=== PATIENT | female | born 1940 | race Caucasian/White ===

== ENCOUNTER 2017-09-28 08:21 | Outpatient (RCR) | payer MEDICARE, OTHER, SELFPAY ==
[2017-09-28 08:59] LABS: International Normalized Ratio 2.5
== END 2017-09-28 08:45 | disposition home or self-care (01) ==
LOC: LAB 08:21
PROVIDERS: Family Provider Family Medicine; PCP Family Medicine; Visit Provider Internal Medicine Cardiovascular Disease
DX: Z79.01 Long term (current) use of anticoagulants (principal)
CPT/HCPCS: 36415; 85610

== ENCOUNTER 2017-11-01 09:39 | Outpatient (RCR) | payer MEDICARE, OTHER, SELFPAY ==
[2017-11-01 11:07] LABS: International Normalized Ratio 2.2; Prothrombin Time (Protime)PT. 24.8 SECONDS (11.7-14.9)
[2017-11-01 11:29] LABS: Anion Gap 6 (5-15); BUN 15 mg/dL (7-18); BUN/Creat Ratio 18.3 RATIO (10-20); Calcium,Total 8.4 mg/dL (8.5-10.1); Chloride 96 mmol/L (98-107); Creatinine, Serum 0.82 mg/dL (0.55-1.02); EST Glomerular Filtration Rate 72 mL/min (>60); Est Glom Filt Rate - Afr Amer 87 mL/min (>60); Glucose 121 mg/dL (74-106); Potassium 4.4 mmol/L (3.5-5.1); Sodium Level 131 mmol/L (136-145)
== END 2017-11-01 10:00 | disposition home or self-care (01) ==
LOC: LAB 09:39
PROVIDERS: Physician Assistant Medical; Family Provider Family Medicine; PCP Family Medicine; Visit Provider Internal Medicine Cardiovascular Disease
DX: Z79.01 Long term (current) use of anticoagulants (principal)
CPT/HCPCS: 36415; 80048; 85610

== ENCOUNTER → 2017-11-09 08:12 | Outpatient (CLI) | payer MEDICARE, OTHER, SELFPAY ==
[2017-11-09 09:42] LABS: BUN 18 mg/dL (7-18); Creatinine, Serum 0.82 mg/dL (0.55-1.02); EST Glomerular Filtration Rate 72 mL/min (>60); Glucose 99 mg/dL (74-106)
[2017-11-09 09:43] LABS: Anion Gap 8 (5-15); BUN/Creat Ratio 22.1 RATIO (10-20); Calcium,Total 8.4 mg/dL (8.5-10.1); Chloride 93 mmol/L (98-107); Est Glom Filt Rate - Afr Amer 87 mL/min (>60); Potassium 4.4 mmol/L (3.5-5.1); Sodium Level 130 mmol/L (136-145)
== END ==
PROVIDERS: Family Provider Family Medicine; PCP Family Medicine; Visit Provider Physician Assistant Medical
DX: E87.1 Hypo-osmolality and hyponatremia (principal)
CPT/HCPCS: 36415; 80048

== ENCOUNTER 2017-12-19 10:47 | Outpatient (RCR) | payer MEDICARE, OTHER, SELFPAY ==
[2017-12-04 11:36] LABS: Prothrombin Time (Protime)PT. 31.3 SECONDS (11.7-14.9)
[2017-12-04 11:50] LABS: Anion Gap 8 (5-15); BUN 15 mg/dL (7-18); BUN/Creat Ratio 19.3 RATIO (10-20); Calcium,Total 8.4 mg/dL (8.5-10.1); Chloride 94 mmol/L (98-107); Creatinine, Serum 0.78 mg/dL (0.55-1.02); EST Glomerular Filtration Rate 76 mL/min (>60); Est Glom Filt Rate - Afr Amer 92 mL/min (>60); Glucose 100 mg/dL (74-106); Potassium 4.3 mmol/L (3.5-5.1); Sodium Level 130 mmol/L (136-145)
[2017-12-19 11:11] LABS: International Normalized Ratio 2.7; Prothrombin Time (Protime)PT. 29.2 SECONDS (11.7-14.9)
== END 2017-12-19 11:00 | disposition home or self-care (01) ==
LOC: LAB 10:47
PROVIDERS: Physician Assistant Medical; Family Provider Family Medicine; PCP Family Medicine; Visit Provider Internal Medicine Cardiovascular Disease
DX: Z79.01 Long term (current) use of anticoagulants (principal)
CPT/HCPCS: 36415; 80048; 85610

== ENCOUNTER → 2017-12-28 08:46 | Outpatient (CLI) | payer MEDICARE, OTHER, SELFPAY ==
[2017-12-28 09:53] LABS: Anion Gap 3 (5-15); BUN 14 mg/dL (7-18); BUN/Creat Ratio 15.4 RATIO (10-20); Calcium,Total 8.4 mg/dL (8.5-10.1); Chloride 102 mmol/L (98-107); Creatinine, Serum 0.91 mg/dL (0.55-1.02); EST Glomerular Filtration Rate 64 mL/min (>60); Est Glom Filt Rate - Afr Amer 77 mL/min (>60); Glucose 116 mg/dL (74-106); Potassium 4.1 mmol/L (3.5-5.1); Sodium Level 135 mmol/L (136-145)
[2017-12-28 10:03] LABS: Microalbumin,Random Urine 70.6 mg/L (NO RANGE EST.)
[2017-12-28 10:04] LABS: Microalbumin:Creatinine Ratio 213.3 mg/g CRE (<30 mg/g CRE)
== END ==
PROVIDERS: Family Provider Family Medicine; PCP Family Medicine; Visit Provider Internal Medicine Nephrology
DX: I10 Essential (primary) hypertension (principal)
CPT/HCPCS: 36415; 80048; 82043; 82570

== ENCOUNTER 2018-01-23 08:44 | Outpatient (RCR) | payer MEDICARE, OTHER, SELFPAY ==
[2018-01-23 09:53] LABS: International Normalized Ratio 2.5; Prothrombin Time (Protime)PT. 27.1 SECONDS (11.7-14.9)
== END 2018-01-23 09:00 | disposition home or self-care (01) ==
LOC: LAB 08:44
PROVIDERS: Family Provider Family Medicine; PCP Family Medicine; Visit Provider Internal Medicine Cardiovascular Disease
DX: Z79.01 Long term (current) use of anticoagulants (principal)
CPT/HCPCS: 36415; 85610

== ENCOUNTER 2018-02-16 23:51 | Emergency (ER) | payer MEDICARE, OTHER, SELFPAY ==
[2018-02-16 23:52] VITALS: BP 204/96; PULSE 79; RESP 15; TEMP 36.9; O2SAT 98; BMI 23.3
[2018-02-17 00:16] VITALS: BP 190/84; PULSE 74; RESP 14; O2SAT 96
--- NOTE | 2018-02-17 00:23 | CT_ITS ---
STUDY: CT BRAIN WITHOUT CONTRAST REASON FOR EXAM: Female, 77 years old. HTN WITH LOVE AND ON COUMADIN, DIZZINESS, NAUSEA, HX CVA, HYSTERECTOMY, ARRYTHMIA'S RADIATION DOSAGE (If Supplied By Facility): CTDIvol = ( 44.99 ) mGy, DLP = ( 762.36 ) mGycm TECHNIQUE: Transaxial CT imaging of the brain was performed without administration of intravenous contrast material. Individualized dose optimization techniques were used for this CT. COMPARISON: None. FINDINGS: Normal soft tissue structures. Normal calvarium. Normal size ventricles and extra-axial spaces for the patient's age. There are areas of decreased attenuation within the white matter tracts of the supratentorial brain, consistent with microvascular disease changes. Normal basal ganglia and thalami. Normal brainstem. Normal cerebellum. There is no intracranial hemorrhage. There are no findings of an acute ischemic infarction. Normal visualized paranasal sinuses. CT/Brain/Head without Contrast IMPRESSION: Chronic involutional changes of the brain. Electronically Signed: Dexter Enciso MD at 2:15 EDT Tel , Service support ,
--- NOTE | 2018-02-17 00:24 | ED.VISSUMM ---
- ER Visit Summary Date of Service: 02/17/18 Chief Complaint: Elevated blood pressure with headache History of Present Illness: The patient is a 77 F treated for chronic hypertension with also history of A. fib on Coumadin. Patient states her blood pressure is elevated at 190/90 at home she had a diffuse headache which was gradual in onset. She denies any neurological symptoms. She denies any fall or head trauma. She denies any chest pain or shortness of breath. Physical Examination: Well appearing elderly female. Vital signs are stable afebrile. Initial blood pressure 204/96. H EENT exam unremarkable. Pupils round reactive light. Extra motions are intact. Normal speech. No facial droop. No facial or head trauma. Neck nontender. Lungs clear to auscultation bilaterally. Heart regular rhythm no murmur currently. Abdomen soft nontender. Moving all 4 extremities. Neurologically she is awake alert with no focal motor deficits. Test Results: CBC normal. BMP shows sodium was low at 127. Otherwise normal BUN and creatinine and gap. INR was 2.7 secondary to her history of being on Coumadin. CAT scan of her brain is read by the radiologist reviewed by me showed chronic changes but no acute process. No acute bleed. Emergency Department Course and Treatment: Elderly female with acute on chronic hypertension with a headache. Due to her being on Coumadin plus her elevation of blood pressure she will undergo a CT of her brain for screening labs. Treatment Plan: Repeat exam patient is doing very well at 03 40 9 in the morning. Her current blood pressure is 139/68 and she was not given any treatment for her blood pressure that came down on its own. Her headache is nearly completely resolved. Her neurologic exam remains normal. I went over all test with both her and her . She does need to have her sodium level rechecked by her primary care physician this week. She will also log her blood pressures and follow-up to see if they may need to make any medication changes Disposition: Discharge Impression: Acute on chronic hypertension Anticoagulated on Coumadin Acute cephalgia Mild hyponatremia This note was generated with Hunger[employer] software. It may contain incorrect words, spelling, and punctuation that were not noted in review of the chart prior to signing ED Disposition - Plan for ED Patient: Chief Complaint: Hypertension Referrals: Dillon Brasher MD [Primary Care Provider] -
[2018-02-17 00:38] LABS: Hematocrit 39.1 % (37-47); Hemoglobin 13.6 g/dl (12.0-15.0); Mean Corp Hgb Conc 34.8 g/gl (32-36); Mean Corpuscular Hgb 31.3 pg (27.0-32.0); Mean Corpuscular Volume 89.9 fL (81-99); Mean Platelet Vol. 10.3 fl (6.2-12.0); Platelet Count 275 K/mm3 (150-450); RBC Distribution Width CV 14.4 % (11.6-14.6); RBC Distribution Width SD 47.1 fl (35.1-43.9); Red Blood Count 4.35 M/mm3 (4.2-5.4)
[2018-02-17 00:49] LABS: Scan Indicated on CBC? Y/N NO
[2018-02-17 01:00] LABS: International Normalized Ratio 2.7; Prothrombin Time (Protime)PT. 28.5 SECONDS (11.7-14.9)
[2018-02-17] MEDS: Acetaminophen 325 MG Tablet 650 MG PO (01:08)
[2018-02-17 02:00] VITALS: BP 150/71; PULSE 75; RESP 18; O2SAT 96
[2018-02-17 02:10] LABS: Anion Gap 6 (5-15); BUN 19 mg/dL (7-18); BUN/Creat Ratio 20.5 RATIO (10-20); Calcium,Total 8.4 mg/dL (8.5-10.1); Chloride 92 mmol/L (98-107); Creatinine, Serum 0.92 mg/dL (0.55-1.02); EST Glomerular Filtration Rate 62 mL/min (>60); Est Glom Filt Rate - Afr Amer 76 mL/min (>60); Glucose 140 mg/dL (74-106); Potassium 4.3 mmol/L (3.5-5.1); Sodium Level 127 mmol/L (136-145)
--- NOTE | 2018-02-17 03:52 | ED.DEP ---
ED Disposition - Plan for ED Patient: Disposition: Home or Assisted Living Chief Complaint: Hypertension Instructions: ED Hypertension Conf Out Of Control, ED Hyponatremia Referrals: Dillon Brasher MD [Primary Care Provider] - As soon as possible Additional Instructions: On follow-up with Dr. Dillon Brasher. You and he can discuss your blood pressure readings and if he may or may not need to change her blood pressure medications. Your sodium level was low today at 127. That needs to be rechecked this week through Dr. Brasher's office. You may add salt to your food this week.
[2018-02-17 03:59] VITALS: BP 136/68; PULSE 80; RESP 16; O2SAT 98
== END 2018-02-17 04:00 | disposition home or self-care (01) ==
PROVIDERS: Emergency Provider Emergency Medicine; Family Provider Family Medicine; PCP Family Medicine
DX: I10 Essential (primary) hypertension (principal); E87.1 Hypo-osmolality and hyponatremia; I48.91 Unspecified atrial fibrillation; Z79.01 Long term (current) use of anticoagulants; Z79.899 Other long term (current) drug therapy; Z86.73 Personal history of transient ischemic attack (TIA), and cerebral infarction without residual deficits; Z90.710 Acquired absence of both cervix and uterus
CPT/HCPCS: 70450; 80048; 85027; 85610; 99285; A4216

== ENCOUNTER 2018-02-19 10:58 | Outpatient (RCR) | payer MEDICARE, OTHER, SELFPAY ==
[2018-02-19 12:17] LABS: International Normalized Ratio 2.6; Prothrombin Time (Protime)PT. 28.3 SECONDS (11.7-14.9)
== END 2018-02-19 12:00 | disposition home or self-care (01) ==
LOC: LAB 10:58
PROVIDERS: Family Provider Family Medicine; PCP Family Medicine; Visit Provider Internal Medicine Cardiovascular Disease
DX: Z79.01 Long term (current) use of anticoagulants (principal)
CPT/HCPCS: 36415; 85610

== ENCOUNTER → 2018-03-04 09:52 | Outpatient (CLI) | payer MEDICARE, OTHER, SELFPAY ==
[2018-03-04 12:27] LABS: Anion Gap 9 (5-15); BUN 15 mg/dL (7-18); Calcium,Total 8.4 mg/dL (8.5-10.1); Chloride 93 mmol/L (98-107); Creatinine, Serum 0.88 mg/dL (0.55-1.02); EST Glomerular Filtration Rate 66 mL/min (>60); Est Glom Filt Rate - Afr Amer 80 mL/min (>60); Glucose 93 mg/dL (74-106); Potassium 4.2 mmol/L (3.5-5.1); Sodium Level 129 mmol/L (136-145)
== END ==
PROVIDERS: Visit Provider Family Medicine
DX: E87.1 Hypo-osmolality and hyponatremia (principal)
CPT/HCPCS: 36415; 80048

== ENCOUNTER → 2018-03-14 11:30 | Outpatient (CLI) | payer MEDICARE, OTHER, SELFPAY ==
[2018-03-14 12:45] LABS: Anion Gap 6 (5-15); BUN 18 mg/dL (7-18); BUN/Creat Ratio 20.3 RATIO (10-20); Calcium,Total 8.5 mg/dL (8.5-10.1); Chloride 96 mmol/L (98-107); Creatinine, Serum 0.89 mg/dL (0.55-1.02); EST Glomerular Filtration Rate 65 mL/min (>60); Est Glom Filt Rate - Afr Amer 79 mL/min (>60); Glucose 98 mg/dL (74-106); Potassium 4.3 mmol/L (3.5-5.1); Sodium Level 132 mmol/L (136-145)
== END ==
PROVIDERS: Family Provider Family Medicine; PCP Family Medicine; Visit Provider Family Medicine
DX: E87.1 Hypo-osmolality and hyponatremia (principal)
CPT/HCPCS: 36415; 80048

== ENCOUNTER → 2018-03-19 13:39 | Outpatient (CLI) | payer MEDICARE, OTHER, SELFPAY | PROVIDERS: Family Provider Family Medicine; PCP Family Medicine; Visit Provider Family Medicine | DX: R39.9 Unspecified symptoms and signs involving the genitourinary system (principal) | CPT/HCPCS: 87077; 87086; 87088; 87186 ==

== ENCOUNTER 2018-03-26 09:25 | Outpatient (RCR) | payer MEDICARE, OTHER, SELFPAY ==
[2018-03-26 10:53] LABS: International Normalized Ratio 2.7; Prothrombin Time (Protime)PT. 28.9 SECONDS (11.7-14.9)
[2018-03-26 11:00] LABS: Albumin, Serum 3.7 g/dL (3.2-5.0); BUN 13 mg/dL (7-18); BUN/Creat Ratio 14.9 RATIO (10-20); Calcium,Total 8.7 mg/dL (8.5-10.1); Chloride 94 mmol/L (98-107); Creatinine, Serum 0.87 mg/dL (0.55-1.02); EST Glomerular Filtration Rate 67 mL/min (>60); Est Glom Filt Rate - Afr Amer 81 mL/min (>60); Glucose 128 mg/dL (74-106); Phosphorus 3.5 mg/dL (2.5-4.9); Potassium 4.3 mmol/L (3.5-5.1); Sodium Level 131 mmol/L (136-145)
== END 2018-03-26 11:00 | disposition home or self-care (01) ==
LOC: LAB 09:25
PROVIDERS: Family Provider Family Medicine; PCP Family Medicine; Visit Provider Internal Medicine Cardiovascular Disease
DX: I10 Essential (primary) hypertension (principal); Z79.01 Long term (current) use of anticoagulants
CPT/HCPCS: 36415; 80069; 85610

== ENCOUNTER → 2018-04-02 09:11 | Outpatient (CLI) | payer MEDICARE, OTHER, SELFPAY ==
[2018-04-02 11:04] LABS: Anion Gap 5 (5-15); BUN 17 mg/dL (7-18); BUN/Creat Ratio 18.4 RATIO (10-20); Chloride 96 mmol/L (98-107); Cholesterol 134 mg/dL (200); Creatinine, Serum 0.92 mg/dL (0.55-1.02); EST Glomerular Filtration Rate 62 mL/min (>60); Est Glom Filt Rate - Afr Amer 76 mL/min (>60); Glucose 108 mg/dL (74-106); High Density Lipoprotein 45 mg/dL; Potassium 4.5 mmol/L (3.5-5.1); Sodium Level 131 mmol/L (136-145); Triglycerides 104 mg/dL; Very Low Density Lipoprotein 21 mg/dL (5-40)
== END ==
PROVIDERS: Family Provider Family Medicine; PCP Family Medicine; Visit Provider Family Medicine
DX: I10 Essential (primary) hypertension (principal)
CPT/HCPCS: 36415; 80048; 80061

== ENCOUNTER 2018-05-03 09:41 | Outpatient (RCR) | payer MEDICARE, OTHER, SELFPAY ==
[2018-04-25 15:29] LABS: International Normalized Ratio 2.4; Prothrombin Time (Protime)PT. 26.3 SECONDS (11.7-14.9)
[2018-05-03 11:02] LABS: International Normalized Ratio 2.6; Prothrombin Time (Protime)PT. 27.8 SECONDS (11.7-14.9)
== END 2018-05-03 11:00 | disposition home or self-care (01) ==
LOC: LAB 09:41
PROVIDERS: Family Provider Family Medicine; PCP Family Medicine; Visit Provider Internal Medicine Cardiovascular Disease
DX: Z79.01 Long term (current) use of anticoagulants (principal); I10 Essential (primary) hypertension
CPT/HCPCS: 36415; 85610

== ENCOUNTER 2018-05-21 07:21 | Outpatient (RCR) | payer MEDICARE, OTHER, SELFPAY ==
[2018-05-14 15:39] LABS: International Normalized Ratio 2.5; Prothrombin Time (Protime)PT. 27.4 SECONDS (11.7-14.9)
[2018-05-21 08:32] LABS: International Normalized Ratio 2.3; Prothrombin Time (Protime)PT. 25.6 SECONDS (11.7-14.9)
== END 2018-06-02 11:38 | disposition home or self-care (01) ==
LOC: LAB 07:21
PROVIDERS: Family Provider Family Medicine; PCP Family Medicine; Visit Provider Internal Medicine Cardiovascular Disease
DX: Z79.01 Long term (current) use of anticoagulants (principal); I10 Essential (primary) hypertension
CPT/HCPCS: 36415; 85610

== ENCOUNTER → 2018-05-24 09:49 | Outpatient (CLI) | payer MEDICARE, OTHER, SELFPAY | PROVIDERS: Family Provider Family Medicine; PCP Family Medicine; Visit Provider Family Medicine | DX: N39.0 Urinary tract infection, site not specified (principal) | CPT/HCPCS: 87086; 87088; 87186 ==

== ENCOUNTER → 2018-06-26 12:06 | Outpatient (CLI) | payer MEDICARE, OTHER, SELFPAY | PROVIDERS: Family Provider Family Medicine; PCP Family Medicine; Referring Provider Nurse Practitioner Family; Visit Provider Nurse Practitioner Family | DX: N39.0 Urinary tract infection, site not specified (principal) | CPT/HCPCS: 87086; 87088; 87186 ==

== ENCOUNTER 2018-07-01 09:53 | Outpatient (RCR) | payer MEDICARE, OTHER, SELFPAY ==
[2018-06-05 13:13] LABS: International Normalized Ratio 2.9; Prothrombin Time (Protime)PT. 30.1 SECONDS (11.7-14.9)
[2018-06-26 12:39] LABS: Prothrombin Time (Protime)PT. 35.2 SECONDS (11.7-14.9)
[2018-06-26 12:42] LABS: International Normalized Ratio 3.5
[2018-07-01 10:47] LABS: International Normalized Ratio 2.9; Prothrombin Time (Protime)PT. 30.7 SECONDS (11.7-14.9)
== END 2018-07-01 11:00 | disposition home or self-care (01) ==
LOC: LAB 09:53
PROVIDERS: Family Provider Family Medicine; PCP Family Medicine; Referring Provider Internal Medicine Cardiovascular Disease; Visit Provider Internal Medicine Cardiovascular Disease
DX: Z79.01 Long term (current) use of anticoagulants (principal); N39.0 Urinary tract infection, site not specified
CPT/HCPCS: 36415; 85610; 87086

== ENCOUNTER → 2018-07-02 07:09 | Outpatient (CLI) | payer MEDICARE, OTHER, SELFPAY ==
--- NOTE | 2018-07-02 07:14 | ECHOD_ITS ---
Reason For Study: DYSPNEA/SOB Procedure This was a 2D Doppler, Color Flow transthoracic echocardiogram. The exam was of adequate technical quality. Exam performed in department. Left Ventricle Normal LV size. Left ventricular systolic function is normal. The estimated ejection fraction is 55 %. Diastolic function is indeterminate. No regional wall motion abnormalities noted. Right Ventricle Normal RV size. Normal systolic function. Atria The left atrium is mildly enlarged. The right atrium is mildly enlarged. No doppler evidence for ASD. Mitral Valve There is no mitral annular calcification. Mild diffuse mitral valve thickening. The mitral papillary muscle appears thickened and/or calcified. Mild-Moderate (1-2+) mitral valve insufficiency. Tricuspid Valve Normal tricuspid valve. Mild tricuspid valve insufficiency. Right ventricular systolic pressure estimated to be 27 mmHg. Aortic Valve Trisinus/trileaflet aortic valve. Mild diffuse aortic valve thickening. Pulmonic Valve The pulmonic valve is not well visualized. Trivial pulmonic valve insufficiency. Great Vessels Normal sized aortic root. Pericardium/Pleural No pericardial effusion. MMode/2D Measurements & Calculations LVIDd: 4.6 cm IVSd: 1.1 cm Ao root diam: 3.1 cm LVIDs: 2.8 cm LVPWd: 1.0 cm RVDd: 2.5 cm FS: 38.5 % LAV(MOD-bp): 44.7 ml LA A4 area: 15.5 cm2 LA dimension(2D): 4.1 cm LAV(MOD-bp) Indexed: 25.4 ml/m2 LAV(MOD-sp2): 47.4 ml LAV(MOD-sp4): 42.1 ml RA A4 area: 15.0 cm2 Doppler Measurements & Calculations MV E max navarro: 87.7 cm/sec Lat Peak E' Navarro: 7.9 cm/sec Med Peak E' Navarro: 6.4 cm/sec E/E' lat: 11.1 E/E' med: 13.8 Ao V2 max: 92.6 cm/sec LV V1 max: 85.1 cm/sec PA V2 max: 72.3 cm/sec Ao max P.4 mmHg LV V1 max P.9 mmHg TR max navarro: 243.7 cm/sec TR max P.8 mmHg Interpretation Summary Left ventricular systolic function is normal. The estimated ejection fraction is 55 %. The left atrium is mildly enlarged. The right atrium is mildly enlarged. Mild diffuse mitral valve thickening. The mitral papillary muscle appears thickened and/or calcified. Mild-Moderate (1-2+) mitral valve insufficiency. Mild tricuspid valve insufficiency. Mild diffuse aortic valve thickening. Trivial pulmonic valve insufficiency. Right ventricular systolic pressure estimated to be 27 mmHg. Diastolic function is indeterminate. Ordering Physician: Dillon Sanchez Referring Physician: Dillon Brasher Performed By: Nancy Kirkland, CAREN, RVT
--- NOTE | 2018-07-02 11:01 | BI_ITS ---
MAMMOGRAPHY - BILATERAL SCREENING REASON FOR EXAM: Female, 78 years old. Routine annual screening examination. PERTINENT HISTORY: Non-contributory. Remote right excisional breast biopsy. TECHNIQUE: Digital bilateral breast cristina (3D mammographic acquisition) in the CC and MLO projections. 2-D mediolateral oblique (MLO) and craniocaudad (CC) views of both breasts were obtained. CAD: Full Field Digital Mammography with Computer Added Detection was performed. COMPARISON: Comparison is made with prior outside examination dated August 28, 2014. FINDINGS: Breast Composition: There are scattered areas of fibroglandular density. There are no dominant masses or suspicious calcifications. No other significant abnormalities are identified. There has been no significant change since the prior study. BI/SCREENING MAMM (CAD), BILAT IMPRESSION: Stable bilateral screening mammogram. Yearly follow-up mammogram recommended. (A) ASSESSMENT CATEGORY: BIRADS Category 1: Negative. A letter regarding these results will be sent to the patient by the facility within 30 days. Approximately 10% of breast cancers are not detected by mammography. A normal mammogram should not delay biopsy of a clinically suspicious abnormality. [id number] Electronically Signed: Eber Cruz MD at 13:17 EDT Tel [phone], Service support ,
--- NOTE | 2018-07-02 14:52 | STRESSREP ---
Stress Test Report Date: 07/02/2018 Procedure: Pharmacologic stress nuclear imaging study Indications: Shortness of breath/dyspnea on exertion; atrial fibrillation/flutter Consent: Per the patient Procedure: The patient underwent pharmacologic (Regadenoson) evaluation with a peak heart rate of 98 beats per minute (69 predicted maximal heart rate) and a peak blood pressure of 124/86 mmHg. The baseline ECG demonstrated atrial flutter with nonspecific ST and T wave abnormality. The peak pharmacologic ECG demonstrated continued nonspecific ST and T wave abnormality. There were no additional cardiac dysrhythmias. There was no complaint of chest discomfort during pharmacologic infusion or recovery. The examination was discontinued secondary to completion of protocol. Impression: 1. Pharmacologic (Regadenoson) evaluation 2. Peak pharmacologic ECG with continued atrial flutter with nonspecific ST and T wave abnormality. 3. There were no additional cardiac dysrhythmias. 4. Nuclear images pending Myocardial perfusion imaging study: Technique: The patient was injected with 11.4 millicuries of technetium 99m Cardiolite and subsequently rest SPECT Cardiolite nuclear imaging was obtained in the horizontal long, vertical long, and short axis views. The patient underwent pharmacologic (Regadenoson) evaluation with a peak heart rate of 98 beats per minute (69 % percent predicted maximal heart rate) and a peak blood pressure of 124/86 mmHg. The patient was injected with 33.7 millicuries of technetium 99m Cardiolite and subsequently stress SPECT Cardiolite nuclear imaging was obtained in the horizontal long, vertical long, and short axis views. A gated Cardiolite study at peak stress was obtained. Interpretation: Rest and stress SPECT Cardiolite nuclear imaging status post realignment, normalization, and attenuation correction demonstrate areas of extracardiac/gastrointestinal tracer uptake near the inferior segments and otherwise appear to demonstrate relative uniform tracer uptake and myocardial perfusion appearing within normal limits. There is end systolic thickening and brightening. The gated Cardiolite study demonstrates myocardial thickening and inward wall motion. The reported LVEF is 44 %. Impression: 1. Rest and stress SPECT Cardiolite nuclear imaging demonstrate relative uniform tracer uptake and myocardial perfusion appearing within normal limits. 2. The gated Cardiolite study reports an LVEF of 44 %. This note was generated with [employer] software. It may contain incorrect words, spelling, and punctuation that were not noted in checking the note before signing.
== END ==
PROVIDERS: Family Provider Family Medicine; PCP Family Medicine; Referring Provider Internal Medicine Cardiovascular Disease; Visit Provider Family Medicine
DX: Z12.31 Encounter for screening mammogram for malignant neoplasm of breast (principal); I48.91 Unspecified atrial fibrillation; I34.1 Nonrheumatic mitral (valve) prolapse; I10 Essential (primary) hypertension; E78.5 Hyperlipidemia, unspecified; R06.09 Other forms of dyspnea
CPT/HCPCS: 77063; 77067; 78452; 93017; 93306; A9500; A4216; J2785

== ENCOUNTER → 2018-07-04 13:49 | Outpatient (CLI) | payer MEDICARE, OTHER, SELFPAY | PROVIDERS: Family Provider Family Medicine; PCP Family Medicine; Referring Provider Internal Medicine Cardiovascular Disease; Visit Provider Internal Medicine Cardiovascular Disease | DX: I48.91 Unspecified atrial fibrillation (principal); I25.10 Atherosclerotic heart disease of native coronary artery without angina pectoris; I49.1 Atrial premature depolarization; I49.3 Ventricular premature depolarization | CPT/HCPCS: 93225; 93226 ==

== ENCOUNTER → 2018-07-19 15:06 | Outpatient (CLI) | payer MEDICARE, OTHER, SELFPAY ==
[2018-07-19 11:16] VITALS: BMI 22.7
== END ==
PROVIDERS: Visit Provider Obstetrics & Gynecology
DX: N39.0 Urinary tract infection, site not specified (principal)
CPT/HCPCS: 87086; 87088

== ENCOUNTER 2018-07-30 07:52 | Outpatient (RCR) | payer MEDICARE, OTHER, SELFPAY ==
[2018-07-16 10:52] LABS: International Normalized Ratio 2.8; Prothrombin Time (Protime)PT. 29.3 SECONDS (11.7-14.9)
[2018-07-23 09:30] LABS: International Normalized Ratio 3.1; Prothrombin Time (Protime)PT. 32.2 SECONDS (11.7-14.9)
[2018-07-23 09:43] LABS: Anion Gap 4 (5-15); BUN 12 mg/dL (7-18); BUN/Creat Ratio 13.9 RATIO (10-20); Calcium,Total 8.5 mg/dL (8.5-10.1); Chloride 101 mmol/L (98-107); Creatinine, Serum 0.86 mg/dL (0.55-1.02); EST Glomerular Filtration Rate 67 mL/min (>60); Est Glom Filt Rate - Afr Amer 82 mL/min (>60); Glucose 122 mg/dL (74-106); Sodium Level 136 mmol/L (136-145)
[2018-07-30 09:25] LABS: International Normalized Ratio 2.8
== END 2018-08-02 11:18 | disposition home or self-care (01) ==
LOC: LAB 07:52
PROVIDERS: Family Provider Family Medicine; PCP Family Medicine; Referring Provider Internal Medicine Cardiovascular Disease; Visit Provider Internal Medicine Cardiovascular Disease
DX: Z79.01 Long term (current) use of anticoagulants (principal); N39.0 Urinary tract infection, site not specified
CPT/HCPCS: 36415; 80048; 85610

== ENCOUNTER 2018-08-13 10:23 | Day surgery (SDC) | payer MEDICARE, OTHER, SELFPAY ==
[2018-07-19 11:16] VITALS: BMI 22.7
[2018-08-12 10:03] VITALS: BMI 22.7
[2018-08-13 10:36] LABS: Prothrombin Time Fingerstick 26.7 SEC (11.9-14.4)
--- NOTE | 2018-08-13 14:14 | PCM.OP.BLANK ---
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 Qualifiers: Comment: not angiographically significant on a cath in 2007 (7) DM type 2 (diabetes mellitus, type 2) Status: Chronic Comment: diet controlled (8) HLD (hyperlipidemia) Status: Chronic Qualifiers: (9) HTN (hypertension) Status: Chronic Qualifiers: (10) Mitral valve prolapse Status: Chronic Operative Report Date of Procedure: 08/13/18 - Conscious sedation CONSCIOUS SEDATION REPORT BRIEF HISTORY OF PRESENT ILLNESS: The patient is a 78-year-old female who presented to [facility] for an elective outpatient cardioversion due to underlying atrial fibrillation. The patient reports no PO intake since midnight. The patient does not have a history of obstructive sleep apnea. The patient reports no history of smoking and COPD. The patient denies any recent constitutional symptoms such as fevers, chills, nausea or vomiting. The patient denies previous anesthetic complications. Last known ejection fraction of 55% PHYSICAL EXAMINATION: VITAL SIGNS: Reviewed and were acceptable. GENERAL: The patient is a female, in no apparent distress, speaking in full sentences. HEENT: Normocephalic, atraumatic. Mucous membranes are moist and pink. Good mouth opening noted. Trachea is midline. Good neck mobility. MP II CHEST: S1, S2 irregularly irregular. No murmurs, rubs or gallops were noted. LUNGS: Clear to auscultation bilaterally without appreciable wheezes, rales or rhonchi. ABDOMEN: Soft, nontender, nondistended. Positive bowel sounds. EXTREMITIES: There is no clubbing, cyanosis or edema. ASA Class: II DESCRIPTION OF PROCEDURE: After confirmation of informed consent, the patient's anesthesia plan was reviewed in detail. Propofol was chosen. Risks and benefits were reviewed and the patient agreed to proceed. At 11:29 AM, the patient was given 40 mg of propofol. The patient required a total of 50 mg of propofol throughout the procedure to achieve appropriate sedation. The patient achieved an appropriate level of sedation and received 1 attempt s synchronized cardioversion, at [address] Sanchez at the bedside. This was successful in achieving normal sinus rhythm. The patient was monitored until 11:38 AM, at which time the patient reached their baseline mental status and function. The patient tolerated the procedure well. COMPLICATIONS: None ESTIMATED BLOOD LOSS: None RECOMMENDATIONS: Okay to recover in usual fashion. Code Visit 9xxxx: Other Procedure See Report - 55036 -9 minutes of conscious sedation
--- NOTE | 2018-08-13 14:17 | OP.PCM_ITS ---
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 The patient reports no PO intake since midnight. The patient does not have a history of obstructive sleep apnea. The patient reports no history of smoking and COPD. The patient denies any recent constitutional symptoms such as fevers, chills, nausea or vomiting. The patient denies previous anesthetic complications. Last known ejection fraction of 55% PHYSICAL EXAMINATION: VITAL SIGNS: Reviewed and were acceptable. GENERAL: The patient is a female, in no apparent distress, speaking in full sentences. HEENT: Normocephalic, atraumatic. Mucous membranes are moist and pink. Good mouth opening noted. Trachea is midline. Good neck mobility. MP II CHEST: S1, S2 irregularly irregular. No murmurs, rubs or gallops were noted. LUNGS: Clear to auscultation bilaterally without appreciable wheezes, rales or rhonchi. ABDOMEN: Soft, nontender, nondistended. Positive bowel sounds. EXTREMITIES: There is no clubbing, cyanosis or edema. ASA Class: II DESCRIPTION OF PROCEDURE: After confirmation of informed consent, the patient's anesthesia plan was reviewed in detail. Propofol was chosen. Risks and benefits were reviewed and the patient agreed to proceed. At 11:29 AM, the patient was given 40 mg of propofol. The patient required a total of 50 mg of propofol throughout the procedure to achieve appropriate sedation. The patient achieved an appropriate level of sedation and received 1 attempt s synchronized cardioversion, at [address] Sanchez at the bedside. This was successful in achieving normal sinus rhythm. The patient was monitored until 11:38 AM, at which time the patient reached their baseline mental status and function. The patient tolerated the procedure well. COMPLICATIONS: None ESTIMATED BLOOD LOSS: None RECOMMENDATIONS: Okay to recover in usual fashion. Code Visit 9xxxx: Other Procedure See Report - 46662 -9 minutes of conscious sedation
--- NOTE | 2018-08-13 16:19 | OP.PCM_ITS ---
Problem List (1) Atrial fibrillation Status: Acute Qualifiers: Atrial fibrillation type: chronic Qualified Code(s): I48.2 - Chronic atrial fibrillation Operative Report Date of Procedure: 08/13/18 Procedure: Synchronized Biphasic DC Cardioversion Indications: Atrial fibrillation/flutter Consent: Per the Patient Anesthesia: per Dr. Fritz of pulmonology and critical care medicine with propofol 50 mg IV push total Procedure: Synchronized Biphasic DC Cardioversion: 200 J x1: Result: Sinus rhythm; PACs Complications: no apparent complications This note was generated with [employer] Command dictation software. It may contain incorrect words, spelling, and punctuation that were not noted in checking the note before signing.
--- OUTSIDE RECORDS SUMMARY | 2018-09-29 10:48 | XMS RPT_ITS ---
:1940 Author Organization OHIP Support Name Relationship Address Phone IVY CHAPPELL Unavailable [address] + [place] [address] R Unavailable Unavailable Unavailable CHAPPELL, IVY Unavailable [address] + [place] [address] R Unavailable Unavailable Unavailable CHAPPELL, IVY Unavailable [address] + [place] [address] R Unavailable Unavailable Unavailable CHAPPELL, IVY Unavailable [address] + [place] [address] R Unavailable Unavailable Unavailable CHAPPELL, IVY Unavailable [address] + [place] [address] R Unavailable Unavailable Unavailable CHAPPELL, IVY Unavailable [address] + [place] [address] R Unavailable Unavailable Unavailable CHAPPELL, IVY Unavailable [address] + [place] [address] R Unavailable Unavailable Unavailable CHAPPELL, IVY Unavailable [address] + [place] [address] R Unavailable Unavailable Unavailable CHAPPELL, IVY Unavailable [address] + [place] [address] R Unavailable Unavailable Unavailable CHAPPELL, IVY Unavailable [address] + [place] [address] R Unavailable Unavailable Unavailable CHAPPELL, IVY Unavailable [address] + [place] [address] R Unavailable Unavailable Unavailable CHAPPELL, IVY Unavailable [address] + [place] [address] R Unavailable Unavailable Unavailable CHAPPELL, IVY Unavailable [address] + [place] [address] R Unavailable Unavailable Unavailable CHAPPELL, IVY Unavailable [address] + [place] [address] R Unavailable Unavailable Unavailable CHAPPELL, IVY Unavailable [address] + [place] [address] R Unavailable Unavailable Unavailable CHAPPELL, IVY Unavailable [address] + [place] [address] R Unavailable Unavailable Unavailable CHAPPELL, IVY Unavailable [address] + [place] [address] R Unavailable Unavailable Unavailable CHAPPELL, IVY Unavailable [address] + [place] [address] R Unavailable Unavailable Unavailable CHAPPELL, IVY Unavailable [address] + [place] [address] R Unavailable Unavailable Unavailable CHAPPELL, IVY Unavailable [address] + [place] [address] R Unavailable Unavailable Unavailable CHAPPELL, IVY Unavailable [address] + [place] [address] R Unavailable Unavailable Unavailable CHAPPELL, IVY Unavailable [address] + [place] [address] R Unavailable Unavailable Unavailable CHAPPELL, IVY Unavailable [address] + [place] [address] R Unavailable Unavailable Unavailable CHAPPELL, IVY Unavailable [address] + [place] [address] R Unavailable Unavailable Unavailable CHAPPELL, IVY Unavailable [address] + [place] [address] R Unavailable Unavailable Unavailable CHAPPELL, IVY Unavailable [address] + [place] [address] R Unavailable Unavailable Unavailable CHAPPELL, IVY Unavailable [address] + [place] [address] R Unavailable Unavailable Unavailable CHAPPELL, IVY Unavailable [address] + [place] [address] R Unavailable Unavailable Unavailable CHAPPELL, IVY Unavailable [address] + [place] [address] R Unavailable Unavailable Unavailable CHAPPELL, IVY Unavailable [address] + [place] [address] R Unavailable Unavailable Unavailable CHAPPELL, IVY Unavailable [address] + [place] [address] R Unavailable Unavailable Unavailable CHAPPELL, IVY Unavailable [address] + [place] [address] R Unavailable Unavailable Unavailable CHAPPELL, IVY Unavailable [address] + [place] [address] R Unavailable Unavailable Unavailable CHAPPELL, IVY Unavailable [address] + [place] [address] R Unavailable Unavailable Unavailable CHAPPELL, IVY Unavailable [address] + [place] [address] R Unavailable Unavailable Unavailable CHAPPELL, IVY Unavailable [address] + [place] [address] R Unavailable Unavailable Unavailable CHAPPELL, IVY Unavailable [address] + [place] [address] R Unavailable Unavailable Unavailable CHAPPELL, IVY Unavailable [address] + [place] [address] R Unavailable Unavailable Unavailable CHAPPELL, IVY Unavailable [address] + [place] [address] R Unavailable Unavailable Unavailable Care Team Providers Name Role Phone Dillon Doherty Attending Unavailable Dillon Doherty Referring Unavailable Dillon Brasher Primary Care Unavailable Dillon Doherty Consulting Unavailable Leno Fritz Attending Unavailable Dillon Doherty Referring Unavailable Dillon Brasher Primary Care Unavailable Dillon Doherty Consulting Unavailable Dillon Doherty Attending Unavailable Dillon Brasher Referring Unavailable Dillon Doherty Attending Unavailable Dillon Doherty Referring Unavailable Dillon Brasher Primary Care Unavailable Dillon Doherty Attending Unavailable Dillon Brasher Referring Unavailable Libra Beckwith Attending Unavailable Libra Beckwith Referring Unavailable Dillon Brasher Primary Care Unavailable Dillon Doherty Attending Unavailable Dillon Doherty Referring Unavailable Dillon Brasher Primary Care Unavailable Olivia Bowen Consulting Unavailable Tanphaichitr, Natthavat Consulting Unavailable Dillon Doherty Attending Unavailable Dillon Doherty Referring Unavailable Dillon Brasher Primary Care Unavailable Olivia Bowen Consulting Unavailable Jacquelyn, Jayaprakash Consulting Unavailable Mark, Olivia Attending Unavailable Olivia Bowen Attending Unavailable Olivia Bowen Referring Unavailable Dillon Brasher Primary Care Unavailable Moodisnelson, Dillon Attending Unavailable MoodisDillon damon Referring Unavailable Brasher, Dillon Primary Care Unavailable Olivia Bowen Consulting Unavailable Jacquelyn, Jayaprakash Consulting Unavailable Kieran Stratton Attending Unavailable Sameera, Dillon Referring Unavailable Moodispavalerio, Dillon Attending Unavailable Moodisnelson, Dillon Referring Unavailable Brasher, Dillon Primary Care Unavailable Libra Beckwith Consulting Unavailable Laura, Dillon Attending Unavailable Moodisnelson, Dillon Referring Unavailable Jacquelyn, Simi Attending Unavailable Jacquelyn, Simi Referring Unavailable Sameera, Dillon Primary Care Unavailable Laura, Dillon Attending Unavailable Moodelza, Dillon Referring Unavailable Sameera, Dillon Primary Care Unavailable Olivia Bowen Consulting Unavailable Jacquelyn, Jayaprayolandash Consulting Unavailable Laura, Dillon Attending Unavailable MoodDillon bertrand Referring Unavailable Sameera, Dillon Primary Care Unavailable Olivia Bowen Consulting Unavailable Jacquelyn, Jayaprakash Consulting Unavailable Sameera, Dillon Primary Care Unavailable Cain Hernandez Attending Unavailable Laura, Dillon Attending Unavailable Dillon Doherty Referring Unavailable Sameera, Dillon Primary Care Unavailable Olivia Bowen Consulting Unavailable Jacquelyn, Jayaprakash Consulting Unavailable Sameera, Dillon Attending Unavailable Brasher, Dillon Attending Unavailable Dillon Brasher Primary Care Unavailable Pennie Kelley Attending Unavailable Dillon Brasher Primary Care Unavailable Sameera, Dillon Attending Unavailable Sameera, Dillon Primary Care Unavailable Moodisnelson, Dillon Attending Unavailable MoodisDillon damon Referring Unavailable Brasher, Dillon Primary Care Unavailable Olivia Bowen Consulting Unavailable Jacquelyn, Jayaprakash Consulting Unavailable Olivia Mark Attending Unavailable MoodisDillon damon Attending Unavailable Dillon Brasher Referring Unavailable Brasher, Dillon Primary Care Unavailable Dillon Doherty Attending Unavailable MoodisDillon damon Referring Unavailable Sameera, Dillon Primary Care Unavailable Olivia Bowen Consulting Unavailable Jacquelyn, Jayaprakash Consulting Unavailable Dillon Brasher Attending Unavailable Dillon Brasher Primary Care Unavailable Laura, Dillon Attending Unavailable MoodisDillon damon Referring Unavailable Sameera, Dillon Primary Care Unavailable Olivia Bowen Consulting Unavailable Jacquelyn, Jayaprakash Consulting Unavailable Yanes, Hank Attending Unavailable Hank Yanes Referring Unavailable Sameera, Dillon Primary Care Unavailable Moodispaw, Dillon Referring Unavailable Brasher, Dillon Primary Care Unavailable Brasher, Dillon Attending Unavailable Moodispaw, Dillon Attending Unavailable Moodispaw, Dillon Referring Unavailable Brasher, Dillon Primary Care Unavailable Brasher, Dillon Consulting Unavailable Moodispaw, Dillon Attending Unavailable Moodispaw, Dillon Referring Unavailable Brasher, Dillon Primary Care Unavailable Moodispaw, Dillon Attending Unavailable Moodispaw, Dillon Referring Unavailable Brasher, Dillon Primary Care Unavailable Olivia Bowen Consulting Unavailable Jacquelyn, Jayachelysh Consulting Unavailable Moodispaw, Dillon Attending Unavailable Brasher, Dillon Referring Unavailable Seals, Mitchell Attending Unavailable Moodispaw, Dillon Attending Unavailable Moodispaw, Dillon Referring Unavailable Moodispaw, Dillon Attending Unavailable Moodispaw, Dillon Referring Unavailable Brasher, Dillon Primary Care Unavailable Libra Beckwith Consulting Unavailable Moodispaw, Dillon Attending Unavailable Moodispaw, Dillon Referring Unavailable Brasher, Dillon Primary Care Unavailable PROBLEMS PROBLEMS DATE TYPE CONDITION / CODE ATTENDING STATUS SOURCE 09/02/2018 Unknown Z79.01 - [facility] MoodisDillon damon Active [facility] (current) use of Community anticoagulants / Hospital Z79.01(ICD-10) Repository 08/26/2018 Unknown I48.91 - Unspecified Moodisnelson, Dillon Active [facility] atrial fibrillation / Community I48.91(ICD-10) Hospital Repository 08/26/2018 Unknown I25.10 - MoodisDillon damon Active [facility] Atherosclerotic heart Community disease of [facility] coronary artery Repository without angina pectoris / I25.10(ICD-10) 08/26/2018 Unknown I48.92 - Unspecified Moodispavalerio, Dillon Active [facility] atrial flutter / Community I48.92(ICD-10) Hospital Repository 08/15/2018 Unknown I49.1 - Atrial Moodispavalerio, Dillon Active [facility] premature Community depolarization / Hospital I49.1(ICD-10) Repository 08/15/2018 Unknown R00.1 - Bradycardia, MoodispaDillon luo Active [facility] unspecified / Community R00.1(ICD-10) Hospital Repository 08/15/2018 Unknown I38 - Endocarditis, Moodispavalerio, Dillon Active [facility] valve unspecified / Community I38(ICD-10) Hospital Repository 07/19/2018 Unknown N39.0 - Urinary tract Seals, Mitchell Active [facility] infection, site not Community specified / Hospital N39.0(ICD-10) Repository 07/02/2018 Unknown I34.1 - Nonrheumatic MoodisDillon damon Active [facility] mitral (valve) Community prolapse / Hospital I34.1(ICD-10) Repository 07/02/2018 Unknown I10 - Essential MoodispaDillon luo Active [facility] (primary) Community hypertension / Hospital I10(ICD-10) Repository 07/02/2018 Unknown E78.5 - MoodispaDillon luo Active [facility] Hyperlipidemia, Community unspecified / Hospital E78.5(ICD-10) Repository 07/02/2018 Unknown R06.09 - Other forms DarrinisDillon damon Active [facility] of dyspnea / Community R06.09(ICD-10) Hospital Repository 07/02/2018 Unknown Z12.31 - Encounter Dillon Doherty Active [facility] for screening Community mammogram for Hospital malignant neoplasm of Repository breast / Z12.31(ICD-10) 04/10/2018 Unknown I49.3 - Ventricular MoodispaDillon luo Active [facility] premature Community depolarization / Hospital I49.3(ICD-10) Repository 03/19/2018 Unknown R39.9 - Unspecified Pennie Kelley Active [facility] symptoms and signs Community involving the Hospital genitourinary system Repository / R39.9(ICD-10) 03/04/2018 Unknown E87.1 - BrasherDillon etienne Active [facility] Hypo-osmolality and Community hyponatremia / Hospital E87.1(ICD-10) Repository 10/04/2017 Unknown I48.0 - Paroxysmal MoodispaDillon luo Active [facility] atrial fibrillation / Community I48.0(ICD-10) Hospital Repository 10/04/2017 Unknown I63.9 - Cerebral MoodispaDillon luo Active [facility] infarction, Community unspecified / Hospital I63.9(ICD-10) Repository PROCEDURES PROCEDURES No Procedure Records FoundRESULTS RESULTS PROTHROMBIN TIME W/INR Collected: 09/13/2018 Status: F Source: [place] 10:22 AM [facility] HOSPITAL REPOSITORY Order Comment: Comments: STANDING ORDER Comments: STANDING ORDER TYPE CODE TESTS RESULT OUT OF RANGE REFERENCE UNITS LAB L300.4150 11.7-14.9 SECONDS High PROTIME 27.8 LAB L300.4200 Normal INR 2.6 Performed By: #### L300.3900 #### [facility] [address] [place], [address] ABDOMEN/PELVIS WITH Observed: 09/04/2018 Status: F Source: [place] CONTRAST 7:23 AM [facility] Imaging Services [address] [place] [address] Abdomen/Pelvis WITH Contrast MR#: [id number] Acct: [id number] Name: KENDRA CHAPPELL V Rep #: [id number] : 1940 F 78 From: Demond Weaver MD PCP: Dillon Brasher MD Status: REG CLI Study: Abdomen/Pelvis WITH Contrast Date of Exam: 09/04/18 Exam# [id number] Ordering Dr: Libra Beckwith MD STUDY: CT ABDOMEN AND PELVIS WITH CONTRAST REASON FOR EXAM: Female, 78 years old. Gross hematuria RADIATION DOSAGE (If Supplied By Facility): CTDIvol = ( 21.65 ) mGy, DLP = ( 2406.75 ) mGycm TECHNIQUE: Transaxial images were obtained from the dome of the diaphragm to the symphysis pubis without oral contrast. 100 ml of Isovue 300 contrast was administered. Sagittal and coronal images were reconstructed. Individualized dose optimization techniques were used for this CT. COMPARISON: None. FINDINGS: The visualized lung bases are unremarkable. The visualized portions of the heart are within normal limits. Normal liver. There are surgical clips in the gallbladder fossa consistent with a prior cholecystectomy. Normal spleen. Normal pancreas. Normal bilateral adrenal glands. Normal right kidney. Normal left kidney. Normal visualized stomach. Normal small intestine. Retained stool noted throughout the colon. There is non-visualization of the appendix. There is diffuse atherosclerotic calcification of the abdominal aorta, without a demonstrated aneurysm. Normal inferior vena cava. Normal retroperitoneum. There is diffuse irregular thickening of the bladder wall, there is also air in the nondependent portion of the bladder which may be from recent catheterization. Recommend further evaluation of the bladder with cystoscopy. There is absence of the uterus consistent with a prior hysterectomy. Normal abdominal wall. There are diffuse degenerative changes of the visualized lumbar spine, and pelvis. CT/Abdomen/Pelvis WITH Contrast IMPRESSION: Irregular asymmetric thickening of the bladder wall. Recommend cystoscopy for further evaluation. There is air within the nondependent bladder likely from recent catheterization. No suspicious solid organ abnormality, previous cholecystectomy Retained stool in the colon Degenerative bony changes Electronically Signed: Jermaine Weaver MD at 12:44 EST , Service support , CC: Libra Beckwith MD; Dillon Brasher MD County Auditor: Signed PROTHROMBIN TIME W/INR Collected: 08/30/2018 Status: F Source: [place] 10:12 AM [facility] TYPE CODE TESTS RESULT OUT OF RANGE REFERENCE UNITS LAB L300.4150 11.7-14.9 SECONDS High PROTIME 32.2 LAB L300.4200 Normal INR 3.1 Performed By: #### L300.3900 #### [facility] [address] [place], [address] BUN Collected: 08/30/2018 Status: F Source: [place] 10:12 AM [facility] TYPE CODE TESTS RESULT OUT OF RANGE REFERENCE UNITS LAB L501.1000 7-18 mg/dL Normal BUN 14 Performed By: #### L501.1000, L501.1105 #### [facility] [address] [place], [address] SERUM CREATININE AND Collected: 08/30/2018 Status: F Source: [place] GFR 10:12 AM [facility] TYPE CODE TESTS RESULT OUT OF RANGE REFERENCE UNITS LAB L501.1100 0.55-1.02 mg/dL Normal 0.92 CREAT,SERUM Result Comment: The validity of the calculated GFR AND GFRAA in patients over 70 years has not been determined. Clinical correlation is essential. LAB L501.1110 >60 mL/min Normal EST GFR 62 Result Comment: Non- GFR Calc LAB L501.1115 >60 mL/min Normal EST GFR - AA 75 Result Comment: GFR Calc Performed By: #### L501.1000, L501.1105 #### [facility] [address] [place], [address] CARDIOLOGY VISIT Observed: 08/26/2018 Status: F Source: [place] REPORT 12:17 PM [facility] [address] [place] [address] OFFICE VISIT Date of Service: 08/26/18 MR#: [id number] Acct: [id number] Name: KENDRA CHAPPELL V Rep #: [id number] : 1940 Provider: Dillon Doherty MD Age/Sex: 78/F Location: [facility] Status: Signed HPI HPI Details: KENDRA CHAPPELL, is a 78 F who presents to the office today for outpatient cardiovascular follow-up. As you know she has been undergoing evaluation care for concerns of atrial fibrillation/flutter. She has had rate control and anticoagulant therapy. She underwent a synchronized biphasic DC cardioversion to regain sinus rhythm. She has been followed with a ECG and Holter monitor. Unfortunately she has reverted back to what appears to be an underlying atrial flutter type rhythm. Upon her ECG today she has what appears to be in atrial flutter with a controlled ventricular response with no acute ECG changes. She states she can sense at times when her heart rate and/or rhythm may change. She has not been having any near syncope or syncope. She has had no other symptoms of acute coronary syndrome or acute CHF/pulmonary edema. Intake Vital Signs08/26/18 Body Mass Index (BMI) 22.7 08/26/18 Height 5 ft 7 in 08/26/18 Weight: 144 lb 08/26/18 Body Mass Index (BMI) 22.5 08/26/18 Blood Pressure 120/70 Intake Visit Reasons: f/up per MMM Allergies aspirin Allergy (Verified 08/26/18 10:04) Anaphylaxis ibuprofen Allergy (Verified 08/26/18 10:04) Anaphylaxis Penicillins [PCN] Allergy (Verified 08/26/18 10:04) Anaphylaxis Sulfa (Sulfonamide Antibiotics) Allergy (Verified 08/26/18 10:04) Anaphylaxis amlodipine [From Norvas] Adverse Reaction (Severe, Verified 08/26/18 10:04) Cough hydralazine Adverse Reaction (Severe, Verified 08/26/18 10:04) stopped when she had CVA spironolactone Adverse Reaction (Severe, Verified 08/26/18 10:04) Hyponaturemia FLU SHOT Allergy (Uncoded 08/26/18 10:04) Anaphylaxis Medications Clonazepam [Klonopin] 0.5 mg PO BID #90 tab 05/11/16 [Rx Confirmed 08/26/18] labetalol 100 mg tablet 50 mg PO BID #90 tab 09/18/17 [Rx Confirmed 08/26/18] divalproex ER 250 mg tablet,extended release 24 hr 250 mg PO QHS tab 12/16/17 [History Confirmed 08/26/18] warfarin 3 mg tablet 3 mg PO .COMPLEX #90 tab 02/25/18 [Rx Confirmed 08/26/18] esomeprazole magnesium 40 mg capsule,delayed release 40 mg PO QDAY 04/10/18 [History Confirmed 08/26/18] spironolactone 25 mg tablet 25 mg PO QDAY 04/10/18 [History Confirmed 08/26/18] clonidine 0.1 mg/24 hr weekly transdermal patch 1 patch TRANSDERMAL QWEEK #12 ea 04/15/18 [Rx Confirmed 08/26/18] pravastatin 10 mg tablet 10 mg PO DAILY #90 tab 04/15/18 [Rx Confirmed 08/26/18] lisinopril 20 mg tablet 20 mg PO BID #180 tab 08/15/18 [Rx Confirmed 08/26/18] isosorbide mononitrate ER 60 mg tablet,extended release 24 hr 120 mg PO QDAY tab 08/26/18 [History Confirmed 08/26/18] minoxidil 2.5 mg tablet 1.25 mg PO BID PRN tab 08/26/18 [History Confirmed 08/26/18] nitrofurantoin macrocrystal 100 mg capsule 100 mg PO BID cap 08/26/18 [History Confirmed 08/26/18] [facility] Premature atrial contractions (Acute) Premature ventricular contraction (Acute) Nonrheumatic mitral (valve) prolapse (Acute) Atherosclerotic heart disease of [place] coronary artery without angina pectoris (Chronic) Sinus bradycardia (Acute) Pulmonary hypertension, secondary (Acute) 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 (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) DM type 2 (diabetes mellitus, type 2) (Chronic) HTN (hypertension) (Chronic) Mitral valve prolapse (Chronic) HLD (hyperlipidemia) (Chronic) Anxiety (Chronic) History of CVA (cerebrovascular accident) (Acute) Incontinence (Acute) Migraine (Acute) Paroxysmal atrial fibrillation (Acute) Celiac disease (Chronic) HTN (hypertension) (Chronic) History of hysterectomy (Resolved) Acute CVA (cerebrovascular accident) (Inactive) Hay fever (Inactive) Hypokalemia (Inactive) Hyponatremia (Inactive) Migraine (Inactive) Subtherapeutic international normalized ratio (INR) (Inactive) Urinary tract infection (Inactive) Surgical History History of back surgery (Resolved) History of hip replacement (Resolved) Family History Father CVA (cerebral vascular accident) Brother Hypertension Brother Hypertension Sister Abdominal aortic aneurysm (AAA) Sister CVA (cerebral vascular accident) Hypertension Diabetes Other Cancer Social History Smoking Status: Never smoker alcohol intake: never substance use type: does not use ROS Const Const: Positive for fatigue (increased); negative for weakness, weight gain, weight loss, frequent falls or excessive sweating Eyes Eyes: Negative for change in vision, blurry vision or transient loss of vision ENT ENT: Negative for dizziness or balance problems Cardio Chest Pain: Yes Character: other (heaviness) Location: mid sternal Duration: continuous, hours Relieving: rest Palpitations: Yes feels like its: skipping, irregular Edema: None Muscle aches with walking: None Resp Respiratory: Positive for SOB with activity (increased); negative for SOB at rest GI GI: Negative vomiting or vomiting blood/hematemesis : Negative for hematuria Musc Musc: Negative for balance problems, muscle aches/ myalgia, muscle weakness or joint pain Skin Skin: Negative non-healing lesions or rash Neuro Neuro: Positive for near syncope (I dont get enought air while singing); negative for weakness, blurry vision, dizziness, lightheadedness, frequent falls or orthostatic symptoms Malik Hematologic/Lymphatic: Negative for easy bleeding Endo Endo: Positive for fatigue (increased); negative for excessive sweating Psych Psych: Negative for anxiety or depression Allergy Allergy/Immunology: Negative for hives, Negative for rash Cardiology Exam Const Appearance: cooperative, healthy appearing, comfortable, no acute distress, well developed and well groomed Nutritional Appearance: thin Orientation: alert, awake and oriented x3 Head Head: normal to inspection, normocephalic and atraumatic Ears: hearing grossly normal bilaterally Nose: external nose normal Face and Sinus: face symmetric Mouth: oral mucosae normal Teeth and gingiva: fair dentition Eyes Eyelids: eyelids normal Conjunctivae: conjunctivae normal Pupils: PERRL EOM: EOM intact bilaterally Neck Neck: normal visual inspection and full ROM Carotids: normal carotid upstroke Chest Chest inspection: normal inspection of the chest, symmetric chest movement and normal respiratory effort Auscultation: Bilateral: Clear to Auscultation Cardio Palpation: normal PMI Rate: regular rate Rhythm: irregular rhythm Heart sounds: S1 normal and S2 normal Murmur: Grade 2/6, mid systolic and LLSB GI GI: normal to inspection, soft and bowel sounds present Neuro General: alert, awake, oriented x3, gait normal, moves all extremities, no focal sensory deficit and no focal motor deficits Skin Skin: no rashes or lesions noted Extremities Pulses: Normal: Right Radial Pulse, Left Radial Pulse Lower Extremity Edema: None: Bilateral Psych Psychological: normal affect Assessment AND Plan 1. Atrial fibrillation and flutter I48.91; I48.92 Plan At the present time she does appear to have returned to an underlying atrial flutter. Her rate is controlled. She will continue rate limiting therapy and anticoagulant therapy. A lengthy discussion was held with the patient and her regarding further evaluation with consideration to an attempt at antiarrhythmic therapy and a subsequent repeat DC cardioversion to regain sinus rhythm versus an EP consult for possible EPS/RFA. At the present time the patient would like to pursue an EP consult. Thus she will be referred to [facility] electrophysiology for further consideration Orders Orders: Referrals: 2. Premature atrial beat I49.1 Plan She does have a history of underlying ectopy with both PACs and PVCs. She appears to be without acute symptoms at this time. She will continue her current medical management. 3. Premature ventricular beat I49.3 Plan As described above she does have underlying PACs and PVCs. Again she will continue medical therapy and follow-up 4. Nonrheumatic mitral (valve) prolapse I34.1 Plan She does have a history of mitral valve prolapse. She appears to be without any acute change on examination at this time. Her most recent echocardiogram is as noted above. She will continue to be followed 5. Atherosclerosis of [place] coronary artery of [place] heart without angina pectoris I25.10 not angiographically significant on a cath in 2007 Plan She does have an element of CAD. She has been evaluated for this recently with her exercise tolerance test/imaging study. She had no ischemia. She did not need repeat diagnostic cardiac catheterization. Thus she will consider continue risk factor evaluation and care. Orders Orders: 6. 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 I38 Plan She does have an element of underlying valvular heart disease as previously noted. At the present time she is being followed. 7. Essential hypertension I10 Plan She brings with her her blood pressure recordings. She has blood pressures that are normal as today and blood pressures that are elevated. Her track record has been fluctuating blood pressures. Overall her trends appear to be somewhat improved on her current medical regimen 8. Hyperlipidemia, unspecified hyperlipidemia type E78.5 9. MCC current use of anticoagulant Z79.01 Plan She continues on her anticoagulant therapy Plan Detail Additional Comments Thus, at the present time, she will continue her current medications. She will be referred to [facility] electrophysiology for further comment on options with respect to additional attempts at antiarrhythmic therapy and repeat DC cardioversion versus the possibility of being a candidate for an EPS/RFA of her underlying atrial dysrhythmias. Thank you for allowing me to participate in the care of your patient. Please don't hesitate to call if any issues arise. This note was generated using a voice recognition system and there may be incorrect words, spelling or punctuation that were not noted when reviewing the office note prior to saving. Follow Up 3 Months (PFM) Coding Level of Care Code Off vis,est,level 4 Diagnoses Atrial fibrillation and flutter I48.91; I48.92 Premature atrial beat I49.1 Premature ventricular beat I49.3 Nonrheumatic mitral (valve) prolapse I34.1 Atherosclerosis of [place] coronary artery of [place] heart without angina pectoris I25.10 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 I38 Essential hypertension I10 Hyperlipidemia, unspecified hyperlipidemia type E78.5 MCC current use of anticoagulant Z79.01 Coding Level of Care Code Off vis,est,level 4 Diagnoses Atrial fibrillation and flutter I48.91; I48.92 Premature atrial beat I49.1 Premature ventricular beat I49.3 Nonrheumatic mitral (valve) prolapse I34.1 Atherosclerosis of [place] coronary artery of [place] heart without angina pectoris I25.10 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 I38 Essential hypertension I10 Hyperlipidemia, unspecified hyperlipidemia type E78.5 MCC current use of anticoagulant Z79.01 08/26/18 1217 <Electronically signed by Dillon Doherty MD> Date Dillon Doherty MD Cosigner Signature: Date (if applicable) CC: Dillon Brasher MD 12 LEAD EKG PERFORMED Observed: 08/26/2018 Status: F Source: [place] BY [facility] 10:13 AM [facility] [address] [place] [address] 12 Lead EKG performed by [facility] 08/26/18 1013 MR#: [id number] Acct: [id number] Name: KENDRA CHAPPELL V Rep #: [id number] : 1940 78 From: Dillon Doherty MD Attending Dr: Dillon Doherty MD Status: DEP AMB Ordering Dr: Dillon Doherty MD Date: 08/26/18 Location: [facility] Sex: F C Admitted: [facility]/12 Lead EKG performed by [facility] ECG Report Interpretation Atrial flutterNonspecific ST segment abormalityAbnormalElectronically signed on 08/26/2018 at 14:52 by Dillon Doherty Software Version [id number] 08/26/18 1454 Date Dillon Doherty MD CC: Dillon Brasher MD Date Dictated: 08/26/181012 Date Transcribed: 08/26/181012 County Auditor: PM Signed 12 LEAD EKG PERFORMED Observed: 08/15/2018 Status: F Source: [facility] BY [facility] 8:46 AM [facility] [address] [place] [address] 12 Lead EKG performed by [facility] 08/15/1845 MR#: [id number] Acct: [id number] Name: KENDRA CHAPPELL V Rep #: [id number] : 1940 78 From: Dillon Doherty MD Attending Dr: Dillon Doherty MD Status: DEP [facility] Ordering Dr: Dillon Doherty MD Date: 08/15/18 Location: [facility] Sex: F C Admitted: [facility]/12 Lead EKG performed by [facility] ECG Report Interpretation Sinus Rhythm - frequent PAC s Nonspecific ST depression ABNORMAL Electronically signed on 08/15/2018 at 13:23 by Dillon Doherty Swiss Software Version [id number] 08/15/18 1325 Date Dillon Doherty MD CC: Dillon Brasher MD Date Dictated: 08/15/1845 Date Transcribed: 08/15/18844 County Auditor: PM Signed OPERATIVE REPORT Observed: 08/14/2018 Status: F Source: [place] 5:52 AM [facility] Medical Records Department [address] [place] [address] Operative Report 08/13/18 1414 MR#: [id number] Acct: [id number] Name: KENDRA CHAPPELL V Rep #: [id number] : 1940 78 From: Leno Fritz MD PCP: Dillon Brasher MD Status: DEP [facility] [place] Location: [facility] Problem List (1) Atrial fibrillation Status: Acute Qualifiers: Atrial fibrillation type: chronic Qualified Code(s): I48.2 - Chronic atrial fibrillation (2) MCC current use of anticoagulant therapy Status: Acute (3) Pulmonary hypertension, secondary Status: Acute (4) 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 Status: Acute (5) Anxiety Status: Chronic (6) Atherosclerotic heart disease of [place] coronary artery without angina pectoris Status: Chronic Qualifiers: Comment: not angiographically significant on a cath in 2007 (7) DM type 2 (diabetes mellitus, type 2) Status: Chronic Comment: diet controlled (8) HLD (hyperlipidemia) Status: Chronic Qualifiers: (9) HTN (hypertension) Status: Chronic Qualifiers: (10) Mitral valve prolapse Status: Chronic Operative Report Date of Procedure: 08/13/18 - Conscious sedation CONSCIOUS SEDATION REPORT BRIEF HISTORY OF PRESENT ILLNESS: The patient is a 78-year-old female who presented to [facility] for an elective outpatient cardioversion due to underlying atrial fibrillation. The patient reports no PO intake since midnight. The patient does not have a history of obstructive sleep apnea. The patient reports no history of smoking and COPD. The patient denies any recent constitutional symptoms such as fevers, chills, nausea or vomiting. The patient denies previous anesthetic complications. Last known ejection fraction of 55% PHYSICAL EXAMINATION: VITAL SIGNS: Reviewed and were acceptable. GENERAL: The patient is a female, in no apparent distress, speaking in full sentences. HEENT: Normocephalic, atraumatic. Mucous membranes are moist and pink. Good mouth opening noted. Trachea is midline. Good neck mobility. MP II CHEST: S1, S2 irregularly irregular. No murmurs, rubs or gallops were noted. LUNGS: Clear to auscultation bilaterally without appreciable wheezes, rales or rhonchi. ABDOMEN: Soft, nontender, nondistended. Positive bowel sounds. EXTREMITIES: There is no clubbing, cyanosis or edema. ASA Class: II DESCRIPTION OF PROCEDURE: After confirmation of informed consent, the patient's anesthesia plan was reviewed in detail. Propofol was chosen. Risks and benefits were reviewed and the patient agreed to proceed. At 11:29 AM, the patient was given 40 mg of propofol. The patient required a total of 50 mg of propofol throughout the procedure to achieve appropriate sedation. The patient achieved an appropriate level of sedation and received 1 attempt s synchronized cardioversion, at [address] Doherty at the bedside. This was successful in achieving normal sinus rhythm. The patient was monitored until 11:38 AM, at which time the patient reached their baseline mental status and function. The patient tolerated the procedure well. COMPLICATIONS: None ESTIMATED BLOOD LOSS: None RECOMMENDATIONS: Okay to recover in usual fashion. Code Visit 9xxxx: Other Procedure See Report - 43491 -9 minutes of conscious sedation 08/14/18 0552 <Electronically signed by Leno Fritz MD> Date Leno Fritz MD CC: Leno Fritz MD; Dillon Doherty MD; Dillon Brasher MD Signed OPERATIVE REPORT Observed: 08/13/2018 Status: F Source: [place] 4:19 PM [facility] Medical Records Department [address] [place] [address] Operative Report 08/13/18 1617 MR#: [id number] Acct: [id number] Name: KENDRA CHAPPELL V Rep #: [id number] : 1940 78 From: Dillon Doherty MD PCP: Dillon Brasher MD Status: [facility] Y Location: [facility] Problem List (1) Atrial fibrillation Status: Acute Qualifiers: Atrial fibrillation type: chronic Qualified Code(s): I48.2 - Chronic atrial fibrillation Operative Report Date of Procedure: 08/13/18 Procedure: Synchronized Biphasic DC Cardioversion Indications: Atrial fibrillation/flutter Consent: Per the Patient Anesthesia: per Dr. Fritz of pulmonology and critical care medicine with propofol 50 mg IV push total Procedure: Synchronized Biphasic DC Cardioversion: 200 J x1: Result: Sinus rhythm; PACs Complications: no apparent complications This note was generated with Helpmycashation software. It may contain incorrect words, spelling, and punctuation that were not noted in checking the note before signing. 08/13/18 1619 <Electronically signed by Dillon Doherty MD> Date Dillon Doherty MD CC: Dillon Doherty MD; Dillon Brasher MD Signed PROTIME W/INR Collected: 08/13/2018 Status: F Source: [place] 10:29 AM [facility] TYPE CODE TESTS RESULT OUT OF REFERENCE UNITS RANGE LAB L9200.1001 11.9-14.4 SEC High PROTIME ISTAT 26.7 Result Comment: Reference Range 11.9 - 14.4 LAB L9200.2000 Normal INR ISTAT 2.30 Result Comment: Critical Value > 3.5 Performed By: #### L9200.0000 #### [facility] Laboratory Point of Care [address] [place], [place] [id number] PROTHROMBIN TIME W/INR Collected: 08/12/2018 Status: F Source: [place] 8:38 AM [facility] TYPE CODE TESTS RESULT OUT OF RANGE REFERENCE UNITS LAB L300.4150 11.7-14.9 SECONDS High PROTIME 28.1 LAB L300.4200 Normal INR 2.6 Performed By: #### L300.3900 #### [facility] Laboratory [facility] [place], [place], [address] PROTHROMBIN TIME W/INR Collected: 08/06/2018 Status: F Source: [place] 10:22 AM [facility] TYPE CODE TESTS RESULT OUT OF RANGE REFERENCE UNITS LAB L300.4150 11.7-14.9 SECONDS High PROTIME 33.6 LAB L300.4200 Normal INR 3.3 Performed By: #### L300.3900 #### [facility] Laboratory [address] [place], [address] PROTHROMBIN TIME W/INR Collected: 07/30/2018 Status: F Source: [place] 7:54 AM [facility] TYPE CODE TESTS RESULT OUT OF RANGE REFERENCE UNITS LAB L300.4150 11.7-14.9 SECONDS High PROTIME 30.0 LAB L300.4200 Normal INR 2.8 Performed By: #### L300.3900 #### [facility] Laboratory [address] [place], [place], [address] PROTHROMBIN TIME W/INR Collected: 07/23/2018 Status: F Source: [place] 9:02 AM [facility] TYPE CODE TESTS RESULT OUT OF RANGE REFERENCE UNITS LAB L300.4150 11.7-14.9 SECONDS High PROTIME 32.2 LAB L300.4200 Normal INR 3.1 Performed By: #### L300.3900 #### [facility] [address] [place], [address] BASIC METABOLIC Collected: 07/23/2018 Status: F Source: [place] PROFILE (BMP) 9:02 AM [facility] TYPE CODE TESTS RESULT OUT OF RANGE REFERENCE UNITS LAB L501.0100 74-106 mg/dL High GLU 122 Result Comment: Fasting Glucose result from 100 to 125 mg/dL suggests IMPAIRED HOMEOSTASIS per A.D.A. criteria. Please note revised GLUCOSE reference range effective 2017. LAB L501.1000 7-18 mg/dL Normal BUN 12 LAB L501.1100 0.55-1.02 mg/dL Normal CREAT,SERUM 0.86 Result Comment: The validity of the calculated GFR AND GFRAA in patients over 70 years has not been determined. Clinical correlation is essential. LAB L501.1110 >60 mL/min Normal EST GFR 67 Result Comment: Non- GFR Calc LAB L501.1115 >60 mL/min Normal EST GFR - AA 82 Result Comment: GFR Calc LAB L501.1300 10-20 RATIO Normal BUN/CRE 13.9 LAB L501.2200 8.5-10.1 mg/dL CA Normal 8.5 LAB L501.5300 136-145 mmol/L NA Normal 136 LAB L501.5600 3.5-5.1 mmol/L K Normal 4.0 LAB L501.5900 98-107 mmol/L CL Normal 101 LAB L501.6100 21.0-32.0 mmol/L Normal CO2 31.0 LAB L501.6200 5-15 Low GAP 4 Performed By: #### L500.2500 #### [facility] [address] [place], [address] CARDIOLOGY VISIT Observed: 07/19/2018 Status: F Source: [place] REPORT 12:48 PM [facility] [address] [place] [address] OFFICE VISIT Date of Service: 07/19/18 MR#: [id number] Acct: [id number] Name: KENDRA CHAPPELL V Rep #: [id number] : 1940 Provider: Dillon Doherty MD Age/Sex: 78/F Location: [facility] Status: Signed HPI HPI Details: KENDRA CHAPPELL is a 78 F who presents to the office today for outpatient cardiovascular follow-up in preparation for upcoming synchronized biphasic DC cardioversion. She states overall her main concern is she does not feel that she has the energy that she once did. She has no new complaints of chest discomfort or difficulty breathing. There has been no episodes of near syncope or syncope. She has been monitoring her heart rate and blood pressure as she does. She notes her heart rate varies up and down. Her blood pressures overall have been somewhat improved and today actually appear within normal ranges. She had an ECG today. 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 Required: No Accompanied by: none Is patient in pain?: No Allergies aspirin Allergy (Verified 07/19/18 11:17) Anaphylaxis ibuprofen Allergy (Verified 07/19/18 11:17) Anaphylaxis Penicillins [PCN] Allergy (Verified 07/19/18 11:17) Anaphylaxis Sulfa (Sulfonamide Antibiotics) Allergy (Verified 07/19/18 11:17) Anaphylaxis amlodipine [From Norvasc] Adverse Reaction (Severe, Verified 07/19/18 11:17) Cough hydralazine Adverse Reaction (Severe, Verified 07/19/18 11:17) stopped when she had CVA spironolactone Adverse Reaction (Severe, Verified 07/19/18 11:17) Hyponaturemia FLU SHOT Allergy (Uncoded 04/10/18 14:48) Anaphylaxis Medications Clonazepam [Klonopin] 0.5 mg PO BID #90 tab 05/11/16 [Rx Confirmed 07/19/18] labetalol 100 mg tablet 50 mg PO BID #90 tab 09/18/17 [Rx Confirmed 07/19/18] divalproex ER 250 mg tablet,extended release 24 hr 250 mg PO QHS tab 12/16/17 [History Confirmed 07/19/18] warfarin 3 mg tablet 3 mg PO .COMPLEX #90 tab 02/25/18 [Rx Confirmed 07/19/18] esomeprazole magnesium 40 mg capsule,delayed release 40 mg PO QDAY 04/10/18 [History Confirmed 07/19/18] isosorbide mononitrate ER 60 mg tablet,extended release 24 hr 90 mg PO QDAY tab 04/10/18 [History Confirmed 07/19/18] minoxidil 2.5 mg tablet 1.25 mg PO QDAY PRN tab 04/10/18 [History Confirmed 07/19/18] spironolactone 25 mg tablet 25 mg PO QDAY 04/10/18 [History Confirmed 07/19/18] clonidine 0.1 mg/24 hr weekly transdermal patch 1 patch TRANSDERMAL QWEEK #12 ea 04/15/18 [Rx Confirmed 07/19/18] lisinopril 10 mg tablet 10 mg PO BID #180 tab 04/15/18 [Rx Confirmed 07/19/18] pravastatin 10 mg tablet 10 mg PO DAILY #90 tab 04/15/18 [Rx Confirmed 07/19/18] PFSH Medical History Premature atrial contractions (Acute) Premature ventricular contraction (Acute) Nonrheumatic mitral (valve) prolapse (Acute) Atherosclerotic heart disease of [place] coronary artery without angina pectoris (Chronic) Sinus bradycardia (Acute) Pulmonary hypertension, secondary (Acute) 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 (Acute) MCC current use of anticoagulant therapy (Acute) DM type 2 (diabetes mellitus, type 2) (Chronic) HTN (hypertension) (Chronic) Mitral valve prolapse (Chronic) HLD (hyperlipidemia) (Chronic) Anxiety (Chronic) History of CVA (cerebrovascular accident) (Acute) Incontinence (Acute) Migraine (Acute) Paroxysmal atrial fibrillation (Acute) Celiac disease (Chronic) HTN (hypertension) (Chronic) History of hysterectomy (Resolved) Acute CVA (cerebrovascular accident) (Inactive) Hay fever (Inactive) Hypokalemia (Inactive) Hyponatremia (Inactive) Migraine (Inactive) Subtherapeutic international normalized ratio (INR) (Inactive) Urinary tract infection (Inactive) Surgical History History of back surgery (Resolved) History of hip replacement (Resolved) Family History Father CVA (cerebral vascular accident) Brother Hypertension Brother Hypertension Sister Abdominal aortic aneurysm (AAA) Sister CVA (cerebral vascular accident) Hypertension Diabetes Other Cancer Social History Smoking Status: Never smoker alcohol intake: never substance use type: does not use ROS Const Const: Negative for fatigue, weakness, night sweats, excessive sweating, frequent falls, headache(s) or daytime sleepiness Eyes Eyes: Negative for loss of peripheral vision, transient loss of vision, blind spots, double vision or blurry vision ENT ENT: Negative for headache(s), dizziness, balance problems, Nosebleed/epistaxis, tongue swelling or lip swelling Cardio Chest Pain: No Palpitations: No Edema: None Muscle aches with walking: None Resp Respiratory: Negative for SOB at rest, SOB orthopnea\SOB lying down, Cough, paroxysmal nocturnal dyspnea or SOB with activity GI GI: Negative nausea, vomiting, heartburn, black,tarry stools or bright, red blood in stools : Negative for hematuria Musc Musc: Negative for balance problems, muscle aches/ myalgia, muscle weakness or joint pain Skin Skin: Negative non-healing lesions, unusual bruising or rash Neuro Neuro: Negative for weakness, frequent falls, headache(s), double vision, dizziness, lightheadedness, orthostatic symptoms, blurry vision or lack of coordination Malik Hematologic/Lymphatic: Negative for easy bruising or easy bleeding Endo Endo: Negative for fatigue, excessive sweating, cold intolerance, heat intolerance, increased thirst/drinking or hair loss Psych Psych: Negative for anxiety or depression Allergy Allergy/Immunology: Negative for throat swelling, Negative for tongue swelling, Negative for hives, Negative for rash, Negative for lip swelling Cardiology Exam Const Appearance: cooperative, healthy appearing, comfortable, no acute distress, well developed and well groomed Nutritional Appearance: thin Orientation: alert, awake and oriented x3 Head Head: normal to inspection, normocephalic and atraumatic Ears: hearing grossly normal bilaterally Nose: external nose normal Face and Sinus: face symmetric Mouth: oral mucosae normal Teeth and gingiva: fair dentition Eyes Eyelids: eyelids normal Conjunctivae: conjunctivae normal Pupils: PERRL EOM: EOM intact bilaterally Neck Neck: normal visual inspection and full ROM Carotids: normal carotid upstroke Chest Chest inspection: normal inspection of the chest, symmetric chest movement and normal respiratory effort Auscultation: Bilateral: Clear to Auscultation Cardio Palpation: normal PMI Rate: regular rate Rhythm: regular rhythm Heart sounds: S1 normal and S2 normal Murmur: Grade 2/6, mid systolic and LLSB GI GI: normal to inspection, soft and bowel sounds present Neuro General: alert, awake, oriented x3, gait normal, moves all extremities, no focal sensory deficit and no focal motor deficits Skin Skin: no rashes or lesions noted Extremities Pulses: Normal: Right Radial Pulse, Left Radial Pulse Lower Extremity Edema: None: Bilateral Psych Psychological: normal affect Supplemental Info Her last transthoracic echocardiogram was performed on 05/08/2016. Left ventricular systolic function is normal The estimated LVEF is 65% The left atrium is mildly enlarged Mild diffuse mitral valve thickening. The mitral papillary muscle appears thickened. and/or calcified. Mild-Moderate (1-2+) mitral valve insufficiency. Mild to moderate (1-2+) tricuspid valve insufficiency. Aortic sclerosis, no stenosis. Right ventricular systolic pressure estimated to be 34 mmHg. Transmitral diastolic flow velocities suggest diastolic dysfunction (pseudonormal pattern). Bubble contrast study negative for right to left interatrial shunt. No obvious intracardiac mass lesion / thrombus identified. Consider further evaluation for cardiac source of embol.us with YAS if clinically indicated. Transthoracic echocardiogram: 07/02/2018 Interpretation Summary Left ventricular systolic function is normal. The estimated ejection fraction is 55 %. The left atrium is mildly enlarged. The right atrium is mildly enlarged. Mild diffuse mitral valve thickening. The mitral papillary muscle appears thickened and/or calcified. Mild-Moderate (1-2+) mitral valve insufficiency. Mild tricuspid valve insufficiency. Mild diffuse aortic valve thickening. Trivial pulmonic valve insufficiency. Right ventricular systolic pressure estimated to be 27 mmHg. Diastolic function is indeterminate. A stress test was performed at [facility] on 05/02/2016: EXERCISE TOLERANCE TEST: The patient underwent pharmacologic (regadenoson) evaluation with a peak heart rate of 83 beats per minute (57% predicted maximum heart rate) and a peak blood pressure of 142/72 mmHg. The baseline ECG demonstrated normal sinus rhythm with nonspecific ST and T-wave abnormality. The peak pharmacologic ECG demonstrated continued nonspecific ST and T-wave abnormality. There were no cardiac dysrhythmias pretest, during pharmacologic infusion or recovery. The patient noted left arm discomfort during pharmacologic infusion with spontaneous resolution recovery. The examination was discontinued secondary to completion of protocol. IMPRESSION: 1. Pharmacologic (regadenoson) evaluation. 2. Peak pharmacologic ECG with continued nonspecific ST and T-wave changes. 3. Nuclear images pending. MYOCARDIAL PERFUSION IMAGING STUDY: TECHNIQUE: The patient was injected with 10.0 mCi of Tc99m Cardiolite and subsequently rest SPECT Cardiolite nuclear imaging was obtained in the horizontal long, vertical long and short axes views. The patient underwent pharmacologic (regadenoson) evaluation with a peak heart rate of 83 beats per minute (57% predicted maximum heart rate) and a peak blood pressure of 142/72 mmHg. The patient was injected with 34.0 mCi of Tc99m Cardiolite and subsequently stress SPECT Cardiolite nuclear imaging was obtained in the horizontal long, vertical long and short axes views. A gated Cardiolite study at peak stress was obtained. INTERPRETATION: Rest and stress SPECT Cardiolite nuclear imaging status post realignment, normalization, and attenuation correction, appears to demonstrate at rest, subtle diminished tracer uptake in portions of the distal anterior/anteroseptal/anteroapical/septal apical segments, which status post stress appear to normalize. There appears to be end systolic thickening and brightening. The gated Cardiolite study demonstrates myocardial thickening and inward wall motion. The reported LVEF is 61%. The aforementioned changes appear compatible with the effects of shifting soft tissue attenuation/artifact being prominent at rest as opposed to stress with no post-stress myocardial perfusion changes considered diagnostic for associated stress-induced myocardial ischemia or previous myocardial injury/infarction. IMPRESSION: 1. Rest and stress SPECT Cardiolite nuclear imaging demonstrate myocardial perfusion changes appearing compatible with shifting soft tissue attenuation/artifact based upon prominence at rest and normalization status post stress with no post-stress myocardial perfusion changes considered diagnostic for associated stress- induced myocardial ischemia or previous myocardial injury/infarction. 2. The gated Cardiolite study reports an LVEF of 61%. Stress test: 07/02/2018 The patient underwent pharmacologic (Regadenoson) evaluation with a peak heart rate of 98 beats per minute (69 predicted maximal heart rate) and a peak blood pressure of 124/86 mmHg. The baseline ECG demonstrated atrial flutter with nonspecific ST and T wave abnormality. The peak pharmacologic ECG demonstrated continued nonspecific ST and T wave abnormality. There were no additional cardiac dysrhythmias. There was no complaint of chest discomfort during pharmacologic infusion or recovery. The examination was discontinued secondary to completion of protocol. Impression: 1. Pharmacologic (Regadenoson) evaluation 2. Peak pharmacologic ECG with continued atrial flutter with nonspecific ST and T wave abnormality. 3. There were no additional cardiac dysrhythmias. 4. Nuclear images pending Myocardial perfusion imaging study: Technique: The patient was injected with 11.4 millicuries of technetium 99m Cardiolite and subsequently rest SPECT Cardiolite nuclear imaging was obtained in the horizontal long, vertical long, and short axis views. The patient underwent pharmacologic (Regadenoson) evaluation with a peak heart rate of 98 beats per minute (69 % percent predicted maximal heart rate) and a peak blood pressure of 124/86 mmHg. The patient was injected with 33.7 millicuries of technetium 99m Cardiolite and subsequently stress SPECT Cardiolite nuclear imaging was obtained in the horizontal long, vertical long, and short axis views. A gated Cardiolite study at peak stress was obtained. Interpretation: Rest and stress SPECT Cardiolite nuclear imaging status post realignment, normalization, and attenuation correction demonstrate areas of extracardiac/gastrointestinal tracer uptake near the inferior segments and otherwise appear to demonstrate relative uniform tracer uptake and myocardial perfusion appearing within normal limits. There is end systolic thickening and brightening. The gated Cardiolite study demonstrates myocardial thickening and inward wall motion. The reported LVEF is 44 %. Impression: 1. Rest and stress SPECT Cardiolite nuclear imaging demonstrate relative uniform tracer uptake and myocardial perfusion appearing within normal limits. 2. The gated Cardiolite study reports an LVEF of 44 %. A diagnostic cardiac catheterization was performed on 05/01/2016 at [facility] Final impression: 1. Elevated left ventricular end diastolic pressure compatible decreased diastolic compliance. 2. Left ventricle: A. Normal left ventricle size, wall motion, and systolic function B. Estimated LVEF is 65% 3. Left main coronary artery: A. Distal minimal luminal irregularities 4. Left anterior descending coronary artery: A. Diffuse minimal luminal irregularities B. Apical 25% discrete hazy appearing stenosis 5. Left circumflex coronary artery: A. Proximal diffuse minimal luminal irregularities B. OM1: Proximal 50% somewhat hazy eccentric appearing stenosis 6. Intermediate ramus coronary artery: A. Proximal 75% somewhat diffuse irregular appearing stenosis 7. Right coronary artery: A. Large dominant vessel B. Diffuse minimal luminal irregularities C. Mid: 25-50% somewhat hazy eccentric appearing stenosis 8. Mitral valve: A. Moderate mitral valve regurgitation 9. Abdominal aorta: A. Distal minimal luminal irregularities B. Bilateral renal arteries: Patent: No angiographically significant appearing renal artery stenosis A Holter monitor was performed at [facility] on 04/08/2013. The results are as noted below. CONCLUSION: 1. A 24 hour Holter monitor demonstrating sinus rhythm. 2. Frequent premature atrial complexes. 3. No episodes of atrial fibrillation noted. Symptoms appear to correlate somewhat with premature atrial complexes. Assessment AND Plan 1. Atrial fibrillation and flutter I48.91; I48.92 Plan She remains in atrial flutter at this time. She appears to be rate controlled. She will continue medical therapy which has included anticoagulant therapy. The tentative plan is for an upcoming synchronized biphasic DC cardioversion in an attempt to regain sinus rhythm Orders Orders: 2. Premature atrial beat I49.1 Plan She has a history of underlying cardiac ectopy with PACs and PVCs. She will continue medical management and follow-up Orders Orders: 3. Premature ventricular beat I49.3 Plan She will continue evaluation care as noted above. 4. Sinus bradycardia R00.1 Plan She appears to be stable with her underlying rate and rhythm at the moment. This will be followed as she goes through medication adjustment and her upcoming synchronized biphasic DC cardioversion 5. Atherosclerosis of [place] coronary artery of [place] heart without angina pectoris I25.10 not angiographically significant on a cath in 2007 Plan She has a history of CAD. She is without acute symptoms. She has undergone noninvasive evaluation recently as noted above. She will continue risk factor evaluation and medical management read Orders Orders: 6. 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 I38 Plan She does have an element of underlying valvular heart disease. Again she appears to be stable at this time. She will continue her current medical therapy and follow-up. 7. Hyperlipidemia, unspecified hyperlipidemia type E78.5 Plan She will continue risk factor evaluation and care as deemed appropriate. 8. Essential hypertension I10 Plan Her blood pressure appears to be within normal range today. 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 Plan Detail Additional Comments Thank you for allowing me to participate in the care of your patient. Please don't hesitate to call if any issues arise. This note was generated using a voice recognition system and there may be incorrect words, spelling or punctuation that were not noted when reviewing the office note prior to saving. Follow Up 3 Months (PFM) Coding Level of Care Code Off vis,est,level 4 Diagnoses Atrial fibrillation and flutter I48.91; I48.92 Premature atrial beat I49.1 Premature ventricular beat I49.3 Sinus bradycardia R00.1 Atherosclerosis of [place] coronary artery of [place] heart without angina pectoris I25.10 [place] vs. transplanted heart: [place] heart 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 I38 Hyperlipidemia, unspecified hyperlipidemia type E78.5 Hyperlipidemia type: unspecified Essential hypertension I10 Hypertension type: essential hypertension [facility] current use of anticoagulant Z79.01 Coding Level of Care Code Off vis,est,level 4 Diagnoses Atrial fibrillation and flutter I48.91; I48.92 Premature atrial beat I49.1 Premature ventricular beat I49.3 Sinus bradycardia R00.1 Atherosclerosis of [place] coronary artery of [place] heart without angina pectoris I25.10 [place] vs. transplanted heart: [place] heart 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 I38 Hyperlipidemia, unspecified hyperlipidemia type E78.5 Hyperlipidemia type: unspecified Essential hypertension I10 Hypertension type: essential hypertension MCC current use of anticoagulant Z79.01 07/19/18 1248 <Electronically signed by Dillon Doherty MD> Date Dillon Doherty MD Cosigner Signature: Date (if applicable) CC: Dillon Brasher MD Observed: 07/19/2018 Status: F Source: [place] CULTURE, URINE 9:30 AM [facility] Urine Culture Below infection level. ORGANISM 1: Mixed Gram Positive Organisms F[place] Count 1000-10,000 Performed By: #### M100.0650 #### [facility] [address] [place], [address] PROTHROMBIN TIME W/INR Collected: 07/16/2018 Status: F Source: [place] 9:51 AM [facility] TYPE CODE TESTS RESULT OUT OF RANGE REFERENCE UNITS LAB L300.4150 11.7-14.9 SECONDS High PROTIME 29.3 LAB L300.4200 Normal INR 2.8 Performed By: #### L300.3900 #### [facility] [address] [place], [address] ECHOCARDIOGRAM COMPLETE Observed: 07/02/2018 Status: F Source: [place] 5:07 PM [facility] Cardiovascular Services [address] [place] [address] Echo Complete 07/02/18 0950 MR#: [id number] Acct: [id number] Name: KENDRA CHAPPELL V Rep #: [id number] : 1940 78 From: Dillon Doherty MD Attending Dr: Dillon Brasher MD Status: REG CLI Ordering Dr: Dillon Doherty MD Date: 07/02/18 Location: [facility] Sex: F C Admitted: Reason For Study: DYSPNEA/SOB Procedure This was a 2D Doppler, Color Flow transthoracic echocardiogram. The exam was of adequate technical quality. Exam performed in department. Left Ventricle Normal LV size. Left ventricular systolic function is normal. The estimated ejection fraction is 55 %. Diastolic function is indeterminate. No regional wall motion abnormalities noted. Right Ventricle Normal RV size. Normal systolic function. Atria The left atrium is mildly enlarged. The right atrium is mildly enlarged. No doppler evidence for ASD. Mitral Valve There is no mitral annular calcification. Mild diffuse mitral valve thickening. The mitral papillary muscle appears thickened and/or calcified. Mild-Moderate (1- 2+) mitral valve insufficiency. Tricuspid Valve Normal tricuspid valve. Mild tricuspid valve insufficiency. Right ventricular systolic pressure estimated to be 27 mmHg. Aortic Valve Trisinus/trileaflet aortic valve. Mild diffuse aortic valve thickening. Pulmonic Valve The pulmonic valve is not well visualized. Trivial pulmonic valve insufficiency. Great Vessels Normal sized aortic root. Pericardium/Pleural No pericardial effusion. MMode/2D Measurements AND Calculations LVIDd: 4.6 cm IVSd: 1.1 cm Ao root diam: 3.1 cm LVIDs: 2.8 cm LVPWd: 1.0 cm RVDd: 2.5 cm FS: 38.5 % LAV(MOD-bp): 44.7 ml LA A4 area: 15.5 cm2 LA dimension(2D): 4.1 cm LAV(MOD-bp) Indexed: 25.4 ml/m2 LAV(MOD-sp2): 47.4 ml LAV(MOD-sp4): 42.1 ml RA A4 area: 15.0 cm2 Doppler Measurements AND Calculations MV E max navarro: 87.7 cm/sec Lat Peak E' Navarro: 7.9 cm/sec Med Peak E' Navarro: 6.4 cm/sec E/E' lat: 11.1 E/E' med: 13.8 Ao V2 max: 92.6 cm/sec LV V1 max: 85.1 cm/sec PA V2 max: 72.3 cm/sec Ao max P.4 mmHg LV V1 max P.9 mmHg TR max navarro: 243.7 cm/sec TR max P.8 mmHg Interpretation Summary Left ventricular systolic function is normal. The estimated ejection fraction is 55 %. The left atrium is mildly enlarged. The right atrium is mildly enlarged. Mild diffuse mitral valve thickening. The mitral papillary muscle appears thickened and/or calcified. Mild-Moderate (1-2+) mitral valve insufficiency. Mild tricuspid valve insufficiency. Mild diffuse aortic valve thickening. Trivial pulmonic valve insufficiency. Right ventricular systolic pressure estimated to be 27 mmHg. Diastolic function is indeterminate. Ordering Physician: Dillon Doherty Referring Physician: Dillon Brasher Performed By: Nancy Kirkland, CAREN, RVT 07/02/181705 Date Dillon Doherty MD CC: Dillon Doherty MD; Dillon Brasher MD Date Dictated: 07/02/18 0950 Date Transcribed: 07/02/181705 County Auditor: Signed STRESS REPORT Observed: 07/02/2018 Status: F Source: [place] 2:57 PM [facility] [place] [address] MR#: [id number] Acct: [id number] Name: KENDRA CHAPPELL V Rep #: [id number] : 1940 78 From: Dillon Doherty MD Primary Care: Dillon Brasher MD Status: REG CLI Ordering Dr: Sex: F C Stress Test Report Date: 07/02/2018 Procedure: Pharmacologic stress nuclear imaging study Indications: Shortness of breath/dyspnea on exertion; atrial fibrillation/flutter Consent: Per the patient Procedure: The patient underwent pharmacologic (Regadenoson) evaluation with a peak heart rate of 98 beats per minute (69 predicted maximal heart rate) and a peak blood pressure of 124/86 mmHg. The baseline ECG demonstrated atrial flutter with nonspecific ST and T wave abnormality. The peak pharmacologic ECG demonstrated continued nonspecific ST and T wave abnormality. There were no additional cardiac dysrhythmias. There was no complaint of chest discomfort during pharmacologic infusion or recovery. The examination was discontinued secondary to completion of protocol. Impression: 1. Pharmacologic (Regadenoson) evaluation 2. Peak pharmacologic ECG with continued atrial flutter with nonspecific ST and T wave abnormality. 3. There were no additional cardiac dysrhythmias. 4. Nuclear images pending Myocardial perfusion imaging study: Technique: The patient was injected with 11.4 millicuries of technetium 99m Cardiolite and subsequently rest SPECT Cardiolite nuclear imaging was obtained in the horizontal long, vertical long, and short axis views. The patient underwent pharmacologic (Regadenoson) evaluation with a peak heart rate of 98 beats per minute (69 % percent predicted maximal heart rate) and a peak blood pressure of 124/86 mmHg. The patient was injected with 33.7 millicuries of technetium 99m Cardiolite and subsequently stress SPECT Cardiolite nuclear imaging was obtained in the horizontal long, vertical long, and short axis views. A gated Cardiolite study at peak stress was obtained. Interpretation: Rest and stress SPECT Cardiolite nuclear imaging status post realignment, normalization, and attenuation correction demonstrate areas of extracardiac/gastrointestinal tracer uptake near the inferior segments and otherwise appear to demonstrate relative uniform tracer uptake and myocardial perfusion appearing within normal limits. There is end systolic thickening and brightening. The gated Cardiolite study demonstrates myocardial thickening and inward wall motion. The reported LVEF is 44 %. Impression: 1. Rest and stress SPECT Cardiolite nuclear imaging demonstrate relative uniform tracer uptake and myocardial perfusion appearing within normal limits. 2. The gated Cardiolite study reports an LVEF of 44 %. This note was generated with [employer] software. It may contain incorrect words, spelling, and punctuation that were not noted in checking the note before signing. 07/02/181456 <Electronically signed by Dillon Doherty MD> Date Dillon Doherty MD CC: Dillon Doherty MD; Dillon Brasher MD Date Dictated: 07/02/181451 Date Transcribed: 07/02/181451 County Auditor: PM Signed SCREENING MAMM (CAD), Observed: 07/02/2018 Status: F Source: [place] BILAT 11:01 AM [facility] Imaging Services [address] [place], [place] [address] [address] SCREENING MAMM (CAD), BILAT MR#: [id number] Acct: [id number] Name: KENDRA CHAPPELL V Rep #: [id number] : 1940 F 78 From: Eber Cruz MD PCP: Dillon Brasher MD Status: REG CLI Study: SCREENING MAMM (CAD), BILAT Date of Exam: 07/02/18 Exam# [id number] Ordering Dr: Dillon Brasher MD MAMMOGRAPHY - BILATERAL SCREENING REASON FOR EXAM: Female, 78 years old. Routine annual screening examination. PERTINENT HISTORY: Non-contributory. Remote right excisional breast biopsy. TECHNIQUE: Digital bilateral breast cristina (3D mammographic acquisition) in the CC and MLO projections. 2-D mediolateral oblique (MLO) and craniocaudad (CC) views of both breasts were obtained. CAD: Full Field Digital Mammography with Computer Added Detection was performed. COMPARISON: Comparison is made with prior outside examination dated August 28, 2014. FINDINGS: Breast Composition: There are scattered areas of fibroglandular density. There are no dominant masses or suspicious calcifications. No other significant abnormalities are identified. There has been no significant change since the prior study. BI/SCREENING MAMM (CAD), BILAT IMPRESSION: Stable bilateral screening mammogram. Yearly follow-up mammogram recommended. (A) ASSESSMENT CATEGORY: BIRADS Category 1: Negative. A letter regarding these results will be sent to the patient by the facility within 30 days. Approximately 10% of breast cancers are not detected by mammography. A normal mammogram should not delay biopsy of a clinically suspicious abnormality. [id number] Electronically Signed: Eber Cruz MD at 13:17 EDT Tel [phone], Service support , CC: Dillon Brasher MD County Auditor: Signed PROTHROMBIN TIME W/INR Collected: 07/01/2018 Status: F Source: [place] 9:57 AM [facility] TYPE CODE TESTS RESULT OUT OF RANGE REFERENCE UNITS LAB L300.4150 11.7-14.9 SECONDS High PROTIME 30.7 LAB L300.4200 Normal INR 2.9 Performed By: #### L300.3900 #### [facility] [address] [place], [place], [address] PROTHROMBIN TIME W/INR Collected: 06/26/2018 Status: F Source: [place] 11:45 AM [facility] TYPE CODE TESTS RESULT OUT OF REFERENCE UNITS RANGE LAB L300.4150 11.7-14.9 SECONDS High PROTIME 35.2 LAB L300.4200 High alert INR 3.5 Result Comment: CRITICAL VALUE VERIFIED. CALLED TO CLEMENTE AT 'S OFFICE. 06/26/18 1241 José Sigala. RESULTS READ BACK BY SAME. Performed By: #### L300.3900 #### [facility] [address] [place], [address] Observed: 06/26/2018 Status: F Source: [place] CULTURE, URINE 12:00 AM [facility] Urine Culture ORGANISM 1: Presumptive E. coli Farnham Count >100,000 Presumptive E. coli: REACTION Amoxacillin/Clavulanic Acid $ <=2 S Ampicillin $ <=2 S Ampicillin/Sulbactam $ <=2 S Cefazolin $ <=4 S Cefepime $ <=1 S Ceftriaxone $ <=1 S Ciprofloxacin $ <=0.25 S ESBL - Ertapenim $$$ <=0.5 S Gentamicin $ <=1 S Imipenem *NF <=0.25 S Levofloxacin $ <=0.12 S Nitrofurantoin $ <=16 S Piperacillin/Tazobactam $$ <=4 S Tobramycin $ <=1 S Trimethoprim/Sulfametho $ <=20 S (NF) indicates non-formulary drug at [facility]. Approval by Infectious Disease Specialist required before non-formulary drugs may be ordered and/or dispensed. Performed By: #### M100.0650 #### [facility] [address] [place], [address] PROTHROMBIN TIME W/INR Collected: 06/05/2018 Status: F Source: [place] 11:41 AM [facility] TYPE CODE TESTS RESULT OUT OF RANGE REFERENCE UNITS LAB L300.4150 11.7-14.9 SECONDS High PROTIME 30.1 LAB L300.4200 Normal INR 2.9 Performed By: #### L300.3900 #### [facility] [address] [place], [address] Observed: 05/24/2018 Status: F Source: [place] CULTURE, URINE 12:00 AM [facility] Urine Culture ORGANISM 1: Presumptive E. coli [place]ham Count >100,000 Presumptive E. coli: REACTION Amoxacillin/Clavulanic Acid $ <=2 S Ampicillin $ <=2 S Ampicillin/Sulbactam $ <=2 S Cefazolin $ <=4 S Cefepime $ <=1 S Ceftriaxone $ <=1 S Ciprofloxacin $ <=0.25 S ESBL - Ertapenim $$$ <=0.5 S Gentamicin $ <=1 S Imipenem *NF <=0.25 S Levofloxacin $ <=0.12 S Nitrofurantoin $ <=16 S Piperacillin/Tazobactam $$ <=4 S Tobramycin $ <=1 S Trimethoprim/Sulfametho $ <=20 S (NF) indicates non-formulary drug at [facility]. Approval by Infectious Disease Specialist required before non-formulary drugs may be ordered and/or dispensed. Performed By: #### M100.0650 #### [facility] [address] [place], [place], [address] PROTHROMBIN TIME W/INR Collected: 05/21/2018 Status: F Source: [place] 7:26 AM [facility] TYPE CODE TESTS RESULT OUT OF RANGE REFERENCE UNITS LAB L300.4150 11.7-14.9 SECONDS High PROTIME 25.6 LAB L300.4200 Normal INR 2.3 Performed By: #### L300.3900 #### [facility] [place], [address] PROTHROMBIN TIME W/INR Collected: 05/14/2018 Status: F Source: [place] 1:49 PM [facility] Order Comment: Comments: STANDING ORDER SEND RESULTS TO DR.NIELSEN BLACKWELL. Comments: STANDING ORDER TYPE CODE TESTS RESULT OUT OF RANGE REFERENCE UNITS LAB L300.4150 11.7-14.9 SECONDS High PROTIME 27.4 LAB L300.4200 Normal INR 2.5 Performed By: #### L300.3900 #### [facility] [address] [place], [place], [address] [phone] PROTHROMBIN TIME W/INR Collected: 05/03/2018 Status: F Source: [place] 9:51 AM [facility] TYPE CODE TESTS RESULT OUT OF RANGE REFERENCE UNITS LAB L300.4150 11.7-14.9 SECONDS High PROTIME 27.8 LAB L300.4200 Normal INR 2.6 Performed By: #### L300.3900 #### [facility] [address] [place], [address] PROTHROMBIN TIME W/INR Collected: 04/25/2018 Status: F Source: [place] 1:52 PM [facility] TYPE CODE TESTS RESULT OUT OF RANGE REFERENCE UNITS LAB L300.4150 11.7-14.9 SECONDS High PROTIME 26.3 LAB L300.4200 Normal INR 2.4 Performed By: #### L300.3900 #### [facility] [address] [place], [address] CARDIOLOGY VISIT Observed: 04/10/2018 Status: F Source: [place] REPORT 5:21 PM [facility] [address] [place] [address] OFFICE VISIT Date of Service: 04/10/18 MR#: [id number] Acct: [id number] Name: KENDRA CHAPPELL V Rep #: [id number] : 1940 Provider: Dillon Doherty MD Age/Sex: 77/F Location: [facility] Status: Signed HPI HPI Details: KENDRA CHAPPELL, is a 77 F who presents to the office today for for outpatient cardiovascular follow-up with respect to her history of underlying paroxysmal atrial dysrhythmias/fibrillation superimposed upon concerns of hyperlipidemia and hypertension. She notes overall she has been doing reasonably well other than noting her blood pressure fluctuations which have been chronic. She continues to monitor them at home. They do go up and down. She has periods of time where they are under good control and then at other times where they are either somewhat low or very high. She does use the minoxidil on a as needed basis. She notes that her lisinopril dose was decreased from 20 mg twice daily to 10 mg a day. However she feels in doing so her blood pressures have now started to increase again. She notes twinges of discomfort radiating across her chest/abdomen. As you know in the past she has been found on multiple cardiac catheterizations not to have angiographically significant CAD. She did have an ECG today in which she was noted to be in sinus rhythm/sinus bradycardia with no acute ECG changes. She has had no history of orthopnea or PND or peripheral pitting edema. There has been no near syncope or syncope. She recently had lipid labs performed. Her cholesterol was 134 with an LDL of 68 and an HDL of 45. Her triglycerides were 104. Intake Vital Signs04/10/18 Blood Pressure 180/82 04/10/18 Blood Pressure Location Lt brachial 04/10/18 Blood Pressure Position Standing Intake Visit Reasons: 6 M FU Allergies aspirin Allergy (Verified 04/10/18 14:48) Anaphylaxis ibuprofen Allergy (Verified 04/10/18 14:48) Anaphylaxis Penicillins [PCN] Allergy (Verified 04/10/18 14:48) Anaphylaxis Sulfa (Sulfonamide Antibiotics) Allergy (Verified 04/10/18 14:48) Anaphylaxis amlodipine [From [facility]] Adverse Reaction (Severe, Verified 04/10/18 14:48) Cough hydralazine Adverse Reaction (Severe, Verified 04/10/18 14:48) stopped when she had CVA spironolactone Adverse Reaction (Severe, Verified 04/10/18 14:48) Hyponaturemia FLU SHOT Allergy (Uncoded 04/10/18 14:48) Anaphylaxis Medications Pravastatin Sodium [Pravachol] 10 mg PO DAILY 05/06/16 [History Confirmed 04/10/18] Clonazepam [Klonopin] 0.5 mg PO BID #90 tab 05/11/16 [Rx Confirmed 04/10/18] labetalol 100 mg tablet 50 mg PO BID #90 tab 09/18/17 [Rx Confirmed 04/10/18] divalproex ER 250 mg tablet,extended release 24 hr 250 mg PO QHS tab 12/16/17 [History Confirmed 04/10/18] warfarin 3 mg tablet 3 mg PO .COMPLEX #90 tab 02/25/18 [Rx Confirmed 04/10/18] clonidine 0.1 mg/24 hr weekly transdermal patch 1 patch TRANSDERMAL QWEEK 04/10/18 [History Confirmed 04/10/18] esomeprazole magnesium 40 mg capsule,delayed release 40 mg PO QDAY 04/10/18 [History Confirmed 04/10/18] isosorbide mononitrate ER 60 mg tablet,extended release 24 hr 90 mg PO QDAY tab 04/10/18 [History Confirmed 04/10/18] lisinopril 10 mg tablet 10 mg PO BID #60 tab 04/10/18 [Rx Confirmed 04/10/18] minoxidil 2.5 mg tablet 1.25 mg PO QDAY PRN tab 04/10/18 [History Confirmed 04/10/18] spironolactone 25 mg tablet 25 mg PO QDAY 04/10/18 [History Confirmed 04/10/18] [facility] Medical History Premature atrial contractions (Acute) Premature ventricular contraction (Acute) Nonrheumatic mitral (valve) prolapse (Acute) Atherosclerotic heart disease of [place] coronary artery without angina pectoris (Chronic) Sinus bradycardia (Acute) Pulmonary hypertension, secondary (Acute) 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 (Acute) DM type 2 (diabetes mellitus, type 2) (Chronic) HTN (hypertension) (Chronic) Mitral valve prolapse (Chronic) HLD (hyperlipidemia) (Chronic) Anxiety (Chronic) History of CVA (cerebrovascular accident) (Acute) Incontinence (Acute) Migraine (Acute) Paroxysmal atrial fibrillation (Acute) Celiac disease (Chronic) HTN (hypertension) (Chronic) Acute CVA (cerebrovascular accident) (Inactive) Hay fever (Inactive) Hypokalemia (Inactive) Hyponatremia (Inactive) Migraine (Inactive) Subtherapeutic international normalized ratio (INR) (Inactive) Urinary tract infection (Inactive) Surgical History History of back surgery (Resolved) History of hip replacement (Resolved) History of hysterectomy (Resolved) Family History Father CVA (cerebral vascular accident) Brother Hypertension Brother Hypertension Sister Abdominal aortic aneurysm (AAA) Sister CVA (cerebral vascular accident) Hypertension Diabetes Other Cancer Social History Smoking Status: Never smoker alcohol intake: never substance use type: does not use ROS Const Const: Negative for fatigue, weakness, weight gain, weight loss, frequent falls or excessive sweating Eyes Eyes: Negative for change in vision, blurry vision or transient loss of vision ENT ENT: Positive for dizziness (sitting to standing ); negative for balance problems Cardio Chest Pain: Yes Character: other (twinge) Location: left chest (under left breast) Duration: brief Palpitations: Yes (occasional) feels like its: irregular Edema: None Muscle aches with walking: None Resp Respiratory: Positive for SOB with activity (going upstairs); negative for SOB at rest GI GI: Negative vomiting or vomiting blood/hematemesis : Negative for hematuria Musc Musc: Negative for balance problems, muscle aches/ myalgia, muscle weakness or joint pain Skin Skin: Negative non-healing lesions or rash Neuro Neuro: Positive for dizziness (sitting to standing ); negative for weakness, blurry vision, lightheadedness, frequent falls or orthostatic symptoms Malik Hematologic/Lymphatic: Negative for easy bleeding Endo Endo: Negative for fatigue or excessive sweating Psych Psych: Negative for anxiety or depression Allergy Allergy/Immunology: Negative for hives, Negative for rash Cardiology Exam Const Appearance: cooperative, healthy appearing, comfortable, no acute distress, well developed and well groomed Nutritional Appearance: thin Orientation: alert, awake and oriented x3 Head Head: normal to inspection, normocephalic and atraumatic Ears: hearing grossly normal bilaterally Nose: external nose normal Face and Sinus: face symmetric Mouth: oral mucosae normal Teeth and gingiva: fair dentition Eyes Eyelids: eyelids normal Conjunctivae: conjunctivae normal Pupils: PERRL EOM: EOM intact bilaterally Neck Neck: normal visual inspection and full ROM Carotids: normal carotid upstroke Chest Chest inspection: normal inspection of the chest and symmetric chest movement Auscultation: Bilateral: Clear to Auscultation Cardio Palpation: normal PMI Rate: regular rate Rhythm: regular rhythm Heart sounds: S1 normal and S2 normal Murmur: Grade 2/6, mid systolic and LLSB GI GI: normal to inspection, soft and no hepatosplenomegaly Neuro General: alert, awake, oriented x3, gait normal, moves all extremities, no focal sensory deficit and no focal motor deficits Skin Skin: no rashes or lesions noted Extremities Pulses: Normal: Right Radial Pulse, Left Radial Pulse Lower Extremity Edema: None: Bilateral Psych Psychological: normal affect Supplemental Info Her last transthoracic echocardiogram was performed on 05/08/2016. Left ventricular systolic function is normal The estimated LVEF is 65% The left atrium is mildly enlarged Mild diffuse mitral valve thickening. The mitral papillary muscle appears thickened. and/or calcified. Mild-Moderate (1-2+) mitral valve insufficiency. Mild to moderate (1-2+) tricuspid valve insufficiency. Aortic sclerosis, no stenosis. Right ventricular systolic pressure estimated to be 34 mmHg. Transmitral diastolic flow velocities suggest diastolic dysfunction (pseudonormal pattern). Bubble contrast study negative for right to left interatrial shunt. No obvious intracardiac mass lesion / thrombus identified. Consider further evaluation for cardiac source of embol.us with YAS if clinically indicated. A stress test was performed at [facility] on 05/02/2016: EXERCISE TOLERANCE TEST: The patient underwent pharmacologic (regadenoson) evaluation with a peak heart rate of 83 beats per minute (57% predicted maximum heart rate) and a peak blood pressure of 142/72 mmHg. The baseline ECG demonstrated normal sinus rhythm with nonspecific ST and T-wave abnormality. The peak pharmacologic ECG demonstrated continued nonspecific ST and T-wave abnormality. There were no cardiac dysrhythmias pretest, during pharmacologic infusion or recovery. The patient noted left arm discomfort during pharmacologic infusion with spontaneous resolution recovery. The examination was discontinued secondary to completion of protocol. IMPRESSION: 1. Pharmacologic (regadenoson) evaluation. 2. Peak pharmacologic ECG with continued nonspecific ST and T-wave changes. 3. Nuclear images pending. MYOCARDIAL PERFUSION IMAGING STUDY: TECHNIQUE: The patient was injected with 10.0 mCi of Tc99m Cardiolite and subsequently rest SPECT Cardiolite nuclear imaging was obtained in the horizontal long, vertical long and short axes views. The patient underwent pharmacologic (regadenoson) evaluation with a peak heart rate of 83 beats per minute (57% predicted maximum heart rate) and a peak blood pressure of 142/72 mmHg. The patient was injected with 34.0 mCi of Tc99m Cardiolite and subsequently stress SPECT Cardiolite nuclear imaging was obtained in the horizontal long, vertical long and short axes views. A gated Cardiolite study at peak stress was obtained. INTERPRETATION: Rest and stress SPECT Cardiolite nuclear imaging status post realignment, normalization, and attenuation correction, appears to demonstrate at rest, subtle diminished tracer uptake in portions of the distal anterior/anteroseptal/anteroapical/septal apical segments, which status post stress appear to normalize. There appears to be end systolic thickening and brightening. The gated Cardiolite study demonstrates myocardial thickening and inward wall motion. The reported LVEF is 61%. The aforementioned changes appear compatible with the effects of shifting soft tissue attenuation/artifact being prominent at rest as opposed to stress with no post-stress myocardial perfusion changes considered diagnostic for associated stress-induced myocardial ischemia or previous myocardial injury/infarction. IMPRESSION: 1. Rest and stress SPECT Cardiolite nuclear imaging demonstrate myocardial perfusion changes appearing compatible with shifting soft tissue attenuation/artifact based upon prominence at rest and normalization status post stress with no post-stress myocardial perfusion changes considered diagnostic for associated stress- induced myocardial ischemia or previous myocardial injury/infarction. 2. The gated Cardiolite study reports an LVEF of 61%. A diagnostic cardiac catheterization was performed on 05/01/2016 at [facility] Final impression: 1. Elevated left ventricular end diastolic pressure compatible decreased diastolic compliance. 2. Left ventricle: A. Normal left ventricle size, wall motion, and systolic function B. Estimated LVEF is 65% 3. Left main coronary artery: A. Distal minimal luminal irregularities 4. Left anterior descending coronary artery: A. Diffuse minimal luminal irregularities B. Apical 25% discrete hazy appearing stenosis 5. Left circumflex coronary artery: A. Proximal diffuse minimal luminal irregularities B. OM1: Proximal 50% somewhat hazy eccentric appearing stenosis 6. Intermediate ramus coronary artery: A. Proximal 75% somewhat diffuse irregular appearing stenosis 7. Right coronary artery: A. Large dominant vessel B. Diffuse minimal luminal irregularities C. Mid: 25-50% somewhat hazy eccentric appearing stenosis 8. Mitral valve: A. Moderate mitral valve regurgitation 9. Abdominal aorta: A. Distal minimal luminal irregularities B. Bilateral renal arteries: Patent: No angiographically significant appearing renal artery stenosis A Holter monitor was performed at [facility] on 04/08/2013. The results are as noted below. CONCLUSION: 1. A 24 hour Holter monitor demonstrating sinus rhythm. 2. Frequent premature atrial complexes. 3. No episodes of atrial fibrillation noted. Symptoms appear to correlate somewhat with premature atrial complexes. Assessment AND Plan 1. Atherosclerosis of [place] coronary artery of [place] heart without angina pectoris I25.10 not angiographically significant on a cath in 2007 Plan At the present time she appears to be doing well with respect and no ongoing symptoms of classic angina pectoris or CHF/pulmonary edema. She will continue risk factor modification and medical management. Orders Orders: 2. Mitral valve prolapse I34.1 Plan She does have a history of underlying mitral valve disorder. She appears to be doing well at the moment with no acute change. She will continue to be followed with echocardiograms as deemed appropriate. 3. Hyperlipidemia, unspecified hyperlipidemia type E78.5 Plan Her lipid labs have been reviewed. They appear to be under good control. 4. Essential hypertension I10 Plan Her blood pressures do fluctuate. She will increase her lisinopril to 10 mg twice daily. Hopefully this will help with her blood pressure control. Orders Orders: 5. PAF (paroxysmal atrial fibrillation) I48.0 Plan She does have a history of paroxysmal atrial dysrhythmia/fibrillation. She appears to be remaining in sinus rhythm. She will continue her rate limiting therapy and her anticoagulant therapy Plan Detail Other Orders Orders: Other Medications New: Discontinued: Additional Comments Thank you for allowing me to participate in the care of your patient. Please don't hesitate to call if any issues arise. This note was generated using a voice recognition system and there may be incorrect words, spelling or punctuation that were not noted when reviewing the office note prior to saving. Follow Up 9 Months (PFM) Coding Level of Care Code Off vis,est,level 4 Diagnoses Atherosclerosis of [place] coronary artery of [place] heart without angina pectoris I25.10 [place] vs. transplanted heart: [place] heart Mitral valve prolapse I34.1 Hyperlipidemia, unspecified hyperlipidemia type E78.5 Hyperlipidemia type: unspecified Essential hypertension I10 Hypertension type: essential hypertension PAF (paroxysmal atrial fibrillation) I48.0 Coding Level of Care Code Off vis,est,level 4 Diagnoses Atherosclerosis of [place] coronary artery of [place] heart without angina pectoris I25.10 [place] vs. transplanted heart: [place] heart Mitral valve prolapse I34.1 Hyperlipidemia, unspecified hyperlipidemia type E78.5 Hyperlipidemia type: unspecified Essential hypertension I10 Hypertension type: essential hypertension PAF (paroxysmal atrial fibrillation) I48.0 04/10/18 1721 <Electronically signed by Dillon Doherty MD> Date Dillon Doherty MD Cosigner Signature: Date (if applicable) CC: Dillon Brasher MD 12 LEAD EKG PERFORMED Observed: 04/10/2018 Status: F Source: [facility] BY [facility] 3:03 PM [facility] [address] [place] [address] 12 Lead EKG performed by [facility] 04/10/18 1502 MR#: [id number] Acct: [id number] Name: KENDRA CHAPPELL V Rep #: [id number] : 1940 77 From: Dillon Doherty MD Attending Dr: Dillon Doherty MD Status: DEP AMB Ordering Dr: Dillon Doherty MD Date: 04/10/18 Location: [facility] Sex: F C Admitted: BMS/12 Lead EKG performed by [facility] ECG Report Interpretation Sinus Bradycardia Electronically signed on 04/10/2018 at 18:16 by Dillon Doherty Software Version [id number] 04/10/18 1819 Date Dillon Doherty MD CC: Dillon Brasher MD Date Dictated: 04/10/181501 Date Transcribed: 04/10/181501 County Auditor: PM Signed BASIC METABOLIC Collected: 04/02/2018 Status: F Source: E[place]KIEL PROFILE (BMP) 9:12 AM [facility] TYPE CODE TESTS RESULT OUT OF RANGE REFERENCE UNITS LAB L501.0100 74-106 mg/dL High GLU 108 Result Comment: Fasting Glucose result from 100 to 125 mg/dL suggests IMPAIRED HOMEOSTASIS per A.D.A. criteria. Please note revised GLUCOSE reference range effective 2017. LAB L501.1000 7-18 mg/dL Normal BUN 17 LAB L501.1100 0.55-1.02 mg/dL Normal CREAT,SERUM 0.92 Result Comment: The validity of the calculated GFR AND GFRAA in patients over 70 years has not been determined. Clinical correlation is essential. LAB L501.1110 >60 mL/min Normal EST GFR 62 Result Comment: Non- GFR Calc LAB L501.1115 >60 mL/min Normal EST GFR - AA 76 Result Comment: GFR Calc LAB L501.1300 10-20 RATIO Normal BUN/CRE 18.4 LAB L501.2200 8.5-10.1 mg/dL CA Normal 9.0 LAB L501.5300 136-145 mmol/L Low NA 131 LAB L501.5600 3.5-5.1 mmol/L K Normal 4.5 LAB L501.5900 98-107 mmol/L Low CL 96 LAB L501.6100 21.0-32.0 mmol/L Normal CO2 30.0 LAB L501.6200 5-15 Normal GAP 5 Performed By: #### L500.2500, L500.4100 #### [facility] [address] [place], [place], [address] LIPID PROFILE Collected: 04/02/2018 Status: F Source: [place] 9:12 AM [facility] TYPE CODE TESTS RESULT OUT OF RANGE REFERENCE UNITS LAB L501.4900 200 mg/dL Normal CHOL 134 Result Comment: <200 mg/dL Desirable 200-240 mg/dL Borderline >240 mg/dL High Risk LAB L501.5000 mg/dL Normal TRIG 104 Result Comment: The drugs N-Acetylcysteine and Metamizole may falsely depress this assay. Serum Triglycerides Reference Interval Normal <150 mg/dL Borderline high 150 - 199 mg/dL High 200 - 499 mg/dL Very High > or = 500 mg/dL LAB L501.6400 mg/dL Normal HDL 45 Result Comment: The drugs N-Acetylcysteine and Metamizole may falsely depress this assay. Reference Range HDL <40 mg/dL Low HDL Cholesterol HDL >or= 60 mg/dL High HDL Cholesterol LAB L501.6500 0-130 mg/dL Normal LDL 68 LAB L501.6600 5-40 mg/dL Normal VLDL 21 Performed By: #### L500.2500, L500.4100 #### [facility] [address] [place], [place], [address] PROTHROMBIN TIME W/INR Collected: 03/26/2018 Status: F Source: [place] 9:29 AM [facility] Order Comment: RENAL FOR DR KIM PT FOR DR DOHERTY TYPE CODE TESTS RESULT OUT OF RANGE REFERENCE UNITS LAB L300.4150 11.7-14.9 SECONDS High PROTIME 28.9 LAB L300.4200 Normal INR 2.7 Performed By: #### L300.3900 #### [facility] [address] [place], [place], [address] RENAL PROFILE Collected: 03/26/2018 Status: F Source: [place] 9:29 AM [facility] Order Comment: RENAL FOR DR KIM PT FOR DR DOHERTY TYPE CODE TESTS RESULT OUT OF RANGE REFERENCE UNITS LAB L501.0100 74-106 mg/dL High GLU 128 Result Comment: Fasting Glucose result greater than or equal to 126 mg/dL suggests DIABETES MELLITUS per A.D.A. criteria. Please note revised GLUCOSE reference range effective 2017. LAB L501.1000 7-18 mg/dL Normal BUN 13 LAB L501.1100 0.55-1.02 mg/dL Normal CREAT,SERUM 0.87 Result Comment: The validity of the calculated GFR AND GFRAA in patients over 70 years has not been determined. Clinical correlation is essential. LAB L501.1110 >60 mL/min Normal EST GFR 67 Result Comment: Non- GFR Calc LAB L501.1115 >60 mL/min Normal EST GFR - AA 81 Result Comment: GFR Calc LAB L501.1300 10-20 RATIO Normal BUN/CRE 14.9 LAB L501.1800 3.2-5.0 g/dL Normal ALB 3.7 LAB L501.2200 8.5-10.1 mg/dL CA Normal 8.7 LAB L501.2300 2.5-4.9 mg/dL Normal PHOS 3.5 LAB L501.5300 136-145 mmol/L Low NA 131 LAB L501.5600 3.5-5.1 mmol/L K Normal 4.3 LAB L501.5900 98-107 mmol/L Low CL 94 LAB L501.6100 21.0-32.0 mmol/L Normal CO2 29.0 Performed By: #### L500.3600 #### [facility] [address] [place], [address] Observed: 03/19/2018 Status: F Source: EZEKIELGUILLERMO MONTALVO, URINE 12:00 AM [facility] Urine Culture ORGANISM 1: Escherichia coli [place] Count >100,000 Escherichia coli: REACTION Amoxacillin/Clavulanic Acid $ <=2 S Ampicillin $ <=2 S Ampicillin/Sulbactam $ <=2 S Cefazolin $ <=4 S Cefepime $ <=1 S Ceftriaxone $ <=1 S Ciprofloxacin $ <=0.25 S ESBL - Ertapenim $$$ <=0.5 S Gentamicin $ <=1 S Imipenem *NF <=0.25 S Levofloxacin $ <=0.12 S Nitrofurantoin $ <=16 S Piperacillin/Tazobactam $$ <=4 S Tobramycin $ <=1 S Trimethoprim/Sulfametho $ <=20 S (NF) indicates non-formulary drug at [facility]. Approval by Infectious Disease Specialist required before non-formulary drugs may be ordered and/or dispensed. Performed By: #### M100.0650 #### [facility] [address] [place], [place], [address] BASIC METABOLIC Collected: 03/14/2018 Status: F Source: EZEKIEL PROFILE ([facility]) 11:31 AM [facility] Order Comment: Order Date: 03/08/18 Order Info: [id number] - [facility] TYPE CODE TESTS RESULT OUT OF RANGE REFERENCE UNITS LAB L501.0100 74-106 mg/dL Normal GLU 98 Result Comment: Please note revised GLUCOSE reference range effective 2017. LAB L501.1000 7-18 mg/dL Normal BUN 18 LAB L501.1100 0.55-1.02 mg/dL Normal CREAT,SERUM 0.89 Result Comment: The validity of the calculated GFR AND GFRAA in patients over 70 years has not been determined. Clinical correlation is essential. LAB L501.1110 >60 mL/min Normal EST GFR 65 Result Comment: Non- GFR Calc LAB L501.1115 >60 mL/min Normal EST GFR - AA 79 Result Comment: GFR Calc LAB L501.1300 10-20 RATIO High BUN/CRE 20.3 LAB L501.2200 8.5-10.1 mg/dL CA Normal 8.5 LAB L501.5300 136-145 mmol/L Low NA 132 LAB L501.5600 3.5-5.1 mmol/L K Normal 4.3 LAB L501.5900 98-107 mmol/L Low CL 96 LAB L501.6100 21.0-32.0 mmol/L Normal CO2 30.0 LAB L501.6200 5-15 Normal GAP 6 Performed By: #### L500.2500 #### [facility] [address] [place], [address] BASIC METABOLIC Collected: 03/04/2018 Status: F Source: EZEKIEL PROFILE (BMP) 9:53 AM [facility] TYPE CODE TESTS RESULT OUT OF RANGE REFERENCE UNITS LAB L501.0100 74-106 mg/dL Normal GLU 93 Result Comment: Please note revised GLUCOSE reference range effective 2017. LAB L501.1000 7-18 mg/dL Normal BUN 15 LAB L501.1100 0.55-1.02 mg/dL Normal CREAT,SERUM 0.88 Result Comment: The validity of the calculated GFR AND GFRAA in patients over 70 years has not been determined. Clinical correlation is essential. LAB L501.1110 >60 mL/min Normal EST GFR 66 Result Comment: Non- GFR Calc LAB L501.1115 >60 mL/min Normal EST GFR - AA 80 Result Comment: GFR Calc LAB L501.1300 10-20 RATIO Normal BUN/CRE 17.0 LAB L501.2200 8.5-10.1 mg/dL Low CA 8.4 LAB L501.5300 136-145 mmol/L Low NA 129 LAB L501.5600 3.5-5.1 mmol/L K Normal 4.2 LAB L501.5900 98-107 mmol/L Low CL 93 LAB L501.6100 21.0-32.0 mmol/L Normal CO2 27.0 LAB L501.6200 5-15 Normal GAP 9 Performed By: #### L500.2500 #### [facility] [address] [place], [address] PROTHROMBIN TIME W/INR Collected: 02/19/2018 Status: F Source: [place] 11:10 AM [facility] TYPE CODE TESTS RESULT OUT OF RANGE REFERENCE UNITS LAB L300.4150 11.7-14.9 SECONDS High PROTIME 28.3 LAB L300.4200 Normal INR 2.6 Performed By: #### L300.3900 #### [facility] [address] [place], [address] EMERGENCY DEPARTMENT Observed: 02/17/2018 Status: F Source: [place] SUMMARY 7:45 AM [facility] Medical Records Department [address] [place] [address] Emergency Department Summary 02/17/18 0024 MR#: [id number] Acct: [id number] Name: KENDRA CHAPPELL V Rep #: [id number] : 1940 77 From: Cain Hernandez MD PCP: Dillon Brasher MD Status: DEP ER - ER Visit Summary Date of Service: 02/17/18 Chief Complaint: Elevated blood pressure with headache History of Present Illness: The patient is a 77 F treated for chronic hypertension with also history of A. fib on Coumadin. Patient states her blood pressure is elevated at 190/90 at home she had a diffuse headache which was gradual in onset. She denies any neurological symptoms. She denies any fall or head trauma. She denies any chest pain or shortness of breath. Physical Examination: Well appearing elderly female. Vital signs are stable afebrile. Initial blood pressure 204/96. H EENT exam unremarkable. Pupils round reactive light. Extra motions are intact. Normal speech. No facial droop. No facial or head trauma. Neck nontender. Lungs clear to auscultation bilaterally. Heart regular rhythm no murmur currently. Abdomen soft nontender. Moving all 4 extremities. Neurologically she is awake alert with no focal motor deficits. Test Results: CBC normal. BMP shows sodium was low at 127. Otherwise normal BUN and creatinine and gap. INR was 2.7 secondary to her history of being on Coumadin. CAT scan of her brain is read by the radiologist reviewed by me showed chronic changes but no acute process. No acute bleed. Emergency Department Course and Treatment: Elderly female with acute on chronic hypertension with a headache. Due to her being on Coumadin plus her elevation of blood pressure she will undergo a CT of her brain for screening labs. Treatment Plan: Repeat exam patient is doing very well at 03 40 9 in the morning. Her current blood pressure is 139/68 and she was not given any treatment for her blood pressure that came down on its own. Her headache is nearly completely resolved. Her neurologic exam remains normal. I went over all test with both her and her . She does need to have her sodium level rechecked by her primary care physician this week. She will also log her blood pressures and follow-up to see if they may need to make any medication changes Disposition: Discharge Impression: Acute on chronic hypertension Anticoagulated on Coumadin Acute cephalgia Mild hyponatremia This note was generated with Helpmycashation software. It may contain incorrect words, spelling, and punctuation that were not noted in review of the chart prior to signing ED Disposition - Plan for ED Patient: Chief Complaint: Hypertension Referrals: Dillon Brasher MD [Primary Care Provider] - What to do if you have Problems For any increased pain, shortness of breath, bleeding, nausea or vomiting, chest pain, or any unexpected problems, contact your Primary Care Provider. Call [facility] ([phone]) or report to the closest Emergency Room. Call 911 if necessary. 02/17/18 0745 <Electronically signed by Cain Hernandez MD> Date Cain Hernandez MD Cosigner Signature (If Indicated): Date CC: Dillon Brasher MD DISCHARGE INSTRUCTION Observed: 02/17/2018 Status: F Source: [place] 7:45 AM [facility] Medical Records Department [address] [place] [address] Discharge Instruction 02/17/18 0352 MR#: [id number] Acct: [id number] Name: KENDRA CHAPPELL V Rep #: [id number] : 1940 77 From: Cain Hernandez MD PCP: Dillon Brasher MD Status: [facility] ER ED Disposition - Plan for ED Patient: Disposition: Home or Assisted Living Chief Complaint: Hypertension Instructions: ED Hypertension Conf Out Of Control, ED Hyponatremia Referrals: Dillon Brasher MD [Primary Care Provider] - As soon as possible Additional Instructions: On follow-up with Dr. Dillon Brasher. You and he can discuss your blood pressure readings and if he may or may not need to change her blood pressure medications. Your sodium level was low today at 127. That needs to be rechecked this week through Dr. Brasher's office. You may add salt to your food this week. What to do if you have Problems For any increased pain, shortness of breath, bleeding, nausea or vomiting, chest pain, or any unexpected problems, contact your Primary Care Provider. Call [facility] ([phone]) or report to the closest Emergency Room. Call 911 if necessary. 02/17/18 0745 <Electronically signed by Cain Hernandez MD> Date Cain Hernandez MD Cosigner Signature (If Indicated): Date CC: Dillon Brasher MD BRAIN/HEAD WITHOUT Observed: 02/17/2018 Status: F Source: [place] CONTRAST 12:24 AM [facility] Imaging Services [address] [place] [address] Brain/Head without Contrast MR#: [id number] Acct: [id number] Name: KENDRA CHAPPELL V Rep #: [id number] : 1940 F 77 From: Dexter Enciso MD PCP: Dillon Brasher MD Status: REG ER Study: Brain/Head without Contrast Date of Exam: 02/17/18 Exam# [id number] Ordering Dr: Cain Hernandez MD STUDY: CT BRAIN WITHOUT CONTRAST REASON FOR EXAM: Female, 77 years old. HTN WITH LOVE AND ON COUMADIN, DIZZINESS, NAUSEA, HX CVA, HYSTERECTOMY, ARRYTHMIA'S RADIATION DOSAGE (If Supplied By Facility): CTDIvol = ( 44.99 ) mGy, DLP = ( 762.36 ) mGycm TECHNIQUE: Transaxial CT imaging of the brain was performed without administration of intravenous contrast material. Individualized dose optimization techniques were used for this CT. COMPARISON: None. FINDINGS: Normal soft tissue structures. Normal calvarium. Normal size ventricles and extra-axial spaces for the patient's age. There are areas of decreased attenuation within the white matter tracts of the supratentorial brain, consistent with microvascular disease changes. Normal basal ganglia and thalami. Normal brainstem. Normal cerebellum. There is no intracranial hemorrhage. There are no findings of an acute ischemic infarction. Normal visualized paranasal sinuses. CT/Brain/Head without Contrast IMPRESSION: Chronic involutional changes of the brain. Electronically Signed: Dexter Enciso MD at 2:15 EDT Tel , Service support , CC: Cain Hernandez MD; Dillon Brasher MD County Auditor: Signed CBC-COMPLETE BLOOD CNT Collected: 02/17/2018 Status: F Source: [place] NO DIFF 12:02 AM [facility] TYPE CODE TESTS RESULT OUT OF RANGE REFERENCE UNITS LAB L100.1000 4.4-11.0 K/mm3 Normal WBC 10.0 LAB L100.1200 4.2-5.4 M/mm3 Normal RBC 4.35 LAB L100.1300 12.0-15.0 g/dl Normal HGB 13.6 LAB L100.1400 37-47 % Normal HCT 39.1 LAB L100.1500 81-99 fL Normal MCV 89.9 LAB L100.1600 27.0-32.0 pg Normal MCH 31.3 LAB L100.1700 32-36 g/gl Normal MCHC 34.8 LAB L100.1810 11.6-14.6 % Normal RDW CV 14.4 LAB L100.1820 35.1-43.9 fl High RDW SD 47.1 LAB L100.1900 150-450 K/mm3 Normal PLT 275 LAB L100.2000 6.2-12.0 fl Normal MPV 10.3 Performed By: #### L100.0500 #### [facility] Laboratory [address] [place], [address] PROTHROMBIN TIME W/INR Collected: 02/17/2018 Status: F Source: [place] 12:02 AM [facility] TYPE CODE TESTS RESULT OUT OF RANGE REFERENCE UNITS LAB L300.4150 11.7-14.9 SECONDS High PROTIME 28.5 LAB L300.4200 Normal INR 2.7 Performed By: #### L300.3900 #### [facility] [address] [place], [address] BASIC METABOLIC Collected: 02/17/2018 Status: F Source: [place] PROFILE (BMP) 12:02 AM [facility] TYPE CODE TESTS RESULT OUT OF RANGE REFERENCE UNITS LAB L501.0100 74-106 mg/dL High GLU 140 Result Comment: Fasting Glucose result greater than or equal to 126 mg/dL suggests DIABETES MELLITUS per A.D.A. criteria. Please note revised GLUCOSE reference range effective 2017. LAB L501.1000 7-18 mg/dL High BUN 19 LAB L501.1100 0.55-1.02 mg/dL Normal CREAT,SERUM 0.92 Result Comment: The validity of the calculated GFR AND GFRAA in patients over 70 years has not been determined. Clinical correlation is essential. LAB L501.1110 >60 mL/min Normal EST GFR 62 Result Comment: Non- GFR Calc LAB L501.1115 >60 mL/min Normal EST GFR - AA 76 Result Comment: GFR Calc LAB L501.1255 ml/min Normal Estimated CRCL 49.80 LAB L501.1300 10-20 RATIO High BUN/CRE 20.5 LAB L501.2200 8.5-10 mg/dL Low .1 CA 8.4 LAB L501.5300 136-14 mmol/L Low 5 NA 127 LAB L501.5600 3.5-5. mmol/L Normal 1 K 4.3 LAB L501.5900 98-107 mmol/L Low CL 92 LAB L501.6100 21.0-3 mmol/L Normal 2.0 CO2 29.0 LAB L501.6200 5-15 Normal GAP 6 Performed By: #### L500.2500 #### [facility] [address] [place], [address] PROTHROMBIN TIME W/INR Collected: 01/23/2018 Status: F Source: [place] 8:49 AM [facility] TYPE CODE TESTS RESULT OUT OF RANGE REFERENCE UNITS LAB L300.4150 11.7-14.9 SECONDS High PROTIME 27.1 LAB L300.4200 Normal INR 2.5 Performed By: #### L300.3900 #### [facility] [address] [place], [place], [address] BASIC METABOLIC Collected: 12/28/2017 Status: F Source: [place] PROFILE (BMP) 9:03 AM [facility] TYPE CODE TESTS RESULT OUT OF RANGE REFERENCE UNITS LAB L501.0100 74-106 mg/dL High GLU 116 Result Comment: Fasting Glucose result from 100 to 125 mg/dL suggests IMPAIRED HOMEOSTASIS per A.D.A. criteria. Please note revised GLUCOSE reference range effective 2017. LAB L501.1000 7-18 mg/dL Normal BUN 14 LAB L501.1100 0.55-1.02 mg/dL Normal CREAT,SERUM 0.91 Result Comment: The validity of the calculated GFR AND GFRAA in patients over 70 years has not been determined. Clinical correlation is essential. LAB L501.1110 >60 mL/min Normal EST GFR 64 Result Comment: Non- GFR Calc LAB L501.1115 >60 mL/min Normal EST GFR - AA 77 Result Comment: GFR Calc LAB L501.1300 10-20 RATIO Normal BUN/CRE 15.4 LAB L501.2200 8.5-10.1 mg/dL Low CA 8.4 LAB L501.5300 136-145 mmol/L Low NA 135 LAB L501.5600 3.5-5.1 mmol/L K Normal 4.1 LAB L501.5900 98-107 mmol/L CL Normal 102 LAB L501.6100 21.0-32.0 mmol/L Normal CO2 30.0 LAB L501.6200 5-15 Low GAP 3 Performed By: #### L500.2500 #### [facility] [address] [place], [address] MICROALB:CREAT Collected: 12/28/2017 Status: F Source: [place] RATIO,RANDOM UR 9:03 AM [facility] TYPE CODE TESTS RESULT OUT OF RANGE REFERENCE UNITS LAB L501.1200 NO RANGE EST. mg/dL Normal UR CREAT 33.10 LAB L502.0500 NO RANGE EST. mg/L Normal 70.6 MICROALBUMIN ,UR LAB L502.0600 <30 mg/g CRE mg/g CRE High 213.3 MALB:CREAT Performed By: #### L502.0250 #### [facility] [address] [place], [address] PROTHROMBIN TIME W/INR Collected: 12/19/2017 Status: F Source: [place] 10:49 AM [facility] TYPE CODE TESTS RESULT OUT OF RANGE REFERENCE UNITS LAB L300.4150 11.7-14.9 SECONDS High PROTIME 29.2 LAB L300.4200 Normal INR 2.7 Performed By: #### L300.3900 #### [facility] [address] [place], [address] URGENT CARE VISIT Observed: 12/16/2017 Status: F Source: [place] REPORT 10:26 AM [facility] [address] [place] [address] [address] [place] [address] OFFICE VISIT Date of Service: 12/16/17 MR#: [id number] Acct: [id number] Name: KENDRA CHAPPELL V Rep #: [id number] : 1940 Provider: LILY Stratton Age/Sex: 77/F Location: [facility] Status: Signed Intake Vital Signs12/16/17 Height 5 ft 7 in Intake Visit Reasons: CUT ON LEFT ARM Chief Complaint: Left forearm laceration Is patient in pain?: No Allergies aspirin Allergy (Verified 12/16/17 09:47) Anaphylaxis ibuprofen Allergy (Verified 12/16/17 09:47) Anaphylaxis Penicillins [PCN] Allergy (Verified 12/16/17 09:47) Anaphylaxis Sulfa (Sulfonamide Antibiotics) Allergy (Verified 12/16/17 09:47) Anaphylaxis FLU SHOT Allergy (Uncoded 12/16/17 09:47) Anaphylaxis Medications Esomeprazole Mag Trihydrate [Nexium] 40 mg PO DAILY 04/28/16 [History Confirmed 12/16/17] Warfarin [Coumadin] 3 mg PO DAILY 04/28/16 [History Confirmed 12/16/17] Pravastatin Sodium [Pravachol] 10 mg PO DAILY 05/06/16 [History Confirmed 12/16/17] Clonazepam [Klonopin] 0.5 mg PO BID #90 tab 05/11/16 [Rx Confirmed 12/16/17] minoxidil 2.5 mg tablet 2.5 mg PO .COMPLEX #90 tab 12/12/17 [Rx Confirmed 12/16/17] labetalol 100 mg tablet 50 mg PO BID #90 tab 09/18/17 [Rx Confirmed 12/16/17] isosorbide mononitrate ER 60 mg tablet,extended release 24 hr 60 mg PO BID tab 10/23/17 [History Confirmed 12/16/17] lisinopril 20 mg tablet 20 mg PO BID #180 tab 10/25/17 [Rx Confirmed 12/16/17] divalproex ER 250 mg tablet,extended release 24 hr 250 mg PO QHS tab 12/16/17 [History] PFSH Medical History A-fib (Acute) Celiac disease (Acute) Hay fever (Acute) Incontinence (Acute) Stroke (Acute) HTN (hypertension) (Chronic) Surgical History History of back surgery (Acute) History of hip replacement (Acute) History of hysterectomy (Acute) Family History Other CVA (cerebral vascular accident) Cancer Hypertension Social History Smoking Status: Never smoker alcohol intake: never HPI HPI Chief Complaint: Left forearm laceration Details: * KENDRA CHAPPELL, is a 77 F who presents to the office today for a left forearm laceration that occurred while opening a drawer at home. The corner of the drawer struck her forearm causing the laceration. She states she washed and cleansed the laceration as best she could. She now presents for evaluation and treatment. She is unsure of her last tetanus immunization. ROS Const Constitutional: No chills or fever(s) Eyes Eyes: No change in vision ENT ENT: No ear pain, sore throat, nasal congestion or nasal discharge Resp Respiratory: No cough, chest congestion, shortness of breath or wheezing Cardio Cardiology: No chest pain at rest or chest pain with exertion Gastro GI: No abdominal pain, diarrhea, vomiting or nausea/dyspepsia Musc Musculoskeletal: No back pain or abnormal walking Skin Skin: No rash or change in skin color Neuro Neurology: No confusion, abnormal walking or abnormal speech Psych Psychiatric: No confusion Aller/Imm Allergy/Immunologic: No wheezing Exam Skin Wounds: wounds noted (2.5 cm partial-thickness laceration of the forearm. No bleeding or signs o) Office Procedures Laceration Repair Procedure performed by: Kieran Stratton Explained risks and benefits to parent: Yes Informed consent given: No Consent signed: No Location: Left forearm Sedation: No Wound exploration: none Deep closure: No Skin closure: glue Topical treatment: dry Tetanus toxoid ordered: Yes Patient tolerated procedure: well Complications: No Immunizations Adacel (Tdap Adolesn/Adult)(PF)2Lf-(2.5-5-3-5mcg)-5 Lf/0.5 mL IM susp Performing Provider: LILY Barajas Administered by: Dee Alvarado on 12/16/17 10:14 Dose Route Admin Location Lot Number Expiration Date NDC Feather Trimmer 0.5 mL IM Left Deltoid [id number] 03/28/19 42620-928-67 [employer] VIS Given Date VIS Publication Date 12/16/17 12/16/17 Eligibility Eligibility Date Assessment AND Plan Problems 1. Open wound of left forearm, initial encounter S51.349O Plan The open wound was cleansed with normal saline. No foreign bodies were identified. Dermabond was applied to the open wound. The patient tolerated the procedure well. The patient received a Tdap. She tolerated the immunization well. No adverse effects occurred. A dry dressing was applied to the laceration site. She was instructed to watch for signs of infection. Return to the clinic if needed. Orders Orders: Medications Discontinued: Adacel (Tdap Adolesn/Adult)(PF)2Lf-(2.5-5-3-5mcg)-50.5 mL IM ONCE NS Z23 Dee Alvarado Lf/0.5 mL IM susp (diph,pertuss(acel),tet vac(PF)) Discontinued Reason: Office Medication has bee n Documented as given Coding Level of Care Code Off vis,est,level 3 Diagnoses Open wound of left forearm, initial encounter S51.533H Encounter type: initial encounter Laterality: left 12/16/17 1026 <Electronically signed by Kieran BAUTISTA> Date Kieran BAUTISTA Cosigner Signature: Date (if applicable) CC: BASIC METABOLIC Collected: 12/04/2017 Status: F Source: [place] PROFILE (BMP) 11:01 AM [facility] TYPE CODE TESTS RESULT OUT OF RANGE REFERENCE UNITS LAB L501.0100 74-106 mg/dL Normal GLU 100 Result Comment: Fasting Glucose result from 100 to 125 mg/dL suggests IMPAIRED HOMEOSTASIS per A.D.A. criteria. Please note revised GLUCOSE reference range effective 2017. LAB L501.1000 7-18 mg/dL Normal BUN 15 LAB L501.1100 0.55-1.02 mg/dL Normal CREAT,SERUM 0.78 Result Comment: The validity of the calculated GFR AND GFRAA in patients over 70 years has not been determined. Clinical correlation is essential. LAB L501.1110 >60 mL/min Normal EST GFR 76 Result Comment: Non- GFR Calc LAB L501.1115 >60 mL/min Normal EST GFR - AA 92 Result Comment: GFR Calc LAB L501.1300 10-20 RATIO Normal BUN/CRE 19.3 LAB L501.2200 8.5-10.1 mg/dL Low CA 8.4 LAB L501.5300 136-145 mmol/L Low NA 130 LAB L501.5600 3.5-5.1 mmol/L K Normal 4.3 LAB L501.5900 98-107 mmol/L Low CL 94 LAB L501.6100 21.0-32.0 mmol/L Normal CO2 28.0 LAB L501.6200 5-15 Normal GAP 8 Performed By: #### L500.2500 #### [facility] [address] [place], [place], [address] PROTHROMBIN TIME W/INR Collected: 12/04/2017 Status: F Source: [place] 11:00 AM [facility] Order Comment: Comments: Standing Order Comments: Standing Order TYPE CODE TESTS RESULT OUT OF RANGE REFERENCE UNITS LAB L300.4150 11.7-14.9 SECONDS High PROTIME 31.3 LAB L300.4200 Normal INR 3.0 Performed By: #### L300.3900 #### [facility] [address] [place], [address] BASIC METABOLIC Collected: 11/09/2017 Status: F Source: [place] PROFILE (BMP) 8:15 AM [facility] TYPE CODE TESTS RESULT OUT OF RANGE REFERENCE UNITS LAB L501.0100 74-106 mg/dL Normal GLU 99 Result Comment: Please note revised GLUCOSE reference range effective 2017. LAB L501.1000 7-18 mg/dL Normal BUN 18 LAB L501.1100 0.55-1.02 mg/dL Normal CREAT,SERUM 0.82 Result Comment: The validity of the calculated GFR AND GFRAA in patients over 70 years has not been determined. Clinical correlation is essential. LAB L501.1110 >60 mL/min Normal EST GFR 72 Result Comment: Non- GFR Calc LAB L501.1115 >60 mL/min Normal EST GFR - AA 87 Result Comment: GFR Calc LAB L501.1300 10-20 RATIO High BUN/CRE 22.1 LAB L501.2200 8.5-10.1 mg/dL Low CA 8.4 LAB L501.5300 136-145 mmol/L Low NA 130 LAB L501.5600 3.5-5.1 mmol/L K Normal 4.4 LAB L501.5900 98-107 mmol/L Low CL 93 LAB L501.6100 21.0-32.0 mmol/L Normal CO2 29.0 LAB L501.6200 5-15 Normal GAP 8 Performed By: #### L500.2500 #### [facility] [address] [place], [place], [address] PROTHROMBIN TIME W/INR Collected: 11/01/2017 Status: F Source: [place] 9:50 AM [facility] TYPE CODE TESTS RESULT OUT OF RANGE REFERENCE UNITS LAB L300.4150 11.7-14.9 SECONDS High PROTIME 24.8 LAB L300.4200 Normal INR 2.2 Performed By: #### L300.3900 #### [facility] [address] [place], [address] BASIC METABOLIC Collected: 11/01/2017 Status: F Source: [place] PROFILE (BMP) 9:50 AM [facility] TYPE CODE TESTS RESULT OUT OF RANGE REFERENCE UNITS LAB L501.0100 74-106 mg/dL High GLU 121 Result Comment: Fasting Glucose result from 100 to 125 mg/dL suggests IMPAIRED HOMEOSTASIS per A.D.A. criteria. Please note revised GLUCOSE reference range effective 2017. LAB L501.1000 7-18 mg/dL Normal BUN 15 LAB L501.1100 0.55-1.02 mg/dL Normal CREAT,SERUM 0.82 Result Comment: The validity of the calculated GFR AND GFRAA in patients over 70 years has not been determined. Clinical correlation is essential. LAB L501.1110 >60 mL/min Normal EST GFR 72 Result Comment: Non- GFR Calc LAB L501.1115 >60 mL/min Normal EST GFR - AA 87 Result Comment: GFR Calc LAB L501.1300 10-20 RATIO Normal BUN/CRE 18.3 LAB L501.2200 8.5-10.1 mg/dL Low CA 8.4 LAB L501.5300 136-145 mmol/L Low NA 131 LAB L501.5600 3.5-5.1 mmol/L K Normal 4.4 LAB L501.5900 98-107 mmol/L Low CL 96 LAB L501.6100 21.0-32.0 mmol/L Normal CO2 29.0 LAB L501.6200 5-15 Normal GAP 6 Performed By: #### L500.2500 #### [facility] [address] [place], [place], [address] PROTHROMBIN TIME W/INR Collected: 09/28/2017 Status: F Source: [place] 8:28 AM [facility] Order Comment: Comments: STANDING ORDER Comments: STANDING ORDER TYPE CODE TESTS RESULT OUT OF RANGE REFERENCE UNITS LAB L300.4150 11.7-14.9 SECONDS High PROTIME 26.0 LAB L300.4200 Normal INR 2.5 Performed By: #### L300.3900 #### [facility] [address] [place], [address] ALLERGIES ALLERGIES DATE TYPE / CODE NAME / REACTION SEVERITY SOURCE CODE 08/26/2018 Drug Penicillin Anaphylaxis Unknown [place] Allergy/[id number]([id number] [place] 08/26/2018 Drug Sulfa Anaphylaxis Unknown [place] Allergy/150108455(S ([facility] [place] Antibiotic Repository s)/[id number] 491(RXNORM ) 08/26/2018 Drug aspirin/F0 Anaphylaxis Unknown [place] Allergy/893652736(S 42854359(R [facility]) XNORM) Hospital Repository 08/26/2018 Drug spironolac Hyponaturemia SV [place] Allergy/466470337(S tone/F0060 [facility]) [address](RXNO Hospital RM) Repository 08/26/2018 Drug ibuprofen/ Anaphylaxis Unknown [place] Allergy/493762060(S [id number] [facility]) (RXNORM) Hospital Repository 08/26/2018 Drug amlodipine cough [place] Allergy/673836477(S /[id number] [facility]) 2(RXNORM) Hospital Repository 08/26/2018 Drug hydralazin stopped when she [place] Allergy/983360362(S e/[id number] had CVA [facility]) 89(RXNORM) Hospital Repository 08/26/2018 Miscellaneous FLU SHOT Anaphylaxis Unknown [place] Allergy/745578039(S [facility]) Hospital Repository ENCOUNTERS ENCOUNTERS ADMIT/DISCHARGE ACCOUNT ADMITTING ENCOUNTER LOCATION SOURCE NUMBER CLASS 09/13/2018 [id number] Ambulatory [place] 5 [facility] ing:LAB Repository 09/04/2018 [id number] [place] 5 [facility] ing:CT Repository 08/30/2018/ [id number] Ambulatory [place] 8 9 [facility] ing:LAB Repository 08/26/2018/ [id number] Ambulatory B[facility]:B [place] 8 8 [facility] Repository 08/15/2018 [id number] Ambulatory [place] 7 [facility] ing:PSN Repository 08/15/2018 [id number] Ambulatory BMSBuilding:W [place] 7 [facility] Repository 08/15/2018/ [id number] Ambulatory BMSBuilding:B [place] 8 2 [facility] Repository 08/13/2018 [id number] Ambulatory BMSBuilding:B [place] 3 [facility] Repository 08/13/2018 [id number] Ambulatory BMSBuilding:B [place] 5 [facility] Repository 08/13/2018/12/11 [id number] Ambulatory [place] 8 5 [facility] Repository 07/30/2018/ [id number] Ambulatory [place] 8 9 [facility] ing:LAB Repository 07/19/2018 [id number] Amb[place] 6 [facility] ing:LABSPEC Repository 07/19/2018/ [id number] Ambulatory BMSBuilding:B [place] 8 8 [facility] Repository 07/04/2018 [id number] Ambulatory [place] 4 [facility] Hospital ing:PSN Repository 07/04/2018 [id number] Ambulatory BMSBuilding:W [place] 4 [facility] Repository 07/02/2018 [id number] Ambulatory BMSBuilding:B [place] 4 [facility] Repository 07/02/2018 [id number] Ambulatory [place] 2 [facility] ing:CVS Repository 07/01/2018/ [id number] Ambulatory [place] [facility] 8 [facility] ing:LAB Repository 06/26/2018 [id number] Ambulatory [place] 6 [facility] ing:LABSPEC Repository 05/24/2018 [id number] Ambulatory [place] 2 [facility] ing:MFPLAB Repository 05/21/2018/ [id number] Ambulatory [place] 8 7 [facility] ing:LAB Repository 05/03/2018/ [id number] Ambulatory [place] 8 2 [facility] ing:LAB Repository 04/10/2018/ [id number] Ambulatory BMSBuilding:B [place] 8 6 [facility] Repository 04/08/2018 [id number] Ambulatory BMSBuilding:B [place] 0 [facility] Repository 04/02/2018 [id number] Ambulatory [place] 0 [facility] ing:MFPLAB Repository 03/26/2018/ [id number] Ambulatory [place] 8 4 [facility] ing:LAB Repository 03/19/2018 [id number] Ambulatory [place] [place] 7 [facility] ing:LABSPEC Repository 03/14/2018 [id number] Ambulatory Ezekiel [place] [facility] ing:MFPLAB Repository 03/04/2018 [id number] Ambulatory [place] 6 [facility] ing:MFPLAB Repository 02/19/2018/ [id number] Ambulatory Ezekiel [place] 8 9 [facility] ing:LAB Repository 02/16/2018/ [id number] Emergency [place] [facility] 6 [facility] ing:ED Repository 01/23/2018/ [id number] Ambulatory Ezekiel [place] 8 7 [facility] ing:LAB Repository 12/28/2017 [id number] Ambulatory [place] [facility] ing:LAB Repository 12/19/2017/ [id number] Ambulatory [place]iel [place] 8 7 [facility] ing:LAB Repository 12/16/2017/ [id number] Ambulatory BMS[facility] [place] [facility] 11/09/2017 [id number] Ambulatory [place] 6 [facility] ing:LAB Repository 11/01/2017/ [id number] Ambulatory Ezekiel [place] 8 4 [facility] ing:LAB Repository 10/23/2017 [id number] Ambulatory BMSBuilding:B [place] 0 [facility] Repository 09/28/2017/ [id number] Ambulatory [place] 8 4 [facility] ing:LAB Repository PAYERS PAYERS ENCOUNTER GUARANTOR PAYER SUBSCRIBER SOURCE 09/13/2018 KENDRA V Primary KENDRA Alex SIDDIQUI Insurance:MEDICARE ANKENYDOB: [facility] PART A [facility] [id number] [place] Number: Repository [address]Any: ([phone]) [id number] [phone] (HP) Date:2017-10-09 09/13/2018 Secondary KENDRA V [place] Insurance:CIGNAPolicy PHILLIPSDOB: Community Number: [id number] Hospital [id number] Repository Date:9130-31-69AE [address]VICDVDCEXXM, [place] [address]SJ: 09/13/2018 Tertiary NOT GIVENUNK [place] Insurance:SELF PAY [facility] Number: Effective Repository Date:2018-09-02 09/04/2018 KENDRA V Primary KENDRA V [place] [id number] Insurance:MEDICARE PHILLIPSDOB: Community [place] PART A [facility] [id number] [place] Number: Repository [address]Qbc: 330 [id number] [phone] () Date:2018-08-29 09/04/2018 Secondary KENDRA V [place] Insurance:CIGNAPolicy PHILLIPSDOB: Community Number: [id number] Hospital [id number] Repository Date:5448-88-26GN [address]IXNJZGEYJVS, [place] [address]AX: 09/04/2018 Tertiary NOT GIVENUNK [place] Insurance:SELF PAY [facility] Number: Effective Repository Date:2018-08-29 08/30/2018 KENDRA V Primary KENDRA V [place] [id number] Insurance:MEDICARE PHILLIPSDOB: Community [place] PART A [facility] [id number] [place] Number: Repository [address]Mdy: 330 [id number] [phone] () Date:2017-10-09 08/30/2018 Secondary KENDRA V [place] Insurance:CIGNAPolicy PHILLIPSDOB: Community Number: [id number] Hospital [id number] Repository Date:9801-35-87VX [address]MPKWAROZJSK, [place] [address]DH: 08/30/2018 Tertiary NOT GIVENUNK [place] Insurance:SELF PAY [facility] Number: Effective Repository Date:2018-08-05 08/26/2018 KENDRA V Primary KENDRA V [place] [id number] Insurance:MEDICARE PHILLIPSDOB: Community [place] PART A [facility] [id number] [place] Number: Repository [address]Zgc: 330 [id number] [phone] () Date:2018-04-10 08/26/2018 Secondary KENDRA V [place] Insurance:CIGNAPolicy PHILLIPSDOB: Community Number: [id number] Hospital [id number] Repository Date:3245-88-30KF [address]RDSYVFJUQKX, [place] [address]SK: 08/26/2018 Tertiary NOT GIVENUNK [place] Insurance:SELF PAY [facility] Number: Effective Repository Date:2018-08-15 08/15/2018 KENDRA V Primary KENDRA V [place] [id number] Insurance:MEDICARE PHILLIPSDOB: Community [place] PART A [facility] [id number] [place] Number: Repository [address]Dcj: 330 [id number] [phone] () Date:2018-08-15 08/15/2018 Secondary KENDRA V [place] Insurance:CIGNAPolicy PHILLIPSDOB: Community Number: [id number] Hospital [id number] Repository Date:9419-35-56VA [address]TUPBBGYKJPS, [place] [address]MN: 08/15/2018 Tertiary NOT GIVENUNK [place] Insurance:SELF PAY [facility] Number: Effective Repository Date:2018-08-15 08/15/2018 KENDRA V Primary KENDRA V [place] [id number] Insurance:MEDICARE PHILLIPSDOB: Community [place] PART A [facility] [id number] [place] Number: Repository [address]Tmc: 330 [id number] [phone] () Date:2018-08-15 08/15/2018 Secondary KENDRA V [place] Insurance:CIGNAPolicy PHILLIPSDOB: Community Number: [id number] Hospital [id number] Repository Date:1007-74-00SO [address]DRTEHHQZQVH, [place] [address]UP: 08/15/2018 Tertiary NOT GIVENUNK [place] Insurance:SELF PAY [facility] Number: Effective Repository Date:2018-08-15 08/15/2018 KENDRA V Primary KENDRA V [place] [id number] Insurance:MEDICARE PHILLIPSDOB: Community [place] PART A [facility] [id number] [place] Number: Repository [address]Ehe: 330 [id number] [phone] () Date:2018-08-14 08/15/2018 Secondary KENDRA V [place] Insurance:CIGNAPolicy PHILLIPSDOB: Community Number: [id number] Hospital [id number] Repository Date:6314-37-54RD [address]ANKRCYNFRKI, [place] [address]KU: 08/15/2018 Tertiary NOT GIVENUNK [place] Insurance:SELF PAY [facility] Number: Effective Repository Date:2018-08-15 08/13/2018 KENDRA V Primary KENDRA V [place] [id number] Insurance:MEDICARE PHILLIPSDOB: Community [place] PART A [facility] [id number] [place] Number: Repository [address]Hhj: 330 [id number] [phone] () Date:2018-07-19 08/13/2018 Secondary KENDRA V [place] Insurance:CIGNAPolicy PHILLIPSDOB: Community Number: [id number] [facility] [id number] Repository Date:4629-08-05QC [address]IABAYDVWANS, [place] [address]EM: 08/13/2018 Tertiary NOT GIVENUNK [place] Insurance:SELF PAY [facility] Number: Effective Repository Date:2018-08-13 08/13/2018 KENDRA V Primary KENDRA V [place] [id number] Insurance:MEDICARE PHILLIPSDOB: Community [place] PART A [facility] [id number] [place] Number: Repository [address]Zag: 330 [id number] [phone] () Date:2018-07-19 08/13/2018 Secondary KENDRA V [place] Insurance:CIGNAPolicy PHILLIPSDOB: Community Number: [id number] Hospital [id number] Repository Date:1015-62-91PT [address]UUXGBXZFXFJ, [place] [address]WK: 08/13/2018 Tertiary NOT GIVENUNK [place] Insurance:SELF PAY [facility] Number: Effective Repository Date:2018-08-13 08/13/2018 KENDRA V Primary KENDRA V [place] [id number] Insurance:MEDICARE PHILLIPSDOB: Community [place] PART A [id number] [place] Number: Repository [address]Twx: 330 [id number] [phone] () Date:2018-07-19 08/13/2018 Secondary KENDRA V [place] Insurance:CIGNAPolicy PHILLIPSDOB: Community Number: [id number] Hospital [id number] Repository Date:4521-82-86AA [address]JNHMXESYBQJ, [place] [address]JS: 08/13/2018 Tertiary NOT GIVENUNK [place] Insurance:SELF PAY [facility] Number: Effective Repository Date:2018-07-19 07/30/2018 KENDRA V Primary KENDRA V [place] [id number] Insurance:MEDICARE PHILLIPSDOB: Community [place] PART A [facility] [id number] [facility] [place] Number: Repository [address]Wkh: 330 [id number] [phone] () Date:2017-10-09 07/30/2018 Secondary KENDRA V [place] Insurance:CIGNAPolicy PHILLIPSDOB: Community Number: [id number] Hospital [id number] Repository Date:6573-99-77BU [facility] 729117VMNNKNJPXSG, [place] [address]AW: 07/30/2018 Tertiary NOT GIVENUNK [place] Insurance:SELF PAY [facility] Number: Effective Repository Date:2018-07-04 07/19/2018 KENDRA V Primary KENDRA V [place] [id number] Insurance:MEDICARE PHILLIPSDOB: Community [place] PART A [facility] [id number] [place] Number: Repository [address]Std: 330 [id number] [phone] () Date:2018-07-19 07/19/2018 Secondary KENDRA V [place] Insurance:CIGNAPolicy PHILLIPSDOB: Community Number: [id number] Hospital [id number] Repository Date:6838-36-88MQ [address]NYWUKZWVXYE, [place] [address]GM: 07/19/2018 Tertiary NOT GIVENUNK [place] Insurance:SELF PAY [facility] Number: Effective Repository Date:2018-07-19 07/19/2018 KENDRA V Primary KENDRA V [place] [id number] Insurance:MEDICARE PHILLIPSDOB: Community [place] PART A [facility] [id number] [place] Number: Repository [address]Gwe: (203) [id number] [phone] () Date:2018-07-09 07/19/2018 Secondary KENDRA V [place] Insurance:CIGNAPolicy PHILLIPSDOB: Community Number: [id number] Hospital [id number] Repository Date:8769-59-51HB [address]HJJKXAFSTDP, [place] [address]DH: 07/19/2018 Tertiary NOT GIVENUNK [place] Insurance:SELF PAY [facility] Number: Effective Repository Date:2018-07-09 07/04/2018 KENDRA V Primary KENDRA V [place] [id number] Insurance:MEDICARE PHILLIPSDOB: Community [place] PART A [facility] [id number] Number: Repository [address]Nxx: ([phone]) [id number] [phone] () Date:2018-07-03 07/04/2018 Secondary KENDRA V [place] Insurance:CIGNAPolicy PHILLIPSDOB: Community Number: [id number] Hospital [id number] Repository Date:7589-67-93NB [facility] 072787IPBEPFFBKXO, [place] [address]YG: 07/04/2018 Tertiary NOT GIVENUNK [place] Insurance:SELF PAY [facility] Number: Effective Repository Date:2018-07-03 07/04/2018 KENDRA V Primary KENDRA V [place] [id number] Insurance:MEDICARE PHILLIPSDOB: Community [place] PART A [facility] [id number] Hospital [place] Number: Repository [address]Pqe: 330 [id number] [phone] () Date:2018-07-03 07/04/2018 Secondary KENDRA V [place] Insurance:CIGNAPolicy PHILLIPSDOB: Community Number: [id number] Hospital [id number] Repository Date:7662-16-98KC [address]YYOAJKNTCZD, [place] [address]NA: 07/04/2018 Tertiary NOT GIVENUNK [place] Insurance:SELF PAY [facility] Number: Effective Repository Date:2018-07-04 07/02/2018 KENDRA V Primary KENDRA V [place] [id number] Insurance:MEDICARE PHILLIPSDOB: Community [place] PART A [facility] [id number] [place] Number: Repository [address]Vhp: 330 [id number] [phone] () Date:2018-06-03 07/02/2018 Secondary KENDRA V [place] Insurance:CIGNAPolicy PHILLIPSDOB: Community Number: [id number] Hospital [id number] Repository Date:1804-04-38JS [address]KATJBEKOKJS, [place] [address]GM: 07/02/2018 Tertiary NOT GIVENUNK [place] Insurance:SELF PAY [facility] Number: Effective Repository Date:2018-07-02 07/02/2018 KENDRA V Primary KENDRA V [place] [id number] Insurance:MEDICARE PHILLIPSDOB: Community [place] PART A [facility] [id number] [facility] Number: Repository [address]Rps: 330 [id number] [phone] () Date:2018-06-03 07/02/2018 Secondary KENDRA V [place] Insurance:CIGNAPolicy PHILLIPSDOB: Community Number: [id number] Hospital [id number] Repository Date:4104-06-56FM [address]STQADDCIYFF, [place] [address]LM: 07/02/2018 Tertiary NOT GIVENUNK [place] Insurance:SELF PAY [facility] Number: Effective Repository Date:2018-06-03 07/01/2018 KENDRA V Primary KENDRA V [place] [id number] Insurance:MEDICARE PHILLIPSDOB: Community [place] PART A [facility] [id number] Number: Repository [address]Hjy: 330 [id number] [phone] () Date:2017-10-09 07/01/2018 Secondary KENDRA V [place] Insurance:CIGNAPolicy PHILLIPSDOB: Community Number: [id number] Hospital [id number] Repository Date:2755-25-21AE [address]HDEEPWEONTO, [place] [address]DV: 07/01/2018 Tertiary NOT GIVENUNK [place] Insurance:SELF PAY [facility] Number: Effective Repository Date:2018-06-05 06/26/2018 KENDRA V Primary KENDRA V [place] [id number] Insurance:MEDICARE PHILLIPSDOB: Community [place] PART A [facility] [id number] Number: Repository [address]Ugn: 330 [id number] [phone] () Date:2018-06-26 06/26/2018 Secondary KENDRA V [place] Insurance:CIGNAPolicy PHILLIPSDOB: Community Number: [id number] Hospital [id number] Repository Date:0201-07-03CH [address]QBXOLHJWJFE, [place] [address]HD: 06/26/2018 Tertiary NOT GIVENUNK [place] Insurance:SELF PAY [facility] Number: Effective Repository Date:2018-06-26 05/24/2018 Kendra V Primary KENDRA V [place] [id number] Insurance:MEDICARE PHILLIPSDOB: Community [place] PART A [facility] [id number] Number: Repository [address]Lsm: 330 [id number] [phone] () Date:2018-05-24 05/24/2018 Secondary KENDRA V [place] Insurance:CIGNAPolicy PHILLIPSDOB: Community Number: [id number] Hospital [id number] Repository Date:3704-01-17SN [address]QONCNRKUGED, [place] [address]GA: 05/24/2018 Tertiary NOT GIVENUNK [place] Insurance:SELF PAY [facility] Number: Effective Repository Date:2018-05-24 05/21/2018 Kendra V Primary KENDRA V [place] [id number] Insurance:MEDICARE PHILLIPSDOB: Community [place] PART A [facility] [id number] [facility] [place] Number: Repository [address]Noi: 330 [id number] [phone] () Date:2017-10-09 05/21/2018 Secondary KENDRA V [place] Insurance:CIGNAPolicy PHILLIPSDOB: Community Number: [id number] Hospital [id number] Repository Date:1916-94-88TT [address]YCFUYJEXMTB, [place] [address]NI: 05/21/2018 Tertiary NOT GIVENUNK [place] Insurance:SELF PAY [facility] Number: Effective Repository Date:2018-05-07 05/03/2018 Kendra V Primary KENDRA V [place] [id number] Insurance:MEDICARE PHILLIPSDOB: Community [place] PART A [facility] [id number] Memorial [facility] Number: Repository [address]Rmt: 330 [id number] [phone] () Date:2017-10-09 05/03/2018 Secondary KENDRA V [place] Insurance:CIGNAPolicy PHILLIPSDOB: Community Number: [id number] Hospital [id number] Repository Date:3722-49-39RL [address]XALSEYQJMSH, [place] [address]AI: 05/03/2018 Tertiary NOT GIVENUNK [place] Insurance:SELF PAY [facility] Number: Effective Repository Date:2018-04-04 04/10/2018 Kendra V Primary KENDRA V [place] [id number] Insurance:MEDICARE PHILLIPSDOB: Community [place] PART A [facility] [id number] Memorial [facility] Number: Repository [address]Iti: 330 [id number] [phone] (HP) Date:2017-08-21 04/10/2018 Secondary KENDRA V [place] Insurance:CIGNAPolicy PHILLIPSDOB: Community Number: [id number] Hospital [id number] Repository Date:4079-28-97WD [facility] 948412CCWCTUMSDUD, [place] [address]QM: 04/10/2018 Tertiary NOT GIVENUNK [place] Insurance:SELF PAY [facility] Number: Effective Repository Date:2018-04-10 04/08/2018 Kendra V Primary KENDRA V [place] [id number] Insurance:MEDICARE PHILLIPSDOB: Community [place] PART A [facility] [id number], [place] Number: Repository [address]Lyx: 330 [id number] [phone] (HP) Date:2018-04-08 04/08/2018 Secondary KENDRA V [place] Insurance:CIGNAPolicy PHILLIPSDOB: Community Number: [id number] Hospital [id number] Repository Date:9236-55-46GR [address]BMBRKIODUSU, [place] [address]KE: 04/08/2018 Tertiary NOT GIVENUNK [place] Insurance:SELF PAY [facility] Number: Effective Repository Date:2018-04-08 04/02/2018 Kendra V Primary KENDRA V [place] [id number] Insurance:MEDICARE PHILLIPSDOB: Community [place] PART A [facility] [id number] Number: Repository [address]Opv: 330 [id number] [phone] (HP) Date:2018-04-02 04/02/2018 Secondary KENDRA V [place] Insurance:CIGNAPolicy PHILLIPSDOB: Community Number: [id number] Hospital [id number] Repository Date:1023-08-25JA [facility] 331884IXNELCNYVUV, [place] [address]SN: 04/02/2018 Tertiary NOT GIVENUNK [place] Insurance:SELF PAY [facility] Number: Effective Repository Date:2018-04-02 03/26/2018 Kendra V Primary KENDRA V [place] [id number] Insurance:MEDICARE PHILLIPSDOB: Community [place] PART A [facility] [id number], [place] Number: Repository [address]Hbe: 330 [id number] [phone] (HP) Date:2017-10-09 03/26/2018 Secondary KENDRA V [place] Insurance:CIGNAPolicy PHILLIPSDOB: Community Number: [id number] Hospital [id number] Repository Date:6104-67-44MK [facility] 370420TXJDSGWRBGI, [place] [address]JM: 03/26/2018 Tertiary NOT GIVENUNK [place] Insurance:SELF PAY [facility] Number: Effective Repository Date:2018-03-01 03/19/2018 Kendra V Primary KENDRA V [place] [id number] Insurance:MEDICARE PHILLIPSDOB: Community [place] PART A [facility] [id number], [place] Number: Repository [address]Phv: 330 [id number] [phone] () Date:2018-03-19 03/19/2018 Secondary KENDRA V [place] Insurance:CIGNAPolicy PHILLIPSDOB: Community Number: [id number] Hospital [id number] Repository Date:0127-25-48WE [address]PGFEYQDXGYV, [place] [address]FI: 03/19/2018 Tertiary NOT GIVENUNK [place] Insurance:SELF PAY [facility] Number: Effective Repository Date:2018-03-19 03/14/2018 Kendra V Primary KENDRA V [place] [id number] Insurance:MEDICARE PHILLIPSDOB: Community [place] PART A [facility] [id number], [place] Number: Repository [address]Epv: 330 [id number] [phone] () Date:2018-03-14 03/14/2018 Secondary KENDRA V [place] Insurance:CIGNAPolicy PHILLIPSDOB: Community Number: [id number] Hospital [id number] Repository Date:8164-28-52OE [facility] 323547RHAMCAWWCVS, [place] [address]EH: 03/14/2018 Tertiary NOT GIVENUNK [place] Insurance:SELF PAY [facility] Number: Effective Repository Date:2018-03-14 03/04/2018 Kendra V Primary KENDRA V [place] [id number] Insurance:MEDICARE PHILLIPSDOB: Community [place] PART A [facility] [id number] [facility] Number: Repository [address]Yrs: 330 [id number] [phone] () Date:2018-03-04 03/04/2018 Secondary KENDRA V [place] Insurance:CIGNAPolicy PHILLIPSDOB: Community Number: [id number] Hospital [id number] Repository Date:9462-27-97JT [address]CDAOAREJOGE, [place] [address]EV: 03/04/2018 Tertiary NOT GIVENUNK [place] Insurance:SELF PAY [facility] Number: Effective Repository Date:2018-03-04 02/19/2018 Kendra V Primary KENDRA V [place] [id number] Insurance:MEDICARE PHILLIPSDOB: Community [place] PART A [facility] [id number] Memorial [facility] Number: Repository [address]Sdt: 330 [id number] [phone] () Date:2017-10-09 02/19/2018 Secondary KENDRA V [place] Insurance:CIGNAPolicy PHILLIPSDOB: Community Number: [id number] Hospital [id number] Repository Date:8240-86-02RT [address]SORRAEHTVYH, [place] [address]IQ: 02/19/2018 Tertiary NOT GIVENUNK [place] Insurance:SELF PAY [facility] Number: Effective Repository Date:2018-01-31 02/16/2018 Kendra V Primary KENDRA V [place] [id number] Insurance:MEDICARE PHILLIPSDOB: Community [place] PART A [facility] [id number] Memorial [facility] Number: Repository [address]Oox: 330 [id number] [phone] () Date:2018-02-16 02/16/2018 Secondary KENDRA V [place] Insurance:CIGNAPolicy PHILLIPSDOB: Community Number: [id number] Hospital [id number] Repository Date:4411-72-41HT [address]PQRQRKABBTP, [place] [address]EU: 02/16/2018 Tertiary NOT GIVENUNK [place] Insurance:SELF PAY [facility] Number: Effective Repository Date:2018-02-16 01/23/2018 Kendra V Primary KENDRA V [place] [id number] Insurance:MEDICARE PHILLIPSDOB: Community [place] PART A [facility] [id number], [place] Number: Repository [address]Vvc: 330 [id number] [phone] (HP) Date:2017-10-09 01/23/2018 Secondary KENDRA V [place] Insurance:CIGNAPolicy PHILLIPSDOB: Community Number: [id number] Hospital [id number] Repository Date:4694-19-96AM [address]XYTQQCMBRGS, [place] [address]IR: 01/23/2018 Tertiary NOT GIVENUNK [place] Insurance:SELF PAY [facility] Number: Effective Repository Date:2018-01-01 12/28/2017 Kendra V Primary KENDRA V [place] [id number] Insurance:MEDICARE PHILLIPSDOB: Community [place] PART A [facility] [id number], [place] Number: Repository [address]Hpx: 330 [id number] [phone] () Date:2017-12-28 12/28/2017 Secondary KENDRA V [place] Insurance:CIGNAPolicy PHILLIPSDOB: Community Number: [id number] Hospital [id number] Repository Date:0395-25-44QK [address]DKVYXARWRKO, [place] [address]HT: 12/28/2017 Tertiary NOT GIVENUNK [place] Insurance:SELF PAY [facility] Number: Effective Repository Date:2017-12-28 12/19/2017 Kendra V Primary KENDRA V [place] [id number] Insurance:MEDICARE PHILLIPSDOB: Community [place] PART A [facility] [id number], [place] Number: Repository [address]Bck: 330 [id number] [phone] () Date:2017-10-09 12/19/2017 Secondary [place]DRA V [place] Insurance:CIGNAPolicy PHILLIPSDOB: Community Number: [id number] [id number] Repository Date:[id number], [place] [address]XF: 12/19/2017 Tertiary NOT GIVENUNK [place] Insurance:SELF PAY Community [facility] Number: Effective Repository Date:2017-12-03 12/16/2017 Kendra V Primary KENDRA V [place] [id number] Insurance:MEDICARE PHILLIPSDOB: Community [address] PART A [id number] [place] Number: Repository [id number]: [phone] [id number] [phone] (HP) Date:2017-12-16 12/16/2017 Secondary [place]ENDRA V [place] Insurance:CIGNAPolicy PHILLIPSDOB: Community Number: [id number] [facility] [id number] Repository Date:[id number] [facility] [id number], [place] [address]QE: 12/16/2017 Tertiary NOT [place]IV[place]UNK [place] Insurance:SELF PAY [facility] Number: Effective Repository Date:2017-12-16 11/09/2017 Kendra V Primary KENDRA V [place] [id number] Insurance:MEDICARE PHILLIPSDOB: Community [place] [employer] PART A [id number] [place] [facility] Rep[facility] [address]Vcl: 330 [id number] [phone] () Date:2017-11-09 11/09/2017 Secondary KENDRA V [place] Insurance:CIGNAPolicy PHILLIPSDOB: Community Number: [id number] [id number] Repository Date:1779-56-55[address], [place] [address]TN: 11/09/2017 Tertiary NOT GIVENUNK [place] Insurance:SELF PAY [facility] Number: Effective Repository Date:2017-11-09 11/01/2017 Kendra V Primary KENDRA V [place] [id number] Insurance:MEDICARE PHILLIPSDOB: Community [place] [employer] PART A [id number] [place] Number[facility] Repository [id number]: [phone] [id number] [phone] (HP) Date:2017-10-09 11/01/2017 Secondary KENDRA V [place] Insurance:CIGNAPolicy PHILLIPSDOB: Community Number: [id number] [facility] [id number] Repository Date:0580-14-90KD [facility] [place], [place] [address]RR: 11/01/2017 Tertiary NOT GIVENUNK [place] Insurance:SELF PAY [facility] Effective Repository Date:2017-10-09 10/23/2017 Kendra V Primary KENDRA V [place] [id number] Insurance:MEDICARE PHILLIPSDOB: Community [place] PART A [facility] [id number] [id number]: 330 [id number] [phone] () Date:2017-10-23 10/23/2017 Secondary KENDRA V [place] Insurance:CIGNAPolicy PHILLIPSDOB: Community Number: [id number] Hospital [id number] Repository Date:1839-90-54ZB [facility] [address]AR[place]SFQ, [place] [address]FM: 10/23/2017 Tertiary NOT GIVENUNK [place] Insurance:SELF PAY [facility] [place] [facility] Number: Effective Repository Date:2017-10-23 09/28/2017 Kendra V Primary KENDRA V [place] [id number] Insurance:MEDICARE PHILLIPSDOB: Community [place] PART A [facility] [id number] Number[place] Repository [id number]: 330 [id number] [phone] () Date:1995-12-03 09/28/2017 Secondary KENDRA V [place] Insurance:CIGNAPolicy PHILLIPSDOB: Community Number: [id number] Hospital [id number] Repository Date:0641-26-38AL [address]FTKWQ[address], [place] [address]LL: 09/28/2017 Tertiary NOT GIVENUNK [place] Insurance:SELF PAY [facility] Number: Effective Repository Date:2017-09-03
== END 2018-08-13 13:10 | disposition home or self-care (01) ==
PROVIDERS: Family Provider Family Medicine; PCP Family Medicine; Referring Provider Internal Medicine Cardiovascular Disease; Visit Provider Internal Medicine Cardiovascular Disease
DX: I48.2 Chronic atrial fibrillation (principal); I48.92 Unspecified atrial flutter; I27.21 Secondary pulmonary arterial hypertension; I49.3 Ventricular premature depolarization; I49.1 Atrial premature depolarization; I25.10 Atherosclerotic heart disease of native coronary artery without angina pectoris; E11.9 Type 2 diabetes mellitus without complications; I10 Essential (primary) hypertension; E78.5 Hyperlipidemia, unspecified; F41.9 Anxiety disorder, unspecified; Z79.01 Long term (current) use of anticoagulants; Z79.899 Other long term (current) drug therapy; Z86.73 Personal history of transient ischemic attack (TIA), and cerebral infarction without residual deficits
CPT/HCPCS: 36416; 85610; 92960; 93005; J7040

== ENCOUNTER → 2018-08-15 09:31 | Outpatient (CLI) | payer MEDICARE, OTHER, SELFPAY ==
[2018-08-12 10:03] VITALS: BMI 22.7
== END ==
PROVIDERS: Family Provider Family Medicine; PCP Family Medicine; Referring Provider Internal Medicine Cardiovascular Disease; Visit Provider Internal Medicine Cardiovascular Disease
DX: I48.91 Unspecified atrial fibrillation (principal); I49.1 Atrial premature depolarization; I38 Endocarditis, valve unspecified
CPT/HCPCS: 93225; 93226

== ENCOUNTER 2018-08-30 10:01 | Outpatient (RCR) | payer MEDICARE, OTHER, SELFPAY ==
[2018-07-19 11:16] VITALS: BMI 22.7
[2018-08-06 11:44] LABS: International Normalized Ratio 3.3; Prothrombin Time (Protime)PT. 33.6 SECONDS (11.7-14.9)
[2018-08-12 09:07] LABS: International Normalized Ratio 2.6; Prothrombin Time (Protime)PT. 28.1 SECONDS (11.7-14.9)
[2018-08-30 11:28] LABS: International Normalized Ratio 3.1; Prothrombin Time (Protime)PT. 32.2 SECONDS (11.7-14.9)
[2018-08-30 11:35] LABS: BUN 14 mg/dL (7-18); Creatinine, Serum 0.92 mg/dL (0.55-1.02); EST Glomerular Filtration Rate 62 mL/min (>60); Est Glom Filt Rate - Afr Amer 75 mL/min (>60)
== END 2018-08-30 11:01 | disposition home or self-care (01) ==
LOC: LAB 10:01
PROVIDERS: Family Provider Family Medicine; PCP Family Medicine; Referring Provider Internal Medicine Cardiovascular Disease; Visit Provider Internal Medicine Cardiovascular Disease
DX: Z79.01 Long term (current) use of anticoagulants (principal)
CPT/HCPCS: 36415; 82565; 84520; 85610

== ENCOUNTER → 2018-09-04 07:13 | Outpatient (CLI) | payer MEDICARE, OTHER, SELFPAY ==
[2018-08-26 10:10] VITALS: BMI 22.7
--- NOTE | 2018-09-04 07:23 | CT_ITS ---
STUDY: CT ABDOMEN AND PELVIS WITH CONTRAST REASON FOR EXAM: Female, 78 years old. Gross hematuria RADIATION DOSAGE (If Supplied By Facility): CTDIvol = ( 21.65 ) mGy, DLP = ( 2406.75 ) mGycm TECHNIQUE: Transaxial images were obtained from the dome of the diaphragm to the symphysis pubis without oral contrast. 100 ml of Isovue 300 contrast was administered. Sagittal and coronal images were reconstructed. Individualized dose optimization techniques were used for this CT. COMPARISON: None. FINDINGS: The visualized lung bases are unremarkable. The visualized portions of the heart are within normal limits. Normal liver. There are surgical clips in the gallbladder fossa consistent with a prior cholecystectomy. Normal spleen. Normal pancreas. Normal bilateral adrenal glands. Normal right kidney. Normal left kidney. Normal visualized stomach. Normal small intestine. Retained stool noted throughout the colon. There is non-visualization of the appendix. There is diffuse atherosclerotic calcification of the abdominal aorta, without a demonstrated aneurysm. Normal inferior vena cava. Normal retroperitoneum. There is diffuse irregular thickening of the bladder wall, there is also air in the nondependent portion of the bladder which may be from recent catheterization. Recommend further evaluation of the bladder with cystoscopy. There is absence of the uterus consistent with a prior hysterectomy. Normal abdominal wall. There are diffuse degenerative changes of the visualized lumbar spine, and pelvis. CT/Abdomen/Pelvis WITH Contrast IMPRESSION: Irregular asymmetric thickening of the bladder wall. Recommend cystoscopy for further evaluation. There is air within the nondependent bladder likely from recent catheterization. No suspicious solid organ abnormality, previous cholecystectomy Retained stool in the colon Degenerative bony changes Electronically Signed: Jermaine Weaver MD at 12:44 EST , Service support ,
== END ==
PROVIDERS: Family Provider Family Medicine; PCP Family Medicine; Referring Provider Urology; Visit Provider Urology
DX: R31.0 Gross hematuria (principal)
CPT/HCPCS: 74177; Q9967

== ENCOUNTER 2018-10-03 08:33 | Outpatient (RCR) | payer MEDICARE, OTHER, SELFPAY ==
[2018-08-26 10:10] VITALS: BMI 22.7
[2018-09-13 11:50] LABS: International Normalized Ratio 2.6; Prothrombin Time (Protime)PT. 27.8 SECONDS (11.7-14.9)
[2018-10-03 10:22] LABS: Prothrombin Time (Protime)PT. 38.9 SECONDS (11.7-14.9)
[2018-10-03 10:49] LABS: Anion Gap 9 (5-15); BUN 14 mg/dL (7-18); BUN/Creat Ratio 16.3 RATIO (10-20); Calcium,Total 8.8 mg/dL (8.5-10.1); Chloride 99 mmol/L (98-107); Cholesterol 135 mg/dL (200); Creatinine, Serum 0.86 mg/dL (0.55-1.02); EST Glomerular Filtration Rate 68 mL/min (>60); Est Glom Filt Rate - Afr Amer 82 mL/min (>60); Glucose 103 mg/dL (74-106); High Density Lipoprotein 43 mg/dL; Potassium 4.1 mmol/L (3.5-5.1); Sodium Level 138 mmol/L (136-145); Triglycerides 109 mg/dL; Very Low Density Lipoprotein 22 mg/dL (5-40)
== END 2018-10-03 09:33 | disposition home or self-care (01) ==
LOC: LAB 08:33
PROVIDERS: Nurse Practitioner Family; Family Provider Family Medicine; PCP Family Medicine; Referring Provider Internal Medicine Cardiovascular Disease; Visit Provider Internal Medicine Cardiovascular Disease
DX: I48.91 Unspecified atrial fibrillation (principal); Z79.01 Long term (current) use of anticoagulants; I10 Essential (primary) hypertension
CPT/HCPCS: 36415; 80048; 80061; 85610

== ENCOUNTER 2018-10-14 09:34 | Outpatient (RCR) | payer MEDICARE, OTHER, SELFPAY ==
[2018-08-26 10:10] VITALS: BMI 22.7
[2018-10-07 10:30] LABS: International Normalized Ratio 2.3; Prothrombin Time (Protime)PT. 25.8 SECONDS (11.7-14.9)
[2018-10-14 10:35] LABS: International Normalized Ratio 1.9; Prothrombin Time (Protime)PT. 21.8 SECONDS (11.7-14.9)
== END 2018-10-31 09:33 | disposition home or self-care (01) ==
LOC: LAB 09:34
PROVIDERS: Family Provider Family Medicine; PCP Family Medicine; Referring Provider Internal Medicine Cardiovascular Disease; Visit Provider Internal Medicine Cardiovascular Disease
DX: I48.91 Unspecified atrial fibrillation (principal); Z79.01 Long term (current) use of anticoagulants
CPT/HCPCS: 36415; 85610

== ENCOUNTER 2018-11-01 09:34 | Outpatient (RCR) | payer MEDICARE, OTHER, SELFPAY ==
[2018-08-26 10:10] VITALS: BMI 22.7
[2018-11-01 10:34] LABS: International Normalized Ratio 2.4; Prothrombin Time (Protime)PT. 26.3 SECONDS (11.7-14.9)
== END 2018-11-01 10:34 | disposition home or self-care (01) ==
LOC: LAB 09:34
PROVIDERS: Family Provider Family Medicine; PCP Family Medicine; Referring Provider Internal Medicine Cardiovascular Disease; Visit Provider Internal Medicine Cardiovascular Disease
DX: I48.91 Unspecified atrial fibrillation (principal); Z79.01 Long term (current) use of anticoagulants
CPT/HCPCS: 36415; 85610

== ENCOUNTER 2018-11-12 09:37 | Observation (INO) | payer MEDICARE, OTHER, SELFPAY ==
[2018-08-26 10:10] VITALS: BMI 22.7
[2018-11-11 09:54] LABS: Hematocrit 40.2 % (37-47); Hemoglobin 13.2 g/dl (12.0-15.0); Mean Corp Hgb Conc 32.8 g/gl (32-36); Mean Corpuscular Hgb 31.3 pg (27.0-32.0); Mean Corpuscular Volume 95.3 fL (81-99); Mean Platelet Vol. 11.3 fl (6.2-12.0); Platelet Count 269 K/mm3 (150-450); RBC Distribution Width CV 14.9 % (11.6-14.6); RBC Distribution Width SD 50.1 fl (35.1-43.9); Red Blood Count 4.22 M/mm3 (4.2-5.4); White Blood Count 7.1 K/mm3 (4.4-11.0)
[2018-11-11 09:58] LABS: Scan Indicated on CBC? Y/N NO
[2018-11-11 10:09] LABS: Anion Gap 11 (5-15); BUN 17 mg/dL (7-18); BUN/Creat Ratio 18.4 RATIO (10-20); Calcium,Total 8.5 mg/dL (8.5-10.1); Chloride 100 mmol/L (98-107); Creatinine, Serum 0.92 mg/dL (0.55-1.02); EST Glomerular Filtration Rate 62 mL/min (>60); Est Glom Filt Rate - Afr Amer 75 mL/min (>60); Glucose 110 mg/dL (74-106); Potassium 3.9 mmol/L (3.5-5.1); Sodium Level 138 mmol/L (136-145)
[2018-11-12] VITALS (9 sets, daily range): BP systolic 127–172; BP diastolic 62–103; PULSE 52–90; RESP 14–18; TEMP 36.3–36.8; O2SAT 96–100; BMI 22.6; BMI 22.5
--- NOTE | 2018-11-12 | IMM_PTH ---
PATIENT: VERO CHAPPELL V LOC: MS2 U#:[id number] AGE/SX: 78/F ROOM: [facility] RE11/12/[address]: Dr. Libra Beckwith MD : 1940 BED: 1 DIS: 11/13/2018 SPEC #: [id number] RECD: 11/13/18 13:29 STATUS: GISELLE REQ #: [id number] SANJAY: 11/12/18 00:[address]: Libra Beckwith DEPT: IMMUNOHISTOCHEMISTRY RECD BY: Rut Hall ENTERED: 11/13/18 13:32 SP TYPE: IMMUNO OTHR DR: MD Dr. Dillon Caicedo MD Tissues: Urinary bladder, NOS Procedures: BCL-2 (add) CD138 (add) CD20 (add) CD3 (add) CD43 (add) CD45 (add) CD5 (add) CD79A (add) CK20 (add) CK7 (add) KI-67 (add) Pankeratin (initial) PHYSICIAN & [address] [address] SPECIMEN INFORMATION: Tissue Source: Bladder biopsy Clinical Info: Bladder neoplasm Specimen Number: [id number] CPT code: 32511, 69653 x11 METHODOLOGY: Deparaffinized sections of prefer/formalin-fixed tissue or PAP/DQ stained slides are incubated with monoclonal/polyclonal antibodies/oligonucleotide probes. Localization is made via biotin free immunoperoxidase method. Appropriate controls are performed and reacted as expected. Results on target cell population are indicated in the following table: RESULTS: ANTIBODY / CLONE RESULT AE1-3 (AE1/AE3/PCK26) negative CK7 (OV-TL12/30) negative CK20 (KS20.8) negative CD3 (PS1) positive CD5 (SP10) positive CD20 (L26) positive CD43 (L60) positive CD45 (RP2/18) positive CD79a (11E3) positive CD138 (B-A38) negative BCL-2 (bcl-2/100/D5) positive, zonal Ki-67 (30-9) positive, low These tests were developed and their performance characteristics determined by [facility]. They may not have been cleared or approved by the U.S. Food and Drug Administration. The FDA has determined that such clearance or approval is not necessary. INTERPRETATION: Urinary bladder, biopsy: No evidence of lymphoproliferative disorder. AM:larissa 11/14/18 Comment: A polytypic (benign) staining pattern of lymphoid tissue is present.
--- NOTE | 2018-11-12 | BLA_PTH ---
PATIENT: VERO CHAPPELL V LOC: MS2 U#:[id number] AGE/SX: 78/F ROOM: [facility] [place] RE11/12/[address]: Dr. Libra Beckwith MD : 1940 BED: 1 DIS: 11/13/2018 SPEC #: [id number] RECD: 11/12/18 14:32 STATUS: GISELLE REVasquez #: [id number] SANJAY: 11/12/18 00:[address]: Libra Beckwith DEPT: SURGICAL PATHOLOGY RECD BY: Denzel Villa ENTERED: 11/12/18 14:32 SP TYPE: BLADDER BX OTHR DR: MD Dr. Dillon Gurrola MD Tissues: Urinary bladder, NOS Procedures: Surgery Specimen Level IV HEADER OPERATION: Cysto, bladder biopsy, fulguration PRE-OP DIAGNOSIS: Bladder neoplasm uncertain malignant potential TISSUE SUBMITTED: Bladder biopsy MICROSCOPIC DIAGNOSIS Urinary bladder, biopsy: Focal attenuated benign urothelium. Chronic follicular cystitis. No evidence of malignancy. See comment. AM:larissa 11/13/18 COMMENT Detrusor muscle fragments are present in the biopsy. Immunohistochemistry ([id number]) supports the above diagnosis. Case has been reviewed in consultation with Dr. Burk who concurs with the above diagnosis. IDC:JOHN MICROSCOPIC DESCRIPTION Slides are reviewed. GROSS DESCRIPTION Received is one container labeled with the patient's name and not further designated. The specimen consists of two irregular fragments of light galeana soft tissue that in aggregate measure 0.5 x 0.2 x 0.1 cm. The specimen is totally submitted in one cassette. / JOHN:larissa 11/12/18 TC:3 CPT: 65261
[2018-11-12 08:25] LABS: Prothrombin Time Fingerstick 13.5 SEC (11.9-14.4)
[2018-11-12] MEDS: Ciprofloxacin 400 MG/200 ML BAG 200 MG IV (08:47)
--- NOTE | 2018-11-12 09:34 | PCM.OPRPT ---
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 Status: Acute (8) DM type 2 (diabetes mellitus, type 2) Status: Chronic Comment: diet controlled (9) HTN (hypertension) Status: Chronic Qualifiers: (10) HLD (hyperlipidemia) Status: Chronic Qualifiers: (11) Anxiety Status: Chronic Report of Operation Date of Procedure: 11/12/18 Pre-Operative Diagnosis: bladder neoplasm of uncertain malignant potential Post-Operative Diagnosis: same Surgery/Procedure Performed:: cystoscopy, bladder biopsy with fulguration Description of Surgical Findings:: area of erythema and oozing biopsied with 2 biopsies and fulgurated for hemostatic control and tissue treatment. No complications. Type of Anesthesia:: MAC Special Medications: Cipro Specimen's removed: bladder biopsy Estimated Blood Loss (mL): 3cc Description of Procedure: The patient is a 78-year-old female with multiple medical problems who presented to the office for evaluation of recurrent urinary tract infections, incontinence and on evaluation was found to have a bleeding area in the bladder dome. The cystoscopy was repeated a few weeks later and continued to have the same appearance. After discussing the risks benefits and alternatives, she agreed to proceed with biopsy under anesthesia and the clinique counter manager recommended bridging anticoagulation. Informed consent was obtained. Patient was taken to the operating room and placed on the operating room table. Anesthesia monitored the head, neck, airway, IV access and vital signs throughout the case. Once anesthesia was appropriately administered, the patient was placed into dorsal lithotomy position and was prepped and draped in usual sterile fashion. A cystourethroscopy revealed some debris within the urinary bladder which was irrigated. At this time the lesion in question was seen. Biopsies were taken but the bladder was then. The area was fulgurated for hemostatic control and tissue treatment. The patient's bladder was emptied and the case was terminated. She was taken to the recovery room in good condition. Grafts/Implants Used: none - Complications none - Admit VTE Documentation VTE Present on Admission: Yes VTE Mechan Device Prophylaxis: SCD's VTE Pharm Prophylaxis ordered?: Yes
[2018-11-12 10:56] LABS: Bedside Glucose 122 mg/dL (70-110)
[2018-11-12] MEDS: Dextrose 5%-Lactated Ringers 1,000 ML 75 ML IV (13:55)
[2018-11-12] MEDS: Acetaminophen 325 MG Tablet PO ×2 (14:30→23:27)
[2018-11-12] MEDS: Minoxidil 2.5 MG Tablet 1.25 MG PO (16:31)
--- NOTE | 2018-11-12 18:10 | PCM.CONS.B ---
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 (3) Atrial fibrillation Status: Chronic Qualifiers: (4) Premature atrial contractions Status: Chronic (5) Premature ventricular contraction Status: Chronic (6) Nonrheumatic mitral (valve) prolapse Status: Chronic (7) Atherosclerotic heart disease of [place] coronary artery without angina pectoris Status: Chronic Qualifiers: Comment: not angiographically significant on a cath in 2007 (8) Sinus bradycardia Status: Chronic (9) Pulmonary hypertension, secondary Status: Chronic (10) 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 Status: Chronic (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 Beckwith The patient is a 78-year-old female with a past medical history of paroxysmal atrial fibrillation, hypertension, coronary artery disease, history of CVA, hyperlipidemia, celiac disease, migraine cephalgia, nonrheumatic mitral valve prolapse, anxiety, chronic benzodiazepine use, diabetes mellitus type 2 and chronic anticoagulation with warfarin who was taken to the OR on 11/12/[address] Beckwith to biopsy a bladder mass. She had been taken off her Coumadin for the procedure and will need bridging until the INR is greater than 2. She follows with Dr. Sanchez as an outpatient. Current vital signs are temperature 98.2, pulse rate 74, blood pressure 169/103, respiratory rate 18 and she is 98% saturated on room air. CBC on 11/11/2018 showed a normal white blood cell count, hemoglobin and platelet count. BMP was unremarkable. Hemoglobin A1c is 6.0. INR on a CT scan of the abdomen and pelvis done in September 2018 showed an irregular asymmetric thickening of the bladder wall. There was also retained stool in the colon. There were no other significant abnormalities. Orders were reviewed. 40 mg of Lovenox has been ordered subcu twice daily. A therapeutic dose for this patient would be 65 mg twice daily of Lovenox however she just had fulguration of the bladder tumor and will likely have some hematuria. She is currently on ciprofloxacin which will potentiate Coumadin when it is restarted. PHYSICAL EXAM: GENERAL: alert, oriented X 3, Cooperative, NAD, no triana in place ORAL: moist mucosa, no mucosal lesions NECK: No JVD, supple, trachea midline LUNGS: CTA, symmetric chest expansion with excellent air exchange HEART: RRR, Normal S1 and S2, no rub, no gallop ABDOMEN: soft, NT, ND, BS present, no guarding with palpation EXTREMITIES: no edema, no cyanosis, no calf tenderness SKIN: No rashes, no breakdown NEUROLOGIC: no focal neurologic deficits PSYCH: appropriate, normal affect, pleasant Impressions 1. Bladder mass-status post excision and fulguration by Dr. Beckwith 2. Accessible atrial fibrillation 3. Chronic anticoagulation with Coumadin 4. Hypertension 5. CAD 6. History of CVA 7. Hyperlipidemia 8. Celiac disease per old chart review 9. Migraine cephalgia 10. Nonrheumatic mitral valve prolapse 11. Anxiety with chronic benzodiazepine use 12. Diabetes mellitus type 2 If no bleeding in the AM and the HGB is stable will start Coumadin and bridge with Lovenox Code Visit Inpatient E&M: 99025 [facility] Hosp L3
--- NOTE | 2018-11-12 18:14 | CON.PCM_ITS ---
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 (3) Atrial fibrillation Status: Chronic Qualifiers: (4) Premature atrial contractions Status: Chronic (5) Premature ventricular contraction Status: Chronic (6) Nonrheumatic mitral (valve) prolapse Status: Chronic (7) Atherosclerotic heart disease of [place] coronary artery without angina pectoris Status: Chronic Qualifiers: Comment: not angiographically significant on a cath in 2007 (8) Sinus bradycardia Status: Chronic (9) Pulmonary hypertension, secondary Status: Chronic (10) 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 Status: Chronic (11) [facility] current use of anticoagulant therapy Status: Chronic (12) DM type 2 (diabetes mellitus, type 2) Status: Chronic Comment: diet controlled (13) HTN (hypertension) Status: Chronic Qualifiers: (14) HLD (hyperlipidemia) Status: Chronic Qualifiers: (15) Anxiety Status: Chronic - Consult Date of Consult: 11/12/18 - Reason for Consult Medical management postoperatively: Requested by Dr. Beckwith The patient is a 78-year-old female with a past medical history of paroxysmal atrial fibrillation, hypertension, coronary artery disease, history of CVA, hyperlipidemia, celiac disease, migraine cephalgia, nonrheumatic mitral valve prolapse, anxiety, chronic benzodiazepine use, diabetes mellitus type 2 and chronic anticoagulation with warfarin who was taken to the OR on 11/12/[address] Beckwith to biopsy a bladder mass. She had been taken off her Coumadin for the procedure and will need bridging until the INR is greater than 2. She follows with Dr. Sanchez as an outpatient. Current vital signs are temperature 98.2, pulse rate 74, blood pressure 169/103, respiratory rate 18 and she is 98% saturated on room air. CBC on 11/11/2018 showed a normal white blood cell count, hemoglobin and platelet count. BMP was unremarkable. Hemoglobin A1c is 6.0. INR on a CT scan of the abdomen and pelvis done in September 2018 showed an irregular asymmetric thickening of the bladder wall. There was also retained stool in the colon. There were no other significant abnormalities. Orders were reviewed. 40 mg of Lovenox has been ordered subcu twice daily. A therapeutic dose for this patient would be 65 mg twice daily of Lovenox however she just had fulguration of the bladder tumor and will likely have some h ematuria. She is currently on ciprofloxacin which will potentiate Coumadin when it is restarted. PHYSICAL EXAM: GENERAL: alert, oriented X 3, Cooperative, NAD, no triana in place ORAL: moist mucosa, no mucosal lesions NECK: No JVD, supple, trachea midline LUNGS: CTA, symmetric chest expansion with excellent air exchange HEART: RRR, Normal S1 and S2, no rub, no gallop ABDOMEN: soft, NT, ND, BS present, no guarding with palpation EXTREMITIES: no edema, no cyanosis, no calf tenderness SKIN: No rashes, no breakdown NEUROLOGIC: no focal neurologic deficits PSYCH: appropriate, normal affect, pleasant Impressions 1. Bladder mass-status post excision and fulguration by Dr. Beckwith 2. Accessible atrial fibrillation 3. Chronic anticoagulation with Coumadin 4. Hypertension 5. CAD 6. History of CVA 7. Hyperlipidemia 8. Celiac disease per old chart review 9. Migraine cephalgia 10. Nonrheumatic mitral valve prolapse 11. Anxiety with chronic benzodiazepine use 12. Diabetes mellitus type 2 If no bleeding in the AM and the HGB is stable will start Coumadin and bridge with Lovenox Code Visit Inpatient E&M: 21345 Subs Hosp L3
[2018-11-12] MEDS: clonazePAM 0.5 MG Tablet PO (22:44)
[2018-11-12] MEDS: Pravastatin 20 MG Tablet 10 MG PO (22:46)
[2018-11-12] MEDS: Divalproex (ER) 250 MG Tablet PO (22:46)
[2018-11-12] MEDS: Lisinopril 20 MG Tablet PO (22:47)
[2018-11-12] MEDS: Labetalol 100 MG Tablet 50 MG PO (22:47)
[2018-11-12] MEDS: Isosorbide Mononitrate 60 MG Tablet PO (22:47)
[2018-11-12 23:26] LABS: Bedside Glucose 125 mg/dL (70-110)
[2018-11-13] MEDS: Dextrose 5%-Lactated Ringers 1,000 ML 75 ML IV (02:29)
[2018-11-13 04:00] VITALS: BP 158/64; PULSE 68; RESP 16; TEMP 36.7; O2SAT 98
[2018-11-13 06:40] VITALS: O2SAT 96
[2018-11-13 06:55] LABS: Bedside Glucose 111 mg/dL (70-110)
[2018-11-13 09:29] LABS: International Normalized Ratio 1.2; Prothrombin Time (Protime)PT. 14.9 SECONDS (11.7-14.9)
[2018-11-13] MEDS: Pantoprazole Sodium 40 MG Tablet PO (09:33)
[2018-11-13] MEDS: Lisinopril 20 MG Tablet PO (09:33)
[2018-11-13] MEDS: clonazePAM 0.5 MG Tablet PO (09:33)
[2018-11-13] MEDS: Isosorbide Mononitrate 60 MG Tablet PO (09:34)
[2018-11-13] MEDS: Labetalol 100 MG Tablet 50 MG PO (09:34)
[2018-11-13] MEDS: Spironolactone 25 MG Tablet PO (09:34)
[2018-11-13 09:40] VITALS: PULSE 96
[2018-11-13] MEDS: Enoxaparin 40 MG/0.4 ML Syringe SC (09:47)
[2018-11-13] MEDS: Ciprofloxacin 500 MG Tablet PO (09:47)
--- NOTE | 2018-11-13 10:44 | PCM.PN.BLA ---
Progress Note Been well today. She is afebrile and vital signs are stable. Systolic blood pressure is mildly increased but she seems somewhat anxious today. She is 96-100% saturated on room air. She denies any hematuria. She also denies any nausea, vomiting, lightheadedness, abdominal pain, chest pain, shortness of breath. INR today is 1.2 She has never given herself Lovenox injections in the past. 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 The combined use of Cipro and Warfarin can lead to high INR's due to the drug interaction so will need to monitor the INR closely. GENERAL: alert, oriented X 3, Cooperative, NAD, no triana in place ORAL: moist mucosa, no mucosal lesions NECK: No JVD, supple, trachea midline LUNGS: CTA, symmetric chest expansion with excellent air exchange HEART: RRR, Normal S1 and S2, no rub, no gallop ABDOMEN: soft, NT, ND, BS present, no guarding with palpation EXTREMITIES: no edema, no cyanosis, no calf tenderness SKIN: No rashes, no breakdown NEUROLOGIC: no focal neurologic deficits PSYCH: appropriate, normal affect, pleasant Impressions 1. Bladder mass-status post excision and fulguration by Dr. Beckwith 2. Paroxysmal atrial fibrillation 3. Chronic anticoagulation with Coumadin 4. Hypertension 5. CAD 6. History of CVA 7. Hyperlipidemia 8. Celiac disease per old chart review 9. Migraine cephalgia 10. Nonrheumatic mitral valve prolapse 11. Anxiety with chronic benzodiazepine use 12. Diabetes mellitus type 2 Lovenox 60 mg q 12H - continue until the INR is 2 or greater Coumadin 3 mg daily and 1 mg .......this week only she will take 3 mg on as well. check the INR Sunday - she follows with Dr. Sanchez Code Visit Inpatient E&M: 59075 Subs Hosp L2
--- NOTE | 2018-11-13 10:53 | PN_ITS ---
Progress Note Been well today. She is afebrile and vital signs are stable. Systolic blood pressure is mildly increased but she seems somewhat anxious today. She is 96- 100% saturated on room air. She denies any hematuria. She also denies any nausea, vomiting, lightheadedness, abdominal pain, chest pain, shortness of breath. INR today is 1.2 She has never given herself Lovenox injections in the past. 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 The combined use of Cipro and Warfarin can lead to high INR's due to the drug interaction so will need to monitor the INR closely. GENERAL: alert, oriented X 3, Cooperative, NAD, no triana in place ORAL: moist mucosa, no mucosal lesions NECK: No JVD, supple, trachea midline LUNGS: CTA, symmetric chest expansion with excellent air exchange HEART: RRR, Normal S1 and S2, no rub, no gallop ABDOMEN: soft, NT, ND, BS present, no guarding with palpation EXTREMITIES: no edema, no cyanosis, no calf tenderness SKIN: No rashes, no breakdown NEUROLOGIC: no focal neurologic deficits PSYCH: appropriate, normal affect, pleasant Impressions 1. Bladder mass-status post excision and fulguration by Dr. Beckwith 2. Paroxysmal atrial fibrillation 3. Chronic anticoagulation with Coumadin 4. Hypertension 5. CAD 6. History of CVA 7. Hyperlipidemia 8. Celiac disease per old chart review 9. Migraine cephalgia 10. Nonrheumatic mitral valve prolapse 11. Anxiety with chronic benzodiazepine use 12. Diabetes mellitus type 2 Lovenox 60 mg q 12H - continue until the INR is 2 or greater Coumadin 3 mg daily and 1 mg .......this week only she will take 3 mg on as well. check the INR Sunday - she follows with Dr. Sanchez Code Visit Inpatient E&M: 90744 Subs Hosp L2
--- NOTE | 2018-11-13 10:57 | DCINST_ITS ---
- Discharge Diagnoses Current Active Problems: Current Active and Chronic Problems (Last Reviewed 08/26/18 @ 10:10 by Olivia Mark) Bladder neoplasm of uncertain malignant potential (Acute) Celiac disease (Chronic) You will use the following diet at home:: Calorie/Carbohydrate Controlled (specify 1200, 1400, etc), Cardiac Your food should be the consistency of: Regular Your liquids should be the consistency of: Regular/Thin Additional Instructions: You will take the Lovenox shots every 12 hours until the INR is therapeutic at 2 or greater. You will also be taking Coumadin. This week only you will take 3 mg of Coumadin on Sunday. You should have an INR checked on Sunday. Allergies/Adverse Reactions: Allergies aspirin Allergy (Verified 11/12/18 08:26) Anaphylaxis ibuprofen Allergy (Verified 11/12/18 08:26) Anaphylaxis Penicillins [PCN] Allergy (Verified 11/12/18 08:26) Anaphylaxis Sulfa (Sulfonamide Antibiotics) Allergy (Verified 11/12/18 08:26) Anaphylaxis amlodipine [From [facility]] Adverse Reaction (Severe, Verified 11/12/18 08:26) Cough hydralazine Adverse Reaction (Severe, Verified 11/12/18 08:26) stopped when she had CVA spironolactone Adverse Reaction (Severe, Verified 11/12/18 08:26) Hyponaturemia FLU SHOT Allergy (Uncoded 11/12/18 08:26) Anaphylaxis Medications to take at Discharge Clonazepam [Klonopin] 0.5 mg PO BID #90 tab 05/11/16 labetalol 100 mg tablet 50 mg PO BID #90 tab 09/18/17 divalproex ER 250 mg tablet,extended release 24 hr 250 mg PO QHS tab 12/16/17 esomeprazole magnesium 40 mg capsule,delayed release 40 mg PO QDAY 04/10/18 spironolactone 25 mg tablet 25 mg PO QDAY 04/10/18 clonidine 0.1 mg/24 hr weekly transdermal patch 1 patch TRANSDERMAL QWEEK #12 ea 04/15/18 pravastatin 10 mg tablet 10 mg PO DAILY #90 tab 04/15/18 lisinopril 20 mg tablet 20 mg PO BID #180 tab 08/15/18 isosorbide mononitrate ER 60 mg tablet,extended release 24 hr 60 mg PO BID tab 12/24/18 Minoxidil [Loniten] 1.25 mg PO BID PRN 11/05/18 Warfarin Sodium 1 mg PO TH 11/05/18 Warfarin [Coumadin] 3 mg PO [id number] 11/05/18 Enoxaparin [Lovenox] 60 mg SC Q12@0600,1800 #10 syringe 11/13/18 The following prescriptions were given: Enoxaparin [Lovenox] 60 mg SC Q12@0600,1800 #10 syringe Orders to be completed after discharge: Hemoglobin A1c Time Frame: 11/07/18, Location: Laboratory CBC-Complete Blood Cnt No Diff Time Frame: 11/07/18, Location: Laboratory Primary Care Physician: Dillon Brasher MD [Primary Care Provider] - Test Results: Test results from this visit will be discussed in further detail at your follow- up appointment, if applicable.
[2018-11-13 11:15] VITALS: BP 158/78; PULSE 69; RESP 16; TEMP 37; O2SAT 98
--- NOTE | 2018-11-13 11:16 | CASEMGMT ---
JIM CM NOTE: Pt will need lovenox bridge therapy on dc. E-scripted to [facility]. Called for copay amount: $10.00 and medication is available. Pt was notified. Viraj FERNANDEZ CM ACM
[2018-11-13 11:41] LABS: Bedside Glucose 102 mg/dL (70-110)
[2018-11-13] MEDS: Acetaminophen 325 MG Tablet PO (14:24)
--- NOTE | 2018-11-13 16:12 | PCM.PN.GU ---
Physical Exam Subjective: Feeling well today, tolerating PO intake, appetite ok, pain minimal. Urine is pink tinged to occasionally bright red in it. Ok with giving herself shots. Aware she needs to follow up with coumadin clinic for INR. - Physical Exam Vital Signs Temp 98.6 F 11/13/18 11:15 Pulse 69 11/13/18 11:15 Resp 16 11/13/18 11:15 BP 158/78 H 11/13/18 11:15 Pulse Ox 98 11/13/18 11:15 Intake & Output 11/11/18 11/12/18 11/13/18 23:59 23:59 23:59 Intake Total 1752 / 1752 2188 / 2188 Output Total 750 / 750 1725 / 1725 Balance 1002 / 1002 463 / 463 Weight: 65.317 kg Intake: Oral 850 / 850 850 / 850 IV fluid/meds 902 / 902 1338 / 1338 IV #1 500 / 500 Output: Urine 750 / 750 1725 / 1725 Other: Number of Voids 1 General: Alert, Oriented x3, Cooperative, No apparent distress HEENT: Atraumatic Oral: Moist Mucosa Neck: Supple, Trachea Midline Lungs: Normal air movement Cardiovascular: Regular rate Abdomen: Soft, Non Tender Rectal: Exam deferred Skin: No rashes Musculoskeletal: No Tenderness to Palpation of Joints or Extremities Neurological: Cranial nerves II-XII grossly intact, Neuro grossly intact Psych/Mental Status: Normal Affect Laboratory Tests Past 24 Hrs 11/13/18 09:10 PT 14.9 INR 1.2 Medical Necessity - Tobacco Use Smoking Status: Never smoker Tobacco Use: Non-smoker Assessment/Plan All Active Problems (Last Reviewed 08/26/18 @ 10:10 by Olivia Mark) Bladder neoplasm of uncertain malignant potential (Acute) POD#1 bladder biopsy home today on lovenox and coumadin follow up in coumadin clinic follow up with me next week. call with issues.
[2018-11-13] MEDS: Enoxaparin 80 MG/0.8 ML Syringe 65 MG SC (16:42)
[2018-11-13 16:44] VITALS: BP 161/88; PULSE 79; RESP 18; TEMP 37; O2SAT 97
== END 2018-11-13 17:10 | disposition home or self-care (01) ==
LOC: MS2 11:31
PROVIDERS: Admitting Provider Urology; Family Provider Family Medicine; PCP Family Medicine; Referring Provider Urology; Visit Provider Urology
PROC: 0TBB8ZX Excision of Bladder, Via Natural or Artificial Opening Endoscopic, Diagnostic (ICD-10-PCS; CPT 52204; principal; 2018-11-12 09:10)
DX: D30.3 Benign neoplasm of bladder (principal); I25.10 Atherosclerotic heart disease of native coronary artery without angina pectoris; E11.9 Type 2 diabetes mellitus without complications; Z79.01 Long term (current) use of anticoagulants; E78.5 Hyperlipidemia, unspecified; F41.9 Anxiety disorder, unspecified; Z79.899 Other long term (current) drug therapy; R32 Unspecified urinary incontinence; Z87.440 Personal history of urinary (tract) infections; I48.0 Paroxysmal atrial fibrillation; Z86.73 Personal history of transient ischemic attack (TIA), and cerebral infarction without residual deficits; G43.909 Migraine, unspecified, not intractable, without status migrainosus; K90.0 Celiac disease
CPT/HCPCS: 00910; 52204; 36415; 36416; 80048; 82962; 83036; 85027; 85610; 88305; 88341; 88342; 96360; 96361; 96372; 99218; J7120; G0378; G0379; J0744; J2405

== ENCOUNTER 2018-11-29 09:23 | Outpatient (RCR) | payer MEDICARE, OTHER, SELFPAY ==
[2018-08-26 10:10] VITALS: BMI 22.7
[2018-11-11 09:57] LABS: International Normalized Ratio 1.2; Prothrombin Time (Protime)PT. 15.1 SECONDS (11.7-14.9)
[2018-11-15 09:02] LABS: Absolute Neutrophil Count 1.9 X10^3/uL (2.0-7.7); Basophil# 0.03 X10^3/uL; Basophil% 0.6 % (0-1); Eosinophil# 0.31 X10^3/uL; Eosinophils% 5.8 % (0-5); Hematocrit 35.4 % (37-47); Hemoglobin 11.7 g/dl (12.0-15.0); Mean Corp Hgb Conc 33.1 g/gl (32-36); Mean Corpuscular Hgb 31.1 pg (27.0-32.0); Mean Corpuscular Volume 94.1 fL (81-99); Mean Platelet Vol. 10.2 fl (6.2-12.0); Monocyte# 0.45 X10^3/uL; Monocyte% 8.5 % (0-10); Neutrophil # 1.91 X10^3/uL (2.7-7.7); Neutrophil % 35.9 % (47-70); Platelet Count 250 K/mm3 (150-450); RBC Distribution Width CV 14.7 % (11.6-14.6); RBC Distribution Width SD 50.2 fl (35.1-43.9); Red Blood Count 3.76 M/mm3 (4.2-5.4); White Blood Count 5.3 K/mm3 (4.4-11.0)
[2018-11-15 09:07] LABS: POSITIVE COUNT NO; POSITIVE DIFFERENTIAL NO; POSITIVE MORPHOLOGY NO
[2018-11-15 09:12] LABS: International Normalized Ratio 1.3; Prothrombin Time (Protime)PT. 15.5 SECONDS (11.7-14.9)
[2018-11-18 11:17] LABS: International Normalized Ratio 1.7; Prothrombin Time (Protime)PT. 19.5 SECONDS (11.7-14.9)
[2018-11-20 09:52] LABS: International Normalized Ratio 1.9; Prothrombin Time (Protime)PT. 21.8 SECONDS (11.7-14.9)
[2018-11-22 10:31] LABS: International Normalized Ratio 2.2; Prothrombin Time (Protime)PT. 24.5 SECONDS (11.7-14.9)
[2018-11-29 10:09] LABS: International Normalized Ratio 2.4
== END 2018-11-29 10:23 | disposition home or self-care (01) ==
LOC: LAB 09:23
PROVIDERS: Family Provider Family Medicine; PCP Family Medicine; Referring Provider Internal Medicine Cardiovascular Disease; Visit Provider Internal Medicine Cardiovascular Disease
DX: I48.91 Unspecified atrial fibrillation (principal); R31.0 Gross hematuria; Z79.01 Long term (current) use of anticoagulants
CPT/HCPCS: 36415; 85025; 85610

== ENCOUNTER → 2018-12-11 16:11 | Outpatient (CLI) | payer MEDICARE, OTHER, SELFPAY ==
[2018-12-09 14:21] VITALS: BMI 22.4
--- NOTE | 2018-12-11 16:17 | RAD_ITS ---
STUDY: X-RAY - RIGHT ANKLE REASON FOR EXAM: Female, 78 years old. Posterior right ankle pain for one week TECHNIQUE: 3 view(s) of the ankle. COMPARISON: None. FINDINGS: Normal visualized distal tibia and fibula. Normal medial and lateral malleoli. Normal tibiotalar articulation and ankle mortise. Normal visualized talus and calcaneus. The visualized subtalar, talonavicular, calcaneocuboid and tarsal articulations are normal. There are atherosclerotic calcifications. RAD/Ankle min 3 Views IMPRESSION: No osseous abnormality is evident. Electronically Signed: Jt Jones MD at 10:18 EDT Tel , Service support ,
== END ==
PROVIDERS: Family Provider Family Medicine; PCP Family Medicine; Referring Provider Family Medicine; Visit Provider Family Medicine
DX: M25.571 Pain in right ankle and joints of right foot (principal)
CPT/HCPCS: 73610

== ENCOUNTER 2018-12-27 07:53 | Outpatient (RCR) | payer MEDICARE, OTHER, SELFPAY ==
[2018-11-29 13:51] VITALS: BMI 22.7
[2018-12-06 11:14] LABS: International Normalized Ratio 2.3; Prothrombin Time (Protime)PT. 24.9 SECONDS (11.7-14.9)
[2018-12-27 09:33] LABS: International Normalized Ratio 3.3; Prothrombin Time (Protime)PT. 33.5 SECONDS (11.7-14.9)
[2018-12-27 10:08] LABS: Uric Acid 4.8 mg/dL (2.6-6.0)
== END 2018-12-31 16:00 | disposition home or self-care (01) ==
LOC: LAB 07:53
PROVIDERS: Family Provider Family Medicine; PCP Family Medicine; Referring Provider Internal Medicine Cardiovascular Disease; Visit Provider Internal Medicine Cardiovascular Disease
DX: I48.91 Unspecified atrial fibrillation (principal); Z79.01 Long term (current) use of anticoagulants
CPT/HCPCS: 36415; 84550; 85610

== ENCOUNTER → 2018-12-30 13:02 | Outpatient (CLI) | payer MEDICARE, OTHER, SELFPAY ==
[2018-12-16 15:04] VITALS: BMI 22.4
--- NOTE | 2018-12-30 13:04 | ART_ITS ---
Reason For Study: LEG PAIN Procedure A bilateral lower extremity continuous wave Doppler with analog waveform analysis,segmental pressures,and ankle brachial indexes without exercise. Left Segmental Pressures Left brachial= 144mmHg. Left posterior tibial artery = 172mmHg. Left dorsalis pedis artery = 171mmHg. The left posterior tibial artery waveforms are triphasic. The left dorsalis pedis waveforms are biphasic. Right Segmental Pressures Right brachial= 147mmHg. Right posterior tibial artery = 184mmHg. Right dorsalis pedis artery = 174mmHg. The right dorsalis pedis waveforms are biphasic. The right posterior tibial artery waveforms are triphasic. Indices The right ankle brachial index by the dorsalis pedis is 1.1. The right ankle brachial index by the posterior tibial artery is 1.2. The left ankle brachial index by the dorsalis pedis is 1.1. The left ankle brachial index by the posterior tibial artery is 1.1. Interpretation Summary Triphasic and biphasic waveforms are noted at ankle level bilaterally. Pulse-volume recording waveforms are satisfactory at all levels bilaterally, including low-thigh, calf, ankle, and digital levels. Resting ankle-brachial indices are normal bilaterally. There is no evidence of significant arterial occlusive disease in the lower extremities bilaterally. Ordering Physician: Sushma Bhardwaj Referring Physician: Sushma Bhardwaj Performed By: Josseline Mann [facility]
--- NOTE | 2018-12-30 13:04 | VDLE_ITS ---
Reason For Study: LEG PAIN RIGHT LEFT CFV is compressible, spontaneous, phasic, CFV is compressible, spontaneous, phasic, competent and demonstrates normal competent, and demonstrates normal augmentation. augmentation. FV is compressible, spontaneous, phasic, FV is compressible, spontaneous, phasic, competent and demonstrates normal competent and demonstrates normal augmentation. augmentation. POP V is compressible, spontaneous, phasic, POP V is compressible, spontaneous, phasic, competent and demonstrates normal competent and demonstrates normal augmentation. augmentation. T/P Trunk is compressible. T/P Trunk is compressible. PTV is compressible. PTV is compressible. RT PerV is compressible. LT PerV is compressible. SFJ is competent SFJ is competent GSV is competent GSV is competent above knee SSV too small to assess. GSV is INCOMPETENT below knee with reflux Procedure greater than .5 sec and diameter of .32 x .42 Exam performed in department. cm SSV is competent. Interpretation Summary Deep veins of the lower extremities are bilaterally patent and compressible segmentally. There is no evidence of deep vein thrombosis on either side. Valvular competence appears intact within the proximal deep venous systems bilaterally. The greater saphenous veins appear bilaterally patent and compressible segmentally. Sapheno-femoral junctions are bilaterally competent . The right greater saphenous vein appears segmentally competent. The left greater saphenous vein appears competent above the knee. The left greater saphenous vein appears incompetent below the knee. The right small saphenous vein is too small to assess. The left small saphenous vein is patent and competent. Ordering Physician: Sushma Bhardwaj Referring Physician: Sushma Bhardwaj Performed By: Josseline Mann RVT
== END ==
PROVIDERS: Family Provider Family Medicine; PCP Family Medicine; Referring Provider Podiatrist; Visit Provider Podiatrist
DX: I73.9 Peripheral vascular disease, unspecified (principal); I87.2 Venous insufficiency (chronic) (peripheral); M79.604 Pain in right leg
CPT/HCPCS: 93923; 93970

== ENCOUNTER → 2019-01-20 12:29 | Outpatient (CLI) | payer MEDICARE, OTHER, SELFPAY ==
[2019-01-09 10:24] VITALS: BMI 22.4
[2019-01-20 14:20] LABS: Absolute Lymphocyte Count 1.76 X10^3/ul (0.83-4.51); Absolute Neutrophil Count 4.8 X10^3/uL (2.0-7.7); Basophil# 0.02 X10^3/uL; Basophil% 0.3 % (0-1); Eosinophil# 0.02 X10^3/uL; Eosinophils% 0.3 % (0-5); Hematocrit 35.9 % (37-47); Hemoglobin 11.6 g/dl (12.0-15.0); Lymphocyte # 1.76 X10^3/ul (4.0); Lymphocyte % 23.7 % (19-41); Mean Corp Hgb Conc 32.3 g/gl (32-36); Mean Corpuscular Hgb 30.2 pg (27.0-32.0); Mean Corpuscular Volume 93.5 fL (81-99); Monocyte# 0.86 X10^3/uL; Monocyte% 11.6 % (0-10); Neutrophil # 4.77 X10^3/uL (2.7-7.7); Platelet Count 348 K/mm3 (150-450); RBC Distribution Width CV 13.7 % (11.6-14.6); RBC Distribution Width SD 45.7 fl (35.1-43.9); Red Blood Count 3.84 M/mm3 (4.2-5.4); White Blood Count 7.4 K/mm3 (4.4-11.0)
[2019-01-20 14:28] LABS: POSITIVE COUNT NO; POSITIVE DIFFERENTIAL NO; POSITIVE MORPHOLOGY NO
[2019-01-20 14:34] LABS: Anion Gap 8 (5-15); BUN 24 mg/dL (7-18); BUN/Creat Ratio 21.4 RATIO (10-20); Calcium,Total 8.7 mg/dL (8.5-10.1); Chloride 100 mmol/L (98-107); Creatinine, Serum 1.12 mg/dL (0.55-1.02); EST Glomerular Filtration Rate 50 mL/min (>60); Est Glom Filt Rate - Afr Amer 60 mL/min (>60); Glucose 113 mg/dL (74-106); Potassium 4.5 mmol/L (3.5-5.1); Sodium Level 135 mmol/L (136-145); Thyroid Stim Hormone (TSH) 0.59 uIU/mL (0.358-3.74)
== END ==
PROVIDERS: Family Provider Family Medicine; PCP Family Medicine; Visit Provider Family Medicine
DX: R53.83 Other fatigue (principal)
CPT/HCPCS: 36415; 80048; 84443; 85025

== ENCOUNTER 2019-01-24 10:31 | Outpatient (RCR) | payer MEDICARE, OTHER, SELFPAY ==
[2018-12-16 15:04] VITALS: BMI 22.4
[2019-01-03 09:24] LABS: International Normalized Ratio 2.6; Prothrombin Time (Protime)PT. 27.6 SECONDS (11.7-14.9)
[2019-01-24 11:00] LABS: International Normalized Ratio 2.1; Prothrombin Time (Protime)PT. 23.2 SECONDS (11.7-14.9)
== END 2019-01-24 11:31 | disposition home or self-care (01) ==
LOC: LAB 10:31
PROVIDERS: Family Provider Family Medicine; PCP Family Medicine; Referring Provider Internal Medicine Cardiovascular Disease; Visit Provider Internal Medicine Cardiovascular Disease
DX: I48.91 Unspecified atrial fibrillation (principal); Z79.01 Long term (current) use of anticoagulants
CPT/HCPCS: 36415; 85610

== ENCOUNTER → 2019-02-14 12:43 | Outpatient (CLI) | payer MEDICARE, OTHER, SELFPAY ==
[2019-01-09 10:24] VITALS: BMI 22.4
== END ==
PROVIDERS: Family Provider Family Medicine; PCP Family Medicine; Referring Provider Family Medicine; Visit Provider Family Medicine
DX: R30.0 Dysuria (principal)
CPT/HCPCS: 87086; 87088

== ENCOUNTER 2019-02-20 11:20 | Outpatient (RCR) | payer MEDICARE, OTHER, SELFPAY ==
[2019-01-09 10:24] VITALS: BMI 22.4
[2019-02-20 12:03] LABS: International Normalized Ratio 2.7; Prothrombin Time (Protime)PT. 28.4 SECONDS (11.7-14.9)
== END 2019-03-02 12:00 | disposition home or self-care (01) ==
LOC: LAB 11:20
PROVIDERS: Family Provider Family Medicine; PCP Family Medicine; Referring Provider Internal Medicine Cardiovascular Disease; Visit Provider Internal Medicine Cardiovascular Disease
DX: I48.91 Unspecified atrial fibrillation (principal); Z79.01 Long term (current) use of anticoagulants
CPT/HCPCS: 36415; 85610

== ENCOUNTER 2019-03-21 09:06 | Outpatient (RCR) | payer MEDICARE, OTHER, SELFPAY ==
[2019-01-09 10:24] VITALS: BMI 22.4
[2019-03-21 10:18] LABS: International Normalized Ratio 2.3; Prothrombin Time (Protime)PT. 25.1 SECONDS (11.7-14.9)
== END 2019-04-02 16:00 | disposition home or self-care (01) ==
LOC: LAB 09:06
PROVIDERS: Family Provider Family Medicine; PCP Family Medicine; Referring Provider Internal Medicine Cardiovascular Disease; Visit Provider Internal Medicine Cardiovascular Disease
DX: I48.91 Unspecified atrial fibrillation (principal); Z79.01 Long term (current) use of anticoagulants
CPT/HCPCS: 36415; 85610

== ENCOUNTER → 2019-03-21 09:29 | Outpatient (CLI) | payer MEDICARE, OTHER, SELFPAY ==
[2019-01-09 10:24] VITALS: BMI 22.4
== END ==
PROVIDERS: Family Provider Family Medicine; PCP Family Medicine; Referring Provider Internal Medicine Cardiovascular Disease; Visit Provider Internal Medicine Cardiovascular Disease
DX: I49.9 Cardiac arrhythmia, unspecified (principal); I48.91 Unspecified atrial fibrillation; I25.10 Atherosclerotic heart disease of native coronary artery without angina pectoris

== ENCOUNTER 2019-03-31 14:50 | Observation (INO) | payer MEDICARE, OTHER, SELFPAY ==
[2019-01-09 10:24] VITALS: BMI 22.4
[2019-03-24 14:39] VITALS: BMI 21.4
--- NOTE | 2019-03-24 15:50 | RAD_ITS ---
STUDY: X-RAY CHEST REASON FOR EXAM: Female, 78 years old. Preoperative exam TECHNIQUE: Frontal and lateral views of the chest COMPARISON: 05/06/2016 FINDINGS: The lungs are clear. There are no pleural effusions. There is no pneumothorax. The heart is normal in size. There is a cardiac monitoring device in place. The visualized osseous structures are within normal limits. RAD/Chest PA and Lateral IMPRESSION: No acute thoracic pathology. Electronically Signed: Mino Guillermo, at 19:22 EDT Tel , Service support ,
[2019-03-25 09:04] LABS: Anion Gap 9 (5-15); BUN 16 mg/dL (7-18); BUN/Creat Ratio 17.6 RATIO (10-20); Calcium,Total 8.6 mg/dL (8.5-10.1); Chloride 97 mmol/L (98-107); Creatinine, Serum 0.91 mg/dL (0.55-1.02); EST Glomerular Filtration Rate 64 mL/min (>60); Est Glom Filt Rate - Afr Amer 78 mL/min (>60); Glucose 87 mg/dL (74-106); Mucous, Urine 0 SEEN /hpf (<or=2+); Red Blood Cells-Urine 0 SEEN /hpf (0-5); Sodium Level 135 mmol/L (136-145)
[2019-03-25 09:05] LABS: Hemoglobin 12.6 g/dL (12.0-15.0); International Normalized Ratio 2.2; Prothrombin Time (Protime)PT. 24.7 SECONDS (11.7-14.9); Red Blood Count 4.19 M/mm3 (4.2-5.4)
[2019-03-25 09:06] LABS: Hematocrit 38.4 % (37-47); Hemoglobin A1c 6.3 % (4.2-6.3); Mean Corp Hgb Conc 32.8 g/dL (32-36); Mean Corpuscular Hgb 30.1 pg (27.0-32.0); Mean Corpuscular Volume 91.6 fL (81-99); Mean Platelet Vol. 10.8 fl (6.2-12.0); Platelet Count 249 K/mm3 (150-450); RBC Distribution Width CV 14.6 % (11.6-14.6); RBC Distribution Width SD 49.3 fl (35.1-43.9)
[2019-03-25 09:07] LABS: Color, Urine Yellow (Yellow); Glucose, Dipstick NEGATIVE (Normal); Urine Clarity Sl Cloudy (Clear)
[2019-03-25 09:08] LABS: Ketone-Dipstick Negative (Negative); Leukocyte Esterase-Dipstick 500 /ul (Negative); Nitrite-Dipstick Positive (Negative); Occult Blood-Urine 25 /ul (Negative); Protein-Dipstick 15 mg/dl (Negative); Urine Bilirubin Dipstick Negative (Negative); Urine Urobilinogen Normal (Normal); White Blood Cells 25-50 SEEN /hpf (0-5)
[2019-03-25 09:09] LABS: Bacteria 1+ /hpf (None Seen); Squamous Epithelial Cells - UA 0-5 SEEN /hpf (5-10)
[2019-03-27 10:59] VITALS: BMI 21.4
[2019-03-31] VITALS (13 sets, daily range): BP systolic 127–162; BP diastolic 63–78; PULSE 59–66; RESP 9–18; TEMP 36.2–36.6; O2SAT 94–99
--- NOTE | 2019-03-31 08:45 | HP.PCM_ITS ---
Problem List (1) Sinus pause Status: Chronic (2) Essential hypertension Status: Chronic (3) Atrial fibrillation Status: Chronic Qualifiers: History and Physical Date of Admission: 03/31/19 [facility] History of Present Illness Details: VERO CHAPPELL, is a 78 F who presents to the office today for a pacemaker placement. She has a history of atrial fibrillation/flutter. She underwent a synchronized biphasic DC cardioversion to regain sinus rhythm, but unfortunately reverted back to atrial flutter. She was referred to EP/Dr. Greenwood at [facility] for further evaluation. She underwent ablation procedure and loop recorder placement at [facility] in December 2018. She also has a history of ectopic beats, mitral valve prolapse, minimal coronary artery disease, hypertension, and hyperlipidemia. She does feel lightheaded on a daily basis. She feels that this has gotten worse over the last 2 weeks. She has not had any syncope although she does feel like she can at times. She sts that this has been occurring several times a day. She does feel that her heart is skipping at times. She does occasionally have chest pain, this does not occur often. She does feel that she has more SOB. She does not have any edema. She feels worse since restarting her labetolol. She does not always take her morning medications because her BP is too low. Intake Vital Signs See chart Allergies aspirin Allergy (Verified 03/24/19 14:40) Anaphylaxis ibuprofen Allergy (Verified 03/24/19 14:40) Anaphylaxis Penicillins [PCN] Allergy (Verified 03/24/19 14:40) Anaphylaxis Sulfa (Sulfonamide Antibiotics) Allergy (Verified 03/24/19 14:40) Anaphylaxis amlodipine [From Norvasc] Adverse Reaction (Severe, Verified 03/24/19 14:40) Cough hydralazine Adverse Reaction (Severe, Verified 03/24/19 14:40) stopped when she had CVA spironolactone Adverse Reaction (Severe, Verified 03/24/19 14:40) Hyponaturemia FLU SHOT Allergy (Uncoded 01/09/19 10:06) Anaphylaxis Medications Clonazepam [Klonopin] 0.5 mg PO BID #90 tab 05/11/16 [Rx Confirmed 03/24/19] divalproex ER 250 mg tablet,extended release 24 hr 250 mg PO QHS tab 12/16/17 [History Confirmed 03/24/19] esomeprazole magnesium 40 mg capsule,delayed release 40 mg PO QDAY 04/10/18 [History Confirmed 03/24/19] pravastatin 10 mg tablet 10 mg PO DAILY #90 tab 04/15/18 [Rx Confirmed 03/24/19] lisinopril 20 mg tablet 20 mg PO BID #180 tab 08/15/18 [Rx Confirmed 03/24/19] Warfarin Sodium 1 mg PO TH 11/05/18 [History Confirmed 03/25/19] Warfarin [Coumadin] 3 mg PO DAILY@1700 tab 11/13/18 [Rx Confirmed 03/25/19] minoxidil 2.5 mg tablet 1.25 mg PO BID PRN #90 tab 12/16/18 [Rx Confirmed 03/24/19] spironolactone 25 mg tablet 25 mg PO QDAY #90 tab 12/16/18 [Rx Confirmed 03/24/19] warfarin 3 mg tablet 3 mg PO .COMPLEX #90 tab 12/20/18 [Rx Confirmed 03/25/19] isosorbide mononitrate ER 60 mg tablet,extended release 24 hr 60 mg PO BID tab 02/18/19 [History Confirmed 03/24/19] doxazosin 2 mg tablet 2 mg PO DAILY 03/24/19 [History Confirmed 03/24/19] labetalol 100 mg tablet 50 mg PO DAILY tab 03/24/19 [History Confirmed 03/24/19] [facility] Medical History Sinus pause (Chronic) Sick sinus syndrome (Chronic) Essential hypertension (Chronic) Status post placement of implantable loop recorder (Chronic) Premature atrial contractions (Chronic) Premature ventricular contraction (Chronic) Nonrheumatic mitral (valve) prolapse (Chronic) Atherosclerotic heart disease of [place] coronary artery without angina pectoris (Chronic) Sinus bradycardia (Chronic) Pulmonary hypertension, secondary (Chronic) 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 (Chronic) 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 (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) DM type 2 (diabetes mellitus, type 2) (Chronic) HLD (hyperlipidemia) (Chronic) Anxiety (Chronic) History of CVA (cerebrovascular accident) (Acute) Incontinence (Acute) Migraine (Acute) Paroxysmal atrial fibrillation (Acute) Celiac disease (Chronic) HTN (hypertension) (Chronic) Acute CVA (cerebrovascular accident) (Inactive) HTN (hypertension) (Inactive) Hay fever (Inactive) Hypokalemia (Inactive) Hyponatremia (Inactive) Migraine (Inactive) Subtherapeutic international normalized ratio (INR) (Inactive) Urinary tract infection (Inactive) Surgical History History of cardiac radiofrequency ablation (RFA) (Chronic) Status post placement of implantable loop recorder (Chronic) History of back surgery (Resolved) History of hip replacement (Resolved) History of hysterectomy (Resolved) Family History Father CVA (cerebral vascular accident) Brother Hypertension Brother Hypertension Sister Abdominal aortic aneurysm (AAA) Sister CVA (cerebral vascular accident) Hypertension Diabetes Other Cancer Social History (Updated 03/25/19 @ 09:09 by LILY Scott) Smoking Status: Never smoker alcohol intake: never substance use type: does not use caffeine: Yes Type: coffee Number of servings: 1 ROS Const Const: Positive for fatigue ENT ENT: Positive for dizziness Cardio Chest Pain: No Palpitations: Yes Edema: None Muscle aches with walking: None Resp Respiratory: Positive for SOB with activity; negative for SOB at rest or SOB orthopnea\SOB lying down GI GI: Negative nausea, vomiting, heartburn or black,tarry stools : Negative for hematuria Musc Musc: Positive for muscle aches/ myalgia, muscle weakness and joint pain Neuro Neuro: Positive for dizziness, lightheadedness and near syncope; negative for syncope Endo Endo: Positive for fatigue Cardiology Exam Const Appearance: cooperative, healthy appearing, comfortable, no acute distress, well developed and well groomed Nutritional Appearance: thin Orientation: alert, awake and oriented x3 Head Head: normal to inspection, normocephalic and atraumatic Ears: hearing grossly normal bilaterally Nose: external nose normal Face and Sinus: face symmetric Mouth: oral mucosae normal Teeth and gingiva: fair dentition Eyes Eyelids: eyelids normal Conjunctivae: conjunctivae normal Pupils: PERRL EOM: EOM intact bilaterally Neck Neck: normal visual inspection and full ROM Carotids: normal carotid upstroke Chest Chest inspection: normal inspection of the chest, symmetric chest movement and normal respiratory effort Auscultation: Bilateral: Clear to Auscultation Cardio Palpation: normal PMI Rate: regular rate Rhythm: irregular rhythm Heart sounds: S1 normal and S2 normal Murmur: Grade 2/6, mid systolic and LLSB GI GI: normal to inspection, soft and bowel sounds present Neuro General: alert, awake, oriented x3, gait normal, moves all extremities, no focal sensory deficit and no focal motor deficits Skin Skin: no rashes or lesions noted Extremities Pulses: Normal: Right Radial Pulse, Left Radial Pulse Lower Extremity Edema: None: Bilateral Psych Psychological: normal affect Assessment & Plan 1. Sick sinus syndrome I49.5 Plan Patient had several pauses noted on her loop recorder. Despite being off a rate limiting medication. Patient is agreeable to proceed with a pacemaker placement. 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 Her pacemaker is scheduled to be placed today 2. Essential hypertension I10 Plan Patient is concerned about low blood pressure readings since resuming her labetalol. Will decrease this to 50 mg daily. She was advised that if she does have low blood pressure readings that she can hold 1 of her medications in the morning. She should keep track of how she is doing this so we can reevaluate her medications at her next office visit. 3. Atherosclerosis of [place] coronary artery of [place] heart without angina pectoris I25.10 not angiographically significant on a cath in April 2016 Plan Stable, from a cardiac standpoint patient does not have any symptoms of angina. We recommend that they continue with current aggressive medical management and risk factor modification. 4. Hyperlipidemia, unspecified hyperlipidemia type E78.5 Plan Patient will continue with current low-dose statin. These are managed by her primary care doctor. 5. Paroxysmal atrial fibrillation I48.0 Plan Patient is anticoagulated with a therapeutic INR goal of 2-3. This will need to be held prior to her pacemaker placement. We will be able to adjust her medications after she has her pacemaker and hopefully resume her rate limiting medications per
[2019-03-31 11:01] LABS: Prothrombin Time Fingerstick 13.2 SEC (11.9-14.4)
--- NOTE | 2019-03-31 14:48 | CL.IE_ITS ---
Patient: VERO CHAPPELL V Study Date: 03/31/2019 Performing: Joey Maloney MD : 1940 Age: 78 Gender: female PROCEDURES PERFORMED [id number] PACER INSERT+DUAL LEADS INDICATIONS Sinoatrial node dysfunction/Sick sinus syndrome PROCEDURE DETAILS The patient was brought to the Catheterization Lab in the postabsorptive nonsedated state. Infor med consent was obtained prior to the procedure. Local anesthetic was given subcutaneously to the le ft upper chest area with Lidocaine 2%. Incision was made to the left upper chest. Access was achieved and a guidewire was advanced into the left subclavian vein. PPM ventricular lead was inserted / posi tioned to right ventricular septal wall. PPM ventricular lead testing performed. PPM ventricular lead testing performed. PPM atrial lead was inserted / positioned to the right atrial appendage. PPM atri al lead testing performed. The Atrial lead sutured in place with 2-0 Silk. The Ventricular PM lead jones tured in place with 2-0 Silk. Device pocket was irrigated with antibiotic. PPM generator was attached to the lead(s) and inserted into the pocket. PPM generator was then interrogated by the programmer or analyst. Subcutaneous closure was completed with 3-0 Vicryl. Skin closure was completed with 4-0 Vicryl. Steri-strips applied to Lt chest area. The patient tolerated the procedure well. 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: [employer], Model # Essentio MRI DR L111 , Serial # [id number] DEVICE PARAMETERS ATRIAL LEAD PARAMETERS: P wave- 1.8 (mV) Current- 2.2 (mA) threshold- 1.4 (V) impedence- 663 (OHMS) VENTRICULAR LEAD PARAMETERS: R wave- 25.0 (mV) Current- 0.6 (mA) threshold- 0.5 (V) impedence- 949 (OHMS) DEVICE PARAMETERS: Mode- DDD Lower rate- 60 Upper rate- 130 CONCLUSIONS / RECOMMENDATIONS Device Conclusions: Successful implantation of a dual chamber pacemaker Device Recommendations: Follow up with Primary Care Physician PROCEDURE MEDICATIONS Versed 1 mg IV Versed 1 mg IV Fentanyl 25 mcg IV Fentanyl 25 mcg IV Oxygen: 2 L/min via nasal cannula Antibiotic given in appropriate timeframe. Signed By Joey Maloney MD On 03/31/2019 14:47:17 Joey Maloney MD
[2019-03-31] MEDS: Acetaminophen 325 MG Tablet PO ×2 (15:56→23:15)
[2019-03-31] MEDS: Divalproex (ER) 250 MG Tablet PO (21:58)
[2019-03-31] MEDS: Isosorbide Mononitrate 60 MG Tablet PO (21:58)
[2019-03-31] MEDS: clonazePAM 0.5 MG Tablet PO (21:59)
[2019-03-31] MEDS: Pravastatin 20 MG Tablet 10 MG PO (21:59)
[2019-03-31] MEDS: Lisinopril 20 MG Tablet PO (22:00)
[2019-04-01 03:03] VITALS: PULSE 81
[2019-04-01 03:07] VITALS: PULSE 80
[2019-04-01 04:13] VITALS: BP 146/77; PULSE 81; RESP 12; TEMP 36.7; O2SAT 97
--- NOTE | 2019-04-01 05:55 | RAD_ITS ---
STUDY: X-RAY CHEST REASON FOR EXAM: Female, 78 years old. Pacemaker placement TECHNIQUE: Single AP portable view of the chest. COMPARISON: 03/24/2019 FINDINGS: Interval placement of left subclavian dual-lead pacemaker. No pneumothorax. 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 The lungs are clear and expanded. There is no demonstrated pleural abnormality. Normal size heart. Normal mediastinum and roberta. Normal visualized pulmonary arteries. Normal visualized aortic arch and descending thoracic aorta. Normal visualized thoracic spine. Normal visualized ribs, clavicles, and shoulders. There is no demonstrated abnormality of the visualized soft tissue structures of the upper abdomen. RAD/Chest 1 View IMPRESSION: 1. Interval placement of left subclavian dual-lead pacemaker with no pneumothorax. 2. 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 3. No active disease. Electronically Signed: Mike Mack MD at 8:31 EDT Tel , Service support ,
--- NOTE | 2019-04-01 05:55 | RAD_ITS ---
STUDY: X-RAY CHEST REASON FOR EXAM: Female, 78 years old. Pacemaker placement TECHNIQUE: PA and lateral views of the chest. COMPARISON: 03/24/2019 FINDINGS: Interval placement of left subclavian dual-lead pacemaker with no pneumothorax. 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 The lungs are clear and expanded. There is no demonstrated pleural abnormality. Normal size heart. Normal mediastinum and roberta. Normal visualized pulmonary arteries. Normal visualized aortic arch and descending thoracic aorta. Normal visualized thoracic spine. Normal visualized ribs, clavicles, and shoulders. There is no demonstrated abnormality of the visualized soft tissue structures of the upper abdomen. RAD/Chest PA and Lateral IMPRESSION: 1. Interval placement of left subclavian dual-lead pacemaker with no pneumothorax. 2. 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 3. No active disease. Electronically Signed: Mike Mack MD at 8:31 EDT Tel , Service support ,
[2019-04-01 07:06] VITALS: PULSE 82
--- NOTE | 2019-04-01 08:13 | EKG12_ITS ---
Test Reason : AFIB Blood Pressure : / mmHG Vent. Rate : 083 BPM Atrial Rate : 083 BPM P-R Int : 118 ms QRS Dur : 090 ms QT Int : 400 ms P-R-T Axes : 045 028 029 degrees QTc Int : 470 ms Normal sinus rhythm Normal ECG When compared with ECG of 13-AUG-2018 11:34, Premature supraventricular complexes are no longer Present Nonspecific T wave abnormality no longer evident in Inferior leads Confirmed by MARK MCKENZIE ([id number]), social media editor SALINAS APPIAH ([id number]) on 04/04/2019 9:05:33 AM Referred By: Joey Maloney Confirmed By:MARK MCKENZIE
[2019-04-01] MEDS: Acetaminophen 325 MG Tablet PO (08:18)
--- NOTE | 2019-04-01 08:57 | PCM.DC ---
- Discharge Diagnoses Current Active Problems: PPM Placement You will use the following diet at home:: Cardiac Your food should be the consistency of: Regular Discharge Activity: - - Follow instructions for post permanent pacemaker given by device nurse Weight Bearing Status: - - Follow post permanent pacemaker instructions given by device nurs Call your doctor if your incision/area has: Continuous Slow Oozing, Sudden Increased Bleeding, Increased Pain/ Swelling, Increased Redness, Foul Smelling Discharge, Swelling at the incision site Call your doctor if you observe: Fever of 101 or Higher Additional Dressing/Incision Instructions:: Wound care instructions: follow post permanent pacemaker instructions given by device nurse Additional Instructions: DO NOT restart warfarin / coumadin. The decision to restart warfarin / coumadin will be made at the permanent pacemaker office visit. Allergies/Adverse Reactions: Allergies aspirin Allergy (Verified 03/27/19 11:00) Anaphylaxis ibuprofen Allergy (Verified 03/27/19 11:00) Anaphylaxis Penicillins [PCN] Allergy (Verified 03/27/19 11:00) Anaphylaxis Sulfa (Sulfonamide Antibiotics) Allergy (Verified 03/27/19 11:00) Anaphylaxis amlodipine [From Norvasc] Adverse Reaction (Severe, Verified 03/27/19 11:00) Cough hydralazine Adverse Reaction (Severe, Verified 03/27/19 11:00) stopped when she had CVA spironolactone Adverse Reaction (Severe, Verified 03/27/19 11:00) Hyponaturemia FLU SHOT Allergy (Uncoded 03/27/19 11:00) Anaphylaxis Medications to take at Discharge Clonazepam [Klonopin] 0.5 mg PO BID #90 tab 05/11/16 divalproex ER 250 mg tablet,extended release 24 hr 250 mg PO QHS tab 12/16/17 esomeprazole magnesium 40 mg capsule,delayed release 40 mg PO QDAY 04/10/18 pravastatin 10 mg tablet 10 mg PO DAILY #90 tab 04/15/18 lisinopril 20 mg tablet 20 mg PO BID #180 tab 08/15/18 Warfarin Sodium 1 mg PO TH 11/05/18 minoxidil 2.5 mg tablet 1.25 mg PO BID PRN #90 tab 12/16/18 spironolactone 25 mg tablet 25 mg PO QDAY #90 tab 12/16/18 warfarin 3 mg tablet 3 mg PO .COMPLEX #90 tab 12/20/18 isosorbide mononitrate ER 60 mg tablet,extended release 24 hr 60 mg PO BID tab 02/18/19 doxazosin 2 mg tablet 2 mg PO DAILY 03/24/19 labetalol 100 mg tablet 50 mg PO DAILY tab 03/24/19 ciprofloxacin 500 mg tablet 500 mg PO BID #10 tab 03/25/19 The following prescriptions were given: ciprofloxacin 500 mg tablet 500 mg PO BID #10 tab Transmission Status: Received by [facility]30 Primary Care Physician: Dillon Brasher MD [Primary Care Provider] - Test Results: Test results from this visit will be discussed in further detail at your follow-up appointment, if applicable. Please Follow Up With: Dillon Sanchez MD When: Per post permanent pacemaker instructions given by device nurse Proposed Discharge Date: 04/01/19
--- NOTE | 2019-04-01 09:00 | PCM.PN.CARD ---
Subjectve: Patient seen and evaluated. Appears to be stable. Objective: Vital Signs Temp Pulse Resp BP Pulse Ox 98.0 F 82 12 146/77 H 97 04/01/19 04:13 04/01/19 07:06 04/01/19 04:13 04/01/19 04:13 04/01/19 04:13 Oxygen Delivery Method Room Air Weight: 137 lb Body Mass Index (BMI) 21.4 Finger Stick Blood Glucose 135 Intake and Output for Last 24 Hours 03/30/19 03/31/19 04/01/19 23:59 23:59 23:59 Intake Total 700 / 700 0 / 0 Balance 700 / 700 0 / 0 General: Awake, Alert, Oriented x 3 HEENT: PERRL, EOMI, Sclera Non Icteric Neck: Supple, Good ROM, No Lymph Node Enlargement Lungs: Clear to auscultation Cardiovascular: Regular Rhythm, Normal S1, Normal S2, No Murmurs, No Rubs, No Gallops 03/31/19 10:55: INR 1.10 Rhythm: EKG: ECHO: Stress Test: Cardiac Cath: PCI: CT Surgery: Holter monitor: EPS: PPM: CXR: Chest CT Scan: Medical Necessity - Tobacco Use Smoking Status: Never smoker Assessment/Plan 1. Status post permanent pacemaker implantation. Patient appears to be functioning well. Chest x-ray demonstrates no evidence of pneumothorax. Intermittent atrial flutter. The patient will be discharged for outpatient follow-up.
--- NOTE | 2019-04-01 09:01 | PCM.DC.PACE ---
Discharge Diet: No Restrictions, Low fat/ Low Cholesterol Discharge Activity: May Not Drive Call your doctor if your incision/area has: Continuous Slow Oozing, Sudden Increased Bleeding, Increased Pain/ Swelling, Increased Redness, Foul Smelling Discharge, Swelling at the incision site Call your doctor if you observe: Fever of 101 or Higher, Shortness of breath, Dizziness, Fainting spells, Swelling in the ankles, Chest pain, Prolonged hiccoughing, Increased palpitations (irregular heartbeat) Suture Line Care: Avoid Pulling/Pushing, Avoid Pinching/Bending Cleanse incision/area with: Keep Dressing Clean & Dry Additional Dressing/Incision Instructions:: When dressing is removed, wash and dry incision. Keep covered with a light bandage if it is rubbing against your clothing. Do not cover the incision with an airtight bandage. Change the bandage daily. Do not remove steri strips. The strips will fall off on their own. Additional Instructions: Signs and Symptoms to Report to Your Doctor at Once - call your doctor's office or [facility] Registry ([phone]) Call 911 or go to the nearest Emergency Department if you feel you need urgent care. *Infection (fever, increased redness or swelling at the incision site, drainage from the incision increased pain at the pacemaker site) *Shortness of breath *Dizziness *Fainting spells *Swelling in the ankles *Chest pain *Prolonged hiccoughing *Increased palpitaitons (irregular heartbeat) Medications: Take your pain medication as directed. Refer to your discharge instruction sheet for a list of medications you are to take. Allergies/Adverse Reactions: Allergies aspirin Allergy (Verified 03/27/19 11:00) Anaphylaxis ibuprofen Allergy (Verified 03/27/19 11:00) Anaphylaxis Penicillins [PCN] Allergy (Verified 03/27/19 11:00) Anaphylaxis Sulfa (Sulfonamide Antibiotics) Allergy (Verified 03/27/19 11:00) Anaphylaxis amlodipine [From Norvasc] Adverse Reaction (Severe, Verified 03/27/19 11:00) Cough hydralazine Adverse Reaction (Severe, Verified 03/27/19 11:00) stopped when she had CVA spironolactone Adverse Reaction (Severe, Verified 03/27/19 11:00) Hyponaturemia FLU SHOT Allergy (Uncoded 03/27/19 11:00) Anaphylaxis Medications to take at Discharge Clonazepam [Klonopin] 0.5 mg PO BID #90 tab 05/11/16 divalproex ER 250 mg tablet,extended release 24 hr 250 mg PO QHS tab 12/16/17 esomeprazole magnesium 40 mg capsule,delayed release 40 mg PO QDAY 04/10/18 pravastatin 10 mg tablet 10 mg PO DAILY #90 tab 04/15/18 lisinopril 20 mg tablet 20 mg PO BID #180 tab 08/15/18 Warfarin Sodium 1 mg PO TH 11/05/18 minoxidil 2.5 mg tablet 1.25 mg PO BID PRN #90 tab 12/16/18 spironolactone 25 mg tablet 25 mg PO QDAY #90 tab 12/16/18 warfarin 3 mg tablet 3 mg PO .COMPLEX #90 tab 12/20/18 isosorbide mononitrate ER 60 mg tablet,extended release 24 hr 60 mg PO BID tab 02/18/19 doxazosin 2 mg tablet 2 mg PO DAILY 03/24/19 labetalol 100 mg tablet 50 mg PO DAILY tab 03/24/19 ciprofloxacin 500 mg tablet 500 mg PO BID #10 tab 03/25/19 The following prescriptions were given: ciprofloxacin 500 mg tablet 500 mg PO BID #10 tab Transmission Status: Received by [facility] [employer] [id number] Primary Care Physician: Dillon Brasher MD [Primary Care Provider] - Test Results: Test results from this visit will be discussed in further detail at your follow-up appointment, if applicable. Please Follow Up With: [facility] at 1:30 pm Proposed Discharge Date: 04/01/19
[2019-04-01 10:06] VITALS: BP 132/75; PULSE 86; RESP 14; TEMP 36.6; O2SAT 98
== END 2019-04-01 09:03 | disposition home or self-care (01) ==
LOC: PCU 04-01 10:16
PROVIDERS: Admitting Provider Internal Medicine Cardiovascular Disease; Family Provider Family Medicine; PCP Family Medicine; Referring Provider Internal Medicine Cardiovascular Disease; Visit Provider Internal Medicine Cardiovascular Disease
DX: Z45.018 Encounter for adjustment and management of other part of cardiac pacemaker (principal); I49.5 Sick sinus syndrome; I10 Essential (primary) hypertension; I48.2 Chronic atrial fibrillation; I49.3 Ventricular premature depolarization; I49.1 Atrial premature depolarization; E78.5 Hyperlipidemia, unspecified; I25.10 Atherosclerotic heart disease of native coronary artery without angina pectoris; R06.02 Shortness of breath; E11.9 Type 2 diabetes mellitus without complications; I27.20 Pulmonary hypertension, unspecified; I48.0 Paroxysmal atrial fibrillation; K90.0 Celiac disease; F41.9 Anxiety disorder, unspecified; Z79.899 Other long term (current) drug therapy; Z79.01 Long term (current) use of anticoagulants; Z86.73 Personal history of transient ischemic attack (TIA), and cerebral infarction without residual deficits
CPT/HCPCS: 33208; 36415; 36416; 71045; 71046; 80048; 81001; 83036; 85027; 85610; 93005; 99152; 99153; 99218; J7040; J7050; C1894; G0378; G0379

== ENCOUNTER → 2019-04-03 09:30 | Outpatient (CLI) | payer MEDICARE, OTHER, SELFPAY ==
[2019-03-27 10:59] VITALS: BMI 21.4
[2019-04-03 09:50] LABS: Absolute Lymphocyte Count 2.27 X10^3/uL (0.83-4.51); Absolute Neutrophil Count 3.4 X10^3/uL (2.0-7.7); Basophil# 0.03 X10^3/uL; Basophil% 0.4 % (0-1); Eosinophil# 0.23 X10^3/uL; Eosinophils% 3.4 % (0-5); Hematocrit 37.3 % (37-47); Hemoglobin 12.2 g/dL (12.0-15.0); Lymphocyte # 2.27 X10^3/ul (4.0); Mean Corp Hgb Conc 32.7 g/dL (32-36); Mean Corpuscular Volume 91.6 fL (81-99); Mean Platelet Vol. 10.1 fl (6.2-12.0); Monocyte# 0.73 X10^3/uL; Monocyte% 10.9 % (0-10); NRBC Flagged by Analyzer 0 % (0-5); Neutrophil # 3.38 X10^3/uL (2.7-7.7); Neutrophil % 50.9 % (47-70); Platelet Count 211 K/mm3 (150-450); RBC Distribution Width CV 14.8 % (11.6-14.6); Red Blood Count 4.07 M/mm3 (4.2-5.4); White Blood Count 6.7 K/mm3 (4.4-11.0)
--- NOTE | 2019-04-03 09:50 | RAD_ITS ---
STUDY: X-RAY CHEST REASON FOR EXAM: Female, 78 years old. Shortness of breath. Recent pacemaker placement. TECHNIQUE: Frontal and lateral views of the chest COMPARISON: 04/01/2019 FINDINGS: The lungs are clear. There are no pleural effusions. There is no pneumothorax. The heart is normal in size. Again noted is a dual-lead pacemaker. There is a cardiac monitoring device in place. The visualized osseous structures are within normal limits. RAD/Chest PA and Lateral IMPRESSION: No acute thoracic pathology. Electronically Signed: Mino Guillermo, at 16:49 EDT Tel , Service support ,
[2019-04-03 10:22] LABS: Anion Gap 5 (5-15); BUN 18 mg/dL (7-18); BUN/Creat Ratio 19.5 RATIO (10-20); Calcium,Total 8.4 mg/dL (8.5-10.1); Chloride 97 mmol/L (98-107); Creatinine, Serum 0.92 mg/dL (0.55-1.02); EST Glomerular Filtration Rate 63 mL/min (>60); Est Glom Filt Rate - Afr Amer 76 mL/min (>60); Glucose 97 mg/dL (74-106); Potassium 4.2 mmol/L (3.5-5.1); Sodium Level 129 mmol/L (136-145)
== END ==
PROVIDERS: Family Provider Family Medicine; PCP Family Medicine; Referring Provider Nurse Practitioner Family; Visit Provider Nurse Practitioner Family
DX: I48.91 Unspecified atrial fibrillation (principal); Z95.0 Presence of cardiac pacemaker
CPT/HCPCS: 36415; 71046; 80048; 85025

== ENCOUNTER 2019-04-18 07:30 | Outpatient (RCR) | payer MEDICARE, OTHER, SELFPAY ==
[2019-03-27 10:59] VITALS: BMI 21.4
[2019-04-18 08:50] LABS: International Normalized Ratio 1.7; Prothrombin Time (Protime)PT. 19.5 SECONDS (11.7-14.9)
[2019-04-18 09:17] LABS: AST(SGOT) 17 U/L (15-37); Alanine Aminotransfer ALT/SGPT 23 U/L (13-56); Albumin, Serum 3.6 g/dL (3.2-5.0); Alkaline Phosphatase 65 U/L (45-117); Bilirubin, Direct 0.12 mg/dL (0.00-0.30); Cholesterol 111 mg/dL (200); Globulin 3.5 g/dL (2.2-4.2); High Density Lipoprotein 44 mg/dL; Protein, Total 7.1 g/dL (6.4-8.2); Triglycerides 69 mg/dL; Very Low Density Lipoprotein 14 mg/dL (5-40)
== END 2019-04-18 09:00 | disposition home or self-care (01) ==
LOC: LAB 07:30
PROVIDERS: Nurse Practitioner Family; Family Provider Family Medicine; PCP Family Medicine; Referring Provider Internal Medicine Cardiovascular Disease; Visit Provider Internal Medicine Cardiovascular Disease
DX: I48.91 Unspecified atrial fibrillation (principal); Z79.01 Long term (current) use of anticoagulants; E78.5 Hyperlipidemia, unspecified
CPT/HCPCS: 36415; 80061; 80076; 85610

== ENCOUNTER → 2019-05-16 10:56 | Outpatient (CLI) | payer MEDICARE, OTHER, SELFPAY ==
[2019-04-24 13:18] VITALS: BMI 21.7
[2019-05-16 11:52] LABS: Hematocrit 38.9 % (37-47); Mean Corp Hgb Conc 30.8 g/dL (32-36); Mean Corpuscular Hgb 29.1 pg (27.0-32.0); Mean Corpuscular Volume 94.4 fL (81-99); Mean Platelet Vol. 10.9 fl (6.2-12.0); Platelet Count 248 K/mm3 (150-450); RBC Distribution Width CV 15.5 % (11.6-14.6); RBC Distribution Width SD 53.6 fl (35.1-43.9); Red Blood Count 4.12 M/mm3 (4.2-5.4); White Blood Count 7.5 K/mm3 (4.4-11.0)
[2019-05-16 12:01] LABS: International Normalized Ratio 2.4; Prothrombin Time (Protime)PT. 26.3 SECONDS (11.7-14.9)
[2019-05-16 12:27] LABS: Anion Gap 3 (5-15); BUN 20 mg/dL (7-18); BUN/Creat Ratio 20.7 RATIO (10-20); Calcium,Total 8.6 mg/dL (8.5-10.1); Chloride 106 mmol/L (98-107); Creatinine, Serum 0.97 mg/dL (0.55-1.02); EST Glomerular Filtration Rate 59 mL/min (>60); Est Glom Filt Rate - Afr Amer 72 mL/min (>60); Glucose 95 mg/dL (74-106); Potassium 3.8 mmol/L (3.5-5.1); Sodium Level 139 mmol/L (136-145)
== END ==
PROVIDERS: Family Provider Family Medicine; PCP Family Medicine; Referring Provider Internal Medicine Cardiovascular Disease; Visit Provider Internal Medicine Cardiovascular Disease
DX: I49.5 Sick sinus syndrome (principal); I45.5 Other specified heart block; Z95.0 Presence of cardiac pacemaker; Z95.818 Presence of other cardiac implants and grafts
CPT/HCPCS: 36415; 80048; 85027; 85610

== ENCOUNTER 2019-05-23 07:03 | Day surgery (SDC) | payer MEDICARE, OTHER, SELFPAY ==
[2019-04-24 13:18] VITALS: BMI 21.7
[2019-05-22 08:01] VITALS: BMI 21.7
[2019-05-23 09:21] LABS: Prothrombin Time Fingerstick 12.9 SEC (11.9-14.4)
--- NOTE | 2019-05-29 09:59 | CL.IE_ITS ---
Patient: VERO CHAPPELL V Study Date: 05/23/2019 Performing: Joey Maloney MD : 1940 Age: 78 Gender: female PROCEDURES PERFORMED EP40-LICLYIK OF LOOP RECORDER INDICATIONS Sinoatrial node dysfunction/Sick sinus syndrome PROCEDURE DETAILS The patient was brought to the Catheterization Lab in the postabsorptive nonsedated state. [facility] consent was obtained prior to the procedure. Local anesthetic was given subcutaneously to the le ft subclavian region with Lidocaine 2%. Incision was made to the left subclavicular area. ICM Reveal LINQ was removed. The patient tolerated the procedure well. Estimated Blood Loss: < 10 mls IMPLANTED / EX-PLANTED DEVICES DEVICE PARAMETERS CONCLUSIONS / RECOMMENDATIONS Device Conclusions: Successful removal of a patient activated loop recorder. Device Recommendations: Follow up with Primary Care Physician PROCEDURE MEDICATIONS Versed 1 mg IV Oxygen: 2 L/min via nasal cannula Signed By Joey Maloney MD On 05/23/2019 09:24:02 Joey Maloney MD
== END 2019-05-23 10:45 | disposition home or self-care (01) ==
LOC: CLSP 07:04
PROVIDERS: Family Provider Family Medicine; PCP Family Medicine; Visit Provider Internal Medicine Cardiovascular Disease
DX: I25.10 Atherosclerotic heart disease of native coronary artery without angina pectoris (principal); I48.0 Paroxysmal atrial fibrillation; I48.92 Unspecified atrial flutter; I10 Essential (primary) hypertension; E78.5 Hyperlipidemia, unspecified; I49.5 Sick sinus syndrome; I49.1 Atrial premature depolarization; I49.3 Ventricular premature depolarization; I34.1 Nonrheumatic mitral (valve) prolapse; I27.20 Pulmonary hypertension, unspecified; K90.0 Celiac disease; E11.9 Type 2 diabetes mellitus without complications; G43.909 Migraine, unspecified, not intractable, without status migrainosus; F41.9 Anxiety disorder, unspecified; Z79.01 Long term (current) use of anticoagulants; Z79.899 Other long term (current) drug therapy; Z86.73 Personal history of transient ischemic attack (TIA), and cerebral infarction without residual deficits; Z95.0 Presence of cardiac pacemaker
CPT/HCPCS: 33286; 36416; 85610; 99152; J7040

== ENCOUNTER 2019-05-30 09:33 | Outpatient (RCR) | payer MEDICARE, OTHER, SELFPAY ==
[2019-04-24 13:18] VITALS: BMI 21.7
[2019-05-08 16:21] LABS: International Normalized Ratio 3.4; Prothrombin Time (Protime)PT. 34.9 SECONDS (11.7-14.9)
[2019-05-30 11:13] LABS: International Normalized Ratio 1.9; Prothrombin Time (Protime)PT. 21.3 SECONDS (11.7-14.9)
== END 2019-05-30 11:00 | disposition home or self-care (01) ==
LOC: LAB 09:33
PROVIDERS: Physician Assistant Medical; Family Provider Family Medicine; PCP Family Medicine; Referring Provider Internal Medicine Cardiovascular Disease; Visit Provider Internal Medicine Cardiovascular Disease
DX: I48.91 Unspecified atrial fibrillation (principal); Z79.01 Long term (current) use of anticoagulants
CPT/HCPCS: 36415; 85610

== ENCOUNTER 2019-06-06 11:53 | Outpatient (RCR) | payer MEDICARE, OTHER, SELFPAY ==
[2019-05-22 08:01] VITALS: BMI 21.7
[2019-06-06 13:02] LABS: International Normalized Ratio 2.6; Prothrombin Time (Protime)PT. 27.8 SECONDS (11.7-14.9)
== END 2019-06-06 18:00 | disposition home or self-care (01) ==
LOC: LAB 11:53
PROVIDERS: Family Provider Family Medicine; PCP Family Medicine; Referring Provider Internal Medicine Cardiovascular Disease; Visit Provider Internal Medicine Cardiovascular Disease
DX: I48.91 Unspecified atrial fibrillation (principal); Z79.01 Long term (current) use of anticoagulants
CPT/HCPCS: 36415; 85610

== ENCOUNTER → 2019-07-30 12:20 | Outpatient (CLI) | payer MEDICARE, OTHER, SELFPAY ==
[2019-05-22 08:01] VITALS: BMI 21.7
--- NOTE | 2019-07-30 12:22 | BI_ITS ---
MAMMOGRAPHY - BILATERAL SCREENING 3-D TOMOSYNTHESIS REASON FOR EXAM: Female, 79 years old. PERTINENT HISTORY: No significant family history. TECHNIQUE: 2-D mammograms and 3-D Tomosynthesis of the breast (s) were performed. CAD was performed. COMPARISON: July 02, 2018. FINDINGS: The breast composition is of scattered fibroglandular tissue. Scattered benign and arterial calcifications are seen. No dense spiculated masses or suspicious microcalcifications are identified. No architectural distortion is identified. There is no skin thickening or retraction. There has been no significant change since the prior study of June. BI/SCREEN MAMM (CAD) W/KALIN BILAT IMPRESSION: No mammographic signs of malignancy. Routine yearly mammograms recommended. ASSESSMENT CATEGORY: BIRADS Category 1: Negative. A letter regarding these results will be sent to the patient by the facility within 30 days. FOLLOW UP RECOMMENDATION: Yearly follow up mammogram recommended. (A) Approximately 10% of breast cancers are not detected by mammography. A normal mammogram should not delay biopsy of a clinically suspicious abnormality. Electronically Signed: Michael Perry, at 13:14 EST Tel , Service support ,
== END ==
PROVIDERS: Family Provider Family Medicine; PCP Family Medicine; Referring Provider Family Medicine; Visit Provider Family Medicine
DX: Z12.31 Encounter for screening mammogram for malignant neoplasm of breast (principal)
CPT/HCPCS: 77063; 77067

== ENCOUNTER 2019-08-01 08:49 | Outpatient (RCR) | payer MEDICARE, OTHER, SELFPAY ==
[2019-05-22 08:01] VITALS: BMI 21.7
[2019-07-04 11:06] LABS: Prothrombin Time (Protime)PT. 31.3 SECONDS (11.7-14.9)
[2019-08-01 10:45] LABS: International Normalized Ratio 2.3; Prothrombin Time (Protime)PT. 25.1 SECONDS (11.7-14.9)
== END 2019-08-01 18:00 | disposition home or self-care (01) ==
LOC: LAB 08:49
PROVIDERS: Family Provider Family Medicine; PCP Family Medicine; Referring Provider Internal Medicine Cardiovascular Disease; Visit Provider Internal Medicine Cardiovascular Disease
DX: I48.91 Unspecified atrial fibrillation (principal); Z79.01 Long term (current) use of anticoagulants
CPT/HCPCS: 36415; 85610

== ENCOUNTER 2019-08-29 10:32 | Outpatient (RCR) | payer MEDICARE, OTHER, SELFPAY ==
[2019-05-22 08:01] VITALS: BMI 21.7
[2019-08-29 11:58] LABS: International Normalized Ratio 2.7; Prothrombin Time (Protime)PT. 28.7 SECONDS (11.7-14.9)
== END 2019-08-29 18:00 | disposition home or self-care (01) ==
LOC: LAB 10:32
PROVIDERS: Family Provider Family Medicine; PCP Family Medicine; Referring Provider Internal Medicine Cardiovascular Disease; Visit Provider Internal Medicine Cardiovascular Disease
DX: I48.91 Unspecified atrial fibrillation (principal); Z79.01 Long term (current) use of anticoagulants
CPT/HCPCS: 36415; 85610

== ENCOUNTER 2019-09-25 09:27 | Outpatient (RCR) | payer MEDICARE, OTHER, SELFPAY ==
[2019-05-22 08:01] VITALS: BMI 21.7
[2019-09-25 10:08] LABS: International Normalized Ratio 2.1; Prothrombin Time (Protime)PT. 23.6 SECONDS (11.7-14.9)
== END 2019-09-25 18:00 | disposition home or self-care (01) ==
LOC: LAB 09:27
PROVIDERS: Family Provider Family Medicine; PCP Family Medicine; Referring Provider Internal Medicine Cardiovascular Disease; Visit Provider Internal Medicine Cardiovascular Disease
DX: I48.91 Unspecified atrial fibrillation (principal); Z79.01 Long term (current) use of anticoagulants
CPT/HCPCS: 36415; 85610

== ENCOUNTER 2019-10-14 18:03 | Inpatient (IN) | payer MEDICARE, OTHER, SELFPAY ==
[2019-05-22 08:01] VITALS: BMI 21.7
[2019-10-14] VITALS (10 sets, daily range): BP systolic 158–201; BP diastolic 67–98; PULSE 63–87; RESP 14–20; TEMP 36.1–36.5; O2SAT 96–99; BMI 21.7; BMI 21.4
--- NOTE | 2019-10-14 18:22 | CT_ITS ---
STUDY: CT BRAIN WITHOUT CONTRAST REASON FOR EXAM: Female, 79 years old. SLURRED SPEECH, EXPRESSIVE APHASIA, HX STROKE RADIATION DOSAGE (If Supplied By Facility): CTDIvol = ( 44.99 ) mGy, DLP = ( 779.24 ) mGycm TECHNIQUE: Transaxial CT imaging of the brain was performed without administration of intravenous contrast material. Individualized dose optimization techniques were used for this CT. COMPARISON: 02/17/2018 FINDINGS: Normal soft tissue structures. Normal calvarium. There is mild cerebral atrophy with widening of the extra-axial spaces and ventricular dilatation. There are areas of decreased attenuation within the white matter tracts of the supratentorial brain, consistent with microvascular disease changes. Normal basal ganglia and thalami. Normal brainstem. There is mild cerebellar atrophy. There is no intracranial hemorrhage. In the region of the right basal ganglia, there is an area of parenchymal hypodensity measuring 1.9 x 0.9 cm. This is new as compared to the exam from 2018. This may represent an area of recent subacute ischemia. No mass effect or midline shift. Normal visualized paranasal sinuses. CT/Brain/Head without Contrast IMPRESSION: In the region of the right basal ganglia. There is an area of parenchymal hypodensity which is new as compared to the exam from 2018. This may represent an area of recent subacute ischemia. Correlation with MRI is needed to further evaluate Electronically Signed: Nasir Neville DO at 19:31 EST Tel , Service support ,
--- NOTE | 2019-10-14 18:22 | EKG12_ITS ---
Test Reason : DYSRHYTHMIA Blood Pressure : / mmHG Vent. Rate : 064 BPM Atrial Rate : 064 BPM P-R Int : 152 ms QRS Dur : 094 ms QT Int : 442 ms P-R-T Axes : 081 039 041 degrees QTc Int : 455 ms Suspect unspecified pacemaker failure Normal sinus rhythm Minimal voltage criteria for LVH, may be normal variant Borderline ECG Confirmed by MARK MCKENZIE ([id number]), electronic news gathering editor NEHA PATEL ([id number]) on 10/16/2019 3:05:35 PM Referred By: MR Confirmed By:MARK MCKENZIE
--- NOTE | 2019-10-14 18:28 | RAD_ITS ---
STUDY: X-RAY CHEST REASON FOR EXAM: Female, 79 years old. CONFUSION TECHNIQUE: Single AP portable view of the chest. COMPARISON: 04/03/2019 FINDINGS: There is hyperinflation of the lungs consistent with chronic obstructive lung disease (COPD). Lungs are clear. There is no demonstrated pleural abnormality. There is borderline cardiomegaly. Left chest wall pacing device is noted. Normal mediastinum and roberta. Normal visualized pulmonary arteries. Normal visualized aortic arch and descending thoracic aorta. Normal visualized thoracic spine. Normal visualized ribs, clavicles, and shoulders. There is no demonstrated abnormality of the visualized soft tissue structures of the upper abdomen. RAD/Chest 1 View IMPRESSION: COPD without acute findings Electronically Signed: Nasir Neville DO at 19:08 EST Tel , Service support ,
[2019-10-14 18:36] LABS: Absolute Lymphocyte Count 2.98 X10^3/uL (0.83-4.51); Absolute Neutrophil Count 3.3 X10^3/uL (2.0-7.7); Basophil# 0.05 X10^3/uL; Basophil% 0.7 % (0-1); Eosinophil# 0.21 X10^3/uL; Eosinophils% 2.8 % (0-5); Hematocrit 39.4 % (37-47); Hemoglobin 12.6 g/dL (12.0-15.0); Lymphocyte # 2.98 X10^3/ul (4.0); Lymphocyte % 40.1 % (19-41); Mean Corpuscular Hgb 29.1 pg (27.0-32.0); Mean Platelet Vol. 10.6 fl (6.2-12.0); Monocyte# 0.85 X10^3/uL; Monocyte% 11.4 % (0-10); NRBC Flagged by Analyzer 0 % (0-5); Neutrophil # 3.32 X10^3/uL (2.7-7.7); Neutrophil % 44.7 % (47-70); Platelet Count 241 K/mm3 (150-450); RBC Distribution Width CV 15.2 % (11.6-14.6); RBC Distribution Width SD 50.6 fl (35.1-43.9); Red Blood Count 4.33 M/mm3 (4.2-5.4); White Blood Count 7.4 K/mm3 (4.4-11.0)
[2019-10-14 18:41] LABS: Bedside Glucose 101 mg/dL (70-110)
[2019-10-14 18:55] LABS: International Normalized Ratio 2.6; Partial Thromboplast Time 42.2 Seconds (24.1-36.2); Prothrombin Time (Protime)PT. 27.6 SECONDS (11.7-14.9)
[2019-10-14 18:58] LABS: Anion Gap 5 (5-15); BUN 27 mg/dL (7-18); Calcium,Total 8.7 mg/dL (8.5-10.1); Chloride 101 mmol/L (98-107); Creatinine, Serum 1.04 mg/dL (0.55-1.02); EST Glomerular Filtration Rate 54 mL/min (>60); Est Glom Filt Rate - Afr Amer 66 mL/min (>60); Estimated Creatinine Clearance 42.65 ml/min; Glucose 108 mg/dL (74-106); Potassium 3.8 mmol/L (3.5-5.1); Sodium Level 137 mmol/L (136-145)
[2019-10-14 19:14] LABS: Mucous, Urine 0 SEEN /hpf (<or=2+)
[2019-10-14 19:16] LABS: Color, Urine Straw (Yellow); Glucose, Dipstick Normal (Normal); Ketone-Dipstick Negative (Negative); Leukocyte Esterase-Dipstick 500 /ul (Negative); Nitrite-Dipstick Positive (Negative); Occult Blood-Urine 250 /ul (Negative); Protein-Dipstick 30 mg/dl (Negative); Specific Gravity, Urine 1.015 (1.002-1.030); Urine Bilirubin Dipstick Negative (Negative); Urine Clarity Cloudy (Clear); Urine Urobilinogen Normal (Normal); Urine pH 6.5 (5.0 - 8.0)
[2019-10-14 19:37] LABS: Red Blood Cells-Urine 25-50 SEEN /hpf (0-5); Squamous Epithelial Cells - UA 0-5 SEEN /hpf (5-10)
[2019-10-14 19:38] LABS: Bacteria 1+ /hpf (None Seen); White Blood Cells >100 SEEN /hpf (0-5)
--- NOTE | 2019-10-14 20:10 | ED.DCSUM_ITS ---
History of Present Illness Chief Complaint: Confusion Narrative: Patient presenting secondary to confusion and difficulty speaking. Patient reports that on of last week she started to develop some confusion and difficulty speaking. She described this as a inability to form words that she already felt that she knew what they were. Patient denies that she had any sort of visual changes numbness or weakness. Patient has a past history of A. fib and a TIA in the past, no underlying neurological deficits. She denies any fever cough nausea vomiting diarrhea dysuria hematuria or any other infectious signs or symptoms. She denies any headaches associated with this. Review of systems otherwise negative. Past Medical History - Allergies and Home Meds Allergies/Adverse Reactions: Allergies aspirin Allergy (Verified 10/14/19 18:06) Anaphylaxis ibuprofen Allergy (Verified 10/14/19 18:06) Anaphylaxis Penicillins [PCN] Allergy (Verified 10/14/19 18:06) Anaphylaxis Sulfa (Sulfonamide Antibiotics) Allergy (Verified 10/14/19 18:06) Anaphylaxis amlodipine [From Norvasc] Adverse Reaction (Severe, Verified 10/14/19 18:06) Cough hydralazine Adverse Reaction (Severe, Verified 10/14/19 18:06) stopped when she had CVA spironolactone Adverse Reaction (Severe, Verified 10/14/19 18:06) Hyponaturemia FLU SHOT Allergy (Uncoded 10/14/19 18:06) Anaphylaxis Primary Care Physician: Dillon Brasher MD [Primary Care Provider] - Past Medical History: - - Hypertension, A. fib, TIA Surgical History: appendectomy, cataract, cholecystectomy, hysterectomy - she still has ovaries....done for DUB, total hip arthroplasty - right hip, - - Lumbar surgery secondary to degenerative disc disease lumbar Smoking Status: Never smoker - Family History Maternal Family History: Family History (Last Reviewed 04/24/19 @ 13:50 by LILY Scott) Father CVA (cerebral vascular accident) Brother Hypertension Brother Hypertension Sister Abdominal aortic aneurysm (AAA) Sister CVA (cerebral vascular accident) Hypertension Diabetes Other Cancer Family History: Reports: Diabetes Paternal Family History: Family History (Last Reviewed 04/24/19 @ 13:50 by LILY Scott) Father CVA (cerebral vascular accident) Brother Hypertension Brother Hypertension Sister Abdominal aortic aneurysm (AAA) Sister CVA (cerebral vascular accident) Hypertension Diabetes Other Cancer Family History: Reports: Stroke Sibling Family History: Family History (Last Reviewed 04/24/19 @ 13:50 by LILY Scott) Father CVA (cerebral vascular accident) Brother Hypertension Brother Hypertension Sister Abdominal aortic aneurysm (AAA) Sister CVA (cerebral vascular accident) Hypertension Diabetes Other Cancer Family History: Reports: - - Hypertension, diabetes mellitus, CVA, aortic aneurysm Review of Systems All systems negative except as indicated General: Denies: Chills, Fever, Sweats Eyes: Denies: Visual changes - bilaterally, Diplopia ENT: Denies: Rhinorrhea, Sore throat Cardiovascular: Denies: Chest pain, Palpitations Respiratory: Denies: Dyspnea, Cough, Dyspnea on exertion Gastrointestinal: Denies: Abdominal pain, Nausea, Vomiting, Diarrhea, Melena, Hematochezia Genitourinary: Denies: Dysuria, Hematuria, Frequency Musculoskeletal: Denies: Back pain, Extremity Pain Skin: Denies: Rash, Wounds Neurological: Reports: - - Speech difficulty Physical Exam Vital Signs/Narrative: Vital Signs Temp Pulse Resp BP Pulse Ox 10/14/19 19:40 67 16 197/98 H 97 10/14/19 19:11 87 16 194/94 H 97 10/14/19 18:52 70 14 191/94 H 98 10/14/19 18:28 63 20 H 197/90 H 99 10/14/19 18:04 97 F L 67 16 158/79 H 96 Inital Vital Signs reviewed: Yes General: Well nourished, Well developed, No Acute Distress Head: Normocephalic, Atraumatic Eyes: Perrl, EOMI ENT: Moist mucous membranes, No rhinorrhea Neck: Supple, Nontender Cardiovascular: Murmur - 2 out of 6 systolic Respiratory: No distress, CTA bilaterally, Chest nontender Abdomen: Soft, Nontender, Nondistended, Normal bowel sounds Back: Nontender, Normal Inspection Extremities: Nontender, No edema Skin: Normal color, No rash Neurological: Alert, Oriented x3, Cranial nerves II-XII grossly intact, Normal Strength, Normal Sensation, - - NIH stroke scale is maybe 1 with the patient having very disjointed speech and some word finding difficulties but not extreme expressive aphasia. Psychological: Normal affect, Normal Mood Diagnostic/Tx/Re-eval - EKG Initial EKG Interpretation: - - Sinus rhythm at [address] segments normal T waves, LVH, no evidence of acute ischemia or arrhythmia. - Medical Decision Making Patient presented for evaluation secondary to speech difficulty. Physical exam showed very mild expressive aphasia was concern for the possibility of a subacute stroke. Patient was outside of the TPA window or window for large vessel occlusion, stroke team was not activated. CT imaging of the brain shows potentially subacute ischemic changes. CBC chemistry troponin unremarkable. EKG unremarkable. Urinalysis shows evidence of infection. Patient will be given a dose of Rocephin for treatment of her UTI. I believe she requires admission. She was somewhat hypertensive in the emergency department she was given a dose of labetalol. Patient will be admitted under the hospitalist. ED Disposition - Plan for ED Patient: Disposition: Acute Care Hospital [facility] Diagnosis: Ischemic stroke, Urinary tract infection
--- NOTE | 2019-10-14 20:28 | HP.PCM_ITS ---
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 transplanted heart: douglas heart Qualified Code(s): I25.10 - Atherosclerotic heart disease of douglas coronary artery without angina pectoris Comment: not angiographically significant on a cath in April 2016 (8) DM type 2 (diabetes mellitus, type 2) Status: Chronic Qualifiers: Diabetes mellitus intermediate frame tender insulin use: without alf use Diabetes mellitus complication status: with other specified complication Qualified Code(s): E11.69 - Type 2 diabetes mellitus with other specified complication Comment: diet controlled (9) HLD (hyperlipidemia) Status: Chronic Qualifiers: Hyperlipidemia type: unspecified Qualified Code(s): E78.5 - Hyperlipidemia, unspecified (10) Anxiety Status: Chronic History of Present Illness Date of Admission: 10/14/19 Chief Complaint: Confusion, slurred speech The patient is a 79 y/o F w/ PMHx: PAF s/p RFA, HTN, HLD, Hx Migraines, Diabetes mellitus type II, CAD non-obstructive, Hx sick sinus syndrome s/p pacemaker, Anxiety who presents to the [facility] ED on 10/14/19 with history of onset mild confusion, aphasia with word finding difficulty with no other additional neurological symptoms with noted halting speech upon ED presentation, noted to be more broken with evidence expressive aphasia with history of increased urinary frequency above prior baseline with no specific dysuria or urinary retention concurrently. Patient denies any recent throbbing headaches nor any light or sound sensitivities as does have a history of migraine. Work-up in the ED included T 97, heart rate 67, BP 158/79 initially but increased to 194/94, respiratory rate 16, 96% on room air, CBC with WC 7.4, hemoglobin 12.6, platelet 241 with no evidence of left shift, coags with INR 2.6 on Coumadin therapy, BMP with BUN/creatinine 27/1.04 baseline creatinine 0.9, glucose 108, troponin less than 0.015, urinalysis significant was positive gravity 1.015, protein 30, 250 occult blood, positive nitrite, leukocyte esterase 500, RBC 25-50, WBC greater than 100, urine bacteria 1+, urine culture pending per ED, chest x-ray with chronic COPD changes no acute cardiopulmonary findings otherwise, CT brain with areas of decreased attenuation with region of the right basal ganglia with an area of parenchymal hypodensity measuring 1.9 x 0.9 cm new compared to 2018 possibly a recent subacute ischemic event with no mass-effect or midline shift, no evidence of intracranial bleeding. Past Medical History Past Medical History (Chronic Problems): Chronic Problems (Last Updated 04/24/19 @ 13:50 by LILY Scott) Presence of permanent cardiac pacemaker (Chronic) Sinus pause (Chronic) Sick sinus syndrome (Chronic) Essential hypertension (Chronic) Status post placement of implantable loop recorder (Chronic) Celiac disease (Chronic) Atrial fibrillation (Chronic) Premature atrial contractions (Chronic) Premature ventricular contraction (Chronic) Nonrheumatic mitral (valve) prolapse (Chronic) Atherosclerotic heart disease of douglas coronary artery without angina pectoris (Chronic) not angiographically significant on a cath in April 2016 Sinus bradycardia (Chronic) Pulmonary hypertension, secondary (Chronic) 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 (Chronic) 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) DM type 2 (diabetes mellitus, type 2) (Chronic) diet controlled HLD (hyperlipidemia) (Chronic) Anxiety (Chronic) Medical History: Medical History (Last Updated 04/24/19 @ 13:50 by LILY Scott) Presence of permanent cardiac pacemaker (Chronic) Z95.0 Sinus pause (Chronic) I45.5 Sick sinus syndrome (Chronic) I49.5 Essential hypertension (Chronic) I10 Status post placement of implantable loop recorder (Chronic) Z95.818 Premature atrial contractions (Chronic) I49.1 Premature ventricular contraction (Chronic) I49.3 Nonrheumatic mitral (valve) prolapse (Chronic) I34.1 Atherosclerotic heart disease of douglas coronary artery without angina pectoris (Chronic) I25.10 not angiographically significant on a cath in April 2016 Sinus bradycardia (Chronic) R00.1 Pulmonary hypertension, secondary (Chronic) 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 (Chronic) 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 current use of anticoagulant therapy (Chronic) Z79.01 DM type 2 (diabetes mellitus, type 2) (Chronic) E11.9 diet controlled HLD (hyperlipidemia) (Chronic) E78.5 Anxiety (Chronic) F41.9 Migraine G43.909 Celiac disease K90.0 HTN (hypertension) I10 Incontinence R32 Paroxysmal atrial fibrillation I48.0 History of CVA (cerebrovascular accident) Z86.73 Acute CVA (cerebrovascular accident) (Inactive) I63.9 HTN (hypertension) (Inactive) I10 Hay fever J30.1 Hypokalemia (Inactive) E87.6 Hyponatremia (Inactive) E87.1 Migraine (Inactive) G43.909 on Depakote Subtherapeutic international normalized ratio (INR) (Inactive) R79.1 Urinary tract infection (Inactive) N39.0 Allergies aspirin Allergy (Verified 10/14/19 18:06) Anaphylaxis ibuprofen Allergy (Verified 10/14/19 18:06) Anaphylaxis Penicillins [PCN] Allergy (Verified 10/14/19 18:06) Anaphylaxis Sulfa (Sulfonamide Antibiotics) Allergy (Verified 10/14/19 18:06) Anaphylaxis [facility] Adverse Reaction (Severe, Verified 10/14/19 18:06) Cough hydralazine Adverse Reaction (Severe, Verified 10/14/19 18:06) stopped when she had CVA spironolactone Adverse Reaction (Severe, Verified 10/14/19 18:06) Hyponaturemia FLU SHOT Allergy (Uncoded 10/14/19 18:06) Anaphylaxis Home Medications: Ambulatory Orders Medication Instructions Recorded divalproex 250 mg tablet,extended 250 mg PO QHS tab 12/16/17 release 24 hr esomeprazole magnesium 40 mg 40 mg PO DAILY 04/10/18 capsule,delayed release isosorbide mononitrate 60 mg 30 mg PO BID tab 04/24/19 tablet,extended release 24 hr labetalol 100 mg tablet 50 mg PO DAILY tab 04/24/19 Clonazepam [Klonopin] 0.5 mg PO BID 10/14/19 Doxazosin Mesylate [Cardura] 1 mg PO BID 10/14/19 Lisinopril 10 mg PO BID 10/14/19 Mirabegron [Myrbetriq] 50 mg PO DAILY 10/14/19 Pravastatin Sodium 10 mg PO QHS 10/14/19 Warfarin Sodium [Coumadin] 1 mg PO TH 10/14/19 Warfarin [Coumadin] 3 mg PO SUMOTUWEFRSA 10/14/19 Surgical History: Surgical History (Last Reviewed 04/24/19 @ 13:50 by LILY Scott) History of cardiac radiofrequency ablation (RFA) Z98.890 Status post placement of implantable loop recorder Z95.818 History of back surgery Z98.890 X 3 History of hip replacement Z96.649 History of hysterectomy Z90.710 Surgical History: appendectomy, cataract, cholecystectomy, hysterectomy - she still has ovaries....done for DUB, total hip arthroplasty - right hip, - - Lumbar back surgery x3, pacemaker, tonsillectomy, cholecystectomy, appendectomy, hysterectomy, right total hip replacement bilateral cataract surgery. 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 MANAGER history Lives: Spouse/ Significant Other Smoking Status: Never smoker Tobacco Use: Non-smoker Alcohol: None Drugs: None - *Family History Maternal Family History: Family History (Last Reviewed 04/24/19 @ 13:50 by LILY Scott) Father CVA (cerebral vascular accident) Brother Hypertension Brother Hypertension Sister Abdominal aortic aneurysm (AAA) Sister CVA (cerebral vascular accident) Hypertension Diabetes Other Cancer History Items: Diabetes Paternal Family History: Family History (Last Reviewed 04/24/19 @ 13:50 by LILY Scott) Father CVA (cerebral vascular accident) Brother Hypertension Brother Hypertension Sister Abdominal aortic aneurysm (AAA) Sister CVA (cerebral vascular accident) Hypertension Diabetes Other Cancer History Items: Stroke Sibling Family History: Family History (Last Reviewed 04/24/19 @ 13:50 by LILY Scott) Father CVA (cerebral vascular accident) Brother Hypertension Brother Hypertension Sister Abdominal aortic aneurysm (AAA) Sister CVA (cerebral vascular accident) Hypertension Diabetes Other Cancer History Items: - - Hypertension, diabetes mellitus, CVA, aortic aneurysm Review of Systems Constitutional: Reports: Malaise, Weakness, Fatigue. Denies: Chills, Fever, Weight Change HEENT: Reports: Difficulty Swallowing. Denies: Head Aches, Sinus Congestion, Sinus Drainage Cardiovascular: Denies: Chest Pain, Chest Pressure, Chest Tightness, Light Headedness, Orthopnea, Palpitations Respiratory: Denies: Cough, Shortness of Breath, Shortness of breath at rest, Shortness of breath upon exertion, Sputum production Gastrointestinal: Denies: Abdominal Pain, Nausea, Vomiting Genitourinary: Reports: Frequency. Denies: Dysuria Musculoskeletal: Reports: Back Pain, Joint Pain. Denies: Joint Tenderness Skin: Denies: Rash, Wounds Neurological: Reports: Change in Speech, Confusion, Difficulty swallowing. Denies: Focal weakness, Numbness, Tingling Psychiatric: Reports: Anxiety. Denies: Depression, Homicidal Ideations, Suicidal Ideations Hematologic/ Lymphatic: Reports: Easy Bruising, Easy Bleeding VTE Information - Inpt Only VTE Present on Admission: No VTE Mechan Device Prophylaxis: SCD's VTE Pharm Prophylaxis ordered?: No Reason prophylaxis not ordered:: Treatment Not Indicated - Continued on coumadin w/ INR trending. Patient Problems: Active and Suspected Problems (Last Updated 04/24/19 @ 13:50 by LILY Scott) Ischemic stroke (Acute) Urinary tract infection (Acute) Subjective: Seated upright in the bed, fatigued appearance, ongoing mild expressive aphasia present. Objective: Physical Examination: General: awake, alert, oriented including to self, place, recent events, year, president, remains cooperative, seated upright in the ED bed in no apparent distress. Skin: normal color, turgor, no icterus, cyanosis. HEENT: AT/NC, EOMI, PERRLA, mildly dry MM, no carotid bruits or JVD noted. Lungs: CTA bilaterally, moderate effort, moderate decrease BL bases, no rales, ronchi or wheezing. Heart: Regular rate and rhythm; no gallop, rub audible. Abdomen: soft, NTTP, ND, normal BS, no HSM. Extremities: no cyanosis, clubbing, or edema. Neurological: patient awake, alert, oriented as noted; cognitive function suspect mildly decreased from baseline intact; pupils equally reactive to light and accomodation; cranial nerves II-XII grossly normal, moving all 4 extremities, no focal deficits, strength preserved, sensation intact, equivocal Babinski but very ticklish therefore difficult exam, [id number] and wdxl-mm-[id number] left-sided rushed but intact, [id number] and unes-lz-gptt right-sided appropriate, ongoing mild expressive aphasia but able to carry on conversation and give responses but halted. Psychiatric: affect appears fatigued, no acute evidence of depressive or anxiety feelings. - Physical Exam Vitals/I&O's: Vital Signs Temp Pulse Resp BP Pulse Ox 97 F L 67 16 197/98 H 97 10/14/19 18:04 10/14/19 19:40 10/14/19 19:40 10/14/19 19:40 10/14/19 19:40 Oxygen Delivery Method Room Air Weight: 139 lb Body Mass Index (BMI) 21.7 Finger Stick Blood Glucose 101 Laboratory Results 10/14/19 18:21: WBC 7.4, RBC 4.33, Hgb 12.6, Hct 39.4, MCV 91.0, MCH 29.1, MCHC 32.0, RDW Std Deviation 50.6 H, RDW Coeff of Zhanna 15.2 H, Plt Count 241, MPV 10.6, Immature Gran % (Auto) 0.300, Neut % (Auto) 44.7 L, Lymph % (Auto) 40.1, [place] % (Auto) 11.4 H, Eos % (Auto) 2.8, Baso % (Auto) 0.7, Absolute Neuts (auto) 3.3, Absolute Lymphs (auto) 2.98, Nucleated RBC % 0 10/14/19 18:21: PT 27.6 H, INR 2.6, APTT 42.2 H 10/14/19 18:21: Sodium 137, Potassium 3.8, Chloride 101, Carbon Dioxide 31.0, Anion Gap 5, BUN 27 H, Creatinine 1.04 H, Estim Creat Clear Calc 42.65, Est GFR (MDRD) Af Amer 66, Est GFR (MDRD) Non-Af 54 L, BUN/Creatinine Ratio 26.0 H, Glucose 108 H, Calcium 8.7, Troponin I < 0.015 10/14/19 18:34: POC Glucose 101 10/14/19 19:10: Urine Color Straw, Urine Clarity Cloudy, Urine pH 6.5, Ur Specific [place] 1.015, Urine Protein 30 H, Urine Glucose (UA) Normal, Urine Ketones Negative, Urine Occult Blood 250 H, Urine Nitrite Positive H, Urine Bilirubin Negative, Urine Urobilinogen Normal, Ur Leukocyte Esterase 500 H, Urine RBC 25-50 SEEN, Urine WBC >100 SEEN, Ur Squamous Epith Cells 0-5 SEEN, Urine Bacteria 1+, Urine Mucus 0 SEEN Current Medications Ceftriaxone Sodium (Rocephin) 1 gm in 50 mls @ 100 mls/hr IV X1 ONE Stop: 10/14/19 20:43 Assessment/Plan All Active Problems (Last Updated 04/24/19 @ 13:50 by LILY Scott) Ischemic stroke (Acute) Urinary tract infection (Acute) History of radiofrequency ablation procedure for cardiac arrhythmia (Resolved ~12/09/18) 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 1. Encephalopathy, altered speech, aphasia secondary to subacute stroke right basal ganglia: CT brain with areas of decreased attenuation with region of the right basal ganglia with an area of parenchymal hypodensity measuring 1.9 x 0.9 cm new compared to 2018 possibly a recent subacute ischemic event with no mass- effect or midline shift, no evidence of intracranial bleeding. He also secondary to #2. Will admit to PCU, will request carotid US, consider CTA head, obtain ECHO, PT/OT/Speech/Nutrition evaluation per protocol. Given timeline continue HTN regimen to goal, therapeutic on coumadin continued INR trending, defer addition of potentially Plavix concurrently given significant aspirin allergy per discussion with patient per neurology once consultation obtained in a.m., consider increasing home statin although from his discussions with patient may not tolerate w/ AM FLP, fall precautions. Mag, TSH. Will need to obtain AM consultation w/ Neurology. 2. Acute Urinary Tract Infection: UA upon ED evaluation remarkable, pending UCx, monitor I/Os to assure no urinary retention, continue IV Rocephin w/ transition as able pending sensitivities and speciation. 3. Hypertension: Continue home regimen including Cardura, isosorbide, labetalol, lisinopril with increase of lisinopril and addition of low-dose hydrochlorothiazide with further oral adjustments as needed to maintain appropriate blood pressure parameters as this is subacute in several days out, PRN hydralazine. 4. Hyperlipidemia: We will continue home statin however given acute pr esentation may need to consider increasing although from discussions with patient may not tolerate well, FLP in AM. 5. CAD: Continued on Coumadin with INR trending, continue patient labetalol, lisinopril, statin therapy. 6. PAF: Status post RFA, continued on Coumadin, trend INR, continue labetalol regimen. 7. History of sick sinus syndrome: Status post pacemaker status, precludes MRI usage unfortunately as noted above. 8. History of migraines: We will continue patient home Depakote regimen. 9. Diabetes mellitus type II: On regimen, from discussions diet-controlled, will obtain hemoglobin A1c level, nutrition consultation for education and teaching, continue on ADA diet, accu checks w/ ISS. 10. Anxiety: We will continue patient on Klonopin regimen. May benefit from consideration of SS versus SNRI for more long-term anxiety treatment. 11. GERD: Continue home PPI. 12. DVT prophylaxis: SCDs, continue Coumadin with INR trending. 13. CODE status: From current discussions believe is healthcare power of claim attorney and living well may be in place but not best historian currently, discussed CODE status at length including difference between FULL code, DNR-CCA and DNR-CC status. Following discussions about the differences in these status, requested full code. Advanced Care Planning Face to Face Time: 16 minutes. Code Visit Inpatient E&M: 86031 Init Hosp L3 Procedures: 39106 Advncd Care Plan 30 Min
[2019-10-14] MEDS: Ceftriaxone 1 GM/50 ML BAG IV (20:47)
--- NOTE | 2019-10-14 21:37 | CDU_ITS ---
Reason For Study: CVA Rt. Velocities/BP Lt. Velocities/BP Prox CCA 74/6 cm/sec. Prox CCA 86/21 cm/sec. Mid CCA 58/12 cm/sec. Mid CCA 71/17 cm/sec. Dist CCA 47/9 cm/sec. Dist CCA 63/14 cm/sec. Prox ICA 88/17 cm/sec. Prox ICA 64/16 cm/sec. Mid ICA 82/20 cm/sec. Mid ICA 70/14 cm/sec. Dist ICA 88/20 cm/sec. Dist ICA 102/26 cm/sec. Rt. ICA/CCA = 1.5. Lt. ICA/CCA = 1.4. Prox ECA 137/8 cm/sec. Prox ECA 109/16 cm/sec. Rt. Vert. 49/10 cm/sec. Lt. Vert. 45/8 cm/sec. Right Extracranial There is heterogeneous, irregular atherosclerotic plaque noted in the right common carotid artery. There is heterogeneous, irregular atherosclerotic plaque noted in the right internal carotid artery. There is heterogeneous, irregular atherosclerotic plaque noted in the right external carotid artery. Antegrade flow is noted in the right vertebral artery. Left Extracranial There is heterogeneous, irregular atherosclerotic plaque noted in the left common carotid artery. There is heterogeneous, smooth atherosclerotic plaque noted in the left internal carotid artery. There is heterogeneous, smooth atherosclerotic plaque noted in the left external carotid artery. Antegrade flow is noted in the left vertebral artery. Procedure Carotid Duplex [id number]. Exam performed portable in patient room. Interpretation Summary Irregular calcific plaque with shadowing distal right common carotid and proximal internal carotid and proximal external carotid <50% stenosis right internal carotid <50% stenosis right external carotid Minimal smooth calcific plaque at the proximal left internal and external carotid arteries <50% stenosis left internal carotid <50% stenosis left external carotid Patent, antegrade bilateral vertebrals Ordering Physician: Cynthia Lala Referring Physician: Dillon Brasher Performed By: Laurie Navarro, CAREN, RVT
[2019-10-14 22:26] LABS: Magnesium 2.1 mg/dL (1.6-2.6); Thyroid Stim Hormone (TSH) 1.98 uIU/mL (0.358-3.74)
[2019-10-14] MEDS: Doxazosin 1 MG Tablet PO (23:18)
[2019-10-14] MEDS: Pravastatin 20 MG Tablet 10 MG PO (23:20)
[2019-10-14] MEDS: Lisinopril 10 MG Tablet PO (23:20)
[2019-10-14] MEDS: Isosorbide Mononitrate 30 MG Tablet PO (23:20)
[2019-10-14] MEDS: Divalproex (ER) 250 MG Tablet PO (23:20)
[2019-10-14] MEDS: clonazePAM 0.5 MG Tablet PO (23:22)
[2019-10-14] MEDS: 0.9% Saline Lock 10 ML Syringe IV (23:25)
[2019-10-14] MEDS: 0.9% Normal Saline 1,000 ML 75 ML IV (23:25)
[2019-10-14 23:26] LABS: Hemoglobin A1c 6.1 % (4.2-6.3)
[2019-10-14 23:51] LABS: Bedside Glucose 112 mg/dL (70-110)
[2019-10-15] VITALS (13 sets, daily range): BP systolic 131–158; BP diastolic 60–75; PULSE 63–88; RESP 16–18; TEMP 36.4–36.8; O2SAT 95–100; BMI 21.4
[2019-10-15] MEDS: Lisinopril 10 MG Tablet PO (01:13)
[2019-10-15] MEDS: hydroCHLOROthiazide 12.5mg 12.5 MG PO ×2 (01:13→10:03)
[2019-10-15 05:54] LABS: Absolute Lymphocyte Count 2.68 X10^3/uL (0.83-4.51); Absolute Neutrophil Count 4.7 X10^3/uL (2.0-7.7); Basophil# 0.05 X10^3/uL; Basophil% 0.6 % (0-1); Eosinophil# 0.24 X10^3/uL; Eosinophils% 2.7 % (0-5); Hematocrit 35.5 % (37-47); Hemoglobin 11.5 g/dL (12.0-15.0); Lymphocyte # 2.68 X10^3/ul (4.0); Lymphocyte % 30.4 % (19-41); Mean Corp Hgb Conc 32.4 g/dL (32-36); Mean Corpuscular Volume 89.6 fL (81-99); Mean Platelet Vol. 10.9 fl (6.2-12.0); Monocyte# 1.17 X10^3/uL; Monocyte% 13.3 % (0-10); NRBC Flagged by Analyzer 0 % (0-5); Neutrophil # 4.65 X10^3/uL (2.7-7.7); Neutrophil % 52.7 % (47-70); Platelet Count 235 K/mm3 (150-450); RBC Distribution Width CV 15.1 % (11.6-14.6); RBC Distribution Width SD 49.1 fl (35.1-43.9); Red Blood Count 3.96 M/mm3 (4.2-5.4); White Blood Count 8.8 K/mm3 (4.4-11.0)
[2019-10-15 06:07] LABS: International Normalized Ratio 2.2; Prothrombin Time (Protime)PT. 24.3 SECONDS (11.7-14.9)
[2019-10-15 06:20] LABS: BUN 22 mg/dL (7-18); Creatinine, Serum 0.91 mg/dL (0.55-1.02); Glucose 100 mg/dL (74-106)
[2019-10-15 06:21] LABS: Anion Gap 5 (5-15); BUN/Creat Ratio 24.3 RATIO (10-20); Calcium,Total 8.5 mg/dL (8.5-10.1); Chloride 103 mmol/L (98-107); Cholesterol 121 mg/dL (200); EST Glomerular Filtration Rate 64 mL/min (>60); Est Glom Filt Rate - Afr Amer 77 mL/min (>60); Estimated Creatinine Clearance 48.75 ml/min; High Density Lipoprotein 45 mg/dL; Potassium 3.7 mmol/L (3.5-5.1); Sodium Level 138 mmol/L (136-145); Triglycerides 91 mg/dL; Very Low Density Lipoprotein 18 mg/dL (5-40)
[2019-10-15 06:45] LABS: Bedside Glucose 103 mg/dL (70-110)
[2019-10-15] MEDS: Lisinopril 20 MG Tablet PO ×2 (10:02→22:06)
[2019-10-15] MEDS: Pantoprazole Sodium 40 MG Tablet PO (10:02)
[2019-10-15] MEDS: Labetalol 100 MG Tablet 50 MG PO (10:02)
[2019-10-15] MEDS: Isosorbide Mononitrate 30 MG Tablet PO ×2 (10:03→22:06)
[2019-10-15] MEDS: Doxazosin 1 MG Tablet PO ×2 (10:03→22:06)
[2019-10-15] MEDS: Mirabegron 50 MG TAB.ER.24H PO (10:03)
[2019-10-15] MEDS: clonazePAM 0.5 MG Tablet PO ×2 (10:07→22:06)
--- NOTE | 2019-10-15 10:15 | CASEMGMT ---
RN CM FOUNDATION DIGGER CM to room to meet with patient for initial transition planning/care coordination assessment. JIM MONTIEL introduced self and role at [facility]. Pt voices understanding and consents to assessment at this time. Pt resting in bed in no distress at this time. @ bedside. Pt is A/O at this time and answers all questions appropriately. Care providers, pharmacy, and demographics verified/updated at this time. PCP: Dr Dillon Brasher Specialists: Dr Beckwith--urology Preferred Pharmacy: [facility], [place] Insurance: [employer] Prescription Benefit: Yes Living Will/HPOA: Has both LW and Healthcare POA, who is her , Jaimie. They were made aware copies are not found on file @ [facility]. LNOK: , Jaimie. 2 daughters. Living Arrangements: Lives with her in one-story home. No steps to enter. States is independent with ADL's and IADL's. Transportation: Pt states drives self and states no transportation concerns at this time. will take her home @ discharge. DME: Denies using any DME and denies needs. HHC/SNF: No history of either, denies needs, and no needs identified. Pt wishes to return home and states has no concerns with going home at time of discharge. CM to follow for any discharge planning/needs. Pt/ voice no concerns/needs at this time. Advised them to ask for CM if any further questions/concerns/needs arise. They voice understanding. PLAN: Home PT/OT/ST johnson pending Kayla MONAHAN RN, CM
[2019-10-15 12:01] LABS: Bedside Glucose 92 mg/dL (70-110)
--- NOTE | 2019-10-15 16:14 | PCM.PN.HOSP ---
Patient Problems: Active and Suspected Problems (Last Updated 04/24/19 @ 13:50 by LILY Scott) Ischemic stroke (Acute) Urinary tract infection (Acute) Subjective: Feeling better, she states that the difficulty with speech that she had yesterday has completely resolved. Vitals/I&O's: Vital Signs Temp Pulse Resp BP Pulse Ox 98.3 F 63 16 140/70 H 97 10/15/19 13:30 10/15/19 15:01 10/15/19 13:30 10/15/19 13:30 10/15/19 13:30 Oxygen Delivery Method Room Air Weight: 136 lb 10.986 oz Body Mass Index (BMI) 21.4 Finger Stick Blood Glucose 101 Intake and Output for Last 24 Hours 10/13/19 10/14/19 10/15/19 23:59 23:59 23:59 Intake Total 290 / 290 1577.5 / 1577.5 Output Total 550 / 550 Balance 290 / 290 1027.5 / 1027.5 General: Alert, Oriented x3, Cooperative, No apparent distress HEENT: Atraumatic, PERRLA, EOMI, Normocephalic Oral: Moist Mucosa Neck: Supple, No JVD Lungs: Clear to auscultation, Normal air movement, No rhonchi, No wheeze, No rales, Diminished Cardiovascular: Regular rate, Regular Rhythm, Normal S1, Normal S2, No murmurs Abdomen: Soft, Non Tender, Non-Distended, No Hepato-splenomegaly Extremities: No edema, Capillary Refill Less than 3 Seconds Skin: No rashes, No breakdown Neurological: Cranial nerves II-XII grossly intact, Deep Tendon Reflexes 2+/4 and Symmetrical, Neuro grossly intact, Sensory exam intact to light touch and pain Psych/Mental Status: Normal Affect, Appropriate Microbiology Past 72 Hours 10/14/19 20:45 Urine, Clean Catch Urine Culture - Preliminary Gram negative alesha Laboratory Results 10/14/19 18:21: WBC 7.4, RBC 4.33, Hgb 12.6, Hct 39.4, MCV 91.0, MCH 29.1, MCHC 32.0, RDW Std Deviation 50.6 H, RDW Coeff of Zhanna 15.2 H, Plt Count 241, MPV 10.6, Immature Gran % (Auto) 0.300, Neut % (Auto) 44.7 L, Lymph % (Auto) 40.1, Collier % (Auto) 11.4 H, Eos % (Auto) 2.8, Baso % (Auto) 0.7, Absolute Neuts (auto) 3.3, Absolute Lymphs (auto) 2.98, Nucleated RBC % 0 10/14/19 18:21: PT 27.6 H, INR 2.6, APTT 42.2 H 10/14/19 18:21: Sodium 137, Potassium 3.8, Chloride 101, Carbon Dioxide 31.0, Anion Gap 5, BUN 27 H, Creatinine 1.04 H, Estim Creat Clear Calc 42.65, Est GFR (MDRD) Af Amer 66, Est GFR (MDRD) Non-Af 54 L, BUN/Creatinine Ratio 26.0 H, Glucose 108 H, Calcium 8.7, Troponin I < 0.015 10/14/19 18:21: Magnesium 2.1, TSH 1.98 10/14/19 18:21: Hemoglobin A1c 6.1 10/14/19 18:34: POC Glucose 101 10/14/19 19:10: Urine Color Straw, Urine Clarity Cloudy, Urine pH 6.5, Ur Specific [place] 1.015, Urine Protein 30 H, Urine Glucose (UA) Normal, Urine Ketones Negative, Urine Occult Blood 250 H, Urine Nitrite Positive H, Urine Bilirubin Negative, Urine Urobilinogen Normal, Ur Leukocyte Esterase 500 H, Urine RBC 25-50 SEEN, Urine WBC >100 SEEN, Ur Squamous Epith Cells 0-5 SEEN, Urine Bacteria 1+, Urine Mucus 0 SEEN 10/14/19 23:09: POC Glucose 112 H 10/15/19 05:15: WBC 8.8, RBC 3.96 L, Hgb 11.5 L, Hct 35.5 L, MCV 89.6, MCH 29.0, MCHC 32.4, RDW Std Deviation 49.1 H, RDW Coeff of Zhanna 15.1 H, Plt Count 235, MPV 10.9, Immature Gran % (Auto) 0.300, Neut % (Auto) 52.7, Lymph % (Auto) 30.4, Collier % (Auto) 13.3 H, Eos % (Auto) 2.7, Baso % (Auto) 0.6, Absolute Neuts (auto) 4.7, Absolute Lymphs (auto) 2.68, Nucleated RBC % 0 10/15/19 05:15: Sodium 138, Potassium 3.7, Chloride 103, Carbon Dioxide 30.0, Anion Gap 5, BUN 22 H, Creatinine 0.91, Estim Creat Clear Calc 48.75, Est GFR (MDRD) Af Amer 77, Est GFR (MDRD) Non-Af 64, BUN/Creatinine Ratio 24.3 H, Glucose 100, Calcium 8.5, Triglycerides 91, Cholesterol 121, LDL Cholesterol 58, VLDL Cholesterol 18, HDL Cholesterol 45 10/15/19 05:15: PT 24.3 H, INR 2.2 10/15/19 06:40: POC Glucose 103 10/15/19 11:16: POC Glucose 92 Current Medications Acetaminophen (Tylenol) 650 mg PO Q6H PRN PRN PRN Reason: Pain Score 1-10/Temp > 100.7 F Al Hydroxide/Mg Hydroxide (Mylanta Ii) 30 ml PO Q6H PRN PRN PRN Reason: Gastric Burning Albuterol Sulfate (Ventolin Aerosols) 2.5 mg INHALATION Q2H PRN PRN PRN Reason: SOB/Wheezing Clonazepam (Klonopin) 0.5 mg PO BID [facility] Last Admin: 10/15/19 10:07 Dose: 0.5 mg Documented by: Divalproex Sodium (Depakote Er) 250 mg PO QHS [facility] Last Admin: 10/14/19 23:20 Dose: 250 mg Documented by: Doxazosin Mesylate (Cardura) 1 mg PO BID [facility] Last Admin: 10/15/19 10:03 Dose: 1 mg Documented by: Glucagon () 1 mg IM .X1 PRN PRN Reason: Hypoglycemia Guaifenesin (Robitussin) 20 ml PO Q4H PRN PRN PRN Reason: COUGH Hydrochlorothiazide () 12.5 mg PO DAILY [facility] Last Admin: 10/15/19 10:03 Dose: 12.5 mg Documented by: Ceftriaxone Sodium (Rocephin) 1 gm in 50 mls @ 100 mls/hr IV Q24H [facility] Sodium Chloride () 250 mls @ 15 mls/hr IV .[id number] PRN PRN Reason: Saline Flush Sodium Chloride () 250 mls @ 15 mls/hr IV .[id number] PRN PRN Reason: Additional IVPB Infusion Dextrose (Dextrose 10%-Water) 250 mls @ 999 mls/hr IV .Q16M PRN; Protocol PRN Reason: HYPOGLYCEMIA Insulin Human Lispro (Humalog Kwikpen (Bkc)) 0 unit SC ACHS [facility]; Protocol Last Admin: 10/15/19 11:18 Dose: Not Given Documented by: Isosorbide Mononitrate (Imdur) 30 mg PO BID [facility] Last Admin: 10/15/19 10:03 Dose: 30 mg Documented by: Labetalol HCl (Trandate) 50 mg PO DAILY [facility] Last Admin: 10/15/19 10:02 Dose: 50 mg Documented by: Labetalol HCl (Trandate) 10 mg IV Q4H PRN PRN PRN Reason: SBP >160, hold for HR <60 Lisinopril (Zestril) 20 mg PO BID [facility] Last Admin: 10/15/19 10:02 Dose: 20 mg Documented by: Magnesium Hydroxide (Milk Of Magnesia) 30 ml PO DAILY PRN PRN PRN Reason: Constipation Melatonin (Melatonin) 3 mg PO QHS PRN PRN PRN Reason: INSOMNIA Mirabegron (Myrbetriq) 50 mg PO DAILY [facility] Last Admin: 10/15/19 10:03 Dose: 50 mg Documented by: Nitroglycerin (Nitrostat) 0.4 mg SUBLINGUAL Q5M PRN PRN Reason: CARDIAC/CHEST PAIN Ondansetron HCl (Zofran) 4 mg IV Q8H PRN PRN PRN Reason: NAUSEA/VOMITING Pantoprazole Sodium (Protonix) 40 mg PO DAILY [facility] Last Admin: 10/15/19 10:02 Dose: 40 mg Documented by: Pravastatin Sodium (Pravachol) 10 mg PO QHS [facility] Last Admin: 10/14/19 23:20 Dose: 10 mg Documented by: Prochlorperazine Edisylate (Compazine Iv) 5 mg IV Q4H PRN PRN PRN Reason: Breakthrough Nausea/Vomiting Psyllium Hydrophilic Mucilloid (Metamucil) 1 packet PO DAILY PRN PRN PRN Reason: Constipation Senna/Docusate Sodium (Senokot-S, Merly-Colace) 2 tablet PO BID PRN PRN PRN Reason: Constipation Sodium Chloride () 10 - 40 ml IV UD PRN PRN Reason: SALINE FLUSH Last Admin: 10/14/19 23:25 Dose: 10 ml Documented by: Throat Lozenges (Cepacol Sore Throat Lozenge) 1 lozenge MUCOUS MEM Q2H PRN PRN PRN Reason: SORE THROAT Warfarin Sodium (Coumadin (Pbkc)) 1 mg PO Th@1700 LETY; Protocol Warfarin Sodium (Coumadin (Pbkc)) 3 mg PO SuMoTuWeFrSa@1700 LETY; Protocol STROKE Vital Signs/Narrative: Vital Signs Temp Pulse Resp BP Pulse Ox 10/15/19 15:01 63 10/15/19 13:30 98.3 F 72 16 140/70 H 97 Medical Necessity - Tobacco Use Smoking Status: Never smoker Tobacco Use: Non-smoker Assessment/Plan All Active Problems (Last Updated 04/24/19 @ 13:50 by LILY Scott) Ischemic stroke (Acute) Urinary tract infection (Acute) History of radiofrequency ablation procedure for cardiac arrhythmia (Resolved ~12/09/18) 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 UTI/metabolic encephalopathy -Urine culture is growing a gram-negative alesha -Continue with Rocephin -Her confusion and speech is likely related to UTI and her history of previous stroke, she has no signs on exam and an NIH of 0 for me 2. History of CVA/HTN/HLD/CAD/A. fib/sick sinus syndrome -CT scan shows a parenchymal hypodensity in the right basal ganglia which is new compared to 2018 however how new is indeterminate. -And carotid ultrasound is pending -Her blood pressure is good and she is on pravastatin already. -INR is also therapeutic and continue with her Coumadin -She is allergic to aspirin -We will have her follow-up with outpatient neurology for the hypodensity since 2018 at the moment I think that the UTI is the predominant cause of her symptoms and not a stroke. She had no signs of a focal neurologic deficit at the time of admission or now 3. History of migraines -Stable -Continue with Depakote 4. Diet-controlled DM 2 -Glucose is well controlled we will continue to monitor 5. Anxiety/depression -Stable -Continue with Klonopin DVT: Coumadin Code Visit Inpatient E&M: 51134 Subs Hosp L2
[2019-10-15 17:15] LABS: Bedside Glucose 92 mg/dL (70-110)
[2019-10-15] MEDS: Ceftriaxone 1 GM/50 ML BAG IV (22:06)
[2019-10-15] MEDS: Pravastatin 20 MG Tablet 10 MG PO (22:06)
[2019-10-15] MEDS: Divalproex (ER) 250 MG Tablet PO (22:06)
[2019-10-15 22:55] LABS: Bedside Glucose 92 mg/dL (70-110)
[2019-10-16] VITALS: BP 120/61; PULSE 77; RESP 16; TEMP 36.7; O2SAT 95
[2019-10-16 03:00] VITALS: PULSE 66
[2019-10-16 04:00] VITALS: BP 137/64; PULSE 60; RESP 16; TEMP 36.6; O2SAT 96
[2019-10-16 05:14] LABS: Absolute Lymphocyte Count 2.96 X10^3/uL (0.83-4.51); Absolute Neutrophil Count 3.5 X10^3/uL (2.0-7.7); Basophil# 0.02 X10^3/uL; Basophil% 0.3 % (0-1); Eosinophil# 0.29 X10^3/uL; Eosinophils% 3.7 % (0-5); Hematocrit 37.6 % (37-47); Hemoglobin 12.2 g/dL (12.0-15.0); Lymphocyte # 2.96 X10^3/ul (4.0); Lymphocyte % 38.1 % (19-41); Mean Corp Hgb Conc 32.4 g/dL (32-36); Mean Corpuscular Volume 89.3 fL (81-99); Mean Platelet Vol. 10.5 fl (6.2-12.0); Monocyte% 12.9 % (0-10); NRBC Flagged by Analyzer 0 % (0-5); Neutrophil # 3.47 X10^3/uL (2.7-7.7); Neutrophil % 44.7 % (47-70); Platelet Count 228 K/mm3 (150-450); RBC Distribution Width CV 15.4 % (11.6-14.6); RBC Distribution Width SD 49.7 fl (35.1-43.9); Red Blood Count 4.21 M/mm3 (4.2-5.4); White Blood Count 7.8 K/mm3 (4.4-11.0)
[2019-10-16 05:25] LABS: International Normalized Ratio 1.5; Prothrombin Time (Protime)PT. 18.3 SECONDS (11.7-14.9)
[2019-10-16 05:32] LABS: Anion Gap 6 (5-15); BUN 18 mg/dL (7-18); BUN/Creat Ratio 17.6 RATIO (10-20); Calcium,Total 8.6 mg/dL (8.5-10.1); Chloride 100 mmol/L (98-107); Creatinine, Serum 1.02 mg/dL (0.55-1.02); EST Glomerular Filtration Rate 56 mL/min (>60); Est Glom Filt Rate - Afr Amer 67 mL/min (>60); Estimated Creatinine Clearance 43.49 ml/min; Glucose 99 mg/dL (74-106); Potassium 3.6 mmol/L (3.5-5.1); Sodium Level 137 mmol/L (136-145)
[2019-10-16 07:00] VITALS: PULSE 70
[2019-10-16 07:00] LABS: Bedside Glucose 85 mg/dL (70-110)
[2019-10-16 07:27] VITALS: O2SAT 94
--- NOTE | 2019-10-16 07:29 | CASEMGMT ---
Per physician note patient did not have a stroke or TIA. He feels symptoms are related to a UTI. Therefore, SW did not complete a PHQ 9 with patient. Arabella SCOTT MSW
--- NOTE | 2019-10-16 07:31 | CASEMGMT ---
Patient has a Healthcare Power of Sales Apprentice and a Healthcare Living Will. She was notified they are not on file at [facility] and to bring a copy in when able. Arabella LIRIANO
[2019-10-16] MEDS: hydroCHLOROthiazide 12.5mg 12.5 MG PO (08:50)
[2019-10-16] MEDS: Doxazosin 1 MG Tablet PO (08:50)
[2019-10-16] MEDS: Mirabegron 50 MG TAB.ER.24H PO (08:51)
[2019-10-16] MEDS: Isosorbide Mononitrate 30 MG Tablet PO (08:51)
[2019-10-16] MEDS: Lisinopril 20 MG Tablet PO (08:52)
[2019-10-16] MEDS: Pantoprazole Sodium 40 MG Tablet PO (08:52)
[2019-10-16] MEDS: Labetalol 100 MG Tablet 50 MG PO (08:52)
[2019-10-16] MEDS: clonazePAM 0.5 MG Tablet PO (08:54)
[2019-10-16 09:00] VITALS: BP 133/76; PULSE 70; RESP 14; TEMP 36.6; O2SAT 100
--- NOTE | 2019-10-16 10:21 | PCM.DC ---
- Discharge Diagnoses Current Active Problems: Current Active and Chronic Problems (Last Updated 04/24/19 @ 13:50 by LILY Scott) Ischemic stroke (Acute) Urinary tract infection (Acute) You will use the following diet at home:: Cardiac Your food should be the consistency of: Regular Your liquids should be the consistency of: Regular/Thin Discharge Activity: Return to Normal Activity Call your doctor if you observe: Fever of 101 or Higher, Shortness of breath, Dizziness, Fainting spells, Swelling in the ankles, Chest pain, Increased palpitations (irregular heartbeat) Additional Instructions: Obtain an INR by your PCP. The antibiotic you are on can elevate your INR and make your blood too thin. Allergies/Adverse Reactions: Allergies aspirin Allergy (Verified 10/14/19 18:06) Anaphylaxis ibuprofen Allergy (Verified 10/14/19 18:06) Anaphylaxis Penicillins [PCN] Allergy (Verified 10/14/19 18:06) Anaphylaxis Sulfa (Sulfonamide Antibiotics) Allergy (Verified 10/14/19 18:06) Anaphylaxis amlodipine [From Norvas] Adverse Reaction (Severe, Verified 10/14/19 18:06) Cough hydralazine Adverse Reaction (Severe, Verified 10/14/19 18:06) stopped when she had CVA spironolactone Adverse Reaction (Severe, Verified 10/14/19 18:06) Hyponaturemia FLU SHOT Allergy (Uncoded 10/14/19 18:06) Anaphylaxis Medications to take at Discharge divalproex 250 mg tablet,extended release 24 hr 250 mg PO QHS tab 12/16/17 esomeprazole magnesium 40 mg capsule,delayed release 40 mg PO DAILY 04/10/18 isosorbide mononitrate 60 mg tablet,extended release 24 hr 30 mg PO BID tab 04/24/19 labetalol 100 mg tablet 50 mg PO DAILY tab 04/24/19 Clonazepam [Klonopin] 0.5 mg PO BID 10/14/19 Doxazosin Mesylate [Cardura] 1 mg PO BID 10/14/19 Lisinopril 10 mg PO BID 10/14/19 Mirabegron [Myrbetriq] 50 mg PO DAILY 10/14/19 Pravastatin Sodium 10 mg PO QHS 10/14/19 Warfarin Sodium [Coumadin] 1 mg PO TH 10/14/19 [facility]farin [Coumadin] [facility] 10/14/19 Ciprofloxacin [Cipro] 250 mg PO BID #10 tab 10/16/19 The following prescriptions were given: Ciprofloxacin [Cipro] 250 mg PO BID #10 tab Transmission Status: Pending to [facility] Primary Care Physician: Dillon Brasher MD [Primary Care Provider] - Please follow up with your Primary Care Physician in: 3-5 days Test Results: Test results from this visit will be discussed in further detail at your follow-up appointment, if applicable. Please Follow Up With: Jose Alfredo Ruiz MD When: 2-4 weeks
[2019-10-16] MEDS: Ciprofloxacin 250 MG Tablet PO (10:25)
[2019-10-16 10:35] VITALS: BMI 21.4
[2019-10-16 11:50] LABS: Bedside Glucose 126 mg/dL (70-110)
--- NOTE | 2019-10-16 13:51 | PCM.DC.SUM ---
Discharge Date and Diagnosis Date of Admission: 10/14/19 Date of Discharge: 10/16/19 - Secondary Discharge Diagnosis Chronic Problems (Last Updated 04/24/19 @ 13:50 by LILY Scott) Presence of permanent cardiac pacemaker (Chronic) Sinus pause (Chronic) Sick sinus syndrome (Chronic) Essential hypertension (Chronic) Status post placement of implantable loop recorder (Chronic) Celiac disease (Chronic) Atrial fibrillation (Chronic) Premature atrial contractions (Chronic) Premature ventricular contraction (Chronic) Nonrheumatic mitral (valve) prolapse (Chronic) Atherosclerotic heart disease of [place] coronary artery without angina pectoris (Chronic) not angiographically significant on a cath in April 2016 Sinus bradycardia (Chronic) Pulmonary hypertension, secondary (Chronic) 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 (Chronic) halfway current use of anticoagulant therapy (Chronic) DM type 2 (diabetes mellitus, type 2) (Chronic) diet controlled HLD (hyperlipidemia) (Chronic) Anxiety (Chronic) Hospital Course and Treatment Imaging Results: CT Brain: IMPRESSION: In the region of the right basal ganglia. There is an area of parenchymal hypodensity which is new as compared to the exam from 2018. This may represent an area of recent subacute ischemia. Correlation with MRI is needed to further evaluate CXR: IMPRESSION: COPD without acute findings Carotid Duplex:Interpretation Summary Irregular calcific plaque with shadowing distal right common carotid and proximal internal carotid and proximal external carotid <50% stenosis right internal carotid <50% stenosis right external carotid Minimal smooth calcific plaque at the proximal left internal and external carotid arteries <50% stenosis left internal carotid <50% stenosis left external carotid Patent, antegrade bilateral vertebrals Consults: None Operations: None Procedures: None Summary of Care Provided: Per HPI: The patient is a 79 y/o F w/ PMHx: PAF s/p RFA, HTN, HLD, Hx Migraines, Diabetes mellitus type II, CAD non-obstructive, Hx sick sinus syndrome s/p pacemaker, Anxiety who presents to the [facility] ED on 10/14/19 with history of onset mild confusion, aphasia with word finding difficulty with no other additional neurological symptoms with noted halting speech upon ED presentation, noted to be more broken with evidence expressive aphasia with history of increased urinary frequency above prior baseline with no specific dysuria or urinary retention concurrently. Patient denies any recent throbbing headaches nor any light or sound sensitivities as does have a history of migraine. Work-up in the ED included T 97, heart rate 67, BP 158/79 initially but increased to 194/94, respiratory rate 16, 96% on room air, CBC with WC 7.4, hemoglobin 12.6, platelet 241 with no evidence of left shift, coags with INR 2.6 on Coumadin therapy, BMP with BUN/creatinine 27/1.04 baseline creatinine 0.9, glucose 108, troponin less than 0.015, urinalysis significant was positive gravity 1.015, protein 30, 250 occult blood, positive nitrite, leukocyte esterase 500, RBC 25-50, WBC greater than 100, urine bacteria 1+, urine culture pending per ED, chest x-ray with chronic COPD changes no acute cardiopulmonary findings otherwise, CT brain with areas of decreased attenuation with region of the right basal ganglia with an area of parenchymal hypodensity measuring 1.9 x 0.9 cm new compared to 2018 possibly a recent subacute ischemic event with no mass-effect or midline shift, no evidence of intracranial bleeding. Hospital Course: 1. UTI/metabolic [id number]-old female with a history of previous strokes as well as CAD presented with halting speech. Initial concern was for a recurrent stroke, she had a CT scan of the brain that showed a subacute stroke that was new since 2018 however cannot pinpoint exactly when. With treatment of her UTI her strokelike symptoms completely resolved. She did have carotid duplex which was negative for any acute carotid stenosis, all lesions were less than 50%. She is already on Coumadin for A. fib and she is therapeutic. Her urine culture grew Enterobacter and she was transitioned from Rocephin to Cipro. It was expressed to her that she needs to have close follow-up of her INR to prevent any supratherapeutic numbers. I discussed this with her family and herself, and they all expressed understanding and had no further questions. They were okay with discharge today. I did recommend that she follow-up with a neurologist as an outpatient, as well as her PCP. 2. History of CVA with possible subacute CVA/HTN/HLD/CAD/A. fib/sick sinus syndrome-NIH is resolved down to 0 and her carotid Dopplers were unremarkable. She has no further deficits with the treatment of her UTI therefore I think this is amenable to just outpatient follow-up with her neurologist. We will continue her pravastatin as well as her Coumadin and will let the decision of adding Plavix be up to her neurologist. This was discussed with her and she is okay with this. She is allergic to aspirin. Recommend she have an INR a few times as an outpatient until she completes her course of Cipro. 3. Her other medical diagnoses were evaluated and her home medications were continued where appropriate - Physical Exam Vitals/I&O's: Vital Signs Temp Pulse Resp BP Pulse Ox 97.9 F 70 14 133/76 H 100 10/16/19 09:00 10/16/19 09:00 10/16/19 09:00 10/16/19 09:00 10/16/19 09:00 Oxygen Delivery Method Room Air Weight: 136 lb 10.986 oz Body Mass Index (BMI) 21.4 Finger Stick Blood Glucose 101 Intake and Output for Last 24 Hours 10/14/19 10/15/19 10/16/19 23:59 23:59 23:59 Intake Total 290 / 290 2107.5 / 2107.5 450 / 450 Output Total 1974 / 1974 500 / 500 Balance 290 / 290 132.5 / 132.5 -50 / -50 General: Alert, Oriented x3, Cooperative, No apparent distress HEENT: Atraumatic, PERRLA, EOMI, Normocephalic Oral: Moist Mucosa Neck: Supple, No JVD Lungs: Clear to auscultation, Normal air movement, No rhonchi, No wheeze, No rales, Diminished Cardiovascular: Regular rate, Regular Rhythm, Normal S1, Normal S2, No murmurs Abdomen: Soft, Non Tender, Non-Distended, No Hepato-splenomegaly Extremities: No edema, Capillary Refill Less than 3 Seconds Skin: No rashes, No breakdown Neurological: Cranial nerves II-XII grossly intact, Deep Tendon Reflexes 2+/4 and Symmetrical, Neuro grossly intact, Sensory exam intact to light touch and pain Psych/Mental Status: Normal Affect, Appropriate Microbiology Past 72 Hours 10/14/19 20:45 Urine, Clean Catch Urine Culture - Final Enterobacter cloacae complex Laboratory Results 10/15/19 16:43: POC Glucose 92 10/15/19 22:05: POC Glucose 92 10/16/19 05:00: WBC 7.8, RBC 4.21, Hgb 12.2, Hct 37.6, MCV 89.3, MCH 29.0, MCHC 32.4, RDW Std Deviation 49.7 H, RDW Coeff of Zhanna 15.4 H, Plt Count 228, MPV 10.5, Immature Gran % (Auto) 0.300, Neut % (Auto) 44.7 L, Lymph % (Auto) 38.1, Armstrong % (Auto) 12.9 H, Eos % (Auto) 3.7, Baso % (Auto) 0.3, Absolute Neuts (auto) 3.5, Absolute Lymphs (auto) 2.96, Nucleated RBC % 0 10/16/19 05:00: PT 18.3 H, INR 1.5 10/16/19 05:00: Sodium 137, Potassium 3.6, Chloride 100, Carbon Dioxide 31.0, Anion Gap 6, BUN 18, Creatinine 1.02, Estim Creat Clear Calc 43.49, Est GFR (MDRD) Af Amer 67, Est GFR (MDRD) Non-Af 56 L, BUN/Creatinine Ratio 17.6, Glucose 99, Calcium 8.6 10/16/19 06:54: POC Glucose 85 10/16/19 11:41: POC Glucose 126 H Discharge Activity: Return to Normal Activity Call your doctor if you observe: Fever of 101 or Higher, Shortness of breath, Dizziness, Fainting spells, Swelling in the ankles, Chest pain, Increased palpitations (irregular heartbeat) Home Medications: Medications to take at Discharge divalproex 250 mg tablet,extended release 24 hr 250 mg PO QHS tab 12/16/17 esomeprazole magnesium 40 mg capsule,delayed release 40 mg PO DAILY 04/10/18 isosorbide mononitrate 60 mg tablet,extended release 24 hr 30 mg PO BID tab 04/24/19 labetalol 100 mg tablet 50 mg PO DAILY tab 04/24/19 Clonazepam [Klonopin] 0.5 mg PO BID 10/14/19 Doxazosin Mesylate [Cardura] 1 mg PO BID 10/14/19 Lisinopril 10 mg PO BID 10/14/19 Mirabegron [Myrbetriq] 50 mg PO DAILY 10/14/19 Pravastatin Sodium 10 mg PO QHS 10/14/19 Warfarin Sodium [Coumadin] 1 mg PO TH 10/14/19 Warfarin [Coumadin] 3 mg PO [facility] 10/14/19 Ciprofloxacin [Cipro] 250 mg PO BID #10 tab 10/16/19 Following Prescrptions Were Given to Patient: Ciprofloxacin [Cipro] 250 mg PO BID #10 tab Transmission Status: Received by [facility] Primary Care Physician: Dillon Brasher MD [Primary Care Provider] - Please follow up with your Primary Care Physician in: 3-5 days Please Follow Up With: Jose Alfredo Ruiz MD When: 2-4 weeks Please Follow Up With: Dillon Brasher MD Please Follow Up With: Dillon Sanchez MD Disposition: Home Minutes spent on discharge:: 35 Patient Condition:: Stable Medical Necessity - Tobacco Use Smoking Status: Never smoker Tobacco Use: Non-smoker Meaningful Use Info Meaningful Use Diagnoses (Choose all that apply): None applicable Code Visit Inpatient E&M: 45287 Disch Hosp
--- NOTE | 2019-10-17 13:58 | CASEMGMT ---
JIM MONTIEL Discharge Follow-Up Phone Call. Lace: 10 Strata: 3 Discharge Date: 10/16/19 Adm Dx: CVA, UTI Call to pt to inquire about how she has been doing since being discharged from the hospital. Pt states. I'm okay. She states she is taking the Cipro as prescribed and has no questions about the discharge instructions, medications, or appts. JIM MONTIEL thanked pt for choosing [facility]. Kayla MONAHAN RN, CM
== END 2019-10-16 13:05 | disposition home or self-care (01) | DRG 689 ==
LOC: ED 20:13 → PCU 21:12
PROVIDERS: Admitting Provider Family Medicine; Emergency Provider Emergency Medicine; PCP Family Medicine; Visit Provider Family Medicine
DX: N30.00 Acute cystitis without hematuria (principal); B95.2 Enterococcus as the cause of diseases classified elsewhere; G93.41 Metabolic encephalopathy; R47.01 Aphasia; I48.0 Paroxysmal atrial fibrillation; I10 Essential (primary) hypertension; I49.5 Sick sinus syndrome; I25.10 Atherosclerotic heart disease of native coronary artery without angina pectoris; E11.9 Type 2 diabetes mellitus without complications; I27.20 Pulmonary hypertension, unspecified; I49.1 Atrial premature depolarization; I34.1 Nonrheumatic mitral (valve) prolapse; E78.5 Hyperlipidemia, unspecified; K90.0 Celiac disease; K21.9 Gastro-esophageal reflux disease without esophagitis; F32.9 Major depressive disorder, single episode, unspecified; F41.9 Anxiety disorder, unspecified; Z79.01 Long term (current) use of anticoagulants; Z79.899 Other long term (current) drug therapy; Z88.6 Allergy status to analgesic agent; Z86.73 Personal history of transient ischemic attack (TIA), and cerebral infarction without residual deficits; Z95.0 Presence of cardiac pacemaker; Z96.641 Presence of right artificial hip joint
CPT/HCPCS: 36415; 70450; 71045; 80048; 80061; 81001; 82962; 83036; 83735; 84443; 84484; 85025; 85610; 85730; 87077; 87086; 87088; 87186; 92610; 93005; 93880; 94762; 97162; 97166; 99251; 99285; J7030; J7050; A4216; G0463

== ENCOUNTER 2019-10-20 09:57 | Outpatient (RCR) | payer MEDICARE, OTHER, SELFPAY ==
[2019-05-22 08:01] VITALS: BMI 21.7
[2019-10-10 10:55] LABS: Prothrombin Time (Protime)PT. 31.3 SECONDS (11.7-14.9)
[2019-10-10 11:18] LABS: AST(SGOT) 20 U/L (15-37); Alanine Aminotransfer ALT/SGPT 29 U/L (13-56); Albumin, Serum 3.9 g/dL (3.2-5.0); Alkaline Phosphatase 79 U/L (45-117); Bilirubin, Direct 0.14 mg/dL (0.00-0.30); Cholesterol 138 mg/dL (200); Globulin 3.8 g/dL (2.2-4.2); High Density Lipoprotein 44 mg/dL; Protein, Total 7.7 g/dL (6.4-8.2); Triglycerides 87 mg/dL; Very Low Density Lipoprotein 17 mg/dL (5-40)
[2019-10-20 10:32] LABS: International Normalized Ratio 2.1; Prothrombin Time (Protime)PT. 23.6 SECONDS (11.7-14.9)
== END 2019-10-20 18:00 | disposition home or self-care (01) ==
LOC: LAB 09:57
PROVIDERS: Nurse Practitioner Family; Family Provider Family Medicine; PCP Family Medicine; Referring Provider Internal Medicine Cardiovascular Disease; Visit Provider Internal Medicine Cardiovascular Disease
DX: I48.91 Unspecified atrial fibrillation (principal); Z79.01 Long term (current) use of anticoagulants; E78.00 Pure hypercholesterolemia, unspecified; E78.5 Hyperlipidemia, unspecified
CPT/HCPCS: 36415; 80061; 80076; 85610

== ENCOUNTER → 2019-11-03 08:59 | Outpatient (CLI) | payer MEDICARE, OTHER, SELFPAY ==
[2019-10-14 21:43] VITALS: BMI 21.4
[2019-10-16 10:35] VITALS: BMI 21.4
--- NOTE | 2019-11-03 09:08 | MRI_ITS ---
STUDY: MRI BRAIN WITHOUT CONTRAST REASON FOR EXAM: Female, 79 years old. 1 episode of speech difficulty,L facial weakness 1 month ago TECHNIQUE: Standardized multiplanar fat and water weighted pulse sequences were obtained. COMPARISON: 05/07/2016, CT 10/14/2019 FINDINGS: There is mild cerebral atrophy with widening of the extra-axial spaces and ventricular dilatation. There are a limited number of small white matter hyperintensities, distributed throughout the deep white matter tracts of the cerebral hemispheres, consistent with mild chronic white matter ischemic changes. 2 cm oval hyperintensity of the right basal ganglia demonstrates faintly restricted diffusion consistent with a late subacute infarct as seen on CT from 10/14/2019. Normal T2* images of the brain without demonstrated susceptibility artifact. There is no demonstrated hemosiderin stain. Normal thalami. There is no extra-axial fluid accumulation. Normal flow voids within the major intracranial circulation suggesting patency by spin echo criteria. Normal sella turcica, pituitary gland, infundibular stalk, optic chiasm and hypothalamus. Normal tectal plate and pineal gland. Normal midbrain, kristal and medulla. Normal cerebellum. Normal basal cisterns. Normal bilateral temporal bones. Normal bilateral internal auditory canals. There are bilateral ocular lens implants with otherwise normal intraorbital contents. Normal visualized paranasal sinuses. Normal calvarium and skull base. Normal visualized soft tissue structures. Normal visualized upper cervical spine. MRI/Brain without Contrast IMPRESSION: Late subacute infarct of the right basal ganglia as seen on CT from 10/14/2019. Electronically Signed: Mike Mack MD at 13:59 EST Tel , Service support ,
[2019-11-03 10:42] VITALS: BP 157/82; PULSE 93; RESP 16; O2SAT 97; BMI 21.7
== END ==
PROVIDERS: PCP Family Medicine; Referring Provider Nurse Practitioner Adult Health; Visit Provider Nurse Practitioner Adult Health
DX: R29.810 Facial weakness (principal)
CPT/HCPCS: 70551

== ENCOUNTER → 2019-11-08 10:11 | Outpatient (CLI) | payer MEDICARE, OTHER, SELFPAY ==
[2019-11-03 10:42] VITALS: BMI 21.7
--- NOTE | 2019-11-08 10:26 | RAD_ITS ---
HISTORY: Low abdominal pain. 2 views of the abdomen. Most recent comparison study is a CT scan of the abdomen and pelvis from September 04, 2018 Findings: Cardiac pacer is new. Cholecystectomy clips remain. Scoliosis and degenerative disc disease remains. Right hip prosthesis is similar. Bowel gas pattern is normal. No organomegaly. Left hemipelvis phlebolith is unchanged. RAD/Abdomen Single View IMPRESSION: No acute disease. at 0617 Reported and signed by: Berny Koo MD Electronically Signed: Berny Koo MD at 6:16 EDT Tel , Service support ,
== END ==
PROVIDERS: PCP Family Medicine; Referring Provider Family Medicine; Visit Provider Family Medicine
DX: R10.9 Unspecified abdominal pain (principal); I48.91 Unspecified atrial fibrillation; Z79.01 Long term (current) use of anticoagulants
CPT/HCPCS: 36415; 74018; 85610; 87086; 87088

== ENCOUNTER 2019-11-25 11:55 | Outpatient (RCR) | payer MEDICARE, OTHER, SELFPAY ==
[2019-11-03 10:42] VITALS: BMI 21.7
[2019-11-08 10:51] LABS: Prothrombin Time (Protime)PT. 31.2 SECONDS (11.7-14.9)
[2019-11-25 12:17] LABS: International Normalized Ratio 2.7; Prothrombin Time (Protime)PT. 28.6 SECONDS (11.7-14.9)
== END 2019-11-25 18:00 | disposition home or self-care (01) ==
LOC: LAB 11:55
PROVIDERS: Family Provider Family Medicine; PCP Family Medicine; Referring Provider Internal Medicine Cardiovascular Disease; Visit Provider Internal Medicine Cardiovascular Disease
DX: I48.91 Unspecified atrial fibrillation (principal); Z79.01 Long term (current) use of anticoagulants
CPT/HCPCS: 36415; 85610; 87086

== ENCOUNTER 2019-12-24 10:45 | Outpatient (RCR) | payer MEDICARE, OTHER, SELFPAY ==
[2019-11-12 13:39] VITALS: BMI 21.2
[2019-12-17 14:37] LABS: International Normalized Ratio 1.5; Prothrombin Time (Protime)PT. 17.5 SECONDS (11.7-14.9)
[2019-12-24 11:27] LABS: International Normalized Ratio 2.2; Prothrombin Time (Protime)PT. 23.9 SECONDS (11.7-14.9)
== END 2020-01-01 18:00 | disposition home or self-care (01) ==
LOC: LAB 10:45
PROVIDERS: Family Provider Family Medicine; PCP Family Medicine; Referring Provider Internal Medicine Cardiovascular Disease; Visit Provider Internal Medicine Cardiovascular Disease
DX: I48.91 Unspecified atrial fibrillation (principal); Z79.01 Long term (current) use of anticoagulants
CPT/HCPCS: 36415; 85610

== ENCOUNTER 2020-01-28 10:57 | Outpatient (RCR) | payer MEDICARE, OTHER, SELFPAY ==
[2019-11-12 13:39] VITALS: BMI 21.2
[2020-01-07 14:58] LABS: International Normalized Ratio 2.3; Prothrombin Time (Protime)PT. 24.9 SECONDS (11.7-14.9)
[2020-01-28 11:21] LABS: Prothrombin Time (Protime)PT. 22.6 SECONDS (11.7-14.9)
== END 2020-01-28 18:00 | disposition home or self-care (01) ==
LOC: LAB 10:57
PROVIDERS: Family Provider Family Medicine; PCP Family Medicine; Referring Provider Internal Medicine Cardiovascular Disease; Visit Provider Internal Medicine Cardiovascular Disease
DX: I48.91 Unspecified atrial fibrillation (principal); Z79.01 Long term (current) use of anticoagulants
CPT/HCPCS: 36415; 85610

== ENCOUNTER 2020-02-25 09:00 | Outpatient (RCR) | payer MEDICARE, OTHER, SELFPAY ==
[2019-11-12 13:39] VITALS: BMI 21.2
[2020-02-25 10:00] LABS: International Normalized Ratio 3.2; Prothrombin Time (Protime)PT. 32.2 SECONDS (11.7-14.9)
== END 2020-02-25 18:00 | disposition home or self-care (01) ==
LOC: LAB 09:00
PROVIDERS: Family Provider Family Medicine; PCP Family Medicine; Referring Provider Internal Medicine Cardiovascular Disease; Visit Provider Internal Medicine Cardiovascular Disease
DX: I48.91 Unspecified atrial fibrillation (principal); Z79.01 Long term (current) use of anticoagulants
CPT/HCPCS: 36415; 85610

== ENCOUNTER → 2020-03-02 13:46 | Outpatient (CLI) | payer MEDICARE, OTHER, SELFPAY ==
[2019-11-12 13:39] VITALS: BMI 21.2
== END ==
PROVIDERS: PCP Family Medicine; Referring Provider Urology; Visit Provider Urology
DX: N39.0 Urinary tract infection, site not specified (principal)
CPT/HCPCS: 87086; 87088; 87186

== ENCOUNTER 2020-03-25 09:55 | Outpatient (RCR) | payer MEDICARE, OTHER, SELFPAY ==
[2019-11-12 13:39] VITALS: BMI 21.2
[2020-03-11 08:09] LABS: International Normalized Ratio 2.5; Prothrombin Time (Protime)PT. 26.6 SECONDS (11.7-14.9)
[2020-03-25 10:34] LABS: International Normalized Ratio 2.2; Prothrombin Time (Protime)PT. 23.8 SECONDS (11.7-14.9)
== END 2020-03-25 18:00 | disposition home or self-care (01) ==
LOC: LAB 09:55
PROVIDERS: Family Provider Family Medicine; PCP Family Medicine; Referring Provider Internal Medicine Cardiovascular Disease; Visit Provider Internal Medicine Cardiovascular Disease
DX: I48.91 Unspecified atrial fibrillation (principal); Z79.01 Long term (current) use of anticoagulants
CPT/HCPCS: 36415; 85610

== ENCOUNTER → 2020-04-07 08:44 | Outpatient (CLI) | payer MEDICARE, OTHER, SELFPAY ==
[2019-11-12 13:39] VITALS: BMI 21.2
[2020-04-07 09:55] LABS: AST(SGOT) 19 U/L (15-37); Alanine Aminotransfer ALT/SGPT 26 U/L (13-56); Albumin, Serum 3.6 g/dL (3.2-5.0); Alkaline Phosphatase 87 U/L (45-117); Bilirubin, Direct 0.15 mg/dL (0.00-0.30); Cholesterol 127 mg/dL (200); Globulin 4.1 g/dL (2.2-4.2); High Density Lipoprotein 36 mg/dL; Protein, Total 7.7 g/dL (6.4-8.2); Triglycerides 87 mg/dL; Very Low Density Lipoprotein 17 mg/dL (5-40)
== END ==
PROVIDERS: PCP Family Medicine; Referring Provider Nurse Practitioner Family; Visit Provider Nurse Practitioner Family
DX: E78.00 Pure hypercholesterolemia, unspecified (principal); E78.5 Hyperlipidemia, unspecified
CPT/HCPCS: 36415; 80061; 80076

== ENCOUNTER → 2020-04-12 | Outpatient (CLI) | payer MEDICARE, OTHER, SELFPAY ==
[2019-11-12 13:39] VITALS: BMI 21.2
== END | disposition home or self-care (01) ==
PROVIDERS: PCP Family Medicine; Referring Provider Family Medicine; Visit Provider Family Medicine
DX: R31.9 Hematuria, unspecified (principal)
CPT/HCPCS: 87086; 87088; 87186

== ENCOUNTER → 2020-04-21 14:28 | Outpatient (CLI) | payer MEDICARE, OTHER, SELFPAY ==
[2019-11-12 13:39] VITALS: BMI 21.2
[2020-04-21 18:22] LABS: Absolute Lymphocyte Count 3.08 X10^3/uL (0.83-4.51); Absolute Neutrophil Count 2.4 X10^3/uL (2.0-7.7); Basophil# 0.03 X10^3/uL; Basophil% 0.5 % (0-1); Eosinophil# 0.14 X10^3/uL; Eosinophils% 2.2 % (0-5); Hematocrit 40.4 % (37-47); Lymphocyte # 3.08 X10^3/ul (4.0); Lymphocyte % 48.6 % (19-41); Mean Corp Hgb Conc 32.2 g/dL (32-36); Mean Corpuscular Hgb 29.7 pg (27.0-32.0); Mean Corpuscular Volume 92.2 fL (81-99); Mean Platelet Vol. 11.1 fl (6.2-12.0); Monocyte# 0.71 X10^3/uL; Monocyte% 11.2 % (0-10); NRBC Flagged by Analyzer 0 % (0-5); Neutrophil # 2.36 X10^3/uL (2.7-7.7); Neutrophil % 37.2 % (47-70); Platelet Count 248 K/mm3 (150-450); RBC Distribution Width CV 15.5 % (11.6-14.6); Red Blood Count 4.38 M/mm3 (4.2-5.4); White Blood Count 6.3 K/mm3 (4.4-11.0)
[2020-04-21 18:38] LABS: Anion Gap 3 (5-15); BUN 17 mg/dL (7-18); Calcium,Total 8.3 mg/dL (8.5-10.1); Chloride 102 mmol/L (98-107); EST Glomerular Filtration Rate 57 mL/min (>60); Est Glom Filt Rate - Afr Amer 69 mL/min (>60); Glucose 94 mg/dL (74-106); Potassium 4.1 mmol/L (3.5-5.1); Sodium Level 137 mmol/L (136-145)
== END ==
PROVIDERS: PCP Family Medicine; Referring Provider Family Medicine; Visit Provider Urology
DX: R31.9 Hematuria, unspecified (principal)
CPT/HCPCS: 36415; 80048; 85025

== ENCOUNTER → 2020-08-09 13:36 | Outpatient (CLI) | payer MEDICARE, OTHER, SELFPAY ==
[2020-05-12 13:03] VITALS: BMI 20.3
--- NOTE | 2020-08-09 13:38 | BI_ITS ---
MAMMOGRAPHY - BILATERAL SCREENING REASON FOR EXAM: Female, 80 years old. Routine annual screening examination. PERTINENT HISTORY: Non-contributory. Remote right excisional breast biopsy. TECHNIQUE: Digital bilateral breast kalin (3D mammographic acquisition) in the CC and MLO projections. 2-D mediolateral oblique (MLO) and craniocaudad (CC) views of both breasts were obtained. CAD: Full Field Digital Mammography with Computer Added Detection was performed. COMPARISON: Comparison is made with prior study dated 07/30/2019 and 07/02/2018. FINDINGS: Breast Composition: The breasts are almost entirely fatty. There are no dominant masses or suspicious calcifications. No other significant abnormalities are identified. There has been no significant change since the prior study. BI/SCREEN MAMM (CAD) W/KALIN BILAT IMPRESSION: Stable bilateral screening mammogram. Yearly follow-up mammogram recommended. (A) ASSESSMENT CATEGORY: BIRADS Category 1: Negative. A letter regarding these results will be sent to the patient by the facility within 30 days. Approximately 10% of breast cancers are not detected by mammography. A normal mammogram should not delay biopsy of a clinically suspicious abnormality. [id number] Electronically Signed: Eber Cruz, at 14:46 EST , Service support ,
== END ==
PROVIDERS: PCP Family Medicine; Referring Provider Family Medicine; Visit Provider Family Medicine
DX: Z12.31 Encounter for screening mammogram for malignant neoplasm of breast (principal)
CPT/HCPCS: 77063; 77067

== ENCOUNTER → 2020-08-13 | Outpatient (CLI) | payer MEDICARE, OTHER, SELFPAY ==
[2020-05-12 13:03] VITALS: BMI 20.3
== END | disposition home or self-care (01) ==
LOC: LABSPEC 10:21
PROVIDERS: PCP Family Medicine; Referring Provider Internal Medicine Cardiovascular Disease; Visit Provider Internal Medicine Cardiovascular Disease
DX: Z01.818 Encounter for other preprocedural examination (principal); Z20.828 Contact with and (suspected) exposure to other viral communicable diseases
CPT/HCPCS: 87635; C9803; U0003

== ENCOUNTER → 2020-09-23 14:37 | Outpatient (CLI) | payer MEDICARE, OTHER, SELFPAY ==
[2020-09-16 14:32] VITALS: BMI 20.5
--- NOTE | 2020-09-23 14:40 | CT_ITS ---
STUDY: CT BRAIN WITHOUT CONTRAST REASON FOR EXAM: Female, 80 years old. PRIOR STROKE,HEADACHE,VISION CHANGES, SHARP PAIN IN LT SIDE OF HEAD 3 WEEKS AGO RADIATION DOSAGE (If Supplied By Facility): CTDIvol = ( 44.99 ) mGy, DLP = ( 812.98 ) mGycm TECHNIQUE: Transaxial CT imaging of the brain was performed without administration of intravenous contrast material. Individualized dose optimization techniques were used for this CT. COMPARISON: Comparison is made with prior study dated 10/14/2019. FINDINGS: Normal soft tissue structures. Normal calvarium. There is mild cerebral atrophy with widening of the extra-axial spaces and ventricular dilatation. There are areas of decreased attenuation within the white matter tracts of the supratentorial brain, consistent with microvascular disease changes. Stable 1.9 cm x 0.9 cm lacunar infarct in the tail of the caudate nucleus on the right side. Normal brainstem. Normal cerebellum. There is no intracranial hemorrhage. There are no findings of an acute ischemic infarction. Normal visualized paranasal sinuses. CT/Brain/Head without Contrast IMPRESSION: Chronic involutional changes of the brain. Stable examination. Electronically Signed: Eber Cruz MD at 15:10 EST , Service support ,
== END ==
PROVIDERS: PCP Family Medicine; Referring Provider Nurse Practitioner Family; Visit Provider Nurse Practitioner Family
DX: R51.9 Headache, unspecified (principal); H53.9 Unspecified visual disturbance; Z86.73 Personal history of transient ischemic attack (TIA), and cerebral infarction without residual deficits
CPT/HCPCS: 70450

== ENCOUNTER → 2020-09-30 10:34 | Outpatient (CLI) | payer MEDICARE, OTHER, SELFPAY ==
[2020-09-16 14:32] VITALS: BMI 20.5
== END ==
PROVIDERS: PCP Family Medicine; Referring Provider Internal Medicine Cardiovascular Disease; Visit Provider Internal Medicine Cardiovascular Disease
DX: Z01.818 Encounter for other preprocedural examination (principal); Z20.822 Contact with and (suspected) exposure to COVID-19; I48.91 Unspecified atrial fibrillation
CPT/HCPCS: 87635; C9803; U0005; U0003

== ENCOUNTER → 2021-03-29 07:20 | Outpatient (CLI) | payer MEDICARE, OTHER, SELFPAY ==
[2021-03-14 14:58] VITALS: BMI 20.3
--- NOTE | 2021-03-29 08:50 | STRESSREP ---
Stress Test Report Date: 03-29-2020 Procedure: Pharmacologic stress nuclear imaging study Indications: CAD; PAF; sick sinus syndrome; permanent pacemaker; Watchman device Consent: Per the patient Procedure: The patient underwent pharmacologic (Regadenoson 0.4mg ) evaluation with a peak heart rate of 89 beats per minute (63%predicted maximal heart rate) and a peak blood pressure of 148/72 mmHg. The baseline ECG demonstrated underlying atrial fibrillation with intermittent electronic ventricular paced rhythm. The peak pharmacologic ECG demonstrated no obvious ECG changes. There was a rare PVC during recovery. There was no complaint of chest discomfort during pharmacologic infusion or recovery. The examination was discontinued secondary to completion of protocol. Impression: 1. Pharmacologic (Regadenoson) evaluation 2. Peak pharmacologic ECG with underlying atrial fibrillation with an intermittent electronic ventricular paced rhythm with no obvious ECG change. 3. There was a rare PVC during recovery. 4. Nuclear images pending Myocardial perfusion imaging study: Technique: The patient was injected with 10.4 millicuries of technetium 99m Cardiolite and subsequently rest SPECT Cardiolite nuclear imaging was obtained in the horizontal long, vertical long, and short axis views. The patient underwent pharmacologic (Regadenoson) evaluation with a peak heart rate of 89 beats per minute (63% percent predicted maximal heart rate) and a peak blood pressure of 148/72 mmHg. The patient was injected with 32.0 millicuries of technetium 99m Cardiolite and subsequently stress SPECT Cardiolite nuclear imaging was obtained in the horizontal long, vertical long, and short axis views. A gated Cardiolite study at peak stress was obtained. Interpretation: Rest and stress SPECT Cardiolite nuclear imaging status post realignment, normalization, and attenuation correction demonstrate insert normal. There is end systolic thickening and brightening. The gated Cardiolite study demonstrates myocardial thickening and inward wall motion. The reported LVEF is 53%. Impression: 1. Rest and stress SPECT Cardiolite nuclear imaging demonstrate relative uniform tracer uptake and myocardial perfusion appearing within normal limits. 2. The gated Cardiolite study reports an LVEF of 53%. This note was generated with [employer] software. It may contain incorrect words, spelling, and punctuation that were not noted in checking the note before signing.
== END ==
PROVIDERS: PCP Family Medicine; Referring Provider Internal Medicine Cardiovascular Disease; Visit Provider Internal Medicine Cardiovascular Disease
DX: I25.10 Atherosclerotic heart disease of native coronary artery without angina pectoris (principal); I48.0 Paroxysmal atrial fibrillation; I49.5 Sick sinus syndrome
CPT/HCPCS: 78452; 93017; A9500; A4216; J2785

== ENCOUNTER → 2021-05-30 | Outpatient (CLI) | payer MEDICARE, OTHER, SELFPAY | END | disposition home or self-care (01) | LOC: LABSPEC 12:26 | PROVIDERS: PCP Family Medicine; Visit Provider Family Medicine | DX: R10.9 Unspecified abdominal pain (principal) | CPT/HCPCS: 87086; 87088; 87186 ==

== ENCOUNTER 2021-11-03 09:47 | Outpatient (CLI) | payer MEDICARE, OTHER, SELFPAY ==
[2021-11-03 11:57] LABS: AST(SGOT) 30 U/L (15-37); Alanine Aminotransfer ALT/SGPT 25 U/L (13-56); Albumin, Serum 3.6 g/dL (3.2-5.0); Alkaline Phosphatase 90 U/L (45-117); Bilirubin, Direct 0.13 mg/dL (0.00-0.30); Cholesterol 137 mg/dL (200); Globulin 3.9 g/dL (2.2-4.2); High Density Lipoprotein 53 mg/dL; Protein, Total 7.5 g/dL (6.4-8.2); Triglycerides 69 mg/dL; Very Low Density Lipoprotein 14 mg/dL (5-40)
== END 2021-11-03 23:59 | disposition home or self-care (01) ==
LOC: LAB 09:48
PROVIDERS: PCP Family Medicine; Referring Provider Nurse Practitioner Gerontology; Visit Provider Nurse Practitioner Gerontology
DX: E78.5 Hyperlipidemia, unspecified (principal); I25.10 Atherosclerotic heart disease of native coronary artery without angina pectoris
CPT/HCPCS: 36415; 80061; 80076

== ENCOUNTER 2021-12-01 14:14 | Outpatient (CLI) | payer MEDICARE, OTHER, SELFPAY ==
[2021-12-01 15:41] LABS: Anion Gap 4 (5-15); BUN 17 mg/dL (7-18); BUN/Creat Ratio 18.6 RATIO (10-20); Calcium,Total 8.2 mg/dL (8.5-10.1); Chloride 107 mmol/L (98-107); Creatinine, Serum 0.92 mg/dL (0.55-1.02); EST Glomerular Filtration Rate 63 mL/min (>60); Est Glom Filt Rate - Afr Amer 76 mL/min (>60); Glucose 123 mg/dL (74-106); Potassium 3.8 mmol/L (3.5-5.1); Sodium Level 140 mmol/L (136-145)
[2021-12-01 15:47] LABS: BNP,B-Type NATRIURETIC PEPTIDE 219.7 pg/mL (0-100)
== END 2021-12-01 23:59 | disposition home or self-care (01) ==
LOC: LAB 14:15
PROVIDERS: PCP Family Medicine; Visit Provider Nurse Practitioner Gerontology
DX: R06.00 Dyspnea, unspecified (principal)
CPT/HCPCS: 36415; 80048; 83880

== ENCOUNTER 2021-12-08 09:33 | Outpatient (CLI) | payer MEDICARE, OTHER, SELFPAY ==
[2021-12-08 11:20] LABS: Anion Gap 4 (5-15); BUN 16 mg/dL (7-18); BUN/Creat Ratio 15.5 RATIO (10-20); Calcium,Total 8.3 mg/dL (8.5-10.1); Chloride 105 mmol/L (98-107); Creatinine, Serum 1.03 mg/dL (0.55-1.02); EST Glomerular Filtration Rate 55 mL/min (>60); Est Glom Filt Rate - Afr Amer 66 mL/min (>60); Glucose 115 mg/dL (74-106); Potassium 3.4 mmol/L (3.5-5.1); Sodium Level 139 mmol/L (136-145)
== END 2021-12-08 23:59 | disposition home or self-care (01) ==
PROVIDERS: PCP Family Medicine; Referring Provider Nurse Practitioner Gerontology; Visit Provider Nurse Practitioner Gerontology
DX: R06.00 Dyspnea, unspecified (principal); R79.89 Other specified abnormal findings of blood chemistry
CPT/HCPCS: 36415; 80048

== ENCOUNTER 2021-12-09 11:57 | Outpatient (CLI) | payer MEDICARE, OTHER, SELFPAY ==
--- NOTE | 2021-12-09 12:10 | RAD_ITS ---
STUDY: X-RAY CHEST REASON FOR EXAM: Female, 81 years old. Shortness of breath, edema TECHNIQUE: PA and lateral views of the chest. COMPARISON: Portable AP upright chest x-ray 10/14/2019; PA and lateral chest x-ray 04/03/2019 FINDINGS: Dual lead left subclavian cardiac pacemaker again noted. There is hyperinflation of the lungs consistent with chronic obstructive lung disease (COPD). No acute infiltrate. There is no demonstrated pleural abnormality. The heart size is upper normal to borderline enlarged. Normal mediastinum and roberta. Normal visualized pulmonary arteries. There is stable minor atherosclerotic ossification of the aortic arch and descending thoracic aorta. There is a stable slight S-shaped scoliosis of the thoracic spine, as well as a mid lumbar dextroscoliosis near the bottom of the [id number]-lo-clom. Normal visualized ribs, clavicles, and shoulders. Surgical clips noted in the mid abdomen. RAD/Chest PA and Lateral IMPRESSION: 1. Hyperexpanded, suggesting COPD. No acute pneumonic infiltrate or pleural effusion. 2. Heart size upper normal to borderline enlarged. No CHF. Dual lead cardiac pacemaker again noted. Electronically Signed: Jermaine Galdamez MD at 10:03 EDT ,
[2021-12-09 13:23] LABS: Hematocrit 37.8 % (37-47); Hemoglobin 12.1 g/dL (12.0-15.0); Mean Corpuscular Hgb 28.6 pg (27.0-32.0); Mean Corpuscular Volume 89.4 fL (81-99); Mean Platelet Vol. 10.7 fl (6.2-12.0); Platelet Count 246 K/mm3 (150-450); RBC Distribution Width CV 17.2 % (11.6-14.6); RBC Distribution Width SD 56.4 fl (35.1-43.9); Red Blood Count 4.23 M/mm3 (4.2-5.4); White Blood Count 5.7 K/mm3 (4.4-11.0)
[2021-12-09 13:58] LABS: BNP,B-Type NATRIURETIC PEPTIDE 195.4 pg/mL (0-100)
[2021-12-09 14:14] LABS: T4 Total, Thyroxin 9.7 ug/dL (4.8-13.9); Thyroid Stim Hormone (TSH) 1.56 uIU/mL (0.358-3.74)
== END 2021-12-09 23:59 | disposition home or self-care (01) ==
PROVIDERS: PCP Family Medicine; Visit Provider Nurse Practitioner Gerontology
DX: R06.09 Other forms of dyspnea (principal); I48.0 Paroxysmal atrial fibrillation; R60.0 Localized edema; I49.1 Atrial premature depolarization; I49.3 Ventricular premature depolarization; R79.89 Other specified abnormal findings of blood chemistry; Z79.01 Long term (current) use of anticoagulants
CPT/HCPCS: 36415; 71046; 83735; 83880; 84436; 84443; 85027

== ENCOUNTER 2021-12-12 09:41 | Outpatient (CLI) | payer MEDICARE, OTHER, SELFPAY ==
--- NOTE | 2021-12-12 09:46 | ECHOD_ITS ---
Reason For Study: Dyspnea, MVP Procedure This was a 2D Doppler, Color Flow transthoracic echocardiogram. The exam was of adequate technical quality. Exam performed in department. Left Ventricle Normal LV size. Left ventricular systolic function is normal. The estimated ejection fraction is 55 %. Paced septal motion. Apical wall motion abnormality may reflect pacemaker activation. Right Ventricle Normal RV size. ICD or pacer leads identified within the right ventricle. Normal systolic function. Atria The left atrium is mildly enlarged. Normal right atrium. ICD or pacer leads identified within the right atrium. Color flow study compatible with a left to right interatrial shunt compatible with a small appearing ASD. Mitral Valve There is no mitral annular calcification. Mild diffuse mitral valve thickening. Moderate (2+) eccentric mitral valve insufficiency. Tricuspid Valve Normal tricuspid valve. Moderate (2+) tricuspid valve insufficiency. Right ventricular systolic pressure estimated to be 58 mmHg. Aortic Valve Trisinus/trileaflet aortic valve. Mild diffuse aortic valve thickening. Mild focal aortic valve calcification. Aortic sclerosis, no stenosis. Pulmonic Valve The pulmonic valve is not well visualized. Mild-Moderate (1-2+) pulmonic valve insufficiency. Great Vessels Normal sized aortic root. Pericardium/Pleural No pericardial effusion. MMode/2D Measurements & Calculations LVIDd: 4.8 cm IVSd: 1.1 cm Ao root diam: 3.0 cm LVIDs: 3.2 cm LVPWd: 1.0 cm RVDd: 2.7 cm FS: 33.1 % LAV(MOD-bp): 53.8 ml LVAd ap4: 23.0 cm2 SV(MOD-sp4): 29.7 ml LAV(MOD-bp) Indexed: 32.5 ml/m2 LVLd ap4: 7.3 cm LAV(MOD-sp2): 58.2 ml EDV(MOD-sp4): 59.5 ml LAV(MOD-sp4): 46.3 ml EDV(sp4-el): 61.1 ml LVAs ap4: 15.2 cm2 LVLs ap4: 6.6 cm ESV(MOD-sp4): 29.8 ml ESV(sp4-el): 29.6 ml EF(MOD-sp4): 49.9 % EF(sp4-el): 51.5 % SV(sp4-el): 31.4 ml LA A4 area: 17.7 cm2 LA dimension(2D): 4.6 cm RA A4 area: 13.6 cm2 Doppler Measurements & Calculations MV E max navarro: 104.1 cm/sec Lat Peak E' Navarro: 6.3 cm/sec Med Peak E' Navarro: 3.9 cm/sec MV A max navarro: 35.1 cm/sec E/E' lat: 16.6 E/E' med: 26.9 MV E/A: 3.0 Ao V2 max: 125.1 cm/sec LV V1 max: 104.1 cm/sec PA V2 max: 88.3 cm/sec Ao max P.3 mmHg LV V1 max P.3 mmHg Ao V2 mean: 91.7 cm/sec Ao mean P.6 mmHg Ao V2 VTI: 26.4 cm PI end-d navarro: 167.1 cm/sec TR max navarro: 371.7 cm/sec TR max P.3 mmHg ECHO/Echo Complete Interpretation Summary Left ventricular systolic function is normal. The estimated ejection fraction is 55 %. Paced septal motion. Apical wall motion abnormality may reflect pacemaker activation. The left atrium is mildly enlarged. Mild diffuse mitral valve thickening. Moderate (2+) eccentric mitral valve insufficiency. Moderate (2+) tricuspid valve insufficiency. Aortic sclerosis, no stenosis. Mild-Moderate (1-2+) pulmonic valve insufficiency. Right ventricular systolic pressure estimated to be 58 mmHg. Transmitral diastolic flow velocities suggest diastolic dysfunction (pseudonorm al pattern). ICD or pacer leads identified within the right atrium ICD or pacer leads identified within the right ventricle. Color flow study compatible with a left to right interatrial shunt compatible w ith a small appearing ASD. Ordering Physician: Jami Jones Referring Physician: Dillon Brasher Performed By: Laurie Navarro, CAREN, RVT
== END 2021-12-12 23:59 | disposition home or self-care (01) ==
LOC: CVS 09:44
PROVIDERS: PCP Family Medicine; Referring Provider Nurse Practitioner Gerontology; Visit Provider Nurse Practitioner Gerontology
DX: I34.1 Nonrheumatic mitral (valve) prolapse (principal); R06.00 Dyspnea, unspecified
CPT/HCPCS: 93306

== ENCOUNTER → 2021-12-22 | Outpatient (CLI) | payer MEDICARE, OTHER, SELFPAY ==
[2021-12-22 10:36] LABS: Anion Gap 5 (5-15); BUN 20 mg/dL (7-18); BUN/Creat Ratio 18.5 RATIO (10-20); Calcium,Total 8.9 mg/dL (8.5-10.1); Chloride 102 mmol/L (98-107); Creatinine, Serum 1.08 mg/dL (0.55-1.02); EST Glomerular Filtration Rate 52 mL/min (>60); Est Glom Filt Rate - Afr Amer 63 mL/min (>60); Glucose 135 mg/dL (74-106); Potassium 3.6 mmol/L (3.5-5.1); Sodium Level 137 mmol/L (136-145)
== END | disposition home or self-care (01) ==
LOC: LAB 09:07
PROVIDERS: PCP Family Medicine; Referring Provider Internal Medicine Cardiovascular Disease; Visit Provider Internal Medicine Cardiovascular Disease
DX: I25.10 Atherosclerotic heart disease of native coronary artery without angina pectoris (principal); I48.0 Paroxysmal atrial fibrillation; R60.0 Localized edema
CPT/HCPCS: 36415; 80048

== ENCOUNTER → 2022-01-02 | Outpatient (CLI) | payer MEDICARE, OTHER, SELFPAY | END | disposition home or self-care (01) | LOC: MFPLAB 16:21 | PROVIDERS: PCP Family Medicine; Visit Provider Family Medicine | DX: R35.89 Other polyuria (principal) | CPT/HCPCS: 87086; 87088 ==

== ENCOUNTER → 2022-02-17 | Outpatient (CLI) | payer MEDICARE, OTHER, SELFPAY ==
[2022-02-17 08:59] LABS: Anion Gap 6 (5-15); BUN 19 mg/dL (7-18); BUN/Creat Ratio 16.7 RATIO (10-20); Chloride 106 mmol/L (98-107); Creatinine, Serum 1.14 mg/dL (0.55-1.02); EST Glomerular Filtration Rate 49 mL/min (>60); Est Glom Filt Rate - Afr Amer 59 mL/min (>60); Glucose 117 mg/dL (74-106); Potassium 3.7 mmol/L (3.5-5.1); Sodium Level 140 mmol/L (136-145)
== END | disposition home or self-care (01) ==
LOC: LAB 08:36
PROVIDERS: PCP Family Medicine; Referring Provider Nurse Practitioner Gerontology; Visit Provider Nurse Practitioner Gerontology
DX: R79.89 Other specified abnormal findings of blood chemistry (principal); R60.0 Localized edema
CPT/HCPCS: 36415; 80048

== ENCOUNTER → 2022-03-01 | Outpatient (CLI) | payer MEDICARE, OTHER, SELFPAY ==
--- NOTE | 2022-03-01 12:40 | PFT ---
INTRODUCTION: The patient is an 81-year-old female that presents for pulmonary function studies secondary to a diagnosis of dyspnea. Respiratory therapy reported good patient effort. Bronchodilators were used during testing. INTERPRETATION: Forced expiration spirometry demonstrates no evidence of a large airways obstructive ventilatory defect. There was no significant response to aerosolized bronchodilators. Spirograms are of good quality and plateau normally. Body plethysmography was performed and reveals lung volumes to be within normal limits. Diffusing capacity by single breath CO is also within normal limits. IMPRESSION: Grossly normal pulmonary function studies.
== END | disposition home or self-care (01) ==
LOC: PSN 09:28
PROVIDERS: PCP Family Medicine; Referring Provider Nurse Practitioner Gerontology; Visit Provider Nurse Practitioner Gerontology
DX: R06.00 Dyspnea, unspecified (principal)
CPT/HCPCS: 94060; 94726; 94729

== ENCOUNTER 2022-03-27 20:03 | Emergency (ER) | payer MEDICARE, OTHER, SELFPAY ==
[2022-03-27 20:04] VITALS: BP 195/100; PULSE 92; RESP 15; TEMP 37; O2SAT 98; BMI 19.7
[2022-03-27 20:07] VITALS: BP 195/100; PULSE 92; RESP 15; TEMP 37; O2SAT 98
[2022-03-27 20:22] LABS: Mucous, Urine 0 SEEN /hpf (<or=2+)
[2022-03-27 20:32] LABS: Color, Urine Yellow (Yellow); Glucose, Dipstick Normal (Normal); Ketone-Dipstick Negative (Negative); Leukocyte Esterase-Dipstick 500 /ul (Negative); Nitrite-Dipstick Negative (Negative); Occult Blood-Urine 250 /ul (Negative); Protein-Dipstick 500 mg/dl (Negative); Specific Gravity, Urine 1.015 (1.002-1.030); Urine Bilirubin Dipstick Negative (Negative); Urine Clarity Cloudy (Clear); Urine Urobilinogen Normal (Normal); Urine pH 6.5 (5.0 - 8.0)
[2022-03-27 20:46] LABS: Bacteria 3+ /hpf (None Seen); Red Blood Cells-Urine 25-50 SEEN /hpf (0-5); Squamous Epithelial Cells - UA 5-10 SEEN /hpf (5-10); White Blood Cells >100 SEEN /hpf (0-5)
--- NOTE | 2022-03-27 21:23 | EX.ED.DYSGE1 ---
HPI History of Present Illness Chief Complaint: Abd Pain Informant: patient and spouse/S.O. Narrative Narrative: 81-year-old female presenting to the emergency room with right-sided abdominal pain. Patient notes that symptoms began this afternoon. She states that the abdomen is sore to touch. She states that this is probably urinary tract infection because that is what it usually is. However the patient denies any dysuria urinary frequency hematuria or foul smell. She denies any nausea fever changes in bowel habits. She has had prior appendectomy and cholecystectomy. She does have a history of celiac disease. 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 Migraine Migraine Nonrheumatic mitral (valve) prolapse Paroxysmal atrial fibrillation Premature atrial contractions Premature ventricular contraction Presence of permanent cardiac pacemaker Pulmonary hypertension, secondary Sick sinus syndrome Sinus bradycardia Sinus pause Status post placement of implantable loop recorder Subtherapeutic international normalized ratio (INR) Urinary tract infection Urinary tract infection 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 Home Medications esomeprazole magnesium 40 mg capsule,delayed release 40 mg PO DAILY GERD 04/10/18 [History Last Taken 10/14/19] clonazepam 0.5 mg tablet 0.5 mg PO BID ANXIETY 10/14/19 [History Last Taken 10/14/19] cholecalciferol (vitamin D3) 125 mcg (5,000 unit) tablet 125 mcg PO BID #1 TAB 04/01/20 [Rx Last Taken Unknown] cranberry extract 500 mg capsule 500 mg PO DAILY 09/16/20 [History Last Taken Unknown] clopidogrel 75 mg tablet 75 mg PO DAILY #90 tabs 07/05/21 [Rx Last Taken Unknown] pravastatin 10 mg tablet 10 mg PO QHS CHOLESTEROL #90 tabs 08/09/21 [Rx Last Taken Unknown] doxazosin 2 mg tablet 1 mg PO BID HEART #180 tabs 09/16/21 [Rx Last Taken Unknown] minoxidil 2.5 mg tablet 1.25 mg PO BID #90 tabs 11/17/21 [Rx Last Taken Unknown] lisinopril 20 mg tablet 20 mg PO BID BP 90 days #180 tabs 12/01/21 [Rx Last Taken Unknown] carvedilol 3.125 mg tablet 3.125 mg PO BID #60 tabs 12/09/21 [Rx Last Taken Unknown] potassium chloride 20 mEq tablet,extended release 20 meq PO DAILY #30 tabs 12/09/21 [Rx Last Taken Unknown] furosemide 20 mg tablet 10 mg PO DAILY 02/17/22 [History Last Taken Unknown] cephalexin 500 mg capsule 500 mg PO Q12 #14 CAPSULES 03/27/22 [Rx Last Taken Unknown] Allergy/AdvReac Type Severity Reaction Status Date / Time aspirin Allergy Anaphylaxis Verified 03/27/22 20:07 ibuprofen Allergy Anaphylaxis Verified 03/27/22 20:07 Penicillins [PCN] Allergy Anaphylaxis Verified 03/27/22 20:07 Sulfa (Sulfonamide Allergy Anaphylaxis Verified 03/27/22 20:07 Antibiotics) amlodipine [From [facility]] AdvReac Severe Cough Verified 03/27/22 20:07 hydralazine AdvReac Severe stopped Verified 03/27/22 20:07 when she had CVA spironolactone AdvReac Severe Hyponaturem Verified 03/27/22 20:07 ia FLU SHOT Allergy Anaphylaxis Uncoded 03/27/22 20:07 Family History Father CVA (cerebral vascular accident) Brother Hypertension Brother Hypertension Sister Abdominal aortic aneurysm (AAA) Sister CVA (cerebral vascular accident) Hypertension Diabetes Other Cancer Surgical History H/O colonoscopy (~09/27/21) History of back surgery History of bladder surgery History of cardiac radiofrequency ablation (RFA) History of hip replacement History of hysterectomy History of radiofrequency ablation procedure for cardiac arrhythmia (~12/09/18) Presence of Watchman left atrial appendage closure device (~08/20/20) Status post placement of implantable loop recorder Social History Smoking Status: Never smoker alcohol intake: never substance use type: does not use caffeine: Yes Type: coffee Number of servings: 1 ROS ROS ED Constitutional Constitutional ED: Denies chills or weight loss Eyes Eyes: Denies change in vision or diplopia ENT ENT ED: Denies ear pain, rhinorrhea or sore throat Cardiovascular Cardiovascular: Denies chest pain, orthopnea, palpitations or racing heartbeat Respiratory/Chest Respiratory/Chest: Denies cough, dyspnea or orthopnea Gastrointestinal Gastrointestinal: Reports abdominal pain; Denies diarrhea, nausea or vomiting Genitourinary Genitourinary ED: Denies dysuria, hematuria or urinary frequency Musculoskeletal Musculoskeletal: Denies arthralgias or myalgias Integumentary Denies abscess or rash Neurologic Neurologic: Denies headache(s) or weakness Psychiatric Psychiatric: Denies anxiety, depression, suicidal ideation or suicidal thoughts Endocrine Endocrinology: Denies polydipsia, polyphagia or polyuria Allergic/Immunologic Allergic/Immunologic ED: Denies mouth swelling, tongue swelling or urticaria EXAM Physical Exam Const Vital Signs: 03/27/22 20:04 03/27/22 20:07 Temperature 98.6 F 98.6 F Temperature Source Temporal Temporal Pulse Rate 92 92 Respiratory Rate 15 15 Blood Pressure 195/100 H 195/100 H Blood Pressure Mean 131 131 Pulse Ox 98 98 Oxygen Delivery Method Room Air Room Air Positive well nourished and well developed General Appearance ED: well developed HEENT Reports normocephalic, head/scalp atraumatic and moist mucous membranes Eyes PERRL and EOMs intact bilaterally Neck no lymphadenopathy, supple and no JVD Resp normal respiratory effort and clear to auscultation bilaterally Cardio regular rate, regular rhythm and no murmurs GI non-distended; Negative for hepatosplenomegaly Inspection: Negative for abdominal distention Auscultation: normoactive bowel sounds Palpation: soft and tender RLQ and RUQ; Negative for guarding or rebound tenderness present Back/Spine no CVA tenderness and normal ROM Extremity normal to inspection General Extremety ED: Negative for edema General Extremity: Negative for edema Neuro oriented x3 and CN's II-XII intact bilaterally Sensorium / Orientation: alert Motor Exam: strength 5/5 throughout Psych mental status grossly normal Mood & Affect: Negative for depressed or tearful Skin no rashes or lesions noted and no wounds MDM MDM MDM Narrative Medical decision making narrative: White count is normal at 7.7. CMP is normal with a glucose of 123. Urinalysis greater than 100 white cells 25-50 red cells 3+ bacteria will be sent for culture. CT the abdomen pelvis was ordered. The patient decided she wished to leave and informed nursing that she did not like it but the patient in the next room over was laughing. She is next-door to a psychiatric patient. Patient states she has plans to follow-up with Dr. Beckwith later this week. We will place her on Keflex based on prior cultures. Lab Data Attestation: I reviewed the patient's lab results. Labs: Laboratory Results - last 24 hr 03/27/22 03/27/22 03/27/22 20:09 21:48 21:48 WBC 7.7 RBC 4.21 Hgb 12.0 Hct 37.2 MCV 88.4 MCH 28.5 MCHC 32.3 RDW Std Deviation 55.2 H RDW Coeff of Zhanna 17.1 H Plt Count 199 MPV 10.9 Immature Gran % (Auto) 0.300 Neut % (Auto) 65.9 Lymph % (Auto) 22.6 Divide % (Auto) 9.7 Eos % (Auto) 1.2 Baso % (Auto) 0.3 Absolute Neuts (auto) 5.1 Absolute Lymphs (auto) 1.75 Nucleated RBC % 0 Sodium 138 Potassium 3.7 Chloride 105 Carbon Dioxide 28.0 Anion Gap 5 BUN 20 H Creatinine 1.05 H Estim Creat Clear Calc 36.71 Est GFR (MDRD) Af Amer 65 Est GFR (MDRD) Non-Af 53 L BUN/Creatinine Ratio 19.0 Glucose 123 H Calcium 8.7 Total Bilirubin 0.80 AST 26 ALT 24 Alkaline Phosphatase 86 Total Protein 6.8 Albumin 3.5 Globulin 3.3 Albumin/Globulin Ratio 1.1 Urine Color Yellow Urine Clarity Cloudy Urine pH 6.5 Ur Specific [place] 1.015 Urine Protein 500 H Urine Glucose (UA) Normal Urine Ketones Negative Urine Occult Blood 250 H Urine Nitrite Negative Urine Bilirubin Negative Urine Urobilinogen Normal Ur Leukocyte Esterase 500 H Urine RBC 25-50 SEEN Urine WBC >100 SEEN Ur Squamous Epith Cells 5-10 SEEN Urine Bacteria 3+ Urine Mucus 0 SEEN Discharge Plan Triage Chief Complaint: Abd Pain ED Provider: Jaleel Lemos Dx/Rx/DC Orders Clinical Impression: Abdominal pain, Acute UTI Instructions: ED Abdominal Pain Unkn Cause Fem Prescriptions: New cephalexin [cephalexin] 500 MG capsule 500 mg PO Q12 Qty: 14 0RF No Action esomeprazole magnesium 40 mg capsule,delayed release(DR/EC) 40 mg PO DAILY cranberry extract 500 mg capsule 500 mg PO DAILY Rx Instructions: administer with meals minoxidil 2.5 mg tablet 1.25 mg PO BID Qty: 90 3RF furosemide 20 mg tablet 10 mg PO DAILY clonazepam 0.5 MG tablet 0.5 mg PO BID Label Comments: ANXIETY Rx Instructions: 1 PO Q AM and 1-2 Q HS cholecalciferol (vitamin D3) 125 mcg (5,000 unit) tablet 125 mcg PO BID Qty: 1 0RF clopidogrel 75 mg tablet 75 mg PO DAILY Qty: 90 3RF pravastatin 10 mg tablet 10 mg PO QHS Qty: 90 3RF doxazosin 2 mg tablet 1 mg PO BID Qty: 180 3RF lisinopril 20 mg tablet 20 mg PO BID 90 Days Qty: 180 3RF potassium chloride 20 mEq tablet extended release 20 meq PO DAILY Qty: 30 11RF carvedilol 3.125 mg tablet 3.125 mg PO BID Qty: 60 11RF Rx Instructions: must administer with a meal/food Primary Care Provider: Dillon Brasher Referrals: Dillon Brasher MD [Primary Care Provider] - 1-2 Days if not improving Disposition Disposition: Against Medical Advice
[2022-03-27 21:56] LABS: Absolute Lymphocyte Count 1.75 X10^3/uL (0.83-4.51); Absolute Neutrophil Count 5.1 X10^3/uL (2.0-7.7); Basophil# 0.02 X10^3/uL; Basophil% 0.3 % (0-1); Eosinophil# 0.09 X10^3/uL; Eosinophils% 1.2 % (0-5); Hematocrit 37.2 % (37-47); Lymphocyte # 1.75 X10^3/ul (0.83-4.51); Lymphocyte % 22.6 % (19-41); Mean Corp Hgb Conc 32.3 g/dL (32-36); Mean Corpuscular Hgb 28.5 pg (27.0-32.0); Mean Corpuscular Volume 88.4 fL (81-99); Mean Platelet Vol. 10.9 fl (6.2-12.0); Monocyte# 0.75 X10^3/uL; Monocyte% 9.7 % (0-10); NRBC Flagged by Analyzer 0 % (0-5); Neutrophil % 65.9 % (47-70); Platelet Count 199 K/mm3 (150-450); RBC Distribution Width CV 17.1 % (11.6-14.6); RBC Distribution Width SD 55.2 fl (35.1-43.9); Red Blood Count 4.21 M/mm3 (4.2-5.4); White Blood Count 7.7 K/mm3 (4.4-11.0)
[2022-03-27 22:13] LABS: ALB/GLOB Ratio 1.1 RATIO (0.9-2.4); AST(SGOT) 26 U/L (15-37); Alanine Aminotransfer ALT/SGPT 24 U/L (13-56); Albumin, Serum 3.5 g/dL (3.2-5.0); Alkaline Phosphatase 86 U/L (45-117); Anion Gap 5 (5-15); BUN 20 mg/dL (7-18); Calcium,Total 8.7 mg/dL (8.5-10.1); Chloride 105 mmol/L (98-107); Creatinine, Serum 1.05 mg/dL (0.55-1.02); EST Glomerular Filtration Rate 53 mL/min (>60); Est Glom Filt Rate - Afr Amer 65 mL/min (>60); Estimated Creatinine Clearance 36.71 ml/min; Globulin 3.3 g/dL (2.2-4.2); Glucose 123 mg/dL (74-106); Potassium 3.7 mmol/L (3.5-5.1); Protein, Total 6.8 g/dL (6.4-8.2); Sodium Level 138 mmol/L (136-145)
== END 2022-03-27 22:29 | disposition left against medical advice (07) ==
PROVIDERS: Emergency Provider Emergency Medicine; PCP Family Medicine; Visit Provider Emergency Medicine
DX: N39.0 Urinary tract infection, site not specified (principal); E11.9 Type 2 diabetes mellitus without complications; E78.5 Hyperlipidemia, unspecified; I25.10 Atherosclerotic heart disease of native coronary artery without angina pectoris; I10 Essential (primary) hypertension; Z79.02 Long term (current) use of antithrombotics/antiplatelets; Z79.899 Other long term (current) drug therapy; Z86.73 Personal history of transient ischemic attack (TIA), and cerebral infarction without residual deficits
CPT/HCPCS: 80053; 81001; 85025; 87077; 87086; 87088; 87186; 99282

== ENCOUNTER → 2022-04-11 | Outpatient (CLI) | payer MEDICARE, OTHER, SELFPAY ==
--- NOTE | 2022-04-11 07:42 | CT_ITS ---
STUDY: CT ABDOMEN AND PELVIS WITH AND WITHOUT CONTRAST REASON FOR EXAM: Female, 81 years old. R LOWER ABD PAIN, WEIGHT LOSS RADIATION DOSAGE (If Supplied By Facility): CTDIvol = ( 10.44 ) mGy, DLP = ( 1088.85 ) mGycm TECHNIQUE: Transaxial images were obtained from the dome of the diaphragm to the symphysis pubis with oral contrast. Oral and amp; IV Readi-CAT and amp; 100mL Isovue-300 was administered. Sagittal and coronal images were reconstructed. Individualized dose optimization techniques were used for this CT. COMPARISON: Comparison is made with prior examination dated 09/04/2018. FINDINGS: Calcified granuloma in the left lower lobe. A dual-chamber pacemaker is seen. Minimal pericardial thickening. Normal liver. There are surgical clips in the gallbladder fossa consistent with a prior cholecystectomy. There are multiple benign calcified granulomata of the spleen. Normal pancreas. Normal bilateral adrenal glands. Normal right kidney. Moderate degree of left hydronephrosis and hydroureter. Moderate degree of right hydronephrosis and right hydroureter. Normal small intestine. There are multiple colonic diverticula consistent with diverticulosis. The patient is status post appendectomy. There is diffuse atherosclerotic calcification of the abdominal aorta, without a demonstrated aneurysm. Normal inferior vena cava. Normal retroperitoneum. Mild degree of diffuse bladder wall thickening. There is absence of the uterus consistent with a prior hysterectomy. Stable calcified phleboliths in the left hemipelvis. Normal abdominal wall. There are diffuse degenerative changes of the visualized lumbar spine. The patient is status post right total hip replacement. CT/CT Abd/Pelvis W/WO Contrast IMPRESSION: Moderate degree of bilateral hydronephrosis and hydroureter. Bladder wall thickening. Sigmoid diverticulosis. Electronically Signed: Eber Cruz MD at 12:40 EDT ,
== END | disposition home or self-care (01) ==
LOC: CT 07:40
PROVIDERS: PCP Family Medicine; Referring Provider Urology; Visit Provider Urology
DX: R10.31 Right lower quadrant pain (principal); R63.4 Abnormal weight loss
CPT/HCPCS: 74178; Q9967

== ENCOUNTER → 2022-04-13 | Outpatient (CLI) | payer MEDICARE, OTHER, SELFPAY ==
[2022-04-13 15:04] LABS: Hematocrit 40.2 % (37-47); Hemoglobin 13.4 g/dL (12.0-15.0); Mean Corp Hgb Conc 33.3 g/dL (32-36); Mean Corpuscular Hgb 29.6 pg (27.0-32.0); Mean Corpuscular Volume 88.7 fL (81-99); Mean Platelet Vol. 11.8 fl (6.2-12.0); Platelet Count 199 K/mm3 (150-450); RBC Distribution Width CV 17.2 % (11.6-14.6); RBC Distribution Width SD 55.9 fl (35.1-43.9); Red Blood Count 4.53 M/mm3 (4.2-5.4); White Blood Count 5.3 K/mm3 (4.4-11.0)
[2022-04-13 15:33] LABS: Anion Gap 6 (5-15); BUN 17 mg/dL (7-18); Calcium,Total 9.2 mg/dL (8.5-10.1); Chloride 105 mmol/L (98-107); EST Glomerular Filtration Rate 64 mL/min (>60); Est Glom Filt Rate - Afr Amer 78 mL/min (>60); Glucose 94 mg/dL (74-106); Potassium 4.1 mmol/L (3.5-5.1); Sodium Level 140 mmol/L (136-145)
== END | disposition home or self-care (01) ==
LOC: LAB 13:38
PROVIDERS: PCP Family Medicine; Visit Provider Urology
DX: R10.30 Lower abdominal pain, unspecified (principal); R63.4 Abnormal weight loss
CPT/HCPCS: 36415; 80048; 85027

== ENCOUNTER 2022-05-04 10:34 | Day surgery (SDC) | payer MEDICARE, OTHER, SELFPAY ==
[2022-05-04 11:12] VITALS: BP 144/76; PULSE 70; RESP 16; TEMP 36.8; O2SAT 100; BMI 18.6
[2022-05-04] MEDS: Lactated Ringers 1,000 ML 15 ML IV (11:17)
[2022-05-04] MEDS: Cefazolin 2 GM in 0.9% Normal Saline 100 ML IV (12:16)
--- NOTE | 2022-05-04 12:18 | DCINST_ITS ---
Discharge Instructions Diet Discharge Diet: No restrictions Activity Discharge Activity: Return to Normal Activity Dressing / Incision Call your doctor if you observe: Fever of 101 or Higher and Inability to have a bowel movement Follow Up Care Please Follow Up With: Libra Beckwith MD When: Call the office for an appointment to be seen in 2 weeks Test Results: Test results from this visit will be discussed in further detail at your follow- up appointment, if applicable. Discharge Plan Admission Attending Provider: Libra Beckwith Primary Care Provider: Dillon Brasher Discharge Orders/Prescriptions Prescriptions: New hydrocodone-acetaminophen [hydrocodone-acetaminophen] 5-325 mg tablet 1 tab PO Q4H PRN PRN (Reason: Pain) 7 Days Qty: 15 0RF cephalexin [cephalexin] 500 mg capsule 500 mg PO Q12 3 Days Qty: 6 0RF phenazopyridine [phenazopyridine] 100 mg tablet 100 mg PO TID Qty: 30 0RF Continued esomeprazole magnesium 40 mg capsule,delayed release(DR/EC) 40 mg PO DAILY cranberry extract 500 mg capsule 500 mg PO DAILY Rx Instructions: administer with meals minoxidil 2.5 mg tablet 1.25 mg PO BID Qty: 90 3RF furosemide 20 mg tablet 10 mg PO DAILY clonazepam 0.5 MG tablet 0.5 mg PO BID Label Comments: ANXIETY Rx Instructions: 1 PO Q AM and 1-2 Q HS cholecalciferol (vitamin D3) 125 mcg (5,000 unit) tablet 125 mcg PO BID Qty: 1 0RF clopidogrel 75 mg tablet 75 mg PO DAILY Qty: 90 3RF pravastatin 10 mg tablet 10 mg PO QHS Qty: 90 3RF doxazosin 2 mg tablet 1 mg PO BID Qty: 180 3RF lisinopril 20 mg tablet 20 mg PO BID 90 Days Qty: 180 3RF potassium chloride 20 mEq tablet extended release 20 meq PO DAILY Qty: 30 11RF carvedilol 3.125 mg tablet 3.125 mg PO BID Qty: 60 11RF Rx Instructions: must administer with a meal/food Referrals / Follow Up: Dillon Brasher MD [Primary Care Provider] - Disposition Disposition (needs filled in before D/C Order can be placed): Home, Self Care
--- NOTE | 2022-05-04 12:21 | PCM.OPRPT ---
Report of Operation Date of Procedure: 05/04/22 Pre-Operative Diagnosis: Bilateral Hydronephrosis Post-Operative Diagnosis: Same Surgery/Procedure Performed:: Cystoscopy, bilateral retrograde pyelogram, bilateral ureteroscopy, bilateral ureteral stent insertion Surgeon: Libra Beckwith Type of Anesthesia: General Specimen's removed: None Description of Procedure: The patient is an 81-year-old female who presents for ureteroscopic evaluation of bilateral hydronephrosis. Informed consent was obtained. The patient was taken to the operating room and placed on the operating room table. Anesthesia monitored the head, neck, airway, IV access and vital signs throughout the case. Once anesthesia was appropriately administered, the patient was placed into dorsolithotomy position was prepped and draped in usual sterile fashion. This time the cystoscope was inserted through the urethra under direct visualization into the urinary bladder. The bladder appeared fibrotic with trabeculation and a few diverticula. There were no masses identified. At this time the patient's right ureteral orifice was gently intubated with an 8 [place] cone-tip catheter and contrast was injected in retrograde fashion. 10 cc of contrast was used and it filled the ureter revealing continued hydronephrosis with a J hooking at the area of the bladder. The procedure was repeated on the patient's left side with similar findings. There was a good ureteral jet observed from the patient's left side. A 0.035 Glidewire was used to cannulate the right ureteral orifice and the flexible ureteroscope was then inserted over the wire all the way up to the renal pelvis. The only finding was a very redundant renal pelvis with normal mucosa. The entire length of the ureter was visualized without evidence of mass, stone or obstruction. The safety wire was then used along with the cystoscope for placement of a 6 [place] 26 cm JJ stent with good positioning in the renal pelvis as well as the urinary bladder. The same process was repeated on the patient's left side with the same findings. A 6 [place] 26 cm JJ stent was inserted in the patient's left side as well. At this time the bladder was emptied and the case was terminated. The patient was awakened and taken to the recovery room in good condition. There were no complications during this procedure. Grafts/Implants Used: 6 x 26 JJ stent x2 Complications None Admit VTE Documentation VTE Present on Admission: Yes VTE Mechan Device Prophylaxis: SCD's VTE Pharm Prophylaxis ordered?: Yes
[2022-05-04 13:10] LABS: Bedside Glucose 102 mg/dL (74-106)
[2022-05-04 13:23] VITALS: BP 144/76; BP 149/83; PULSE 70; RESP 18; TEMP 35.8; O2SAT 99
[2022-05-04 13:30] VITALS: BP 144/76; BP 151/80; PULSE 70; RESP 18; O2SAT 97
[2022-05-04 13:45] VITALS: BP 141/100; BP 144/76; PULSE 70; RESP 18; O2SAT 100
[2022-05-04 13:54] VITALS: BP 144/76; BP 155/71; PULSE 70; RESP 18; TEMP 35.9; O2SAT 100
[2022-05-04 14:29] VITALS: BP 144/76
== END 2022-05-04 15:15 | disposition home or self-care (01) ==
LOC: SDC 10:34 → AC 10:36
PROVIDERS: PCP Family Medicine; Referring Provider Urology; Visit Provider Urology
PROC: 0TJ98ZZ Inspection of Ureter, Via Natural or Artificial Opening Endoscopic (ICD-10-PCS; CPT 52352; principal; 2022-05-04 12:00)
DX: N13.30 Unspecified hydronephrosis (principal); J44.9 Chronic obstructive pulmonary disease, unspecified; I48.0 Paroxysmal atrial fibrillation; I49.5 Sick sinus syndrome; E11.9 Type 2 diabetes mellitus without complications; N32.3 Diverticulum of bladder; K90.0 Celiac disease; I10 Essential (primary) hypertension; Z86.73 Personal history of transient ischemic attack (TIA), and cerebral infarction without residual deficits; Z95.0 Presence of cardiac pacemaker; Z79.899 Other long term (current) drug therapy; R39.11 Hesitancy of micturition; N32.89 Other specified disorders of bladder; N39.41 Urge incontinence; F41.9 Anxiety disorder, unspecified; E78.5 Hyperlipidemia, unspecified; I34.1 Nonrheumatic mitral (valve) prolapse; K21.9 Gastro-esophageal reflux disease without esophagitis
CPT/HCPCS: 52332; 00910; 76000; 82962; J7120; C2617

== ENCOUNTER → 2022-05-12 | Outpatient (CLI) | payer MEDICARE, OTHER, SELFPAY ==
[2022-05-12 11:54] LABS: Absolute Lymphocyte Count 0.87 X10^3/uL (0.83-4.51); Absolute Neutrophil Count 5.4 X10^3/uL (2.0-7.7); Basophil# 0.03 X10^3/uL; Basophil% 0.4 % (0-1); Eosinophil# 0.12 X10^3/uL; Eosinophils% 1.7 % (0-5); Hematocrit 36.6 % (37-47); Hemoglobin 11.8 g/dL (12.0-15.0); Lymphocyte # 0.87 X10^3/ul (0.83-4.51); Mean Corp Hgb Conc 32.2 g/dL (32-36); Mean Corpuscular Hgb 29.2 pg (27.0-32.0); Mean Corpuscular Volume 90.6 fL (81-99); Mean Platelet Vol. 11.6 fl (6.2-12.0); Monocyte# 0.82 X10^3/uL; Monocyte% 11.4 % (0-10); NRBC Flagged by Analyzer 0 % (0-5); Neutrophil # 5.36 X10^3/uL (2.7-7.7); Neutrophil % 74.2 % (47-70); Platelet Count 201 K/mm3 (150-450); Red Blood Count 4.04 M/mm3 (4.2-5.4); White Blood Count 7.2 K/mm3 (4.4-11.0)
[2022-05-12 12:13] LABS: Anion Gap 9 (5-15); BUN 34 mg/dL (7-18); BUN/Creat Ratio 27.6 RATIO (10-20); Calcium,Total 8.4 mg/dL (8.5-10.1); Chloride 100 mmol/L (98-107); Creatinine, Serum 1.23 mg/dL (0.55-1.02); EST Glomerular Filtration Rate 44 mL/min (>60); Est Glom Filt Rate - Afr Amer 54 mL/min (>60); Glucose 129 mg/dL (74-106); Potassium 3.8 mmol/L (3.5-5.1); Sodium Level 135 mmol/L (136-145)
== END | disposition home or self-care (01) ==
PROVIDERS: PCP Family Medicine; Referring Provider Family Medicine; Visit Provider Family Medicine
DX: R50.9 Fever, unspecified (principal)
CPT/HCPCS: 36415; 80048; 85025; 87077; 87086; 87088; 87186

== ENCOUNTER → 2022-05-19 | Outpatient (CLI) | payer MEDICARE, OTHER, SELFPAY ==
--- NOTE | 2022-05-19 12:52 | US_ITS ---
STUDY: RENAL ULTRASOUND - COMPLETE REASON FOR EXAM: Female, 81 years old. BILATERAL HYDRONEPHROSIS . Recent bilateral stent placement. TECHNIQUE: Ultrasound evaluation of the kidneys was performed with real-time and static barillas-scale imaging. COMPARISON: None. FINDINGS: RIGHT KIDNEY: Normal location of the right kidney, which is normal in size. The right kidney measures 9.3 cm x 6.2 cm x 4.1 cm. There is a normal cortex of the right kidney. The renal cortex measures 1.2 cm. There is no right renal mass or cyst. There are no right renal calculi. There is mild hydronephrosis of the right kidney. DISTAL RIGHT URETER: There is non-visualization of the distal right ureter. There is no demonstrated right ureterovesical junction calculus. There is a visualized right ureteral jet. LEFT KIDNEY: Normal location of the left kidney, which is normal in size. The left kidney measures 9.8 cm x 4.4 solid by 4.5 cm. There is a normal cortex of the left kidney. The renal cortex measures 1.6 cm. There is no left renal mass or cyst. There are no left renal calculi. There is mild hydronephrosis of the left kidney. DISTAL LEFT URETER: There is non-visualization of the distal left ureter. There is no demonstrated left ureterovesical junction calculus. There is no demonstrated left ureteral jet. BLADDER: The distended urinary bladder has a volume of 100 ml. Mildly thickened bladder wall. The floor of the bladder is trabeculated. There is no demonstrated mass within the urinary bladder. There are no demonstrated bladder calculi. US/Kidney and Bladder IMPRESSION: Mild degree of bilateral hydronephrosis. Thickened bladder wall with trabeculation of the bladder base. Electronically Signed: Eber Cruz MD at 14:27 EDT ,
== END | disposition home or self-care (01) ==
LOC: US 12:50
PROVIDERS: PCP Family Medicine; Referring Provider Urology; Visit Provider Urology
DX: N13.30 Unspecified hydronephrosis (principal)
CPT/HCPCS: 76770

== ENCOUNTER → 2022-06-28 | Outpatient (CLI) | payer MEDICARE, OTHER, SELFPAY ==
--- NOTE | 2022-06-28 12:26 | US_ITS ---
EXAM: US RETROPERITONEAL LIMITED, RENAL CLINICAL INDICATION: URINARY RETENTION TECHNIQUE: Limited grayscale and color Doppler sonographic evaluation of the retroperitoneum was performed. This report was created using [employer] report generation technology. COMPARISON: None. FINDINGS: RIGHT KIDNEY: Right kidney measures 10.8 cm length. 6 mm right renal cortical cyst. No hydronephrosis. No shadowing calculus. No perinephric collection is demonstrated. LEFT KIDNEY: Left kidney measures 9.6 cm in length with diffuse cortical thinning and mild hydronephrosis. No shadowing calculus. No perinephric collection is demonstrated. BLADDER: Urinary bladder wall thickening noted which may represent acute or chronic cystitis. US/Kidney and Bladder IMPRESSION: Urinary bladder wall thickening suggestive of cystitis. Mild left hydronephrosis. Electronically Signed: Walter Leiva MD at 15:15 EDT ,
== END | disposition home or self-care (01) ==
LOC: US 12:14
PROVIDERS: PCP Family Medicine; Referring Provider Urology; Visit Provider Urology
DX: R33.9 Retention of urine, unspecified (principal); N13.30 Unspecified hydronephrosis
CPT/HCPCS: 76770

== ENCOUNTER → 2022-07-04 | Outpatient (CLI) | payer MEDICARE, OTHER, SELFPAY ==
[2022-07-04 15:51] LABS: Anion Gap 5 (5-15); BUN 21 mg/dL (7-18); BUN/Creat Ratio 26.5 RATIO (10-20); Calcium,Total 8.6 mg/dL (8.5-10.1); Chloride 104 mmol/L (98-107); Creatinine, Serum 0.79 mg/dL (0.55-1.02); EST Glomerular Filtration Rate 74 mL/min (>60); Est Glom Filt Rate - Afr Amer 89 mL/min (>60); Glucose 76 mg/dL (74-106); Potassium 4.2 mmol/L (3.5-5.1); Sodium Level 136 mmol/L (136-145)
== END | disposition home or self-care (01) ==
LOC: MFPLAB 11:33
PROVIDERS: PCP Family Medicine; Referring Provider Family Medicine; Visit Provider Urology
DX: N28.9 Disorder of kidney and ureter, unspecified (principal)
CPT/HCPCS: 36415; 80048

== ENCOUNTER → 2022-08-08 | Outpatient (CLI) | payer MEDICARE, OTHER, SELFPAY ==
--- NOTE | 2022-08-08 13:11 | STRESSREP_ITS ---
Stress Test Report Date: 08-08-2022 Procedure: Pharmacologic stress nuclear imaging study Indications: Chest pain; CAD; paroxysmal atrial fibrillation status post EPS/RFA; sick sinus syndrome; permanent pacemaker placement; left atrial appendage closure device; hyperlipidemia; hypertension Consent: Per the patient Procedure: The patient underwent pharmacologic (Regadenoson 0.4mg ) evaluation with a peak heart rate of 75 beats per minute (54%predicted maximal heart rate) and a resting blood pressure of 118/82 mmHg and a peak blood pressure of 144/70 mmHg. The baseline ECG demonstrated electronic ventricular paced rhythm. The peak pharmacologic ECG demonstrated an electronic ventricular paced rhythm. There were no cardiac dysrhythmias pretest, during pharmacologic infusion, or recovery. There was no complaint of chest discomfort during pharmacologic infusion or recovery. The examination was discontinued secondary to completion of protocol. Impression: 1. Pharmacologic (Regadenoson) evaluation 2. Peak pharmacologic ECG with an electronic ventricular paced rhythm. 3. There were no cardiac dysrhythmias pretest, during pharmacologic infusion, or recovery. 4. Nuclear images pending Myocardial perfusion imaging study: Technique: The patient was injected with 12.0 millicuries of technetium 99m Cardiolite and subsequently rest SPECT Cardiolite nuclear imaging was obtained in the horizontal long, vertical long, and short axis views. The patient underwent pharmacologic (Regadenoson) evaluation with a peak heart rate of 75 beats per minute (54% percent predicted maximal heart rate) and a resting blood pressure of 118/82 mmHg and a peak blood pressure of 144/70mmHg. The patient was injected with 34.0 millicuries of technetium 99m Cardiolite and subsequently stress SPECT Cardiolite nuclear imaging was obtained in the horizontal long, vertical long, and short axis views. A gated Cardiolite study at peak stress was obtained. Interpretation: Rest and stress SPECT Cardiolite nuclear imaging status post realignment, normalization, and attenuation correction demonstrate a small area of subtle diminished tracer uptake near the apical segments without significant change between rest and stress. There is end systolic thickening and brightening. The gated Cardiolite study demonstrates myocardial thickening and inward wall motion. The reported LVEF is 67%. Impression: 1. Rest and stress SPECT current nuclear imaging demonstrate myocardial perfusion changes appearing compatible with physiologic apical thinning with no myocardial perfusion changes considered diagnostic for associated stress-induced myocardial ischemia. 2. The gated Cardiolite study reports an LVEF of 67%. This note was generated with [employer] software. It may contain incorrect words, spelling, and punctuation that were not noted in checking the note before signing.
== END | disposition home or self-care (01) ==
LOC: CVS 06:31
PROVIDERS: PCP Family Medicine; Referring Provider Nurse Practitioner Gerontology; Visit Provider Nurse Practitioner Gerontology
DX: R07.9 Chest pain, unspecified (principal); I25.10 Atherosclerotic heart disease of native coronary artery without angina pectoris
CPT/HCPCS: 78452; 93017; A9500; A4216; J2785

== ENCOUNTER → 2022-09-20 | Outpatient (CLI) | payer MEDICARE, OTHER, SELFPAY ==
--- NOTE | 2022-09-20 14:23 | US_ITS ---
STUDY: RENAL ULTRASOUND - COMPLETE REASON FOR EXAM: Female, 82 years old. Urinary retention. TECHNIQUE: Ultrasound evaluation of the kidneys was performed with real-time and static barillas-scale imaging. COMPARISON: Comparison is made with prior study 06/28/2022. FINDINGS: RIGHT KIDNEY: Normal location of the right kidney, which is normal in size. The right kidney measures 10.4 cm x 4.9 cm x 4.7 cm. There is a normal cortex of the right kidney. The renal cortex measures 1.5 cm. There is no right renal mass or cyst. There are no right renal calculi. There is moderate hydronephrosis of the right kidney. DISTAL RIGHT URETER: There is non-visualization of the distal right ureter. There is no demonstrated right ureterovesical junction calculus. There is a visualized right ureteral jet. LEFT KIDNEY: Normal location of the left kidney, which is normal in size. The left kidney measures 11.1 cm x 4.9 cm x 4.9 cm. There is a normal cortex of the left kidney. The renal cortex measures 1.6 cm. There is no left renal mass or cyst. There are no left renal calculi. Moderate degree of left hydronephrosis. DISTAL LEFT URETER: There is non-visualization of the distal left ureter. There is no demonstrated left ureterovesical junction calculus. There is no demonstrated left ureteral jet. BLADDER: The distended urinary bladder has a volume of 265. ml. There is a thickened irregular posterior wall of the urinary bladder. There is no demonstrated mass within the urinary bladder. There are no demonstrated bladder calculi. US/Kidney and Bladder IMPRESSION: Moderate degree of left hydronephrosis. Moderate degree of right hydronephrosis. Irregular thickened posterior wall of the urinary bladder. Electronically Signed: Eber Cruz MD at 15:19 EST ,
== END | disposition home or self-care (01) ==
PROVIDERS: PCP Family Medicine; Referring Provider Urology; Visit Provider Urology
DX: N13.30 Unspecified hydronephrosis (principal); R33.9 Retention of urine, unspecified
CPT/HCPCS: 76770

== ENCOUNTER → 2022-10-04 | Outpatient (CLI) | payer MEDICARE, OTHER, SELFPAY ==
[2022-10-04 12:54] LABS: Anion Gap 7 (5-15); BUN 18 mg/dL (7-18); BUN/Creat Ratio 20.9 RATIO (10-20); Calcium,Total 8.6 mg/dL (8.5-10.1); Chloride 105 mmol/L (98-107); Creatinine, Serum 0.86 mg/dL (0.55-1.02); EST Glomerular Filtration Rate 67 mL/min (>60); Est Glom Filt Rate - Afr Amer 81 mL/min (>60); Glucose 103 mg/dL (74-106); Potassium 3.7 mmol/L (3.5-5.1); Sodium Level 140 mmol/L (136-145)
== END | disposition home or self-care (01) ==
LOC: MFPLAB 11:16
PROVIDERS: PCP Family Medicine; Referring Provider Family Medicine; Visit Provider Urology
DX: R33.9 Retention of urine, unspecified (principal)
CPT/HCPCS: 36415; 80048

== ENCOUNTER → 2022-10-11 | Outpatient (CLI) | payer MEDICARE, OTHER, SELFPAY ==
[2022-10-11 11:17] LABS: Absolute Lymphocyte Count 2.15 X10^3/uL (0.83-4.51); Absolute Neutrophil Count 1.7 X10^3/uL (2.0-7.7); Basophil# 0.03 X10^3/uL; Basophil% 0.7 % (0-1); Eosinophil# 0.04 X10^3/uL; Eosinophils% 0.9 % (0-5); Hematocrit 38.9 % (37-47); Hemoglobin 12.5 g/dL (12.0-15.0); Lymphocyte # 2.15 X10^3/ul (0.83-4.51); Lymphocyte % 48.8 % (19-41); Mean Corp Hgb Conc 32.1 g/dL (32-36); Mean Corpuscular Hgb 29.6 pg (27.0-32.0); Mean Corpuscular Volume 92.2 fL (81-99); Monocyte# 0.52 X10^3/uL; Monocyte% 11.8 % (0-10); NRBC Flagged by Analyzer 0 % (0-5); Neutrophil # 1.67 X10^3/uL (2.7-7.7); Neutrophil % 37.8 % (47-70); Platelet Count 179 K/mm3 (150-450); RBC Distribution Width CV 16.1 % (11.6-14.6); RBC Distribution Width SD 54.7 fl (35.1-43.9); Red Blood Count 4.22 M/mm3 (4.2-5.4); White Blood Count 4.4 K/mm3 (4.4-11.0)
[2022-10-11 11:56] LABS: Free T3 2.5 pg/mL (2.18-3.98); T4 Free Direct 1.04 ng/dL (0.76-1.46); Thyroid Stim Hormone (TSH) 1.31 uIU/mL (0.358-3.74)
== END | disposition home or self-care (01) ==
PROVIDERS: PCP Family Medicine; Referring Provider Physician Assistant Medical; Visit Provider Physician Assistant Medical
DX: E78.5 Hyperlipidemia, unspecified (principal); R63.4 Abnormal weight loss
CPT/HCPCS: 36415; 84439; 84443; 84481; 85025

== ENCOUNTER → 2023-01-26 | Outpatient (CLI) | payer MEDICARE, OTHER, SELFPAY ==
[2023-01-26 12:19] LABS: Absolute Lymphocyte Count 1.83 X10^3/uL (0.83-4.51); Absolute Neutrophil Count 1.9 X10^3/uL (2.0-7.7); Basophil# 0.03 X10^3/uL; Basophil% 0.7 % (0-1); Eosinophil# 0.02 X10^3/uL; Eosinophils% 0.5 % (0-5); Hematocrit 34.3 % (37-47); Hemoglobin 10.5 g/dL (12.0-15.0); Lymphocyte # 1.83 X10^3/ul (0.83-4.51); Lymphocyte % 43.4 % (19-41); Mean Corp Hgb Conc 30.6 g/dL (32-36); Mean Corpuscular Hgb 26.9 pg (27.0-32.0); Mean Corpuscular Volume 87.7 fL (81-99); Mean Platelet Vol. 11.5 fl (6.2-12.0); Monocyte# 0.41 X10^3/uL; Monocyte% 9.7 % (0-10); NRBC Flagged by Analyzer 0 % (0-5); Neutrophil # 1.92 X10^3/uL (2.7-7.7); Neutrophil % 45.5 % (47-70); Platelet Count 186 K/mm3 (150-450); RBC Distribution Width CV 17.9 % (11.6-14.6); RBC Distribution Width SD 56.5 fl (35.1-43.9); Red Blood Count 3.91 M/mm3 (4.2-5.4); White Blood Count 4.2 K/mm3 (4.4-11.0)
[2023-01-26 12:51] LABS: Anion Gap 5 (5-15); BUN 24 mg/dL (7-18); BUN/Creat Ratio 24.6 RATIO (10-20); Calcium,Total 8.1 mg/dL (8.5-10.1); Chloride 106 mmol/L (98-107); Cholesterol 89 mg/dL (200); Creatinine, Serum 0.98 mg/dL (0.55-1.02); EST Glomerular Filtration Rate 58 mL/min (>60); Est Glom Filt Rate - Afr Amer 70 mL/min (>60); Free T3 2.3 pg/mL (2.18-3.98); Glucose 127 mg/dL (74-106); High Density Lipoprotein 34 mg/dL; Potassium 4.1 mmol/L (3.5-5.1); Sodium Level 138 mmol/L (136-145); Thyroid Stim Hormone (TSH) 1.81 uIU/mL (0.358-3.74); Triglycerides 63 mg/dL; Very Low Density Lipoprotein 13 mg/dL (5-40)
== END | disposition home or self-care (01) ==
LOC: MFPLAB 10:20
PROVIDERS: PCP Family Medicine; Visit Provider Family Medicine
DX: I10 Essential (primary) hypertension (principal); E03.9 Hypothyroidism, unspecified; R53.83 Other fatigue
CPT/HCPCS: 36415; 80048; 80061; 84443; 84481; 85025

== ENCOUNTER 2023-01-28 11:58 | Emergency (ER) | payer MEDICARE, OTHER, SELFPAY ==
[2023-01-28 12:00] VITALS: BP 168/95; PULSE 70; RESP 16; TEMP 36.6; O2SAT 99; BMI 19.7
--- NOTE | 2023-01-28 12:39 | RAD_ITS ---
HISTORY: chest pain. TECHNIQUE: XR Chest 1 View. COMPARISON: 12/09/2021. FINDINGS: CARDIOMEDIASTINAL BORDERS: Heart upper limits of normal in size with pacemaker again seen. Mediastinal contour unchanged with calcification of the aortic knob. LUNGS: Chronic coarse interstitial markings in the lungs. Mild pulmonary vascular congestion with bibasilar opacities. PLEURA: Mild pleural effusions. OSSEOUS STRUCTURES: Osteopenia and degenerative change. RAD/Chest 1 View (Portable) IMPRESSION: Mild bilateral pleural effusions with mild pulmonary vascular congestion. Mild bibasilar atelectasis, possible pneumonia. Electronically Signed: Marcie Law MD at 13:37 EDT ,
[2023-01-28 12:59] LABS: Absolute Lymphocyte Count 1.77 X10^3/uL (0.83-4.51); Absolute Neutrophil Count 2.8 X10^3/uL (2.0-7.7); Basophil# 0.02 X10^3/uL; Basophil% 0.4 % (0-1); Eosinophil# 0.03 X10^3/uL; Eosinophils% 0.6 % (0-5); Hematocrit 35.4 % (37-47); Hemoglobin 10.7 g/dL (12.0-15.0); Lymphocyte # 1.77 X10^3/ul (0.83-4.51); Lymphocyte % 35.3 % (19-41); Mean Corp Hgb Conc 30.2 g/dL (32-36); Mean Corpuscular Hgb 25.7 pg (27.0-32.0); Mean Corpuscular Volume 85.1 fL (81-99); Mean Platelet Vol. 11.1 fl (6.2-12.0); Monocyte# 0.38 X10^3/uL; Monocyte% 7.6 % (0-10); NRBC Flagged by Analyzer 0 % (0-5); Neutrophil % 55.7 % (47-70); Platelet Count 186 K/mm3 (150-450); RBC Distribution Width CV 17.6 % (11.6-14.6); Red Blood Count 4.16 M/mm3 (4.2-5.4)
--- NOTE | 2023-01-28 13:01 | EX.ED.DYSGE1 ---
HPI <LILY Gillespie - Last Filed: 01/28/23 14:43> History of Present Illness Chief Complaint: Weakness Narrative Narrative: 82-year-old female with PMH of HTN, DM2, A-fib status post Watchman device states she woke up this morning just felt fatigued and short of breath. She is having chills. Her daughter came over and thought she looked pale and brought her in for evaluation. She felt nauseated on the way here but no vomiting. She denies chest pain. No recent cough or upper respiratory symptoms. She having normal p.o. intake normal bladder and bowel movements. PFSH <LILY Gillespie - Last Filed: 01/28/23 14:43> [facility] Medical History Acute CVA (cerebrovascular accident) Anxiety Atherosclerotic heart disease of [place] coronary artery without angina pectoris Atrial fibrillation Back pain Bilateral hydronephrosis Bladder neoplasm of uncertain malignant potential Cardiology follow-up encounter Celiac disease Celiac disease COPD (chronic obstructive pulmonary disease) Dietary restriction DM type 2 (diabetes mellitus, type 2) Essential hypertension Gastric reflux [place] History of echocardiogram History of edema History of hiatal hernia History of rheumatic fever History of stress test HLD (hyperlipidemia) HTN (hypertension) HTN (hypertension) Hypokalemia Hyponatremia Incontinence Ischemic stroke Left atrial thrombus 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 Migraine Non-smoker Nonrheumatic mitral (valve) prolapse Paroxysmal atrial fibrillation Premature atrial contractions Premature ventricular contraction Presence of permanent cardiac pacemaker Pulmonary hypertension, secondary Shortness of breath on exertion Sick sinus syndrome Sinus bradycardia Sinus pause Subtherapeutic international normalized ratio (INR) TIA (transient ischemic attack) Urinary tract infection Urinary tract infection 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 Wears dentures Wears glasses Wears partial dentures Home Medications esomeprazole magnesium 40 mg capsule,delayed release 40 mg PO DAILY GERD 04/10/18 [History Last Taken 05/04/22 08:00] clonazepam 0.5 mg tablet 0.5 mg PO BID ANXIETY 10/14/19 [History Last Taken 05/04/22 08:00] cholecalciferol (vitamin D3) 125 mcg (5,000 unit) tablet 125 mcg PO BID #1 TAB 04/01/20 [Rx Last Taken Unknown] clopidogrel 75 mg tablet 75 mg PO DAILY #90 tabs 07/19/22 [Rx Last Taken Unknown] lisinopril 20 mg tablet 30 mg PO BID BP 90 days #270 tabs 08/11/22 [Rx Last Taken Unknown] pravastatin 10 mg tablet 10 mg PO QHS CHOLESTEROL #90 tabs 08/25/22 [Rx Last Taken Unknown] carvedilol 25 mg tablet 25 mg PO BID #60 tabs 11/30/22 [Rx Last Taken Unknown] clonidine HCl 0.1 mg tablet 0.1 mg PO BID #60 tabs 11/30/22 [Rx Last Taken Unknown] furosemide 20 mg tablet 20 mg PO DAILY #30 tabs 12/25/22 [Rx Last Taken Unknown] potassium chloride 20 mEq tablet,extended release 20 meq PO DAILY #30 tabs 12/25/22 [Rx Last Taken Unknown] cephalexin 500 mg capsule 500 mg PO Q6 7 days #28 CAPSULES 01/28/23 [Rx Last Taken Unknown] Allergy/AdvReac Type Severity Reaction Status Date / Time aspirin Allergy Anaphylaxis Verified 01/28/23 12:03 ibuprofen Allergy Anaphylaxis Verified 01/28/23 12:03 Influenza Virus Vaccines Allergy Anaphylaxis Verified 01/28/23 12:03 Penicillins [PCN] Allergy Anaphylaxis Verified 01/28/23 12:03 Sulfa (Sulfonamide Allergy Anaphylaxis Verified 01/28/23 12:03 Antibiotics) amlodipine [From [facility]] AdvReac Severe Cough Verified 01/28/23 12:03 hydralazine AdvReac Severe stopped Verified 01/28/23 12:03 when she had CVA spironolactone AdvReac Severe Hyponaturem Verified 01/28/23 12:03 ia Family History Father CVA (cerebral vascular accident) Brother Hypertension Brother Hypertension Sister Abdominal aortic aneurysm (AAA) Sister CVA (cerebral vascular accident) Hypertension Diabetes Other Cancer Surgical History H/O colonoscopy (~09/27/21) History of back surgery History of biopsy of bladder History of bladder surgery History of cardiac catheterization History of cardiac radiofrequency ablation (RFA) History of hip replacement History of hysterectomy History of radiofrequency ablation procedure for cardiac arrhythmia (~12/09/18) Presence of Watchman left atrial appendage closure device (~08/20/20) Status post placement of implantable loop recorder Social History Smoking Status: Never smoker alcohol intake: never substance use type: does not use caffeine: Yes Type: coffee Number of servings: 1 ROS <LILY Gillespie - Last Filed: 01/28/23 14:43> ROS ED ROS Narrative Constitutional: Positive for chills, malaise. ENT: Negative for sore throat, rhinorrhea. CVS: Negative for palpitations, chest pain, syncope. Respiratory: Positive for shortness of breath. Negative for cough, orthopnea. GI: Positive for nausea. Negative for abdominal pain, vomiting, diarrhea, constipation, melena, hematochezia. : Negative for dysuria, hematuria or frequency. Neuro: Negative for headache, motor/sensory dysfunction. Skin: Negative for rash, wound. EXAM <LILY Gillespie - Last Filed: 01/28/23 14:43> Physical Exam Narrative Exam Narrative: CONST: Patient sitting in no acute distress, appears pale. EYES: Normal inspection. ENT: Normal inspection, moist mucous membranes. NECK: Normal inspection. RESP: No respiratory distress, CTAB. CVS: Regular rate and rhythm, no murmur, no gallop. ABD: Soft and nontender, no guarding or rebound, nondistended. SKIN: Color normal, no rash, warm, dry, intact. EXTREMITIES: Normal appearance, no pedal edema. NEURO: Oriented x4. PSYCH: Normal affect. Const Vital Signs: 01/28/23 12:00 01/28/23 13:28 01/28/23 13:28 Temperature 97.8 F Temperature Source Temporal Pulse Rate 70 Respiratory Rate 16 Respiratory Effort Short of Breath Respiratory Pattern Normal Blood Pressure 168/95 H Blood Pressure Mean 119 Pulse Ox 99 Oxygen Delivery Method Room Air Room Air <Dr. Micha Welsh DO - Last Filed: 01/28/23 14:37> Physical Exam Const Vital Signs: 01/28/23 12:00 01/28/23 13:28 01/28/23 13:28 Temperature 97.8 F Temperature Source Temporal Pulse Rate 70 Respiratory Rate 16 Respiratory Effort Short of Breath Respiratory Pattern Normal Blood Pressure 168/95 H Blood Pressure Mean 119 Pulse Ox 99 Oxygen Delivery Method Room Air Room Air MDM <LILY Gillespie - Last Filed: 01/28/23 14:43> MDM MDM Narrative Medical decision making narrative: History gathered from: Patient and daughter Patient is not feeling well today with chills, nausea. She appears well and nontoxic. Afebrile with normal vital signs. Medical exam unremarkable. Broad work-up initiated to rule out infectious process. She has a normal white count of 5.0, stable hemoglobin at 10.7. BMP unremarkable. Straight cath urine consistent with possible infection. She does straight catheterize at home. CXR shows right pleural effusion and mention pneumonia but patient has no cough or clinical symptoms of pneumonia. COVID test negative. I suspect the source of her symptoms may be a UTI and she was given Rocephin and prescribed Keflex for home. She was instructed to return for any new or worsening symptoms and was discharged in stable condition. Differential: Covid, flu, pneumonia, UTI I have personally performed a face to face assessment of the patient and have reviewed the MARIA D Note. I performed a substantive portion of the visit including all aspects of the following. My ga findings include: History is [patient presents to the emergency department with complaint of not feeling well today. 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 Patient complains of some chills and generalized weakness. She complains of urinary frequency although she self caths herself and she has for many years. She denies any fevers. She denies cough. She does describe some mild dyspnea. She denies blood in her stool or black tarry stool. She denies any rashes. She had some swelling in her lower extremities for about 2 weeks. Patient denies any chest pain. She denies abdominal pain. She has not had vomiting or diarrhea.] Exam is [HEENT-PERRLA, EOMI. Cranial nerves II through XII grossly intact. TMs clear. Mucous membranes moist. No adenopathy. Cardiovascular-regular rate and rhythm without murmur or ectopy Lungs-few rales in the bases left greater than right. No accessory muscle use or retractions., chest wall stable without crepitus or subcu emphysema Abdomen-normoactive bowel sounds, soft, nontender, no rebound or rigidity, no peritoneal signs. Extremities-intact ?4, normal range of motion, normal pulses, atraumatic. No rashes. Patient does have +1 edema both lower extremities.] Medical Decison Making [patient presents with complaint of not feeling well with very nonspecific symptoms. CBC with differential showed a normal white count 5.0 with a platelet count of 186. Hemoglobin was 10.7. Patient had a normal differential. Chemistries unremarkable urine this was positive for 500 trace and 50-100 WBCs and rare bacteria. Culture was sent. 1 view chest x-ray showed small pleural effusions and some pulmonary congestion. There was some question by radiology about possible pneumonia left lower lobe. Clinically I do not feel she has pneumonia. COVID and flu testing was negative. Patient will be given Rocephin 1 g IV. She will be started on Keflex for suspected UTI. Clinically she looks well I feel she can be discharged to home.] Other additions or changes: [None] Lab Data Labs: Laboratory Results - last 24 hr 01/28/23 01/28/23 01/28/23 12:50 12:50 14:20 WBC 5.0 RBC 4.16 L Hgb 10.7 L Hct 35.4 L MCV 85.1 MCH 25.7 L MCHC 30.2 L RDW Std Deviation 55.0 H RDW Coeff of Zhanna 17.6 H Plt Count 186 MPV 11.1 Immature Gran % (Auto) 0.400 Neut % (Auto) 55.7 Lymph % (Auto) 35.3 Banks % (Auto) 7.6 Eos % (Auto) 0.6 Baso % (Auto) 0.4 Absolute Neuts (auto) 2.8 Absolute Lymphs (auto) 1.77 Nucleated RBC % 0 Sodium 137 Potassium 4.6 Chloride 105 Carbon Dioxide 25.0 Anion Gap 7 BUN 22 H Creatinine 1.01 Estim Creat Clear Calc 37.52 Est GFR (MDRD) Af Amer 67 Est GFR (MDRD) Non-Af 56 L BUN/Creatinine Ratio 21.8 H Glucose 164 H Calcium 8.6 Troponin I High Sens 10 Urine Color Yellow Urine Clarity Sl. Cloudy Urine pH 6.0 Ur Specific Paige 1.020 Urine Protein 100 H Urine Glucose (UA) Normal Urine Ketones 15 H Urine Occult Blood 150 H Urine Nitrite Negative Urine Bilirubin 1 H Urine Urobilinogen 4 H Ur Leukocyte Esterase 100 H Urine RBC 0 SEEN Urine WBC 50-100 SEEN Ur Squamous Epith Cells 0 SEEN Urine Bacteria RARE Urine Mucus 0 SEEN Radiography Diagnostic Testing: Clinical Impression(s) from Imaging Studies Chest X-Ray 01/28/23 12:39 IMPRESSION: Mild bilateral pleural effusions with mild pulmonary vascular congestion. Mild bibasilar atelectasis, possible pneumonia. Electronically Signed: Marcie Law MD at 13:37 EDT , <Dr. Micha Welsh, DO - Last Filed: 01/28/23 14:37> [facility] Narrative Medical decision making narrative: I have personally performed a face to face assessment of the patient and have reviewed the MARIA D Note. I performed a substantive portion of the visit including all aspects of the following. My ga findings include: History is [patient presents to the emergency department with complaint of not feeling well today. 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 Patient complains of some chills and generalized weakness. She complains of urinary frequency although she self caths herself and she has for many years. She denies any fevers. She denies cough. She does describe some mild dyspnea. She denies blood in her stool or black tarry stool. She denies any rashes. She had some swelling in her lower extremities for about 2 weeks. Patient denies any chest pain. She denies abdominal pain. She has not had vomiting or diarrhea.] Exam is [HEENT-PERRLA, EOMI. Cranial nerves II through XII grossly intact. TMs clear. Mucous membranes moist. No adenopathy. Cardiovascular-regular rate and rhythm without murmur or ectopy Lungs-few rales in the bases left greater than right. No accessory muscle use or retractions., chest wall stable without crepitus or subcu emphysema Abdomen-normoactive bowel sounds, soft, nontender, no rebound or rigidity, no peritoneal signs. Extremities-intact ?4, normal range of motion, normal pulses, atraumatic. No rashes. Patient does have +1 edema both lower extremities.] Medical Decison Making [patient presents with complaint of not feeling well with very nonspecific symptoms. CBC with differential showed a normal white count 5.0 with a platelet count of 186. Hemoglobin was 10.7. Patient had a normal differential. Chemistries unremarkable urine this was positive for 500 trace and 50-100 WBCs and rare bacteria. Culture was sent. 1 view chest x-ray showed small pleural effusions and some pulmonary congestion. There was some question by radiology about possible pneumonia left lower lobe. Clinically I do not feel she has pneumonia. COVID and flu testing was negative. Patient will be given Rocephin 1 g IV. She will be started on Keflex for suspected UTI. Clinically she looks well I feel she can be discharged to home.] Other additions or changes: [None] Lab Data Attestation: I reviewed the patient's lab results. Labs: Laboratory Results - last 24 hr 01/28/23 01/28/23 01/28/23 12:50 12:50 14:20 WBC 5.0 RBC 4.16 L Hgb 10.7 L Hct 35.4 L MCV 85.1 MCH 25.7 L MCHC 30.2 L RDW Std Deviation 55.0 H RDW Coeff of Zhanna 17.6 H Plt Count 186 MPV 11.1 Immature Gran % (Auto) 0.400 Neut % (Auto) 55.7 Lymph % (Auto) 35.3 Banks % (Auto) 7.6 Eos % (Auto) 0.6 Baso % (Auto) 0.4 Absolute Neuts (auto) 2.8 Absolute Lymphs (auto) 1.77 Nucleated RBC % 0 Sodium 137 Potassium 4.6 Chloride 105 Carbon Dioxide 25.0 Anion Gap 7 BUN 22 H Creatinine 1.01 Estim Creat Clear Calc 37.52 Est GFR (MDRD) Af Amer 67 Est GFR (MDRD) Non-Af 56 L BUN/Creatinine Ratio 21.8 H Glucose 164 H Calcium 8.6 Troponin I High Sens 10 Urine Color Yellow Urine Clarity Sl. Cloudy Urine pH 6.0 Ur Specific Paige 1.020 Urine Protein 100 H Urine Glucose (UA) Normal Urine Ketones 15 H Urine Occult Blood 150 H Urine Nitrite Negative Urine Bilirubin 1 H Urine Urobilinogen 4 H Ur Leukocyte Esterase 100 H Urine RBC 0 SEEN Urine WBC 50-100 SEEN Ur Squamous Epith Cells 0 SEEN Urine Bacteria RARE Urine Mucus 0 SEEN Radiography Diagnostic Testing: Clinical Impression(s) from Imaging Studies Chest X-Ray 01/28/23 12:39 IMPRESSION: Mild bilateral pleural effusions with mild pulmonary vascular congestion. Mild bibasilar atelectasis, possible pneumonia. Electronically Signed: Marcie Law MD at 13:37 EDT , 1 view chest x-ray obtained interpreted by myself as bilateral small effusions with increased markings in the left lower lobe. Radiology essentially agreement. EKG Initial EKG: Attestation: I personally reviewed and interpreted this EKG as follows: Comments: Ventricularly paced rhythm with a rate of [address] changes. When compared compared with prior EKG no significant changes noted. Prior EKG tracings: available for review Prior: Unchanged Discharge Plan Triage Chief Complaint: Weakness ED Midlevel Provider: Nuris Powell ED Provider: Micha Welsh Dx/Rx/DC Orders Clinical Impression: Acute UTI Instructions: ED Cystitis Female Adult Prescriptions: New cephalexin 500 mg capsule 500 mg PO Q6 7 Days Qty: 28 0RF No Action esomeprazole magnesium 40 mg capsule,delayed release(DR/EC) 40 mg PO DAILY carvedilol 25 mg tablet 25 mg PO BID Qty: 60 11RF Rx Instructions: must administer with a meal/food clonidine HCl 0.1 mg tablet 0.1 mg PO BID Qty: 60 11RF clonazepam 0.5 MG tablet 0.5 mg PO BID Label Comments: ANXIETY Rx Instructions: 1 PO Q AM and 1-2 Q HS cholecalciferol (vitamin D3) 125 mcg (5,000 unit) tablet 125 mcg PO BID Qty: 1 0RF clopidogrel 75 mg tablet 75 mg PO DAILY Qty: 90 3RF lisinopril 20 mg tablet 30 mg PO BID 90 Days Qty: 270 3RF pravastatin 10 mg tablet 10 mg PO QHS Qty: 90 3RF potassium chloride 20 mEq tablet extended release 20 meq PO DAILY Qty: 30 11RF furosemide 20 mg tablet 20 mg PO DAILY Qty: 30 11RF Primary Care Provider: Dillon Brasher Referrals: Dillon Brasher MD [Primary Care Provider] - Activity Restrictions/Additional Instructions: Antibiotics for UTI. If symptoms worsen return to the ER, otherwise follow-up with your primary care doctor. Disposition Disposition: Home, Self Care
[2023-01-28 13:15] LABS: Anion Gap 7 (5-15); BUN 22 mg/dL (7-18); BUN/Creat Ratio 21.8 RATIO (10-20); Calcium,Total 8.6 mg/dL (8.5-10.1); Chloride 105 mmol/L (98-107); Creatinine, Serum 1.01 mg/dL (0.55-1.02); EST Glomerular Filtration Rate 56 mL/min (>60); Est Glom Filt Rate - Afr Amer 67 mL/min (>60); Estimated Creatinine Clearance 37.52 ml/min; Glucose 164 mg/dL (74-106); Potassium 4.6 mmol/L (3.5-5.1); Sodium Level 137 mmol/L (136-145); Troponin-I HS (w/2H Reflex) 10 pg/mL (3.0-54.0)
[2023-01-28 14:23] LABS: Mucous, Urine 0 SEEN /hpf (<or=2+); Red Blood Cells-Urine 0 SEEN /hpf (0-5); Squamous Epithelial Cells - UA 0 SEEN /hpf (5-10)
[2023-01-28 14:24] LABS: Color, Urine Yellow (Yellow); Glucose, Dipstick Normal (Normal); Ketone-Dipstick 15 mg/dl (Negative); Leukocyte Esterase-Dipstick 100 /ul (Negative); Nitrite-Dipstick Negative (Negative); Occult Blood-Urine 150 /ul (Negative); Protein-Dipstick 100 mg/dl (Negative); Urine Clarity Sl. Cloudy (Clear); Urine Urobilinogen 4 mg/dl (Normal)
[2023-01-28 14:25] LABS: Urine Bilirubin Dipstick 1 mg/dL (Negative)
[2023-01-28] MEDS: 0.9% Normal Saline 1,000 ML 999 ML IV (14:25)
[2023-01-28 14:30] LABS: Bacteria RARE /hpf (None Seen); White Blood Cells 50-100 SEEN /hpf (0-5)
[2023-01-28 15:04] VITALS: BP 162/82; PULSE 70; RESP 19; O2SAT 97
[2023-01-28] MEDS: Ceftriaxone 1 GM/50 ML BAG IV (15:04)
== END 2023-01-28 15:47 | disposition home or self-care (01) ==
PROVIDERS: Physician Assistant; Emergency Provider Emergency Medicine; PCP Family Medicine; Visit Provider Emergency Medicine
DX: N39.0 Urinary tract infection, site not specified (principal); I25.10 Atherosclerotic heart disease of native coronary artery without angina pectoris; R60.0 Localized edema; R06.02 Shortness of breath; Z86.73 Personal history of transient ischemic attack (TIA), and cerebral infarction without residual deficits; Z95.0 Presence of cardiac pacemaker
CPT/HCPCS: 71045; 80048; 81001; 84484; 85025; 87077; 87086; 87088; 87186; 87428; 93005; 96361; 96365; 99284; A4216

== ENCOUNTER → 2023-01-30 | Outpatient (CLI) | payer MEDICARE, OTHER, SELFPAY ==
--- NOTE | 2023-01-30 15:20 | US_ITS ---
EXAM: US RETROPERITONEAL LIMITED, RENAL CLINICAL INDICATION: URINARY RETENTION TECHNIQUE: Limited grayscale and color Doppler sonographic evaluation of the retroperitoneum was performed. COMPARISON: 09/20/2022. FINDINGS: RIGHT KIDNEY: Resolution of the previously noted mild hydronephrosis. No shadowing calculus. No perinephric collection is demonstrated. The right kidney measures 9.9 cm in length. LEFT KIDNEY: The left kidney measures 8.7 cm in length. BLADDER: Posterior wall of the urinary bladder appears thickened similar to the previous exam. US/Kidney and Bladder IMPRESSION: 1. Posterior wall of the urinary bladder appears thickened similar to the previous exam. 2. Resolution of the previously noted mild hydronephrosis. Electronically Signed: Sergio Sevilla MD at 0:40 EDT ,
== END | disposition home or self-care (01) ==
LOC: US 15:19
PROVIDERS: PCP Family Medicine; Referring Provider Urology; Visit Provider Urology
DX: R33.9 Retention of urine, unspecified (principal); N13.30 Unspecified hydronephrosis
CPT/HCPCS: 76770

== ENCOUNTER → 2023-02-05 | Outpatient (CLI) | payer MEDICARE, OTHER, SELFPAY ==
--- NOTE | 2023-02-05 15:00 | RAD_ITS ---
INDICATION: SOB EXAMINATION: Frontal and lateral views of the chest. COMPARISON: Chest x-ray January 28, 2023. FINDINGS: Frontal and lateral views of the chest were obtained. A pacing device is in the left anterior chest wall. The cardiac silhouette is mildly enlarged. Hyperinflation. Small to moderate bilateral pleural effusions are similar to the prior exam. Atelectasis in the bilateral lower lobes is associated. No pneumothorax. RAD/Chest PA and Lateral IMPRESSION: [id number] bilateral pleural effusions with associated atelectasis. Electronically Signed: Everardo Baltazar MD at 22:20 EDT ,
[2023-02-05 15:26] LABS: Absolute Lymphocyte Count 2.42 X10^3/uL (0.83-4.51); Absolute Neutrophil Count 1.9 X10^3/uL (2.0-7.7); Basophil# 0.04 X10^3/uL; Basophil% 0.8 % (0-1); Eosinophil# 0.06 X10^3/uL; Eosinophils% 1.2 % (0-5); Hematocrit 37.2 % (37-47); Hemoglobin 11.3 g/dL (12.0-15.0); Lymphocyte # 2.42 X10^3/ul (0.83-4.51); Lymphocyte % 48.1 % (19-41); Mean Corp Hgb Conc 30.4 g/dL (32-36); Mean Corpuscular Hgb 25.9 pg (27.0-32.0); Mean Corpuscular Volume 85.1 fL (81-99); Mean Platelet Vol. 10.6 fl (6.2-12.0); Monocyte# 0.56 X10^3/uL; Monocyte% 11.1 % (0-10); NRBC Flagged by Analyzer 0 % (0-5); Neutrophil # 1.94 X10^3/uL (2.7-7.7); Neutrophil % 38.6 % (47-70); Platelet Count 187 K/mm3 (150-450); RBC Distribution Width SD 55.7 fl (35.1-43.9); Red Blood Count 4.37 M/mm3 (4.2-5.4)
[2023-02-05 15:46] LABS: BNP,B-Type NATRIURETIC PEPTIDE 699.2 pg/mL (0-100)
[2023-02-05 15:47] LABS: Anion Gap 3 (5-15); BUN 14 mg/dL (7-18); BUN/Creat Ratio 16.2 RATIO (10-20); Calcium,Total 8.4 mg/dL (8.5-10.1); Chloride 104 mmol/L (98-107); Creatinine, Serum 0.86 mg/dL (0.55-1.02); EST Glomerular Filtration Rate 67 mL/min (>60); Est Glom Filt Rate - Afr Amer 81 mL/min (>60); Glucose 111 mg/dL (74-106); Potassium 4.2 mmol/L (3.5-5.1); Sodium Level 136 mmol/L (136-145)
== END | disposition home or self-care (01) ==
LOC: RAD 14:56
PROVIDERS: PCP Family Medicine; Referring Provider Nurse Practitioner Gerontology; Visit Provider Nurse Practitioner Gerontology
DX: R06.02 Shortness of breath (principal)
CPT/HCPCS: 36415; 71046; 80048; 83880; 85025

== ENCOUNTER → 2023-02-13 | Outpatient (CLI) | payer MEDICARE, OTHER, SELFPAY ==
--- NOTE | 2023-02-13 11:26 | RAD_ITS ---
EXAM: XR CHEST, 2 VIEWS CLINICAL INDICATION: check status of bilateral pleural effusions TECHNIQUE: Frontal and lateral views of the chest. COMPARISON: Previous chest radiographs of 02/05/2023. FINDINGS: LUNGS AND PLEURAL SPACES: Lungs remain hyperinflated secondary to pulmonary emphysema. Left pleural effusion has resolved. Right costophrenic angles remain minimally blunted by a small pleural effusion which has decreased in size. Left basilar atelectasis has resolved. Right basilar atelectasis shows subtotal resolution with minimal atelectasis persisting in the right lung base laterally. No patchy pneumonia. No pulmonary edema. HEART: Heart size remains borderline enlarged. There is pruning of the peripheral pulmonary vascular markings due to the pulmonary emphysema. No cephalization of pulmonary blood flow. MEDIASTINUM: Thoracic aorta remains calcific and minimally elongated. Stable pulmonary roberta. BONES/JOINTS: No acute osseous abnormality. Mildly accentuated thoracic kyphosis. Mid-thoracic degenerative disc space narrowing. SOFT TISSUES: Unremarkable. TUBES, LINES AND DEVICES: Cardiac pacemaker remains in place. Cage device is projected over the left side of the heart, unchanged in position and this may represent an occlusive device within the left atrial appendage. RAD/Chest PA and Lateral IMPRESSION: 1. Resolution of left pleural effusion and left basilar atelectasis. 2. Interval decrease in size of the small right pleural effusion. Subtotal resolution of right basilar atelectasis. 3. Findings of pulmonary emphysema again demonstrated. Electronically Signed: Amilcar Hylton MD at 7:24 EDT ,
[2023-02-13 12:49] LABS: Anion Gap 5 (5-15); BUN 19 mg/dL (7-18); BUN/Creat Ratio 19.8 RATIO (10-20); Calcium,Total 8.7 mg/dL (8.5-10.1); Chloride 104 mmol/L (98-107); Creatinine, Serum 0.96 mg/dL (0.55-1.02); EST Glomerular Filtration Rate 59 mL/min (>60); Est Glom Filt Rate - Afr Amer 72 mL/min (>60); Glucose 116 mg/dL (74-106); Potassium 4.2 mmol/L (3.5-5.1); Sodium Level 139 mmol/L (136-145)
== END | disposition home or self-care (01) ==
LOC: RAD 11:16
PROVIDERS: PCP Family Medicine; Referring Provider Nurse Practitioner Gerontology; Visit Provider Nurse Practitioner Gerontology
DX: R79.89 Other specified abnormal findings of blood chemistry (principal); J90 Pleural effusion, not elsewhere classified
CPT/HCPCS: 36415; 71046; 80048

== ENCOUNTER → 2023-03-08 | Outpatient (CLI) | payer MEDICARE, OTHER, SELFPAY ==
--- NOTE | 2023-03-08 13:43 | ECHOD_ITS ---
Reason For Study: PLEURAL EFFUSION Procedure This was a 2D Doppler, Color Flow transthoracic echocardiogram. Exam performed in department. Left Ventricle Normal LV size. The estimated ejection fraction is 30 %. Stage 3 diastolic dysfunction. There is moderate to severe global hypokinesis of the left ventricle. Right Ventricle Mildly dilated right ventricle. ICD or pacer leads identified within the right ventricle. Mild global right ventricular systolic dysfunction. Atria Normal left atrium. Normal right atrium. Mitral Valve Bileaflet diffuse mitral valve thickening. Mild-Moderate (1-2+) eccentric mitral valve insufficiency. Tricuspid Valve Normal tricuspid valve. Moderate (2+) tricuspid valve insufficiency. Pulmonary artery systolic pressure is 86 mmHg. Severe pulmonary hypertension. Aortic Valve Trisinus/trileaflet aortic valve. Pulmonic Valve Normal pulmonic valve. Mild (1+) pulmonic valve insufficiency. Great Vessels Normal aortic root. The pulmonary artery is normal size. The inferior vena cava is dilated. Pericardium/Pleural No pericardial effusion. MMode/2D Measurements & Calculations LVIDd: 4.8 cm IVSd: 1.0 cm Ao root diam: 3.4 cm LVIDs: 3.4 cm LVPWd: 1.00 cm RVDd: 3.3 cm FS: 29.2 % LAV(MOD-bp): 49.5 ml RVOT diam: 2.7 cm LVAd ap4: 21.2 cm2 LAV(MOD-bp) Indexed: 31.9 ml/m2 LVLd ap4: 6.9 cm LAV(MOD-sp2): 54.6 ml EDV(MOD-sp4): 55.0 ml LAV(MOD-sp4): 46.3 ml EDV(sp4-el): 55.6 ml LVAs ap4: 18.0 cm2 LVLs ap4: 6.9 cm ESV(MOD-sp4): 38.1 ml ESV(sp4-el): 40.1 ml EF(MOD-sp4): 30.8 % EF(sp4-el): 27.8 % SV(MOD-sp4): 16.9 ml SV(sp4-el): 15.5 ml LA A4 area: 17.8 cm2 LA dimension(2D): 4.2 cm RA A4 area: 19.0 cm2 TAPSE: 1.5 cm Time Measurements MV dec time: 0.20 sec Doppler Measurements & Calculations MV E max navarro: 95.7 cm/sec Lat Peak E' Navarro: 7.1 cm/sec Med Peak E' Navarro: 3.4 cm/sec MV A max navarro: 32.6 cm/sec E/E' lat: 13.5 E/E' med: 28.5 MV E/A: 2.9 MV V2 max: 120.5 cm/sec Ao V2 max: 123.1 cm/sec MV max P.8 mmHg MV dec slope: 482.1 cm/sec2 Ao max P.1 mmHg MV V2 mean: 67.9 cm/sec Ao V2 mean: 85.3 cm/sec MV mean P.3 mmHg Ao mean P.3 mmHg MV V2 VTI: 28.3 cm Ao V2 VTI: 26.8 cm AV (velocity ratio): 0.71 LV V1 max: 89.7 cm/sec MR max navarro: 561.1 cm/sec PA V2 max: 79.7 cm/sec LV V1 max P.2 mmHg MR max P.9 mmHg PA V2 mean: 54.0 cm/sec LV V1 mean P.8 mmHg MR mean navarro: 471.1 cm/sec LV V1 mean: 61.6 cm/sec MR mean P.0 mmHg LV V1 VTI: 19.0 cm MR VTI: 229.0 cm TR max navarro: 421.8 cm/sec TR max P.2 mmHg ECHO/Echo Complete Interpretation Summary Normal LV size. The estimated ejection fraction is 30 %. Stage 3 diastolic dysfunction. There is moderate to severe global hypokinesis of the left ventricle. Pulmonary artery systolic pressure is 86 mmHg. Severe pulmonary hypertension. Compared to previous study, the left ventricular systolic function has improved .. Ordering Physician: Jami Jones Referring Physician: Jami Jones Performed By: Chayo Mckinney RCS
== END | disposition home or self-care (01) ==
LOC: CVS 13:41
PROVIDERS: PCP Family Medicine; Referring Provider Nurse Practitioner Gerontology; Visit Provider Nurse Practitioner Gerontology
DX: J90 Pleural effusion, not elsewhere classified (principal); I50.9 Heart failure, unspecified; R06.00 Dyspnea, unspecified; R79.89 Other specified abnormal findings of blood chemistry; R60.0 Localized edema; I25.10 Atherosclerotic heart disease of native coronary artery without angina pectoris
CPT/HCPCS: 93306

== ENCOUNTER → 2023-03-13 | Outpatient (CLI) | payer MEDICARE, OTHER, SELFPAY ==
[2023-03-13 11:41] LABS: Anion Gap 5 (5-15); BUN 17 mg/dL (7-18); BUN/Creat Ratio 16.8 RATIO (10-20); Calcium,Total 8.7 mg/dL (8.5-10.1); Chloride 105 mmol/L (98-107); Creatinine, Serum 1.01 mg/dL (0.55-1.02); EST Glomerular Filtration Rate 56 mL/min (>60); Est Glom Filt Rate - Afr Amer 67 mL/min (>60); Glucose 87 mg/dL (74-106); Potassium 3.7 mmol/L (3.5-5.1); Sodium Level 138 mmol/L (136-145)
== END | disposition home or self-care (01) ==
LOC: LAB 11:04
PROVIDERS: PCP Family Medicine; Referring Provider Nurse Practitioner Gerontology; Visit Provider Nurse Practitioner Gerontology
DX: Z51.81 Encounter for therapeutic drug level monitoring (principal); Z79.899 Other long term (current) drug therapy
CPT/HCPCS: 36415; 80048

== ENCOUNTER → 2023-04-02 | Outpatient (CLI) | payer MEDICARE, OTHER, SELFPAY | END | disposition home or self-care (01) | PROVIDERS: PCP Family Medicine; Visit Provider Nurse Practitioner Family | DX: N30.00 Acute cystitis without hematuria (principal) | CPT/HCPCS: 87077; 87086; 87088; 87186 ==

== ENCOUNTER 2023-05-06 10:02 | Emergency (ER) | payer MEDICARE, OTHER, SELFPAY ==
[2023-05-06 10:03] VITALS: PULSE 89; RESP 21; TEMP 37.9; O2SAT 95; BMI 18.3
--- NOTE | 2023-05-06 10:20 | EKG12_ITS ---
Test Reason : ABD PAIN Blood Pressure : / mmHG Vent. Rate : 090 BPM Atrial Rate : 090 BPM P-R Int : 140 ms QRS Dur : 076 ms QT Int : 384 ms P-R-T Axes : 096 064 262 degrees QTc Int : 469 ms ATRIAL FLUTTER Minimal voltage criteria for LVH, may be normal variant ( Sokolow-Royal ) ST & Marked T wave abnormality, consider anterolateral ischemia Abnormal ECG Confirmed by HIEN TOLEDO, CONNIE ([id number]), photo editor GISELLA ARREOLA ([id number]) on 05/09/2023 10:45:13 AM Referred By: CHEIKH/VIVIANA Confirmed By:CONNIE STANFORD MD
--- NOTE | 2023-05-06 10:47 | CT_ITS ---
STUDY: CT ABDOMEN AND PELVIS WITH CONTRAST REASON FOR EXAM: Female, 82 years old. Abdominal pain and distention RADIATION DOSAGE (If Supplied By Facility): CTDIvol = ( 16.13 ) mGy, DLP = ( 404.06 ) mGycm TECHNIQUE: Transaxial images were obtained from the dome of the diaphragm to the symphysis pubis without oral contrast. IV 100mL Isovue-[id number] was administered. Sagittal and coronal images were reconstructed. Individualized dose optimization techniques were used for this CT. COMPARISON: 04/11/2022 FINDINGS: Chronic interstitial changes in the lung bases, no superimposed process. Pacer leads seen along the base of the heart. Liver is heterogeneous suggesting some fatty infiltration there is no discrete lesion. There are surgical clips in the gallbladder fossa consistent with a prior cholecystectomy. Normal spleen. Pancreas is unremarkable, there is dilatation of the pancreatic duct but this is consistent with patient''s history of previous cholecystectomy. Normal bilateral adrenal glands. Previously described hydronephrosis and hydroureter has progressed/worsened since the previous study. Both ureters are dilated along their entire courses but there is no obstructing stone identified in either ureter. Findings suggest long-standing vesicoureteral reflux. The bladder shows diffuse wall thickening consistent with chronic cystitis.. Normal visualized stomach. Nondistended air-fluid levels in both small and large bowel loops throughout the abdomen consistent with ileus. There are a few scattered diverticula in the colon without CT evidence of acute diverticulitis. Appendix not visualized Peripheral calcifications in the abdominal aorta without aneurysm. Normal inferior vena cava. Normal retroperitoneum. Uterus is absent consistent with previous hysterectomy. Normal abdominal wall. Degenerative bony changes noted throughout the lumbar spine and pelvis, no demonstrated fracture or suspicious osseous lesion. Replaced right hip joint free of complication CT/Abdomen/Pelvis W IV Cont ONLY IMPRESSION: Progression/worsening of bilateral hydronephrosis and hydroureter since the previous study. No obstructing stone noted in either kidney or ureter. Findings likely due to long-standing vesicoureteral reflux. Diffuse bladder wall thickening consistent with chronic cystitis. Small and large bowel ileus Heterogeneity within the liver suggesting fatty infiltration, no discrete lesion Degenerative bony changes, replaced right hip joint free of complication Scattered colonic diverticula, no CT evidence of acute diverticulitis. Electronically Signed: Jermaine Weaver MD at 12:42 EDT ,
--- NOTE | 2023-05-06 10:48 | ED.VIS.GI ---
HPI HPI - GI History of Present Illness Chief Complaint: Abd Pain Narrative Narrative: 82-year-old female past medical history of hypertension, presents with nonlocalized abdominal pain that began this morning. It woke her from sleep. She states yesterday everything was fine and she had a normal bowel movement. She awoke in the middle the night with pain. She denies any nausea or vomiting, no diarrhea, no fevers or chills. No dysuria or hematuria. She just describes constant pain throughout her abdomen. Her history and physical is mildly limited secondary to her age. She is unsure if she has had previous abdominal surgeries, or at least which ones. She presents because of the abdominal pain that is unrelenting. [facility] Medical History Acute CVA (cerebrovascular accident) Anxiety Atherosclerotic heart disease of [place] coronary artery without angina pectoris Atrial fibrillation Back pain Bilateral hydronephrosis Bladder neoplasm of uncertain malignant potential Cardiology follow-up encounter Celiac disease Celiac disease COPD (chronic obstructive pulmonary disease) Dietary restriction DM type 2 (diabetes mellitus, type 2) Essential hypertension Gastric reflux [place] fever History of echocardiogram History of edema History of hiatal hernia History of rheumatic fever History of stress test HLD (hyperlipidemia) HTN (hypertension) HTN (hypertension) Hypokalemia Hyponatremia Incontinence Ischemic stroke Left atrial thrombus MCFP current use of anticoagulant therapy Migraine Non-smoker Nonrheumatic mitral (valve) prolapse Paroxysmal atrial fibrillation Premature atrial contractions Premature ventricular contraction Presence of permanent cardiac pacemaker Pulmonary hypertension, secondary Shortness of breath on exertion Sick sinus syndrome Sinus bradycardia Sinus pause Subtherapeutic international normalized ratio (INR) TIA (transient ischemic attack) Urinary tract infection Urinary tract infection 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 Wears dentures Wears glasses Wears partial dentures Home Medications esomeprazole magnesium 40 mg capsule,delayed release 40 mg PO DAILY GERD 04/10/18 [History Last Taken 05/04/22 08:00] clonazepam 0.5 mg tablet 0.5 mg PO BID ANXIETY 10/14/19 [History Last Taken 05/04/22 08:00] clopidogrel 75 mg tablet 75 mg PO DAILY #90 tabs 07/19/22 [Rx Last Taken Unknown] pravastatin 10 mg tablet 10 mg PO QHS CHOLESTEROL #90 tabs 08/25/22 [Rx Last Taken Unknown] potassium chloride 20 mEq tablet,extended release 20 meq PO DAILY #30 tabs 05/31/23 [Rx Last Taken Unknown] minoxidil 2.5 mg tablet 2.5 mg PO DAILY 02/05/23 [History Last Taken Unknown] furosemide 20 mg tablet 40 mg (2 x 20 mg) PO DAILY may need to take extra prn for swelling/sob/wtgain #180 tabs 02/09/23 [Rx Last Taken Unknown] metoprolol succinate 50 mg tablet,extended release 24 hr 50 mg PO BID this is a dose increase #60 tabs 03/27/23 [Rx Last Taken Unknown] lisinopril 40 mg tablet 40 mg PO DAILY #90 tabs 04/02/23 [Rx Last Taken Unknown] levofloxacin 500 mg tablet 500 mg PO DAILY #7 tabs 05/06/23 [Rx Last Taken Unknown] Allergy/AdvReac Type Severity Reaction Status Date / Time aspirin Allergy Anaphylaxis Verified 05/06/23 10:56 ibuprofen Allergy Anaphylaxis Verified 05/06/23 10:56 Influenza Virus Vaccines Allergy Anaphylaxis Verified 05/06/23 10:56 Penicillins [PCN] Allergy Anaphylaxis Verified 05/06/23 10:56 Sulfa (Sulfonamide Allergy Anaphylaxis Verified 05/06/23 10:56 Antibiotics) amlodipine [From [facility]] AdvReac Severe Cough Verified 05/06/23 10:56 hydralazine AdvReac Severe stopped Verified 05/06/23 10:56 when she had CVA spironolactone AdvReac Severe Hyponaturem Verified 05/06/23 10:56 ia Family History Father CVA (cerebral vascular accident) Brother Hypertension Brother Hypertension Sister Abdominal aortic aneurysm (AAA) Sister CVA (cerebral vascular accident) Hypertension Diabetes Other Cancer Surgical History H/O colonoscopy (~09/27/21) History of back surgery History of biopsy of bladder History of bladder surgery History of cardiac catheterization History of cardiac radiofrequency ablation (RFA) History of hip replacement History of hysterectomy History of radiofrequency ablation procedure for cardiac arrhythmia (~12/09/18) Presence of Watchman left atrial appendage closure device (~08/20/20) Status post placement of implantable loop recorder Social History Smoking Status: Never smoker alcohol intake: never substance use type: does not use caffeine: Yes Type: coffee Number of servings: 1 ROS ROS ED ROS Narrative Constitutional: No fever, no chills. HEENT: No sore throat. No neck pain. No loss of vision. No rhinorrhea. Cardiovascular: No chest pain. No palpitations. No pedal edema. Respiratory: No cough, no shortness of breath. Abdominal: Diffuse abdominal pain. No nausea. No vomiting. No diarrhea. No problems with bowel movements. Genitourinary: No dysuria. No hematuria. Musculoskeletal: No myalgias. No arthralgias. Neurologic: No headaches. No dizziness. No lightheadedness. Skin: No rash. No change in color. Psychiatric: No depression. No anxiety. EXAM Physical Exam Narrative Exam Narrative: Afebrile. Vital signs noted. HEENT: Normocephalic. Atraumatic. PERRL, EOMI. Neck soft and supple. No point tenderness or step off. Cardiovascular: Regular rate and rhythm. No murmurs, rubs, or gallops appreciated. Respiratory: No tachypnea. Lungs clear to auscultation bilaterally. Gastrointestinal: Abdomen soft, mild diffuse tenderness with normoactive bowel sounds. No rebound or guarding. Neurological: Awake. Alert. Nonfocal, nonlateralizing. Skin: No rash. Normal color. No pallor. Musculoskeletal: No pedal edema. Full range of motion extremities. Const Vital Signs: 05/06/23 10:03 05/06/23 11:44 Temperature 100.2 F H 99.2 F H Temperature Source Temporal Oral Pulse Rate 89 89 Respiratory Rate 21 H 18 Blood Pressure 133/99 H Blood Pressure Mean 110 Pulse Ox 95 100 Oxygen Delivery Method Room Air Room Air MDM MDM MDM Narrative Medical decision making narrative: In the differential diagnosis would be obstruction versus colitis versus nonspecific abdominal pain. Comprehensive work-up was pursued. EKG was obtained per nursing protocol and interpreted by myself as normal sinus rhythm at 90 bpm without ectopy or acute ST changes. No STEMI. She has T wave inversion that has been old when compared to EKG in January 2023. I reviewed her laboratory work from today, she has normal white count of 7.0, hemoglobin 12.7, hematocrit 40.0, platelet count of 266. In review of her electrolyte panel, sodium normal at 136 with potassium 3.6, BUN of 18 and creatinine slightly elevated at 1.18. Glucose is appropriately elevated at 153 with a normal anion gap of 6. She had an elevated temperature of 100.2 ?F. I did add a lactic acid which is elevated at 2.1. Blood cultures are currently pending. However, she is not really meeting other SIRS criteria as her pulse is 89. While her urine shows WBCs greater than 100 there is 0 bacteria. This was sent for culture. However, given her elevated temperature I will treat her with Levaquin as she has anaphylaxis to penicillin. CT of the abdomen and pelvis was obtained for her abdominal pain. While it shows ileus of the small and large bowel, she did have a bowel movement in the emergency department and states that she is feeling improved mildly. It does show chronic hydronephrosis and hydroureter from vesicular reflux is suspected. She also has chronic UTI with thickening of the bladder wall. However, given her fever, and lactic acidosis, I do feel that she merits observation. Patient was discussed with the hospitalist. In discussion with Dr. Augustin, he states that he has spoken with the family and the patient, and she prefers outpatient discharge with follow-up. He recommended starting her on Levaquin 500 mg daily for the next 7 days. Prescription was written and transmitted. As she prefers to go home with outpatient treatment, return instructions to the emergency department were reviewed with her, otherwise she will follow-up with her primary care provider. Disposition is discharged home in stable condition. History & Record Review Discussion w/independent historian: Patient and Family Additional record(s) reviewed:: Prior ED visit and Prior labs Lab Data Attestation: I reviewed the patient's lab results. Labs: Laboratory Results - last 24 hr 05/06/23 05/06/23 05/06/23 10:55 11:00 11:20 WBC 7.0 RBC 4.91 Hgb 12.7 Hct 40.0 MCV 81.5 MCH 25.9 L MCHC 31.8 L RDW Std Deviation 73.5 H RDW Coeff of Zhanna 25.0 H Plt Count 266 MPV 10.4 Immature Gran % (Auto) 0.300 Neut % (Auto) 74.7 H Lymph % (Auto) 16.5 L [place] % (Auto) 8.2 Eos % (Auto) 0.0 Baso % (Auto) 0.3 Absolute Neuts (auto) 5.2 Absolute Lymphs (auto) 1.15 Nucleated RBC % 0 Differential Comment SCANNED Anisocytosis 2+ Microcytosis 1+ Macrocytosis 1+ Sodium 136 Potassium 3.6 Chloride 102 Carbon Dioxide 28.0 Anion Gap 6 BUN 18 Creatinine 1.18 H Estim Creat Clear Calc 29.88 Est GFR (MDRD) Af Amer 56 L Est GFR (MDRD) Non-Af 47 L BUN/Creatinine Ratio 15.3 Glucose 153 H Lactic Acid 2.1 H* Calcium 8.7 Total Bilirubin 1.30 H AST 40 H ALT 43 Alkaline Phosphatase 158 H Troponin I High Sens 10 Total Protein 7.4 Albumin 3.8 Globulin 3.6 Albumin/Globulin Ratio 1.1 Urine Color Yellow Urine Clarity Cloudy Urine pH 7.0 Ur Specific [place] 1.010 Urine Protein 500 H Urine Glucose (UA) Normal Urine Ketones Negative Urine Occult Blood 150 H Urine Nitrite Negative Urine Bilirubin Negative Urine Urobilinogen Normal Ur Leukocyte Esterase 500 H Urine RBC 0 SEEN Urine WBC >100 SEEN Ur Squamous Epith Cells 0 SEEN Urine Bacteria 0 SEEN Urine Mucus 0 SEEN Radiography Diagnostic Testing: Clinical Impression(s) from Imaging Studies Abdomen/Pelvis CT 05/06/23 10:47 IMPRESSION: Progression/worsening of bilateral hydronephrosis and hydroureter since the previous study. No obstructing stone noted in either kidney or ureter. Findings likely due to long-standing vesicoureteral reflux. Diffuse bladder wall thickening consistent with chronic cystitis. Small and large bowel ileus Heterogeneity within the liver suggesting fatty infiltration, no discrete lesion Degenerative bony changes, replaced right hip joint free of complication Scattered colonic diverticula, no CT evidence of acute diverticulitis. Electronically Signed: Jermaine Weaver MD at 12:42 EDT Reading Location ID and State: [facility] / [place] , Service [place] , Management Discussion w/another healthcare provider: Hospitalist (Dr. Augustin) Discharge Plan Triage Chief Complaint: Abd Pain ED Provider: Kole Marx Dx/Rx/DC Orders Clinical Impression: UTI (urinary tract infection), Fever, Ileus, Abdominal pain, Lactic acidosis Instructions: Ileus, ED Fever Control (Adult), ED Cystitis Female Adult Prescriptions: New levofloxacin 500 mg tablet 500 mg PO DAILY Qty: 7 0RF No Action esomeprazole magnesium 40 mg capsule,delayed release(DR/EC) 40 mg PO DAILY minoxidil 2.5 mg tablet 2.5 mg PO DAILY metoprolol succinate 50 mg tablet extended release 24 hr 50 mg PO BID Qty: 60 11RF clonazepam 0.5 MG tablet 0.5 mg PO BID Patient Comments: ANXIETY Rx Instructions: 1 PO Q AM and 1-2 Q HS clopidogrel 75 mg tablet 75 mg PO DAILY Qty: 90 3RF pravastatin 10 mg tablet 10 mg PO QHS Qty: 90 3RF potassium chloride 20 mEq tablet extended release 20 meq PO DAILY Qty: 30 11RF furosemide 20 mg tablet 40 mg PO DAILY Qty: 180 3RF Hold Instructions: losing too much water weight lisinopril 40 mg tablet 40 mg PO DAILY Qty: 90 4RF Primary Care Provider: Dillon Brasher Referrals: Dillon Brasher MD [Primary Care Provider] - 3-5 Days Disposition Disposition: Home, Self Care
[2023-05-06] MEDS: 0.9% Normal Saline 1,000 ML 1000 ML IV (11:01)
[2023-05-06 11:05] LABS: Bacteria 0 SEEN /hpf (None Seen); Mucous, Urine 0 SEEN /hpf (<or=2+); Red Blood Cells-Urine 0 SEEN /hpf (0-5); Squamous Epithelial Cells - UA 0 SEEN /hpf (5-10)
[2023-05-06 11:08] LABS: Color, Urine Yellow (Yellow); Glucose, Dipstick Normal (Normal); Ketone-Dipstick Negative (Negative); Leukocyte Esterase-Dipstick 500 /ul (Negative); Nitrite-Dipstick Negative (Negative); Occult Blood-Urine 150 /ul (Negative); Protein-Dipstick 500 mg/dl (Negative); Urine Bilirubin Dipstick Negative (Negative); Urine Clarity Cloudy (Clear); Urine Urobilinogen Normal (Normal)
[2023-05-06 11:08] LABS: Absolute Lymphocyte Count 1.15 X10^3/uL (0.83-4.51); Absolute Neutrophil Count 5.2 X10^3/uL (2.0-7.7); Basophil# 0.02 X10^3/uL; Basophil% 0.3 % (0-1); Hemoglobin 12.7 g/dL (12.0-15.0); Lymphocyte # 1.15 X10^3/ul (0.83-4.51); Lymphocyte % 16.5 % (19-41); Mean Corp Hgb Conc 31.8 g/dL (32-36); Mean Corpuscular Hgb 25.9 pg (27.0-32.0); Mean Corpuscular Volume 81.5 fL (81-99); Mean Platelet Vol. 10.4 fl (6.2-12.0); Monocyte# 0.57 X10^3/uL; Monocyte% 8.2 % (0-10); NRBC Flagged by Analyzer 0 % (0-5); Neutrophil # 5.23 X10^3/uL (2.7-7.7); Neutrophil % 74.7 % (47-70); POSITIVE MORPHOLOGY YES; Platelet Count 266 K/mm3 (150-450); RBC Distribution Width SD 73.5 fl (35.1-43.9); Red Blood Count 4.91 M/mm3 (4.2-5.4)
[2023-05-06 11:10] LABS: Differential Indicated SCAN CRITERIA MET
[2023-05-06 11:17] LABS: White Blood Cells >100 SEEN /hpf (0-5)
[2023-05-06 11:19] LABS: ALB/GLOB Ratio 1.1 RATIO (0.9-2.4); AST(SGOT) 40 U/L (15-37); Alanine Aminotransfer ALT/SGPT 43 U/L (13-56); Albumin, Serum 3.8 g/dL (3.2-5.0); Alkaline Phosphatase 158 U/L (45-117); Anion Gap 6 (5-15); BUN 18 mg/dL (7-18); BUN/Creat Ratio 15.3 RATIO (10-20); Calcium,Total 8.7 mg/dL (8.5-10.1); Chloride 102 mmol/L (98-107); Creatinine, Serum 1.18 mg/dL (0.55-1.02); EST Glomerular Filtration Rate 47 mL/min (>60); Est Glom Filt Rate - Afr Amer 56 mL/min (>60); Estimated Creatinine Clearance 29.88 ml/min; Globulin 3.6 g/dL (2.2-4.2); Glucose 153 mg/dL (74-106); Potassium 3.6 mmol/L (3.5-5.1); Protein, Total 7.4 g/dL (6.4-8.2); Sodium Level 136 mmol/L (136-145); Troponin-I HS 10 pg/mL (3.0-54.0)
[2023-05-06] MEDS: Acetaminophen 325 MG Tablet 650 MG PO (11:29)
[2023-05-06 11:36] LABS: Anisocytosis 2+; Differential Comment SCANNED; Macrocytosis 1+; Microcytosis 1+
[2023-05-06 11:44] VITALS: BP 133/99; PULSE 89; RESP 18; TEMP 37.3; O2SAT 100
[2023-05-06 11:55] LABS: Lactic Acid 2.1 mmol/L (0.4-1.9)
[2023-05-06] MEDS: levoFLOXacin IV 750 MG/150 ML BAG 100 MG IV (12:50)
[2023-05-06] MEDS: 0.9% Normal Saline 1,000 ML 999 ML IV ×2 (12:50→14:02)
--- NOTE | 2023-05-06 14:04 | PN.HOSP_ITS ---
Hospitalist Note Patient was seen in the emergency room at the request of the emergency room physician, there was a question of whether the patient would benefit from an overnight stay in the hospital due to a urinary tract infection and abdominal pain. Work-up in the emergency room included a CBC which showed a normal white blood cell count, urinalysis showed white blood cells but no bacteria, CT of the abdomen and pelvis showed bilateral hydroureter and hydronephrosis, a mild ileus was noted to be present, patient's CHEM panel showed a slightly elevated creatinine over the patient's baseline. Lactic acid was elevated at 2.1, glucose was 153. There were slight elevations into the patient's liver enzymes- her AST was 40 and her alkaline phosphatase was 158. It was reported to me that the patient had a bowel movement in the emergency room and had less abdominal distention and discomfort after the bowel movement. On my examination, the patient was alert and appropriate, she did not appear toxic, her abdomen was soft and I did not detect any abdominal tenderness on palpation. I talked at length with the patient, the patient's , the alessio ent's daughter who are in the room at the time my examination, Levaquin IV have been given to the patient for a urinary tract infection, I told the patient that I could put her in the hospital overnight for administration of fluid and antibiotics but that she could actually go home and drink fluids and take oral antibiotics at home. I did not feel that she necessarily needed to come in the hospital for the services. Patient decided after talking with me that she would rather be discharged home from the emergency room and take oral antibiotics and try to push fluids. Her and her daughter were okay with this decision also. I talked with Dr. Marx about my discussion with the patient and he was okay with prescribing oral Levaquin for the patient to take at home. The etiology of the patient's elevated lactic acid was not readily apparent, she did not appear septic or toxic at the time my examination.
--- NOTE | 2023-05-06 14:12 | ED.RN ---
pt requesting to be st cathed, does at home.
[2023-05-06 14:13] VITALS: BP 119/65
[2023-05-06 15:26] LABS: Reflex Lactate? Y
== END 2023-05-06 14:31 | disposition home or self-care (01) ==
PROVIDERS: Emergency Provider Emergency Medicine; PCP Family Medicine; Visit Provider Emergency Medicine
DX: N13.6 Pyonephrosis (principal); J44.9 Chronic obstructive pulmonary disease, unspecified; K56.7 Ileus, unspecified; E11.9 Type 2 diabetes mellitus without complications; I10 Essential (primary) hypertension; I25.10 Atherosclerotic heart disease of native coronary artery without angina pectoris; E78.5 Hyperlipidemia, unspecified; E87.20 Acidosis, unspecified; Z79.899 Other long term (current) drug therapy
CPT/HCPCS: 74177; 80053; 81001; 83605; 84484; 85025; 87040; 87077; 87086; 87088; 87186; 93005; 96361; 96365; 99285; J7030; J7040; P9612; Q9967; A4216

== ENCOUNTER → 2023-05-09 | Outpatient (CLI) | payer MEDICARE, OTHER, SELFPAY ==
--- NOTE | 2023-05-09 12:34 | RAD_ITS ---
STUDY: X-RAY CHEST REASON FOR EXAM: Female, 82 years old. SOB TECHNIQUE: PA and lateral views of the chest. COMPARISON: 02/13/2023. FINDINGS: There is a left-sided pacemaker in place. The lungs are clear and expanded. There is no demonstrated pleural abnormality. Normal size heart. Normal mediastinum and roberta. Normal visualized pulmonary arteries. There is atherosclerotic calcification of the aortic arch with tortuosity. There is demineralization of the osseous structures. 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 There is no demonstrated abnormality of the visualized soft tissue structures of the upper abdomen. RAD/Chest PA and Lateral IMPRESSION: No acute cardiac pulmonary disease. Electronically Signed: Mary Polk MD at 22:16 EDT ,
== END | disposition home or self-care (01) ==
PROVIDERS: PCP Family Medicine; Referring Provider Family Medicine; Visit Provider Family Medicine
DX: N30.20 Other chronic cystitis without hematuria (principal)
CPT/HCPCS: 71046; 87086; 87088

== ENCOUNTER → 2023-06-07 | Outpatient (CLI) | payer MEDICARE, OTHER, SELFPAY ==
--- NOTE | 2023-06-07 11:47 | RAD_ITS ---
STUDY: X-RAY CHEST REASON FOR EXAM: Female, 82 years old. Shortness of breath. TECHNIQUE: Frontal and lateral views of the chest. COMPARISON: May 09, 2023. FINDINGS: Cardiomegaly, dual lead cardiac pacer, aortic tortuosity with calcification, hyperinflation, prominent central pulmonary arteries, healed granulomatous calcifications and mild thoracic spondylosis, all unchanged. No acute or emergent finding. No abnormality of the visualized soft tissue structures of the upper abdomen. RAD/Chest PA and Lateral IMPRESSION: Stable cardiomegaly, dual lead cardiac pacer and hyperinflation. No active or acute cardiopulmonary disease. Electronically Signed: Pravin Buchanan MD at 12:00 EDT ,
[2023-06-07 15:02] LABS: Absolute Lymphocyte Count 1.75 X10^3/uL (0.83-4.51); Absolute Neutrophil Count 1.9 X10^3/uL (2.0-7.7); Basophil# 0.04 X10^3/uL; Basophil% 0.9 % (0-1); Eosinophil# 0.02 X10^3/uL; Eosinophils% 0.5 % (0-5); Hematocrit 36.1 % (37-47); Lymphocyte # 1.75 X10^3/ul (0.83-4.51); Lymphocyte % 41.1 % (19-41); Mean Corp Hgb Conc 30.5 g/dL (32-36); Mean Corpuscular Hgb 26.8 pg (27.0-32.0); Mean Platelet Vol. 10.6 fl (6.2-12.0); Monocyte# 0.53 X10^3/uL; Monocyte% 12.4 % (0-10); NRBC Flagged by Analyzer 0 % (0-5); Neutrophil # 1.91 X10^3/uL (2.7-7.7); Neutrophil % 44.9 % (47-70); POSITIVE MORPHOLOGY YES; Platelet Count 218 K/mm3 (150-450); RBC Distribution Width CV 21.6 % (11.6-14.6); RBC Distribution Width SD 70.4 fl (35.1-43.9); White Blood Count 4.3 K/mm3 (4.4-11.0)
[2023-06-07 15:09] LABS: Differential Indicated SCAN CRITERIA MET
[2023-06-07 15:11] LABS: Anion Gap 4 (5-15); BUN 19 mg/dL (7-18); BUN/Creat Ratio 17.6 RATIO (10-20); Calcium,Total 8.2 mg/dL (8.5-10.1); Chloride 105 mmol/L (98-107); Creatinine, Serum 1.08 mg/dL (0.55-1.02); EST Glomerular Filtration Rate 52 mL/min (>60); Est Glom Filt Rate - Afr Amer 62 mL/min (>60); Glucose 101 mg/dL (74-106); Potassium 3.9 mmol/L (3.5-5.1); Sodium Level 136 mmol/L (136-145)
[2023-06-07 15:18] LABS: BNP,B-Type NATRIURETIC PEPTIDE 389.7 pg/mL (0-100)
[2023-06-07 16:11] LABS: Anisocytosis 2+; Differential Comment SCANNED; Macrocytosis 1+; Microcytosis 1+
== END | disposition home or self-care (01) ==
PROVIDERS: PCP Family Medicine; Referring Provider Family Medicine; Visit Provider Family Medicine
DX: R06.02 Shortness of breath (principal)
CPT/HCPCS: 36415; 71046; 80048; 83880; 85025

== ENCOUNTER → 2023-06-22 | Outpatient (CLI) | payer MEDICARE, OTHER, SELFPAY ==
--- NOTE | 2023-06-22 07:39 | ECHOD_ITS ---
Reason For Study: CHF Procedure This was a 2D Doppler, Color Flow transthoracic echocardiogram. Exam performed in department. Left Ventricle Normal LV size. Left ventricular systolic function is lower limits of normal. The estimated ejection fraction is 50 %. Stage 3 diastolic dysfunction. There is borderline global hypokinesis of the left ventricle. Right Ventricle Moderately dilated right ventricle. ICD or pacer leads identified within the right ventricle. Mild global right ventricular systolic dysfunction. Atria Normal left atrium. The right atrium is mildly enlarged. Mitral Valve Normal mitral valve. Tricuspid Valve Failure to coapt. Moderately severe (3+) tricuspid valve insufficiency. Pulmonary artery systolic pressure is 92 mmHg. Severe pulmonary hypertension. Aortic Valve Trisinus/trileaflet aortic valve. Mild focal aortic valve thickening. Trivial aortic valve insufficiency. Pulmonic Valve Normal pulmonic valve. Mild (1+) pulmonic valve insufficiency. Great Vessels Normal aortic root. The pulmonary artery is normal size. Plethoric inferior vena cava. Pericardium/Pleural Small pericardial effusion. MMode/2D Measurements & Calculations LVIDd: 4.6 cm IVSd: 1.3 cm Ao root diam: 3.1 cm LVIDs: 3.3 cm LVPWd: 0.97 cm LA dimension: 4.2 cm RVDd: 4.3 cm FS: 28.4 % LAV(MOD-bp): 57.7 ml LVAd ap4: 21.0 cm2 SV(MOD-sp4): 24.1 ml LAV(MOD-bp) Indexed: 36.1 ml/m2 LVLd ap4: 6.6 cm LAV(MOD-sp2): 59.8 ml EDV(MOD-sp4): 55.6 ml LAV(MOD-sp4): 54.5 ml EDV(sp4-el): 57.1 ml LVAs ap4: 14.9 cm2 LVLs ap4: 6.0 cm ESV(MOD-sp4): 31.4 ml ESV(sp4-el): 31.2 ml EF(MOD-sp4): 43.4 % EF(sp4-el): 45.3 % SV(sp4-el): 25.9 ml LA A4 area: 18.6 cm2 RA A4 area: 20.0 cm2 TAPSE: 1.1 cm Time Measurements MV dec time: 0.16 sec Doppler Measurements & Calculations MV E max navarro: 95.3 cm/sec Lat Peak E' Navarro: 6.0 cm/sec Med Peak E' Navarro: 3.7 cm/sec MV A max navarro: 37.0 cm/sec E/E' lat: 16.0 E/E' med: 25.7 MV E/A: 2.6 MV V2 max: 136.2 cm/sec MV P1/2t max navarro: 137.0 cm/sec Ao V2 max: 111.0 cm/sec MV max P.4 mmHg MV P1/2t: 51.6 msec Ao max P.9 mmHg MV V2 mean: 58.7 cm/sec MV dec slope: 777.4 cm/sec2 Ao V2 mean: 80.9 cm/sec MV mean P.9 mmHg Ao mean P.9 mmHg MV V2 VTI: 28.5 cm MVA(P1/2t): 4.3 cm2 Ao V2 VTI: 25.6 cm AV (velocity ratio): 0.77 LV V1 max: 95.5 cm/sec MR max navarro: 332.5 cm/sec PA V2 max: 91.6 cm/sec LV V1 max P.7 mmHg MR max P.2 mmHg LV V1 mean P.1 mmHg LV V1 mean: 67.1 cm/sec LV V1 VTI: 19.7 cm PI end-d navarro: 165.1 cm/sec TR max navarro: 459.7 cm/sec TR max P.5 mmHg ECHO/Echo Complete Interpretation Summary Normal LV size. Left ventricular systolic function is lower limits of normal. The estimated ejection fraction is 50 %. Small pericardial effusion. Stage 3 diastolic dysfunction. The right atrium is mildly enlarged. Severe pulmonary hypertension. Ordering Physician: Dillon Brasher Referring Physician: Dillon Brasher Performed By: Mamadou Buckner RCS
== END | disposition home or self-care (01) ==
LOC: CVS 07:38
PROVIDERS: PCP Family Medicine; Referring Provider Family Medicine; Visit Provider Family Medicine
DX: I50.9 Heart failure, unspecified (principal); I49.1 Atrial premature depolarization
CPT/HCPCS: 93306

== ENCOUNTER → 2023-07-06 | Outpatient (CLI) | payer MEDICARE, OTHER, SELFPAY ==
[2023-07-06 11:57] LABS: Anion Gap 6 (5-15); BUN 19 mg/dL (7-18); BUN/Creat Ratio 17.1 RATIO (10-20); Calcium,Total 8.2 mg/dL (8.5-10.1); Chloride 105 mmol/L (98-107); Creatinine, Serum 1.11 mg/dL (0.55-1.02); EST Glomerular Filtration Rate 50 mL/min (>60); Est Glom Filt Rate - Afr Amer 60 mL/min (>60); Glucose 182 mg/dL (74-106); Potassium 3.6 mmol/L (3.5-5.1); Sodium Level 137 mmol/L (136-145)
== END | disposition home or self-care (01) ==
PROVIDERS: PCP Family Medicine; Referring Provider Nurse Practitioner Family; Visit Provider Nurse Practitioner Family
DX: I11.0 Hypertensive heart disease with heart failure (principal); I50.32 Chronic diastolic (congestive) heart failure; I49.5 Sick sinus syndrome
CPT/HCPCS: 36415; 80048

== ENCOUNTER → 2023-07-31 | Outpatient (CLI) | payer MEDICARE, OTHER, SELFPAY ==
[2023-07-31 11:01] LABS: ALB/GLOB Ratio 0.8 RATIO (0.9-2.4); AST(SGOT) 28 U/L (15-37); Alanine Aminotransfer ALT/SGPT 27 U/L (13-56); Albumin, Serum 3.2 g/dL (3.2-5.0); Alkaline Phosphatase 167 U/L (45-117); Anion Gap 5 (5-15); BUN 18 mg/dL (7-18); BUN/Creat Ratio 16.4 RATIO (10-20); Calcium,Total 8.5 mg/dL (8.5-10.1); Chloride 100 mmol/L (98-107); Cholesterol 118 mg/dL (200); EST Glomerular Filtration Rate 50 mL/min (>60); Est Glom Filt Rate - Afr Amer 61 mL/min (>60); Free T3 1.9 pg/mL (2.18-3.98); Globulin 4.1 g/dL (2.2-4.2); Glucose 100 mg/dL (74-106); High Density Lipoprotein 40 mg/dL; Potassium 3.5 mmol/L (3.5-5.1); Protein, Total 7.3 g/dL (6.4-8.2); Sodium Level 134 mmol/L (136-145); T4 Free Direct 1.04 ng/dL (0.76-1.46); Thyroid Stim Hormone (TSH) 1.71 uIU/mL (0.358-3.74); Triglycerides 65 mg/dL; Very Low Density Lipoprotein 13 mg/dL (5-40)
== END | disposition home or self-care (01) ==
LOC: MTLAB 08:31
PROVIDERS: PCP Family Medicine; Referring Provider Family Medicine; Visit Provider Family Medicine
DX: I10 Essential (primary) hypertension (principal); E03.9 Hypothyroidism, unspecified
CPT/HCPCS: 36415; 80053; 80061; 84439; 84443; 84481

== ENCOUNTER 2023-08-26 16:14 | Emergency (ER) | payer MEDICARE, OTHER, SELFPAY ==
[2023-08-26 16:16] VITALS: BP 121/50; PULSE 70; RESP 16; TEMP 37.8; O2SAT 95; BMI 18.1
[2023-08-26 16:48] LABS: Mucous, Urine 0 SEEN /hpf (<or=2+); Red Blood Cells-Urine 0 SEEN /hpf (0-5); Squamous Epithelial Cells - UA 0 SEEN /hpf (5-10)
[2023-08-26 16:53] LABS: Color, Urine Yellow (Yellow); Glucose, Dipstick Normal (Normal); Ketone-Dipstick Negative (Negative); Leukocyte Esterase-Dipstick 500 /ul (Negative); Nitrite-Dipstick Negative (Negative); Occult Blood-Urine 150 /ul (Negative); Protein-Dipstick 100 mg/dl (Negative); Urine Bilirubin Dipstick Negative (Negative); Urine Clarity Cloudy (Clear); Urine Urobilinogen Normal (Normal)
[2023-08-26 17:06] LABS: Bacteria 4+ /hpf (None Seen); White Blood Cells >100 SEEN /hpf (0-5)
--- NOTE | 2023-08-26 17:26 | EX.ED.DYSGE1 ---
HPI History of Present Illness Chief Complaint: Fever Informant: patient Onset/Context/Timing Onset: Today Context: Gradual Onset Timing: Continuous Quality: Chills and shaking Location: Generalized Worsened by: Nothing Relieved by: Ibuprofen Narrative Narrative: Patient presents with a fever and chills that began today. Patient states it came on gradually. Patient states her temperature at home was 101. Patient took ibuprofen at home approximately 2 hours prior to arrival. Daughter states the patient was confused earlier and was having difficulty speaking. Daughter states this has improved since arriving to the emergency department. Patient admits to some urinary frequency but denies any dysuria or hematuria. Patient denies any sore throat or cough. Patient denies any chest pain. Patient denies any shortness of breath. [facility] Medical History Acute CVA (cerebrovascular accident) Anxiety Atherosclerotic heart disease of [place] coronary artery without angina pectoris Atrial fibrillation Back pain Bilateral hydronephrosis Bladder neoplasm of uncertain malignant potential Cardiology follow-up encounter Celiac disease Celiac disease COPD (chronic obstructive pulmonary disease) Diastolic CHF, chronic Dietary restriction DM type 2 (diabetes mellitus, type 2) Essential hypertension Gastric reflux Hay fever History of echocardiogram History of edema History of hiatal hernia History of rheumatic fever History of stress test HLD (hyperlipidemia) HTN (hypertension) HTN (hypertension) Hypokalemia Hyponatremia Incontinence Ischemic stroke Left atrial thrombus senior living current use of anticoagulant therapy Migraine Non-smoker Nonrheumatic mitral (valve) prolapse Paroxysmal atrial fibrillation Premature atrial contractions Premature ventricular contraction Presence of permanent cardiac pacemaker Pulmonary hypertension, secondary Shortness of breath on exertion Sick sinus syndrome Sinus bradycardia Sinus pause Subtherapeutic international normalized ratio (INR) TIA (transient ischemic attack) Urinary tract infection Urinary tract infection 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 Wears dentures Wears glasses Wears partial dentures Home Medications esomeprazole magnesium 40 mg capsule,delayed release 40 mg PO DAILY GERD 04/10/18 [History Last Taken 05/04/22 08:00] clonazepam 0.5 mg tablet 0.5 mg PO BID ANXIETY 10/14/19 [History Last Taken 05/04/22 08:00] potassium chloride 20 mEq tablet,extended release 20 meq PO DAILY #30 tabs 01/31/23 [Rx Last Taken Unknown] lisinopril 40 mg tablet 40 mg PO DAILY #90 tabs 04/02/23 [Rx Last Taken Unknown] metoprolol succinate 50 mg tablet,extended release 24 hr 50 mg PO BID #180 tabs 06/26/23 [Rx Last Taken Unknown] cholecalciferol (vitamin D3) 125 mcg (5,000 unit) tablet 125 mcg PO DAILY 06/28/23 [History Last Taken Unknown] cranberry 500 mg capsule 500 mg PO DAILY 06/28/23 [History Last Taken Unknown] dapagliflozin propanediol 10 mg tablet (Farxiga) 10 mg PO DAILY #30 tabs 06/28/23 [Rx Last Taken Unknown] lactobacillus combination no.9 4 billion cell capsule (Adult 50 Plus Probiotic) 4,000 mmu cells PO DAILY 06/28/23 [History Last Taken Unknown] minoxidil 2.5 mg tablet 2.5 mg PO BID 06/28/23 [History Last Taken Unknown] torsemide 20 mg tablet 10 mg PO DAILY 07/23/23 [History Last Taken Unknown] clopidogrel 75 mg tablet 75 mg PO DAILY #90 tabs 07/31/23 [Rx Last Taken Unknown] pravastatin 10 mg tablet 10 mg PO QHS CHOLESTEROL #90 tabs 07/31/23 [Rx Last Taken Unknown] ciprofloxacin HCl 500 mg tablet 500 mg PO BID #6 TABLETS 08/26/23 [Rx Last Taken Unknown] Allergy/AdvReac Type Severity Reaction Status Date / Time aspirin Allergy Anaphylaxis Verified 08/26/23 16:15 ibuprofen Allergy Anaphylaxis Verified 08/26/23 16:15 Influenza Virus Vaccines Allergy Anaphylaxis Verified 08/26/23 16:15 Penicillins [PCN] Allergy Anaphylaxis Verified 08/26/23 16:15 Sulfa (Sulfonamide Allergy Anaphylaxis Verified 08/26/23 16:15 Antibiotics) amlodipine [From [facility]] AdvReac Severe Cough Verified 08/26/23 16:15 hydralazine AdvReac Severe stopped Verified 08/26/23 16:15 when she had CVA spironolactone AdvReac Severe Hyponaturem Verified 08/26/23 16:15 ia Family History Father CVA (cerebral vascular accident) Brother Hypertension Brother Hypertension Sister Abdominal aortic aneurysm (AAA) Sister CVA (cerebral vascular accident) Hypertension Diabetes Other Cancer Surgical History H/O colonoscopy (~09/27/21) History of back surgery History of biopsy of bladder History of bladder surgery History of cardiac catheterization History of cardiac radiofrequency ablation (RFA) History of hip replacement History of hysterectomy History of radiofrequency ablation procedure for cardiac arrhythmia (~12/09/18) Presence of Watchman left atrial appendage closure device (~08/20/20) Status post placement of implantable loop recorder Social History Smoking Status: Never smoker alcohol intake: never substance use type: does not use caffeine: Yes Type: coffee Number of servings: 1 ROS ROS ED Constitutional Constitutional ED: Reports chills and fever(s) Eyes Eyes: Denies blurry vision or change in vision ENT ENT ED: Denies rhinorrhea or sore throat Cardiovascular Cardiovascular: Denies chest pain or palpitations Respiratory/Chest Respiratory/Chest: Denies cough or dyspnea Gastrointestinal Gastrointestinal: Denies nausea or vomiting Genitourinary Genitourinary ED: Reports urinary frequency; Denies dysuria or hematuria Musculoskeletal Musculoskeletal: Denies back pain or neck pain Integumentary Denies abscess or rash Neurologic Neurologic: Denies headache(s) or weakness Allergic/Immunologic Allergic/Immunologic ED: Denies mouth swelling or urticaria EXAM Physical Exam Const Vital Signs: 08/26/23 16:16 08/26/23 16:26 08/26/23 18:15 Temperature 100.1 F H 98.2 F Temperature Source Oral Temporal Pulse Rate 70 87 Respiratory Rate 16 16 Respiratory Effort Normal Non-Labored Respiratory Pattern Normal Blood Pressure 121/50 H 138/69 H Blood Pressure Mean 73 92 Pulse Ox 95 96 Oxygen Delivery Method Room Air Room Air Positive well nourished and well developed General Appearance ED: well developed and NAD HEENT Reports moist mucous membranes Neck supple and no JVD Resp normal respiratory effort and clear to auscultation bilaterally Cardio regular rate and regular rhythm GI non-tender and non-distended Palpation: soft Extremity normal to inspection General Extremety ED: Negative for edema or tenderness General Extremity: Negative for edema Neuro oriented x3, CN's II-XII intact bilaterally and no sensory deficits noted Sensorium / Orientation: alert Motor Exam: strength 5/5 throughout Psych mental status grossly normal Skin no rashes or lesions noted MDM MDM MDM Narrative Medical decision making narrative: Differential diagnosis includes urinary tract infection, sepsis, electrolyte abnormality, and viral infection. Urinalysis will be obtained to assess for urinary tract infection. CBC will be obtained to assess for leukocytosis and anemia. Basic metabolic profile will be obtained to assess for renal function and electrolyte abnormality. Urine culture will be obtained to assess for urinary tract infection. Lab Data Attestation: I reviewed the patient's lab results. Lab results narrative: Urinalysis was reviewed. Leukocyte esterase was 500 with greater than 100 white blood cells and 4+ bacteria. CBC was reviewed. There is a mild anemia with a hemoglobin of 9.7 and hematocrit 30.7. Platelets were normal. White blood cell count was normal. Basic metabolic profile was reviewed. BUN was 23 and creatinine was 1.1. Glucose was 137. The remainder is within normal limits. Labs: Laboratory Results - last 24 hr 08/26/23 08/26/23 16:37 18:17 WBC 6.0 RBC 3.64 L Hgb 9.7 L Hct 30.7 L MCV 84.3 MCH 26.6 L MCHC 31.6 L RDW Std Deviation 63.4 H RDW Coeff of Zhanna 20.6 H Plt Count 221 MPV 9.7 Immature Gran % (Auto) 0.300 Neut % (Auto) 49.1 Lymph % (Auto) 42.1 H Conway % (Auto) 8.0 Eos % (Auto) 0.2 Baso % (Auto) 0.3 Absolute Neuts (auto) 2.9 Absolute Lymphs (auto) 2.52 Nucleated RBC % 0 Differential Comment SCANNED Anisocytosis 1+ Sodium 136 Potassium 3.9 Chloride 105 Carbon Dioxide 26.0 Anion Gap 5 BUN 23 H Creatinine 1.10 H Estim Creat Clear Calc 31.08 Est GFR (MDRD) Af Amer 61 Est GFR (MDRD) Non-Af 50 L BUN/Creatinine Ratio 20.9 H Glucose 137 H Calcium 8.5 Urine Color Yellow Urine Clarity Cloudy Urine pH 6.0 Ur Specific Ceres 1.010 Urine Protein 100 H Urine Glucose (UA) Normal Urine Ketones Negative Urine Occult Blood 150 H Urine Nitrite Negative Urine Bilirubin Negative Urine Urobilinogen Normal Ur Leukocyte Esterase 500 H Urine RBC 0 SEEN Urine WBC >100 SEEN Ur Squamous Epith Cells 0 SEEN Urine Bacteria 4+ Urine Mucus 0 SEEN Treatment and Re-Evaluation :: Patient was given a dose of Tylenol. Patient was given a dose of Cipro here. Urine culture was ordered. Patient was advised of her findings. Patient was instructed to continue Tylenol and ibuprofen as needed for any fevers and pain. Patient was given a prescription for Cipro. Patient was instructed to follow-up with her primary care physician in 5 to 7 days. Patient was instructed return if worse in any way. Patient and family understood and were agreeable with the plan. All questions were answered. Discharge Plan Triage Chief Complaint: Fever ED Provider: Harley Ag Dx/Rx/DC Orders Clinical Impression: Urinary tract infection, Fever Instructions: ED Cystitis Female Adult Prescriptions: New ciprofloxacin HCl [ciprofloxacin HCl] 500 mg tablet 500 mg PO BID Qty: 6 0RF No Action esomeprazole magnesium 40 mg capsule,delayed release(DR/EC) 40 mg PO DAILY minoxidil 2.5 mg tablet 2.5 mg PO BID cholecalciferol (vitamin D3) 125 mcg (5,000 unit) tablet 125 mcg PO DAILY cranberry 500 mg capsule 500 mg PO DAILY Rx Instructions: administer with meals Adult 50 Plus Probiotic 4 billion cell capsule 4,000 mmu cells PO DAILY Rx Instructions: administer with a meal Farxiga 10 mg tablet 10 mg PO DAILY Qty: 30 11RF Hold Instructions: Bladder Cramping, Over diuresis torsemide 20 mg tablet 10 mg PO DAILY clonazepam 0.5 MG tablet 0.5 mg PO BID Patient Comments: ANXIETY Rx Instructions: 1 PO Q AM and 1-2 Q HS potassium chloride 20 mEq tablet extended release 20 meq PO DAILY Qty: 30 11RF lisinopril 40 mg tablet 40 mg PO DAILY Qty: 90 4RF metoprolol succinate 50 mg tablet extended release 24 hr 50 mg PO BID Qty: 180 3RF pravastatin 10 mg tablet 10 mg PO QHS Qty: 90 3RF clopidogrel 75 mg tablet 75 mg PO DAILY Qty: 90 3RF Primary Care Provider: Dillon Brasher Referrals: Dillon Brasher MD [Primary Care Provider] - 5-7 Days Disposition Disposition: Home, Self Care
[2023-08-26] MEDS: Acetaminophen 500 MG Tablet 1000 MG PO (18:00)
[2023-08-26 18:15] VITALS: BP 138/69; PULSE 87; RESP 16; TEMP 36.8; O2SAT 96
[2023-08-26] MEDS: Ciprofloxacin 500 MG Tablet PO (18:20)
[2023-08-26 18:25] LABS: Absolute Lymphocyte Count 2.52 X10^3/uL (0.83-4.51); Absolute Neutrophil Count 2.9 X10^3/uL (2.0-7.7); Basophil# 0.02 X10^3/uL; Basophil% 0.3 % (0-1); Eosinophil# 0.01 X10^3/uL; Eosinophils% 0.2 % (0-5); Hematocrit 30.7 % (37-47); Hemoglobin 9.7 g/dL (12.0-15.0); Lymphocyte # 2.52 X10^3/ul (0.83-4.51); Lymphocyte % 42.1 % (19-41); Mean Corp Hgb Conc 31.6 g/dL (32-36); Mean Corpuscular Hgb 26.6 pg (27.0-32.0); Mean Corpuscular Volume 84.3 fL (81-99); Mean Platelet Vol. 9.7 fl (6.2-12.0); Monocyte# 0.48 X10^3/uL; NRBC Flagged by Analyzer 0 % (0-5); Neutrophil # 2.94 X10^3/uL (2.7-7.7); Neutrophil % 49.1 % (47-70); POSITIVE MORPHOLOGY YES; Platelet Count 221 K/mm3 (150-450); RBC Distribution Width CV 20.6 % (11.6-14.6); RBC Distribution Width SD 63.4 fl (35.1-43.9); Red Blood Count 3.64 M/mm3 (4.2-5.4)
[2023-08-26 18:35] LABS: Differential Indicated SCAN CRITERIA MET
[2023-08-26 18:36] LABS: Anion Gap 5 (5-15); BUN 23 mg/dL (7-18); BUN/Creat Ratio 20.9 RATIO (10-20); Calcium,Total 8.5 mg/dL (8.5-10.1); Chloride 105 mmol/L (98-107); EST Glomerular Filtration Rate 50 mL/min (>60); Est Glom Filt Rate - Afr Amer 61 mL/min (>60); Estimated Creatinine Clearance 31.08 ml/min; Glucose 137 mg/dL (74-106); Potassium 3.9 mmol/L (3.5-5.1); Sodium Level 136 mmol/L (136-145)
[2023-08-26 19:01] LABS: Differential Comment SCANNED
[2023-08-26 19:02] LABS: Anisocytosis 1+
[2023-08-26 19:12] VITALS: BP 120/56; PULSE 88; RESP 16; TEMP 37.1
== END 2023-08-26 19:42 | disposition home or self-care (01) ==
PROVIDERS: Emergency Provider Emergency Medicine; PCP Family Medicine; Visit Provider Emergency Medicine
DX: N39.0 Urinary tract infection, site not specified (principal); J44.9 Chronic obstructive pulmonary disease, unspecified; I50.32 Chronic diastolic (congestive) heart failure; I11.0 Hypertensive heart disease with heart failure; E11.9 Type 2 diabetes mellitus without complications; I25.10 Atherosclerotic heart disease of native coronary artery without angina pectoris; R35.0 Frequency of micturition; R47.9 Unspecified speech disturbances; E78.5 Hyperlipidemia, unspecified; Z79.02 Long term (current) use of antithrombotics/antiplatelets; Z79.899 Other long term (current) drug therapy
CPT/HCPCS: 80048; 81001; 85025; 87077; 87086; 87088; 87186; 99283; A4216

== ENCOUNTER → 2023-09-12 | Outpatient (CLI) | payer MEDICARE, OTHER, SELFPAY ==
[2023-09-12 17:43] LABS: Absolute Lymphocyte Count 2.65 X10^3/uL (0.83-4.51); Absolute Neutrophil Count 1.6 X10^3/uL (2.0-7.7); Basophil# 0.05 X10^3/uL; Eosinophil# 0.41 X10^3/uL; Eosinophils% 7.9 % (0-5); Hemoglobin 11.3 g/dL (12.0-15.0); Lymphocyte # 2.65 X10^3/ul (0.83-4.51); Lymphocyte % 51.3 % (19-41); Mean Corp Hgb Conc 31.4 g/dL (32-36); Mean Corpuscular Hgb 26.9 pg (27.0-32.0); Mean Corpuscular Volume 85.7 fL (81-99); Mean Platelet Vol. 10.1 fl (6.2-12.0); Monocyte# 0.45 X10^3/uL; Monocyte% 8.7 % (0-10); NRBC Flagged by Analyzer 0 % (0-5); Neutrophil % 30.9 % (47-70); POSITIVE MORPHOLOGY YES; Platelet Count 279 K/mm3 (150-450); RBC Distribution Width CV 22.3 % (11.6-14.6); RBC Distribution Width SD 69.1 fl (35.1-43.9); White Blood Count 5.2 K/mm3 (4.4-11.0)
[2023-09-12 18:00] LABS: Differential Indicated SCAN CRITERIA MET
[2023-09-12 18:26] LABS: Anion Gap 8 (5-15); Anisocytosis 2+; BUN 20 mg/dL (7-18); BUN/Creat Ratio 20.1 RATIO (10-20); Calcium,Total 8.5 mg/dL (8.5-10.1); Chloride 102 mmol/L (98-107); Creatinine, Serum 0.99 mg/dL (0.55-1.02); Crenated RBC 1+; Differential Comment SCANNED; EST Glomerular Filtration Rate 57 mL/min (>60); Est Glom Filt Rate - Afr Amer 69 mL/min (>60); Glucose 98 mg/dL (74-106); Hypochromasia 1+; Potassium 3.8 mmol/L (3.5-5.1); Schistocytes RARE; Sodium Level 137 mmol/L (136-145); Target Cells RARE
[2023-09-12 18:37] LABS: BNP,B-Type NATRIURETIC PEPTIDE 214.8 pg/mL (0-100)
== END | disposition home or self-care (01) ==
LOC: MFPLAB 14:39
PROVIDERS: PCP Family Medicine; Visit Provider Family Medicine
DX: I50.9 Heart failure, unspecified (principal)
CPT/HCPCS: 36415; 80048; 83880; 85025

== ENCOUNTER → 2024-01-09 | Outpatient (CLI) | payer MEDICARE, OTHER, SELFPAY ==
[2024-01-09 17:49] LABS: Anion Gap 4 (5-15); BUN 26 mg/dL (7-18); BUN/Creat Ratio 25.2 RATIO (10-20); Calcium,Total 8.5 mg/dL (8.5-10.1); Chloride 106 mmol/L (98-107); Cholesterol 108 mg/dL (200); Creatinine, Serum 1.03 mg/dL (0.55-1.02); EST Glomerular Filtration Rate 54 mL/min (>60); Est Glom Filt Rate - Afr Amer 66 mL/min (>60); Glucose 124 mg/dL (74-106); High Density Lipoprotein 38 mg/dL; Potassium 4.2 mmol/L (3.5-5.1); Sodium Level 139 mmol/L (136-145); Triglycerides 114 mg/dL; Very Low Density Lipoprotein 23 mg/dL (5-40)
== END | disposition home or self-care (01) ==
LOC: MFPLAB 14:20
PROVIDERS: PCP Family Medicine; Visit Provider Family Medicine
DX: I11.0 Hypertensive heart disease with heart failure (principal); I50.9 Heart failure, unspecified
CPT/HCPCS: 36415; 80048; 80061; 83880

== ENCOUNTER → 2024-01-18 | Outpatient (CLI) | payer MEDICARE, OTHER, SELFPAY ==
--- NOTE | 2024-01-18 12:19 | US_ITS ---
STUDY: RENAL ULTRASOUND - COMPLETE REASON FOR EXAM: Female, 83 years old. UTI,RETENTION TECHNIQUE: Ultrasound evaluation of the kidneys was performed with real-time and static barillas-scale imaging. COMPARISON: Comparison is made with prior study January 30, 2023. FINDINGS: RIGHT KIDNEY: Normal location of the right kidney, which is normal in size. The right kidney measures 9.9 cm x 5.75 x 3.7 cm. There is a normal cortex of the right kidney. The renal cortex measures 1.4 cm. There is no right renal mass or cyst. There are no right renal calculi. There is no right hydronephrosis. DISTAL RIGHT URETER: There is non-visualization of the distal right ureter. There is no demonstrated right ureterovesical junction calculus. There is no demonstrated right ureteral jet. LEFT KIDNEY: Normal location of the left kidney, which is normal in size. The left kidney measures 10 cm x 4.4 cm x 3.6 cm. There is a normal cortex of the left kidney. The renal cortex measures 1.5 cm. There is a 2.7 cm by 2.6 cm x 2.4 cm solid mass in the superior pole of the left kidney. There is also evidence of a 1 cm x 0.9 cm x 0.5 cm cyst in the medial midpole of the left kidney. There are no left renal calculi. There is no left hydronephrosis. DISTAL LEFT URETER: There is non-visualization of the distal left ureter. There is no demonstrated left ureterovesical junction calculus. There is no demonstrated left ureteral jet. BLADDER: The distended urinary bladder has a volume of 255 ml. The empty urinary bladder has a volume of 20 ml. There is a normal wall thickness of the distended urinary bladder. There is no demonstrated mass within the urinary bladder. There are no demonstrated bladder calculi. US/Kidney and Bladder IMPRESSION: 2.7 cm x 2.6 cm x 2.4 cm solid mass in the upper pole of the left kidney. Electronically Signed: Eber Cruz MD at 15:19 EDT ,
== END | disposition home or self-care (01) ==
LOC: US 12:19
PROVIDERS: PCP Family Medicine; Referring Provider Urology; Visit Provider Urology
DX: R33.9 Retention of urine, unspecified (principal); N39.0 Urinary tract infection, site not specified
CPT/HCPCS: 76770

== ENCOUNTER → 2024-02-07 | Outpatient (CLI) | payer MEDICARE, OTHER, SELFPAY ==
--- NOTE | 2024-02-07 16:00 | CT_ITS ---
STUDY: CT ABDOMEN AND PELVIS WITH CONTRAST - REASON FOR EXAM: Female, 83 years old. L RENAL MASS RADIATION DOSAGE (If Supplied By Facility): CTDIvol = ( 11.43 ) mGy, DLP = ( 1707.84 ) mGycm TECHNIQUE: IV 100mL Isovue-370 was administered. Transaxial images were obtained from the dome of the diaphragm to the symphysis pubis. Multiplanar coronal and sagittal images were reformatted. The protocol utilizes one or more of the following dose reduction techniques: automated exposure control, adjustment of mA and/or kV according to patient size,and/or use of iterative reconstruction technique. COMPARISON: FINDINGS: Right middle lobe infiltrate. Mild right pleural effusion The visualized portions of the heart are within normal limits. Normal liver. Status post cholecystectomy. There is dilatation of the biliary system. Granulomatous calcifications in the spleen. Mild ductal prominence in the pancreas. Normal bilateral adrenal glands. Normal visualized stomach. Normal small intestine. Fecal retention in the colon. The appendix is nonvisualized. Calcified abdominal aorta. No retroperitoneal adenopathy. Bilateral subcentimeter renal cysts. Normal urinary bladder. Normal abdominal wall. There is a right hip prosthesis. CT/CT Abd/Pelvis W/WO Contrast IMPRESSION: Bilateral renal cysts. No solid renal mass is seen. Right middle lobe infiltrate. Mild right pleural effusion. Status post cholecystectomy. Biliary and pancreatic ductal dilatation. Electronically Signed: Gerald Schmid DO at 22:47 EDT Reading Location ID and State: [facility] / [place] Tel [phone], Service support ,
[2024-02-07 17:22] LABS: Anion Gap 6 (5-15); BUN 21 mg/dL (7-18); BUN/Creat Ratio 19.6 RATIO (10-20); Calcium,Total 8.5 mg/dL (8.5-10.1); Chloride 104 mmol/L (98-107); Creatinine, Serum 1.07 mg/dL (0.55-1.02); EST Glomerular Filtration Rate 52 mL/min (>60); Est Glom Filt Rate - Afr Amer 63 mL/min (>60); Glucose 112 mg/dL (74-106); Potassium 3.9 mmol/L (3.5-5.1); Sodium Level 135 mmol/L (136-145)
== END | disposition home or self-care (01) ==
LOC: CT 15:38
PROVIDERS: PCP Family Medicine; Referring Provider Urology; Visit Provider Urology
DX: N28.81 Hypertrophy of kidney (principal)
CPT/HCPCS: 36415; 74178; 80048; Q9967

== ENCOUNTER → 2024-04-08 | Outpatient (CLI) | payer MEDICARE, OTHER, SELFPAY ==
--- NOTE | 2024-04-08 15:04 | CYSPIN_PTH ---
PATIENT: VERO CHAPPELL V LOC: [facility] U#:[id number] AGE/SX: 83/F ROOM: RE04/08/[address]: Dr. Libra Beckwith MD : [id number] BED: DIS: 04/08/2024 SPEC #: [id number] RECD: 04/09/24 09:08 STATUS: GISELLE STEIN #: [id number] SANJAY: 04/08/24 15:[address]: Libra Beckwith DEPT: CYTOLOGY RECD BY: Edith Willoughby ENTERED: 04/09/24 09:09 SP TYPE: CYSPIN FL OTHR DR: Dr. Dillon Brasher MD Tissues: Urine Procedures: Pap Stain (control) Special Stain Group II Cytospin Fluid HEADER OPERATION: Not noted PRE-OP DIAGNOSIS: Gross hematuria TISSUE SUBMITTED: Urine for cytology DIAGNOSIS CYTOLOGY Urine for cytology (cytospin): Negative for high grade urothelial carcinoma (AZGUC), Nena System Category II. Acute inflammation. See comment. SJ/ 04/09/2024 COMMENT Clinical correlation and appropriate follow up are necessary. The Nena System for urine cytology diagnostic categorization was used in the evaluation of this case. CYTOLOGY STUDY Slides are reviewed. CYTOLOGY GROSS Received is 20 ml of hazy-yellow fluid labeled with the patient's name and and designated per the requisition as urine. Submitted for cytology preparation. Mr 04/09/2024 TC:2 CPT: 01917
[2024-04-08 17:47] LABS: Cytology, Body Fluid / CSF SEE PATHOLOGY REPORT
== END | disposition home or self-care (01) ==
PROVIDERS: PCP Family Medicine; Referring Provider Urology; Visit Provider Urology
DX: R31.0 Gross hematuria (principal)
CPT/HCPCS: 88108; 88313

== ENCOUNTER → 2024-07-09 | Outpatient (CLI) | payer MEDICARE, OTHER, SELFPAY ==
[2024-07-09 18:24] LABS: Anion Gap 6 (5-15); BUN 24 mg/dL (7-18); BUN/Creat Ratio 20.3 RATIO (10-20); Calcium,Total 8.6 mg/dL (8.5-10.1); Chloride 104 mmol/L (98-107); Creatinine, Serum 1.18 mg/dL (0.55-1.02); EST Glomerular Filtration Rate 46 mL/min (>60); Est Glom Filt Rate - Afr Amer 56 mL/min (>60); Glucose 116 mg/dL (74-106); Potassium 4.6 mmol/L (3.5-5.1); Sodium Level 135 mmol/L (136-145)
== END | disposition home or self-care (01) ==
LOC: MFPLAB 14:04
PROVIDERS: PCP Family Medicine; Referring Provider Family Medicine; Visit Provider Family Medicine
DX: I10 Essential (primary) hypertension (principal)
CPT/HCPCS: 36415; 80048

== ENCOUNTER → 2024-08-11 | Outpatient (CLI) | payer MEDICARE, OTHER, SELFPAY ==
--- NOTE | 2024-08-11 15:51 | RAD_ITS ---
STUDY: X-RAY - LEFT ANKLE REASON FOR EXAM: Female, 84 years old. ANKLE STRAIN AND PAIN TECHNIQUE: 3 view(s) of the ankle. COMPARISON: None. FINDINGS: Normal visualized distal tibia and fibula. Normal medial and lateral malleoli. Normal tibiotalar articulation and ankle mortise. Normal visualized talus and calcaneus. The visualized subtalar, talonavicular, calcaneocuboid and tarsal articulations are normal. The soft tissue structures are unremarkable. RAD/Ankle min 3 Views IMPRESSION: Normal x-ray examination of the ankle. Electronically Signed: Eber Cruz MD at 15:10 EST ,
== END | disposition home or self-care (01) ==
LOC: MTRAD 15:50
PROVIDERS: PCP Family Medicine; Referring Provider Family Medicine; Visit Provider Family Medicine
DX: S96.912A Strain of unspecified muscle and tendon at ankle and foot level, left foot, initial encounter (principal); X58.XXXA Exposure to other specified factors, initial encounter
CPT/HCPCS: 73610

== ENCOUNTER → 2024-08-22 | Outpatient (CLI) | payer MEDICARE, OTHER, SELFPAY ==
[2024-08-22 11:14] LABS: Absolute Lymphocyte Count 1.63 X10^3/uL (0.83-4.51); Absolute Neutrophil Count 1.8 X10^3/uL (2.0-7.7); Basophil# 0.02 X10^3/uL; Basophil% 0.5 % (0-1); Eosinophil# 0.03 X10^3/uL; Eosinophils% 0.8 % (0-5); Hemoglobin 11.5 g/dL (12.0-15.0); Lymphocyte # 1.63 X10^3/ul (0.83-4.51); Lymphocyte % 42.4 % (19-41); Mean Corp Hgb Conc 31.9 g/dL (32-36); Mean Platelet Vol. 10.4 fl (6.2-12.0); Monocyte# 0.36 X10^3/uL; Monocyte% 9.4 % (0-10); NRBC Flagged by Analyzer 0 % (0-5); Neutrophil # 1.79 X10^3/uL (2.7-7.7); Neutrophil % 46.6 % (47-70); Platelet Count 213 K/mm3 (150-450); RBC Distribution Width CV 15.7 % (11.6-14.6); RBC Distribution Width SD 53.9 fl (35.1-43.9); Red Blood Count 3.83 M/mm3 (4.2-5.4); White Blood Count 3.8 K/mm3 (4.4-11.0)
[2024-08-22 11:32] LABS: BNP,B-Type NATRIURETIC PEPTIDE 306.2 pg/mL (0-100)
[2024-08-22 11:45] LABS: Anion Gap 5 (5-15); BUN 24 mg/dL (7-18); BUN/Creat Ratio 18.6 RATIO (10-20); Calcium,Total 8.6 mg/dL (8.5-10.1); Chloride 106 mmol/L (98-107); Creatinine, Serum 1.29 mg/dL (0.55-1.02); EST Glomerular Filtration Rate 42 mL/min (>60); Est Glom Filt Rate - Afr Amer 51 mL/min (>60); Glucose 143 mg/dL (74-106); Potassium 4.1 mmol/L (3.5-5.1); Sodium Level 136 mmol/L (136-145)
== END | disposition home or self-care (01) ==
PROVIDERS: PCP Family Medicine; Referring Provider Physician Assistant Medical; Visit Provider Physician Assistant Medical
DX: I50.32 Chronic diastolic (congestive) heart failure (principal); I48.0 Paroxysmal atrial fibrillation; E03.9 Hypothyroidism, unspecified; R06.02 Shortness of breath; Z79.01 Long term (current) use of anticoagulants
CPT/HCPCS: 36415; 80048; 83880; 84443; 85025

== ENCOUNTER → 2024-10-09 | Outpatient (CLI) | payer MEDICARE, OTHER, SELFPAY ==
[2024-10-09 15:56] LABS: AST(SGOT) 53 U/L (15-37); Alanine Aminotransfer ALT/SGPT 67 U/L (13-56); Albumin, Serum 3.5 g/dL (3.2-5.0); Alkaline Phosphatase 108 U/L (45-117); Anion Gap 5 (5-15); BUN 36 mg/dL (7-18); BUN/Creat Ratio 25.7 RATIO (10-20); Calcium,Total 8.5 mg/dL (8.5-10.1); Chloride 109 mmol/L (98-107); Cholesterol 98 mg/dL (200); EST Glomerular Filtration Rate 38 mL/min (>60); Est Glom Filt Rate - Afr Amer 46 mL/min (>60); Globulin 3.4 g/dL (2.2-4.2); Glucose 94 mg/dL (74-106); High Density Lipoprotein 43 mg/dL; Potassium 4.6 mmol/L (3.5-5.1); Protein, Total 6.9 g/dL (6.4-8.2); Sodium Level 141 mmol/L (136-145); Triglycerides 104 mg/dL; Very Low Density Lipoprotein 21 mg/dL (5-40)
[2024-10-09 16:46] LABS: Hemoglobin A1c 4.8 % (3.8-5.6)
== END | disposition home or self-care (01) ==
LOC: MTLAB 11:34
PROVIDERS: PCP Family Medicine; Referring Provider Family Medicine; Visit Provider Family Medicine
DX: I10 Essential (primary) hypertension (principal)
CPT/HCPCS: 36415; 80053; 80061; 83036

== ENCOUNTER → 2024-10-27 | Outpatient (CLI) | payer MEDICARE, OTHER, SELFPAY ==
--- NOTE | 2024-10-27 10:13 | RAD_ITS ---
EXAM: XR Chest, 2 Views CLINICAL INDICATION: TECHNIQUE: Frontal and lateral views of the chest. COMPARISON: No relevant prior studies available. FINDINGS: LUNGS AND PLEURAL SPACES: Bibasilar atelectasis or pneumonia. Hyperlucent lungs. Flattening of the diaphragm. No pneumothorax. HEART: Unremarkable. No cardiomegaly. MEDIASTINUM: Unremarkable. Normal mediastinal contour. BONES/JOINTS: Unremarkable. No acute fracture. TUBES, LINES AND DEVICES: Left-sided cardiac pacemaker. RAD/Chest PA and Lateral IMPRESSION: 1. Bibasilar atelectasis or pneumonia. 2. Suggestion of COPD. Reading Location: [facility]
[2024-10-27 10:48] LABS: Absolute Lymphocyte Count 2.21 X10^3/uL (0.83-4.51); Basophil# 0.03 X10^3/uL; Basophil% 0.6 % (0-1); Eosinophil# 0.02 X10^3/uL; Eosinophils% 0.4 % (0-5); Hematocrit 37.2 % (37-47); Lymphocyte # 2.21 X10^3/ul (0.83-4.51); Lymphocyte % 45.8 % (19-41); Mean Corp Hgb Conc 32.3 g/dL (32-36); Mean Corpuscular Hgb 30.7 pg (27.0-32.0); Mean Corpuscular Volume 95.1 fL (81-99); Mean Platelet Vol. 11.1 fl (6.2-12.0); Monocyte# 0.54 X10^3/uL; Monocyte% 11.2 % (0-10); NRBC Flagged by Analyzer 0.4 % (0-5); Neutrophil # 2.01 X10^3/uL (2.7-7.7); Neutrophil % 41.6 % (47-70); Platelet Count 196 K/mm3 (150-450); RBC Distribution Width SD 59.1 fl (35.1-43.9); Red Blood Count 3.91 M/mm3 (4.2-5.4); White Blood Count 4.8 K/mm3 (4.4-11.0)
[2024-10-27 11:01] LABS: BNP,B-Type NATRIURETIC PEPTIDE 675.2 pg/mL (0-100)
[2024-10-28 06:37] LABS: ALB/GLOB Ratio 1.1 RATIO (0.9-2.4); AST(SGOT) 49 U/L (15-37); Alanine Aminotransfer ALT/SGPT 52 U/L (13-56); Albumin, Serum 3.6 g/dL (3.2-5.0); Alkaline Phosphatase 110 U/L (45-117); Anion Gap 5 (5-15); BUN 24 mg/dL (7-18); BUN/Creat Ratio 17.8 RATIO (10-20); Calcium,Total 8.5 mg/dL (8.5-10.1); Chloride 107 mmol/L (98-107); Creatinine, Serum 1.35 mg/dL (0.55-1.02); EST Glomerular Filtration Rate 40 mL/min (>60); Est Glom Filt Rate - Afr Amer 48 mL/min (>60); Globulin 3.2 g/dL (2.2-4.2); Glucose 106 mg/dL (74-106); Potassium 4.6 mmol/L (3.5-5.1); Protein, Total 6.8 g/dL (6.4-8.2); Sodium Level 138 mmol/L (136-145)
== END | disposition home or self-care (01) ==
LOC: LAB 10:03
PROVIDERS: PCP Family Medicine; Referring Provider Physician Assistant Medical; Visit Provider Physician Assistant Medical
DX: R07.9 Chest pain, unspecified (principal); I50.32 Chronic diastolic (congestive) heart failure; R06.01 Orthopnea; R06.02 Shortness of breath; I25.10 Atherosclerotic heart disease of native coronary artery without angina pectoris; Z95.0 Presence of cardiac pacemaker; Z95.818 Presence of other cardiac implants and grafts
CPT/HCPCS: 36415; 71046; 80053; 83880; 85025

== ENCOUNTER → 2024-11-12 | Outpatient (CLI) | payer MEDICARE, OTHER, SELFPAY ==
--- NOTE | 2024-11-12 10:36 | RAD_ITS ---
PROCEDURE: CHEST PA AND LATERAL REASON FOR EXAM: SHORTNESS OF BREATH, RECENT PNEUMONIA TECHNIQUE: Frontal and lateral views of the chest. COMPARISON: October 2024 FINDINGS: Hyperinflation. Blunting of right costophrenic angle again seen pacemaker detected. No pneumothorax. Stable heart size and mediastinum. No new infiltrate detected. Demineralization of the bones. RAD/Chest PA and Lateral IMPRESSION: Stable COPD with bronchial thickening. No new infiltrate detected. Senescent changes Reading Location: [id number]
== END | disposition home or self-care (01) ==
LOC: RAD 10:35
PROVIDERS: PCP Family Medicine; Visit Provider Physician Assistant Medical
DX: J18.9 Pneumonia, unspecified organism (principal)
CPT/HCPCS: 71046

== ENCOUNTER → 2024-11-18 | Outpatient (CLI) | payer MEDICARE, OTHER, SELFPAY ==
[2024-11-18 10:47] LABS: Absolute Lymphocyte Count 1.67 X10^3/uL (0.83-4.51); Absolute Neutrophil Count 2.3 X10^3/uL (2.0-7.7); Basophil# 0.02 X10^3/uL; Basophil% 0.4 % (0-1); Eosinophil# 0.01 X10^3/uL; Eosinophils% 0.2 % (0-5); Hematocrit 34.3 % (37-47); Lymphocyte # 1.67 X10^3/ul (0.83-4.51); Lymphocyte % 37.4 % (19-41); Mean Corp Hgb Conc 32.1 g/dL (32-36); Mean Corpuscular Volume 90.5 fL (81-99); Mean Platelet Vol. 10.8 fl (6.2-12.0); Monocyte# 0.46 X10^3/uL; Monocyte% 10.3 % (0-10); NRBC Flagged by Analyzer 0 % (0-5); Neutrophil # 2.29 X10^3/uL (2.7-7.7); Neutrophil % 51.5 % (47-70); Platelet Count 190 K/mm3 (150-450); RBC Distribution Width CV 16.3 % (11.6-14.6); RBC Distribution Width SD 53.5 fl (35.1-43.9); Red Blood Count 3.79 M/mm3 (4.2-5.4); White Blood Count 4.5 K/mm3 (4.4-11.0)
[2024-11-18 11:06] LABS: ALB/GLOB Ratio 1.5 RATIO (0.9-2.4); AST(SGOT) 39 U/L (<=31); Alanine Aminotransfer ALT/SGPT 27 U/L (<=34); Alkaline Phosphatase 106 U/L (35-104); Anion Gap 9 (5-15); BUN 25 mg/dL (4-19); BUN/Creat Ratio 18.5 RATIO (10-20); Carbon Dioxide 23.4 mmol/L (21.0-32.0); Chloride 103 mmol/L (98-108); Creatinine, Serum 1.36 mg/dL (0.70-1.20); EST Glomerular Filtration Rate 38 (>60); Globulin 2.6 g/dL (2.2-4.2); Glucose 193 mg/dL (70-99); Potassium 4.4 mmol/L (3.3-5.1); Pro- Brain NATRIURETIC PEPTIDE 4945 pg/mL (<=1800); Protein, Total 6.6 g/dL (5.9-8.4); Sodium Level 135 mmol/L (133-145); Total Bilirubin 0.93 mg/dL (0.00-1.30)
== END | disposition home or self-care (01) ==
LOC: LAB 10:26
PROVIDERS: PCP Family Medicine; Referring Provider Nurse Practitioner Family; Visit Provider Nurse Practitioner Family
DX: I50.32 Chronic diastolic (congestive) heart failure (principal); R06.09 Other forms of dyspnea
CPT/HCPCS: 36415; 80053; 83880; 85025

== ENCOUNTER → 2024-11-21 | Outpatient (CLI) | payer MEDICARE, OTHER, SELFPAY ==
--- NOTE | 2024-11-21 16:37 | STRESSREP ---
Stress Test Report Pharmacologic myocardial perfusion stress test. 84-year-old lady with a history of chest pain Resting EKG demonstrates atrial fibrillation with ventricular pacing with a rate of 70 bpm. Resting blood pressure is 116 over 82 mmHg. 0.4 mg of regadenoson was infused per usual protocol followed by rapid intravenous saline flush injection. Continuous EKG monitoring was performed. The maximum heart rate was 80 bpm which was 58% of max impacted heart rate the maximum workload was 1 metabolic equivalent. At rest there were no ST or T wave changes noted to suggest ischemia and at peak infusion nonspecific ST changes were noted which did not meet the criteria for ischemia. No clinical angina is noted. The final blood pressure was 110/60 mmHg. Myocardial perfusion protocol. 11 point mCi of technetium 99m sestamibi was injected at rest. 0.4 mg of regadenoson was infused per usual protocol. At peak infusion 33.3 mCi of technetium 99m sestamibi was injected stress images were obtained stress and rest images were reconstructed and compared in the short axis vertical long and horizontal long axis. Gated images were also obtained. Perfusion SPECT analysis: Review of the stress images demonstrate normal uptake of tracer noted in all areas of the myocardium. The resting images similar demonstrated normal uptake of tracer noted in all areas of the myocardium. No areas of reversibility are noted to suggest ischemia and no previous infarct is noted. Gated SPECT analysis: The gated ejection fraction is 62%. Conclusion: Normal pharmacologic myocardial perfusion stress test. Preserved ejection fraction.
== END | disposition home or self-care (01) ==
LOC: CVS 07:09
PROVIDERS: PCP Family Medicine; Referring Provider Physician Assistant Medical; Visit Provider Physician Assistant Medical
DX: R07.9 Chest pain, unspecified (principal); M79.602 Pain in left arm
CPT/HCPCS: 78452; 93017; A9500; A4216; J2785

== ENCOUNTER 2024-11-28 11:01 | Emergency (ER) | payer MEDICARE, OTHER, SELFPAY ==
[2024-11-28 11:03] VITALS: BP 109/58; PULSE 70; RESP 15; TEMP 36.1; O2SAT 99; BMI 19.5
[2024-11-28 11:33] VITALS: O2SAT 99
--- NOTE | 2024-11-28 12:54 | EKG12_ITS ---
Test Reason : SOB Blood Pressure : */* mmHG Vent. Rate : 71 BPM Atrial Rate : 227 BPM P-R Int : * ms QRS Dur : 166 ms QT Int : 478 ms P-R-T Axes : * -83 108 degrees QTcB Int : 519 ms Ventricular-paced rhythm with premature ventricular or aberrantly conducted complexes Abnormal ECG Confirmed by HIEN TOLEDO, CONNIE ([id number]), copy editor GISELLA ARREOLA ([id number]) on 12/01/2024 9:16:50 AM Referred By: RENATE Confirmed By: CONNIE STANFORD MD
--- NOTE | 2024-11-28 12:57 | EX.ED.DYSGE1 ---
HPI History of Present Illness Chief Complaint: Shortness of Breath Narrative Narrative: Patient is a 84-year-old female who is presenting to the ER today with chief complaint shortness of breath. Patient was diagnosed with pneumonia 2 weeks ago. Patient was placed on a Z-Gonzalez. Patient had 2 different x-rays done at that time. Patient lives at home by herself. 2 daughters at bedside. Patient has a history of a watchman, she is also on Eliquis. Patient sees the [facility] for cardiology. Patient states she has been getting more short of breath with exertion, however the shortness of breath is at rest and with exertion. Patient did have a stress test last week. Patient does have an appointment with her line dancer, Dr. Arias on December 08. Patient has no abdominal pain, nausea or vomiting. Patient is been eating and drinking within normal limits at home. Patient is 99% on room air. Patient wears no oxygen during the day or nighttime. [facility] Medical History Diastolic CHF, chronic Bilateral hydronephrosis Wears glasses Wears partial dentures Wears dentures Back pain TIA (transient ischemic attack) Dietary restriction History of hiatal hernia Gastric reflux Non-smoker COPD (chronic obstructive pulmonary disease) Shortness of breath on exertion History of edema History of echocardiogram History of stress test Cardiology follow-up encounter History of rheumatic fever Left atrial thrombus Urinary tract infection Ischemic stroke Presence of permanent cardiac pacemaker Sinus pause Sick sinus syndrome Essential hypertension Celiac disease Bladder neoplasm of uncertain malignant potential Atrial fibrillation Premature atrial contractions Premature ventricular contraction Nonrheumatic mitral (valve) prolapse Atherosclerotic heart disease of [place] coronary artery without angina pectoris Sinus bradycardia Pulmonary hypertension, secondary 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 Migraine Paroxysmal atrial fibrillation Incontinence Celiac disease Hay fever HTN (hypertension) long-term current use of anticoagulant therapy Urinary tract infection Subtherapeutic international normalized ratio (INR) Acute CVA (cerebrovascular accident) Anxiety Hypokalemia Hyponatremia HLD (hyperlipidemia) HTN (hypertension) DM type 2 (diabetes mellitus, type 2) Home Medications ?Medication ?Instructions ?Recorded ?Last Taken ?Type esomeprazole magnesium 40 mg 40 mg PO DAILY GERD 04/10/18 05/04/22 08:00 History capsule,delayed release clonazepam 0.5 mg tablet 0.5 mg PO BID ANXIETY 10/14/19 05/04/22 08:00 History cranberry 500 mg capsule 500 mg PO DAILY 06/28/23 Unknown History minoxidil 2.5 mg tablet 2.5 mg PO BID 06/28/23 Unknown History pravastatin 10 mg tablet 10 mg PO QHS CHOLESTEROL #90 tabs 11/06/23 Unknown Rx trimethoprim 100 mg tablet 100 mg PO QHS 11/06/23 Unknown History potassium chloride 20 mEq 20 meq PO DAILY #30 tabs 02/01/24 Unknown Rx tablet,extended release metoprolol tartrate 50 mg tablet 75 mg (1.5 x 50 mg) PO BID #135 07/08/24 Unknown Rx tabs clopidogrel 75 mg tablet 75 mg PO DAILY #90 tabs 09/23/24 Unknown Rx lisinopril 40 mg tablet 20 mg (1/2 x 40 mg) PO DAILY #90 09/23/24 Unknown Rx tabs azithromycin 250 mg tablet See Rx Instructions PO .COMPLEX #6 10/27/24 Unknown Rx (Zithromax Z-Gonzalez) tabs torsemide 10 mg tablet 5 mg (1/2 x 10 mg) PO BID #90 tabs 11/18/24 Unknown Rx Allergy/AdvReac Type Severity Reaction Status Date / Time aspirin Allergy Anaphylaxis Verified 11/28/24 11:03 ibuprofen Allergy Anaphylaxis Verified 11/28/24 11:03 Influenza Virus Vaccines Allergy Anaphylaxis Verified 11/28/24 11:03 Penicillins (PCN) Allergy Anaphylaxis Verified 11/28/24 11:03 Sulfa (Sulfonamide Allergy Anaphylaxis Verified 11/28/24 11:03 Antibiotics) amlodipine (From Norvas) AdvReac Severe Cough Verified 11/28/24 11:03 hydralazine AdvReac Severe stopped Verified 11/28/24 11:03 when she had CVA spironolactone AdvReac Severe Hyponaturem Verified 11/28/24 11:03 ia Family History Father CVA (cerebral vascular accident) Brother Hypertension Brother Hypertension Sister Abdominal aortic aneurysm (AAA) Sister CVA (cerebral vascular accident) Hypertension Diabetes Other Cancer Surgical History History of cardiac catheterization History of biopsy of bladder H/O colonoscopy (~09/27/21) Presence of Watchman left atrial appendage closure device (~08/20/20) History of bladder surgery History of radiofrequency ablation procedure for cardiac arrhythmia (~12/09/18) History of cardiac radiofrequency ablation (RFA) Status post placement of implantable loop recorder History of hip replacement History of hysterectomy History of back surgery Social History (Updated 11/28/24 @ 11:34 by Doris Emerson) household members: spouse housing: house Smoking Status: Never smoker alcohol intake: never substance use type: does not use caffeine: Yes Type: coffee Number of servings: 1 EXAM Physical Exam Const Vital Signs: 11/28/24 11:03 11/28/24 11:33 11/28/24 13:02 Temperature 97 F L Temperature Source Temporal Pulse Rate 70 Respiratory Rate 15 Respiratory Effort Short of Breath Respiratory Depth Normal Respiratory Pattern Normal Blood Pressure 109/58 L 137/80 H Blood Pressure Mean 75 99 Pulse Ox 99 Oxygen Delivery Method Room Air Room Air 11/28/24 13:05 11/28/24 13:15 11/28/24 13:15 Temperature Temperature Source Pulse Rate 73 Respiratory Rate 15 Respiratory Effort Respiratory Depth Respiratory Pattern Normal Blood Pressure Blood Pressure Mean Pulse Ox 99 100 Oxygen Delivery Method Room Air Room Air MDM MDM MDM Narrative Medical decision making narrative: Patient seen and examined: Patient lungs are crystal clear. She has no wheezing, infiltrate, effusion noted with auscultation. Differential diagnosis includes but is not limited to: Pulm edema, pneumonia, [place], electrolyte abnormality, dehydration Relevant laboratory interpretation:Patient's H&H is . Initial troponin was 18, repeat troponin will be done. Radiological studies: Chest x-ray shows cardiomegaly, no significant signs of effusion, pneumonia, or infiltrate. Reevaluation: Social barriers to healthcare: There are no food insecurities, there is no issue with transportation, there are no insurance barriers Disposition: Patient initial troponin was 18, second troponin will be done. Chest x-ray negative. Patient just recently had a stress test last week. Patient has an appointment with her cardiology group on December 08. Patient is becoming more short of breath at rest and with exertion at home. 2 daughters at bedside with history. No acute indication for admission. Patient will be discharged. 1440 Case was discussed with line dancer on-call, Dr. Hernandez. 1446 Dr. Hernandez reviewed patient stress test from last week. No acute signs from the stress test, Dr. Hernandez reviewed and stated was normal. Patient can follow-up with line dancer as scheduled appointment on December 08. Patient will continue home medications. We did discuss troponin of 18, he does not believe that needs to be repeated with a second troponin in light of patient having no chest pain, tightness, no other acute concerns. Diagnosis: Dyspnea Lab Data Attestation: I reviewed the patient's lab results. Labs: Laboratory Results - last 24 hr 11/28/24 11:22 WBC 5.0 RBC 3.87 L Hgb 11.1 L Hct 35.1 L MCV 90.7 MCH 28.7 MCHC 31.6 L RDW Std Deviation 53.7 H RDW Coeff of Zhanna 16.2 H Plt Count 173 MPV 11.4 Immature Gran % (Auto) 0.200 Neut % (Auto) 43.1 L Lymph % (Auto) 43.7 H [place] % (Auto) 12.0 H Eos % (Auto) 0.4 Baso % (Auto) 0.6 Absolute Neuts (auto) 2.2 Absolute Lymphs (auto) 2.19 Nucleated RBC % 0 Sodium 138 Potassium 4.4 Chloride 104 Carbon Dioxide 19.7 L Anion Gap 14 BUN 31 H Creatinine 1.43 H Estim Creat Clear Calc 25.37 L Est GFR (MDRD) Non-Af 36 L BUN/Creatinine Ratio 21.7 H Glucose 109 H Calcium 9.0 Troponin T High Sens 18 H Radiography Chest X-Ray - ED: Read by ED Physician (Chest x-ray shows no acute cardiopulmonary disease, no infiltrate, no effusion. Cardiomegaly, no significant signs of pulmonary edema, effusion, no pneumothorax.) Diagnostic Testing: Clinical Impression(s) from Imaging Studies Chest X-Ray 11/28/24 13:00 IMPRESSION: Cardiomegaly with mild congestion. Reading Location: [facility] EKG Initial EKG: Attestation: I personally reviewed and interpreted this EKG as follows: (Paced rhythm at 71 beats a minute. Left axis deviation. QTc of 519.) Discharge Plan Triage Chief Complaint: Shortness of Breath ED Provider: Cain Read Dx/Rx/DC Orders Clinical Impression: Dyspnea Instructions: ED Dyspnea Prescriptions: No Action esomeprazole magnesium 40 mg capsule,delayed release(DR/EC) 40 mg PO DAILY minoxidil 2.5 mg tablet 2.5 mg PO BID cranberry 500 mg capsule 500 mg PO DAILY Rx Instructions: administer with meals trimethoprim 100 mg tablet 100 mg PO QHS Patient Comments: TAKE 1 TABLET BY MOUTH AT BEDTIME pravastatin 10 mg tablet 10 mg PO QHS Qty: 90 3RF clonazepam 0.5 MG tablet 0.5 mg PO BID Patient Comments: ANXIETY Rx Instructions: 1 PO Q AM and 1-2 Q HS potassium chloride 20 mEq tablet extended release 20 meq PO DAILY Qty: 30 11RF metoprolol tartrate 50 mg tablet 75 mg PO BID Qty: 135 3RF clopidogrel 75 mg tablet 75 mg PO DAILY Qty: 90 3RF lisinopril 40 mg tablet 20 mg PO DAILY Qty: 90 4RF azithromycin [Zithromax Z-Gonzalez] 250 mg tablet See Rx Instructions PO .COMPLEX Qty: 6 0RF Rx Instructions: For 250 mg dose pack: take 500 mg today (day 1), then 250 mg for 4 days (days 2-5) PO torsemide 10 mg tablet 5 mg PO BID Qty: 90 3RF Primary Care Provider: Dillon Brasher Referrals: Joey Maloney MD [Med Staff - Active Staff] - Dillon Brasher MD [Primary Care Provider] - Activity Restrictions/Additional Instructions: I have discussed your case, stress test, and your workup in the ER today with Dr. Hernandez. Your stress test from last week did not show any significant findings per Dr. Hernandez Keep your appointment on December 08. Any other acute concerns call the cardiology office or your PCP office before your appointment on December 08. Chest x-ray shows no obvious signs of pneumonia, your lab work was discussed with Dr. Hernandez line dancer from the [facility] as well. Print Language: Bengali Disposition Disposition: Home, Self Care
--- NOTE | 2024-11-28 13:00 | RAD_ITS ---
EXAM: XR Chest, 1 View CLINICAL INDICATION: CHEST PAIN TECHNIQUE: Frontal view of the chest. COMPARISON: No relevant prior studies available. FINDINGS: LUNGS AND PLEURAL SPACES: See below. HEART: Cardiomegaly with mild congestion. MEDIASTINUM: Unremarkable. Normal mediastinal contour. BONES/JOINTS: Unremarkable. No acute fracture. TUBES, LINES AND DEVICES: Left-sided cardiac pacemaker. RAD/Chest 1 View (Portable) IMPRESSION: Cardiomegaly with mild congestion. Reading Location: [facility]
[2024-11-28 13:02] VITALS: BP 137/80
[2024-11-28 13:05] VITALS: O2SAT 99
[2024-11-28 13:07] LABS: Absolute Lymphocyte Count 2.19 X10^3/uL (0.83-4.51); Absolute Neutrophil Count 2.2 X10^3/uL (2.0-7.7); Basophil# 0.03 X10^3/uL; Basophil% 0.6 % (0-1); Eosinophil# 0.02 X10^3/uL; Eosinophils% 0.4 % (0-5); Hematocrit 35.1 % (37-47); Hemoglobin 11.1 g/dL (12.0-15.0); Lymphocyte # 2.19 X10^3/ul (0.83-4.51); Lymphocyte % 43.7 % (19-41); Mean Corp Hgb Conc 31.6 g/dL (32-36); Mean Corpuscular Hgb 28.7 pg (27.0-32.0); Mean Corpuscular Volume 90.7 fL (81-99); Mean Platelet Vol. 11.4 fl (6.2-12.0); NRBC Flagged by Analyzer 0 % (0-5); Neutrophil # 2.16 X10^3/uL (2.7-7.7); Neutrophil % 43.1 % (47-70); Platelet Count 173 K/mm3 (150-450); RBC Distribution Width CV 16.2 % (11.6-14.6); RBC Distribution Width SD 53.7 fl (35.1-43.9); Red Blood Count 3.87 M/mm3 (4.2-5.4)
[2024-11-28 13:15] VITALS: PULSE 73; RESP 15; O2SAT 100
[2024-11-28] MEDS: Albuterol 2.5 MG/3 ML VIAL.NEB. INHALATION (13:15)
[2024-11-28 13:35] LABS: Anion Gap 14 (5-15); BUN 31 mg/dL (4-19); BUN/Creat Ratio 21.7 RATIO (10-20); Carbon Dioxide 19.7 mmol/L (21.0-32.0); Chloride 104 mmol/L (98-108); Creatinine, Serum 1.43 mg/dL (0.70-1.20); EST Glomerular Filtration Rate 36 (>60); Estimated Creatinine Clearance 25.37 ml/min (50-250); Glucose 109 mg/dL (70-99); Potassium 4.4 mmol/L (3.3-5.1); Sodium Level 138 mmol/L (133-145); Troponin T High Sensitivity 18 ng/L (<=14)
[2024-11-28 14:48] VITALS: BP 123/70; PULSE 73; RESP 15; TEMP 36.6; O2SAT 100
== END 2024-11-28 15:24 | disposition home or self-care (01) ==
PROVIDERS: Emergency Provider Emergency Medicine; PCP Family Medicine; Visit Provider Emergency Medicine
DX: R06.02 Shortness of breath (principal)
CPT/HCPCS: 71045; 80048; 84484; 85025; 93005; 94640; 99283

== ENCOUNTER → 2024-12-08 | Outpatient (CLI) | payer MEDICARE, OTHER, SELFPAY ==
[2024-12-08 12:30] LABS: Pro- Brain NATRIURETIC PEPTIDE 6671 pg/mL (<=1800)
== END | disposition home or self-care (01) ==
PROVIDERS: PCP Family Medicine; Referring Provider Student in an Organized Health Care Education/Training Program; Visit Provider Student in an Organized Health Care Education/Training Program
DX: R06.02 Shortness of breath (principal)
CPT/HCPCS: 36415; 83880

== ENCOUNTER → 2024-12-23 | Outpatient (CLI) | payer MEDICARE, OTHER, SELFPAY ==
[2024-12-23 15:07] LABS: Anion Gap 11 (5-15); BUN 28 mg/dL (4-19); BUN/Creat Ratio 21.6 RATIO (10-20); Calcium,Total 9.1 mg/dL (7.6-11.0); Carbon Dioxide 29.7 mmol/L (21.0-32.0); Chloride 99 mmol/L (98-108); Creatinine, Serum 1.29 mg/dL (0.70-1.20); EST Glomerular Filtration Rate 41 (>60); Glucose 108 mg/dL (70-99); Potassium 4.1 mmol/L (3.3-5.1); Pro- Brain NATRIURETIC PEPTIDE 2258 pg/mL (<=1800); Sodium Level 139 mmol/L (133-145)
== END | disposition home or self-care (01) ==
LOC: LAB 12:00
PROVIDERS: PCP Family Medicine; Referring Provider Student in an Organized Health Care Education/Training Program; Visit Provider Student in an Organized Health Care Education/Training Program
DX: I50.32 Chronic diastolic (congestive) heart failure (principal)
CPT/HCPCS: 36415; 80048; 83880

== ENCOUNTER → 2024-12-29 | Outpatient (CLI) | payer MEDICARE, OTHER, SELFPAY ==
--- NOTE | 2024-12-29 13:46 | ECHOD_ITS ---
Reason For Study Reason For Study: DYSPNEA Procedure This was a 2D Doppler, Color Flow transthoracic echocardiogram. Exam performed in department. Left Ventricle Normal LV size. The left ventricular ejection fraction is 30 %. There is moderate to severe global hypokinesis of the left ventricle. Right Ventricle Normal RV size. ICD or pacer leads identified within the right ventricle. Normal systolic function. Atria Normal left atrium. Normal right atrium. Mitral Valve Bileaflet diffuse mitral valve thickening. Mild (1+) eccentric mitral valve insufficiency. Tricuspid Valve Normal tricuspid valve. Moderately severe (3+) tricuspid valve insufficiency. Pulmonary artery systolic pressure is 87 mmHg. Severe pulmonary hypertension. Aortic Valve Trisinus/trileaflet aortic valve. Mild focal aortic valve thickening. Trivial eccentric aortic valve insufficiency. Pulmonic Valve Normal pulmonic valve. Pericardium/Pleural No pericardial effusion. MMode/2D Measurements & Calculations LVIDd: 4.4 cm IVSd: 0.95 cm LVOT diam: 1.9 cm LVIDs: 3.7 cm LVPWd: 0.71 cm LVOT area: 2.8 cm2 RVDd: 3.7 cm FS: 17.6 % Ao root diam: 3.2 cm LAV(MOD-bp): 45.3 ml LVAd ap4: 21.8 cm2 LAV(MOD-bp) Indexed: 28.6 ml/m2 LVLd ap4: 7.4 cm LAV(MOD-sp2): 47.0 ml EDV(MOD-sp4): 53.7 ml LAV(MOD-sp4): 37.7 ml EDV(sp4-el): 54.7 ml LVAs ap4: 17.6 cm2 LVLs ap4: 7.1 cm ESV(MOD-sp4): 37.4 ml ESV(sp4-el): 37.0 ml EF(MOD-sp4): 30.3 % EF(sp4-el): 32.4 % SV(MOD-sp4): 16.2 ml SV(sp4-el): 17.7 ml LA A4 area: 15.8 cm2 SI(MOD-sp4): 10.3 ml/m2 LA dimension(2D): 3.3 cm RA A4 area: 20.2 cm2 Time Measurements MV dec time: 0.15 sec Doppler Measurements & Calculations MV E max navarro: 81.0 cm/sec Lat Peak E' Navarro: 7.9 cm/sec Med Peak E' Navarro: 4.7 cm/sec MV A max navarro: 29.5 cm/sec E/E' lat: 10.3 E/E' med: 17.1 MV E/A: 2.7 Ao V2 max: 88.8 cm/sec AI max navarro: 361.7 cm/sec MV dec slope: 528.3 cm/sec2 Ao max P.2 mmHg AI max P.3 mmHg Ao V2 mean: 63.5 cm/sec Ao mean P.8 mmHg AI dec slope: 217.8 cm/sec2 Ao V2 VTI: 19.9 cm AI P1/2t: 486.3 msec AV (velocity ratio): 0.75 JOHANNA(I,D): 2.1 cm2 JOHANNA(V,D): 2.3 cm2 LV V1 max: 70.4 cm/sec SV(LVOT): 42.5 ml PA V2 max: 78.1 cm/sec LV V1 max P.0 mmHg PA V2 mean: 50.3 cm/sec LV V1 mean P.0 mmHg LV V1 mean: 46.2 cm/sec LV V1 VTI: 14.9 cm TR max navarro: 450.6 cm/sec TR max P.2 mmHg ECHO/Echo Complete Interpretation Summary Normal LV size. The left ventricular ejection fraction is 30 %. There is moderate to severe global hypokinesis of the left ventricle. Mild (1+) eccentric mitral valve insufficiency. Pulmonary artery systolic pressure is 87 mmHg. Severe pulmonary hypertension. The pulmonary pressures are however unchanged. Compared to previous study, the left ventricular systolic function has worsened.. Ordering Physician: Olivia Bowen Referring Physician: Olivia Bowen Performed By: Chayo Mckinney RCS
== END | disposition home or self-care (01) ==
LOC: CVS 13:42
PROVIDERS: PCP Family Medicine; Referring Provider Physician Assistant Medical; Visit Provider Physician Assistant Medical
DX: R06.09 Other forms of dyspnea (principal)
CPT/HCPCS: 93306

== ENCOUNTER → 2025-01-09 | Outpatient (CLI) | payer MEDICARE, OTHER, SELFPAY ==
[2025-01-09 16:44] LABS: ALB/GLOB Ratio 1.3 RATIO (0.9-2.4); AST(SGOT) 39 U/L (<=31); Alanine Aminotransfer ALT/SGPT 25 U/L (<=34); Albumin, Serum 4.1 g/dL (3.4-4.8); Alkaline Phosphatase 115 U/L (35-104); Anion Gap 12 (5-15); BUN 27 mg/dL (4-19); BUN/Creat Ratio 19.4 RATIO (10-20); Calcium,Total 9.1 mg/dL (7.6-11.0); Carbon Dioxide 25.8 mmol/L (21.0-32.0); Chloride 100 mmol/L (98-108); Cholesterol 115 mg/dL (<=200); Creatinine, Serum 1.39 mg/dL (0.70-1.20); EST Glomerular Filtration Rate 37 (>60); Globulin 3.2 g/dL (2.2-4.2); Glucose 74 mg/dL (70-99); High Density Lipoprotein 38 mg/dL; Low Density Lipoprotein Calc. 59 mg/dL; Potassium 4.1 mmol/L (3.3-5.1); Protein, Total 7.3 g/dL (5.9-8.4); Sodium Level 138 mmol/L (133-145); Total Bilirubin 0.49 mg/dL (0.00-1.30); Triglycerides 92 mg/dL; Very Low Density Lipoprotein 18 mg/dL (5-40); cholesterol:hdl ratio screen 3.05
== END | disposition home or self-care (01) ==
LOC: MFPLAB 09:42
PROVIDERS: PCP Family Medicine; Referring Provider Family Medicine; Visit Provider Family Medicine
DX: I10 Essential (primary) hypertension (principal)
CPT/HCPCS: 36415; 80053; 80061

== ENCOUNTER → 2025-01-30 | Outpatient (CLI) | payer MEDICARE, OTHER, SELFPAY ==
[2025-01-30 12:37] LABS: Bacteria 0 SEEN /hpf (None Seen); Mucous, Urine 0 SEEN /hpf (<or=2+); Red Blood Cells-Urine 0 SEEN /hpf (0-5); Squamous Epithelial Cells - UA 0 SEEN /hpf (5-10)
[2025-01-30 13:15] LABS: Absolute Lymphocyte Count 2.01 X10^3/uL (0.83-4.51); Absolute Neutrophil Count 2.1 X10^3/uL (2.0-7.7); Basophil# 0.03 X10^3/uL; Basophil% 0.6 % (0-1); Eosinophil# 0.03 X10^3/uL; Eosinophils% 0.6 % (0-5); Hematocrit 41.5 % (37-47); Hemoglobin 13.4 g/dL (12.0-15.0); Lymphocyte # 2.01 X10^3/ul (0.83-4.51); Lymphocyte % 40.9 % (19-41); Mean Corp Hgb Conc 32.3 g/dL (32-36); Mean Corpuscular Hgb 26.4 pg (27.0-32.0); Mean Corpuscular Volume 81.9 fL (81-99); Mean Platelet Vol. 9.9 fl (6.2-12.0); Monocyte# 0.72 X10^3/uL; Monocyte% 14.7 % (0-10); NRBC Flagged by Analyzer 0.4 % (0-5); Neutrophil # 2.12 X10^3/uL (2.7-7.7); Neutrophil % 43.2 % (47-70); Platelet Count 400 K/mm3 (150-450); RBC Distribution Width SD 56.2 fl (35.1-43.9); Red Blood Count 5.07 M/mm3 (4.2-5.4); White Blood Count 4.9 K/mm3 (4.4-11.0)
[2025-01-30 13:26] LABS: Color, Urine Yellow (Yellow); Glucose, Dipstick 1000 mg/dl (Normal); Ketone-Dipstick Negative (Negative); Leukocyte Esterase-Dipstick 500 /ul (Negative); Nitrite-Dipstick Positive (Negative); Occult Blood-Urine 150 /ul (Negative); Protein-Dipstick 100 mg/dl (Negative); Specific Gravity, Urine 1.015 (1.002-1.030); Urine Bilirubin Dipstick Negative (Negative); Urine Clarity Clear (Clear); Urine Urobilinogen Normal (Normal)
[2025-01-30 13:41] LABS: Anion Gap 12 (5-15); BUN 23 mg/dL (4-19); BUN/Creat Ratio 15.3 RATIO (10-20); Calcium,Total 9.6 mg/dL (7.6-11.0); Carbon Dioxide 22.4 mmol/L (21.0-32.0); Chloride 97 mmol/L (98-108); EST Glomerular Filtration Rate 34 (>60); Glucose 107 mg/dL (70-99); Potassium 4.8 mmol/L (3.3-5.1); Pro- Brain NATRIURETIC PEPTIDE 1157 pg/mL (<=1800); Sodium Level 132 mmol/L (133-145); Thyroid Stim Hormone (TSH) 0.732 uIU/mL (0.300-4.200)
[2025-01-30 13:56] LABS: Coarse Granular Cast 0-5 SEEN /lpf (0-5 /lpf)
[2025-01-30 13:57] LABS: Fine Granular Cast- Urine 0-5 SEEN /lpf (0-5)
[2025-01-30 13:58] LABS: White Blood Cells >100 SEEN /hpf (0-5)
== END | disposition home or self-care (01) ==
LOC: LAB 12:34
PROVIDERS: PCP Family Medicine; Referring Provider Student in an Organized Health Care Education/Training Program; Visit Provider Student in an Organized Health Care Education/Training Program
DX: I11.0 Hypertensive heart disease with heart failure (principal); I50.20 Unspecified systolic (congestive) heart failure; R41.0 Disorientation, unspecified; R06.02 Shortness of breath; R63.4 Abnormal weight loss
CPT/HCPCS: 36415; 80048; 81001; 83880; 84443; 85025

== ENCOUNTER → 2025-02-16 | Outpatient (CLI) | payer MEDICARE, OTHER, SELFPAY ==
[2025-02-16 16:26] LABS: Anion Gap 12 (5-15); BUN 23 mg/dL (4-19); BUN/Creat Ratio 15.7 RATIO (10-20); Calcium,Total 8.7 mg/dL (7.6-11.0); Carbon Dioxide 22.5 mmol/L (21.0-32.0); Chloride 98 mmol/L (98-108); Creatinine, Serum 1.45 mg/dL (0.70-1.20); EST Glomerular Filtration Rate 36 (>60); Glucose 181 mg/dL (70-99); Potassium 4.5 mmol/L (3.3-5.1); Sodium Level 132 mmol/L (133-145)
== END | disposition home or self-care (01) ==
LOC: MFPLAB 11:39
PROVIDERS: PCP Family Medicine; Visit Provider Student in an Organized Health Care Education/Training Program
DX: I11.0 Hypertensive heart disease with heart failure (principal); I50.43 Acute on chronic combined systolic (congestive) and diastolic (congestive) heart failure
CPT/HCPCS: 36415; 80048

== ENCOUNTER → 2025-02-26 | Outpatient (CLI) | payer MEDICARE, OTHER, SELFPAY ==
[2025-02-26 11:57] LABS: Absolute Lymphocyte Count 1.73 X10^3/uL (0.83-4.51); Absolute Neutrophil Count 1.7 X10^3/uL (2.0-7.7); Basophil# 0.04 X10^3/uL; Basophil% 0.9 % (0-1); Eosinophil# 0.08 X10^3/uL; Eosinophils% 1.9 % (0-5); Hemoglobin 12.6 g/dL (12.0-15.0); Lymphocyte # 1.73 X10^3/ul (0.83-4.51); Lymphocyte % 40.6 % (19-41); Mean Corp Hgb Conc 31.5 g/dL (32-36); Mean Corpuscular Hgb 25.8 pg (27.0-32.0); Mean Platelet Vol. 9.8 fl (6.2-12.0); Monocyte# 0.67 X10^3/uL; Monocyte% 15.7 % (0-10); NRBC Flagged by Analyzer 0 % (0-5); Neutrophil # 1.73 X10^3/uL (2.7-7.7); Neutrophil % 40.7 % (47-70); POSITIVE MORPHOLOGY YES; Platelet Count 375 K/mm3 (150-450); RBC Distribution Width CV 22.7 % (11.6-14.6); RBC Distribution Width SD 66.1 fl (35.1-43.9); Red Blood Count 4.88 M/mm3 (4.2-5.4); White Blood Count 4.3 K/mm3 (4.4-11.0)
[2025-02-26 12:04] LABS: Differential Indicated SCAN CRITERIA MET
[2025-02-26 13:10] LABS: Anisocytosis 1+
[2025-02-26 13:11] LABS: Schistocytes RARE
[2025-02-26 13:16] LABS: ALB/GLOB Ratio 1.2 RATIO (0.9-2.4); AST(SGOT) 34 U/L (<=31); Alanine Aminotransfer ALT/SGPT 25 U/L (<=34); Alkaline Phosphatase 134 U/L (35-104); Anion Gap 9 (5-15); BUN 21 mg/dL (4-19); BUN/Creat Ratio 16.7 RATIO (10-20); Calcium,Total 9.6 mg/dL (7.6-11.0); Carbon Dioxide 27.2 mmol/L (21.0-32.0); Chloride 100 mmol/L (98-108); Creatinine, Serum 1.28 mg/dL (0.70-1.20); EST Glomerular Filtration Rate 41 (>60); Globulin 3.3 g/dL (2.2-4.2); Glucose 83 mg/dL (70-99); Magnesium 2.3 mg/dL (1.5-2.2); Potassium 5.2 mmol/L (3.3-5.1); Pro- Brain NATRIURETIC PEPTIDE 853 pg/mL (<=1800); Protein, Total 7.3 g/dL (5.9-8.4); Sodium Level 136 mmol/L (133-145); Total Bilirubin 0.42 mg/dL (0.00-1.30)
== END | disposition home or self-care (01) ==
LOC: LAB 11:15
PROVIDERS: PCP Family Medicine; Referring Provider Nurse Practitioner Family; Visit Provider Nurse Practitioner Family
DX: I11.0 Hypertensive heart disease with heart failure (principal); I50.43 Acute on chronic combined systolic (congestive) and diastolic (congestive) heart failure; R06.02 Shortness of breath; R06.09 Other forms of dyspnea; R53.83 Other fatigue
CPT/HCPCS: 36415; 80053; 83735; 83880; 84439; 84443; 85025

== ENCOUNTER → 2025-03-11 | Outpatient (CLI) | payer MEDICARE, OTHER, SELFPAY ==
[2025-03-11 14:02] LABS: Mucous, Urine 0 SEEN /hpf (<or=2+)
[2025-03-11 14:30] LABS: Anion Gap 13 (5-15); BUN 37 mg/dL (4-19); BUN/Creat Ratio 24.2 RATIO (10-20); Calcium,Total 9.6 mg/dL (7.6-11.0); Carbon Dioxide 23.8 mmol/L (21.0-32.0); Chloride 98 mmol/L (98-108); Glucose 100 mg/dL (70-99); Potassium 4.9 mmol/L (3.3-5.1)
[2025-03-11 14:37] LABS: Color, Urine Yellow (Yellow); Glucose, Dipstick Normal (Normal); Ketone-Dipstick Negative (Negative); Leukocyte Esterase-Dipstick 500 /ul (Negative); Nitrite-Dipstick Negative (Negative); Occult Blood-Urine 150 /ul (Negative); Protein-Dipstick 100 mg/dl (Negative); Specific Gravity, Urine 1.015 (1.002-1.030); Urine Bilirubin Dipstick Negative (Negative)
[2025-03-11 15:04] LABS: Red Blood Cells-Urine 5-10 SEEN /hpf (0-5); Squamous Epithelial Cells - UA 5-10 SEEN /hpf (5-10)
[2025-03-11 15:06] LABS: Transitional Epithelial - Ur 5-10 SEEN /hpf (0-5)
[2025-03-11 20:03] LABS: Magnesium 2.1 mg/dL (1.5-2.2)
== END | disposition home or self-care (01) ==
PROVIDERS: PCP Family Medicine; Referring Provider Student in an Organized Health Care Education/Training Program; Visit Provider Student in an Organized Health Care Education/Training Program
DX: I10 Essential (primary) hypertension (principal); E78.5 Hyperlipidemia, unspecified; E83.41 Hypermagnesemia; R35.0 Frequency of micturition
CPT/HCPCS: 36415; 80048; 81001; 83735

== ENCOUNTER → 2025-03-24 | Outpatient (CLI) | payer MEDICARE, OTHER, SELFPAY ==
[2025-03-24 13:21] LABS: Anion Gap 9 (5-15); BUN 20 mg/dL (4-19); BUN/Creat Ratio 17.0 RATIO (10-20); Calcium,Total 9.2 mg/dL (7.6-11.0); Carbon Dioxide 26.2 mmol/L (21.0-32.0); Chloride 101 mmol/L (98-108); Glucose 98 mg/dL (70-99); Potassium 4.0 mmol/L (3.3-5.1)
== END | disposition home or self-care (01) ==
LOC: MFPLAB 09:46
PROVIDERS: PCP Family Medicine; Referring Provider Family Medicine; Visit Provider Family Medicine
DX: I10 Essential (primary) hypertension (principal)
CPT/HCPCS: 36415; 80048

== ENCOUNTER → 2025-04-07 | Outpatient (CLI) | payer MEDICARE, OTHER, SELFPAY ==
--- NOTE | 2025-04-07 08:51 | ECHOL_ITS ---
Reason For Study Reason For Study: CONGESTIVE HEART FAILURE Procedure This was a limited 2D transthoracic echocardiogram. Myocardial strain analysis was performed in this exam to aid in the assessment of cardiac function. Exam performed in department. Left Ventricle Normal LV size. The left ventricular ejection fraction is 55 %. No regional wall motion abnormalities noted. Right Ventricle Normal RV size. ICD or pacer leads identified within the right ventricle. Normal systolic function. Atria Normal left atrium. Normal right atrium. Mitral Valve Normal mitral valve. Mild (1+) eccentric mitral valve insufficiency. Tricuspid Valve Normal tricuspid valve. Moderate (2+) tricuspid valve insufficiency. Pulmonary artery systolic pressure is 58 mmHg. Aortic Valve Trisinus/trileaflet aortic valve. Mild (1+) aortic valve insufficiency. Pulmonic Valve Normal pulmonic valve. Great Vessels Normal aortic root. The pulmonary artery is normal size. Inferior vena cava collapse with respiration. Pericardium/Pleural No pericardial effusion. MMode/2D Measurements & Calculations LVIDd: 4.2 cm IVSd: 1.0 cm LAV(MOD- bp): 38.8 ml LVIDs: 2.9 cm LVPWd: 0.79 cm LAV(MOD- bp) Indexed: 25.7 ml/m2 RVDd: 3.1 cm FS: 31.1 % LAV(MOD- sp2): 51.1 ml LAV(MOD- sp4): 22.2 ml SV(MOD- sp4): 19.4 ml LVAd ap4: 16.4 cm2 LVAd ap2: 19.4 cm2 LVLd ap4: 6.2 cm LVLd ap2: 7.1 cm SI(MOD- sp4): 12.9 ml/m2 EDV(MOD-sp4): 35.2 ml EDV(MOD-sp2): 43.2 ml EDV(sp4-el): 36.5 ml EDV(sp2-el): 45.3 ml LVAs ap4: 9.8 cm2 LVAs ap2: 11.5 cm2 LVLs ap4: 5.2 cm LVLs ap2: 5.9 cm ESV(MOD-sp4): 15.8 ml ESV(MOD-sp2): 19.1 ml ESV(sp4-el): 15.8 ml ESV(sp2-el): 18.9 ml EF(MOD-sp4): 55.1 % EF(MOD-sp2): 55.7 % EF(sp4-el): 56.7 % SV(MOD-sp2): 24.1 ml SV(sp4-el): 20.7 ml Ao sinus diam: 3.0 cm SI(MOD-sp2): 16.0 ml/m2 Ao ST [place]: 2.5 cm LA dimension(2D): 4.1 cm LA A4 area: 11.1 cm2 RA A4 area: 14.9 cm2 TAPSE: 1.5 cm Doppler Measurements & Calculations Med Peak E' Navarro: 5.7 cm/sec LV V1 max: 7.7 cm/sec PA V2 max: 80.5 cm/sec LV V1 max P.02 mmHg TR max navarro: 370.1 cm/sec TR max P.8 mmHg ECHO/Echo, Limited Study Interpretation Summary Normal LV size. No regional wall motion abnormalities noted. The left ventricular ejection fraction is 55 %. Mild (1+) eccentric mitral valve insufficiency. Mild (1+) aortic valve insufficiency. ICD or pacer leads identified within the right ventricle. Moderate (2+) tricuspid valve insufficiency. The global longitudinal strain = -15.8% (abnormal). The global longitudinal str ain is mildly abnormal. Ordering Physician: Faustino Knight Referring Physician: Dillon Brasher Performed By: Christina Jenkins RDCS
== END | disposition home or self-care (01) ==
LOC: CVS 08:51
PROVIDERS: PCP Family Medicine; Referring Provider Student in an Organized Health Care Education/Training Program; Visit Provider Student in an Organized Health Care Education/Training Program
DX: I50.43 Acute on chronic combined systolic (congestive) and diastolic (congestive) heart failure (principal)
CPT/HCPCS: 93308

== ENCOUNTER → 2025-06-22 | Outpatient (CLI) | payer MEDICARE, OTHER, SELFPAY ==
[2025-06-22 18:37] LABS: AST(SGOT) 179 U/L (<=31); Alanine Aminotransfer ALT/SGPT 179 U/L (<=34); Albumin, Serum 4.2 g/dL (3.4-4.8); Alkaline Phosphatase 163 U/L (35-104); Anion Gap 10 (5-15); BUN 28 mg/dL (4-19); BUN/Creat Ratio 20.4 RATIO (10-20); Calcium,Total 9.1 mg/dL (7.6-11.0); Carbon Dioxide 25.8 mmol/L (21.0-32.0); Chloride 100 mmol/L (98-108); Cholesterol 120 mg/dL (<=200); Globulin 3.4 g/dL (2.2-4.2); Glucose 138 mg/dL (70-99); Low Density Lipoprotein Calc. 37 mg/dL; Potassium 5.1 mmol/L (3.3-5.1); Triglycerides 44 mg/dL; Very Low Density Lipoprotein 9 mg/dL (5-40); cholesterol:hdl ratio screen 1.67
== END | disposition home or self-care (01) ==
LOC: MFPLAB 15:15
PROVIDERS: PCP Family Medicine; Visit Provider Family Medicine
DX: I10 Essential (primary) hypertension (principal)
CPT/HCPCS: 36415; 80053; 80061

== ENCOUNTER → 2025-07-23 | Outpatient (CLI) | payer MEDICARE, OTHER, SELFPAY ==
--- NOTE | 2025-07-23 09:49 | US_ITS ---
PROCEDURE: ABDOMEN COMPLETE 07/23/2025 REASON FOR EXAM: ELEVATED LIVER ENZYMES, NEUROGENIC BLADDER TECHNIQUE: Procedure Code: USABDC Modality: US Procedure: ABDOMEN COMPLETE COMPARISON: None FINDINGS: Liver: Grossly normal size and echotexture. Gallbladder: Surgically absent. Common bile duct: Post-cholecystectomy the common bile duct is within normal limits measuring 9 mm. . Pancreas: Normal Kidneys: The right kidney measures 9.3 cm 3.6 cm 3.8 cm.. The left kidney measures 9.6 cm x 3.8 cm x 3.8 cm. Renal parenchymal thicknesses and echotextures are preserved. No hydronephrosis. Spleen: Normal in size and echotexture measuring 6.3 cm x 2.6 cm 3.9 cm. . Aorta: Tortuous calcified aorta. IVC: Visualized inferior vena cava is unremarkable. Peritoneal Findings: No ascites identified. US/Abdomen Complete IMPRESSION: Status post cholecystectomy. No acute abnormality is seen. Reading Location: [id number]
--- NOTE | 2025-07-23 10:41 | US_ITS ---
PROCEDURE: POST VOID RESIDUAL BLADDER 07/23/2025 REASON FOR EXAM: NEUROGENIC BLADDER TECHNIQUE: Procedure Code: USPVU Modality: US Procedure: POST VOID RESIDUAL BLADDER US/Post Void Residual Bladder IMPRESSION: Limited due to overlying bowel gas. Prevoid volume of 150ml. Post void bladder is not well visualized after self catheterization. Reading Location: [id number]
== END | disposition home or self-care (01) ==
LOC: US 09:44
PROVIDERS: PCP Family Medicine; Referring Provider Urology; Visit Provider Urology
DX: N31.9 Neuromuscular dysfunction of bladder, unspecified (principal)
CPT/HCPCS: 51798; 76700

== ENCOUNTER → 2025-07-27 | Outpatient (CLI) | payer MEDICARE, OTHER, SELFPAY ==
[2025-07-27 15:21] LABS: AST(SGOT) 40 U/L (<=31); Alanine Aminotransfer ALT/SGPT 35 U/L (<=34); Albumin, Serum 4.2 g/dL (3.4-4.8); Alkaline Phosphatase 103 U/L (35-104); Anion Gap 11 (5-15); BUN 29 mg/dL (4-19); BUN/Creat Ratio 20.9 RATIO (10-20); Calcium,Total 9.1 mg/dL (7.6-11.0); Carbon Dioxide 25.4 mmol/L (21.0-32.0); Chloride 102 mmol/L (98-108); Globulin 3.2 g/dL (2.2-4.2); Glucose 117 mg/dL (70-99); Potassium 4.6 mmol/L (3.3-5.1)
== END | disposition home or self-care (01) ==
PROVIDERS: PCP Family Medicine; Referring Provider Family Medicine; Visit Provider Family Medicine
DX: R74.8 Abnormal levels of other serum enzymes (principal)
CPT/HCPCS: 36415; 80053